=== PATIENT | male | born 1935 | race Caucasian/White ===

== ENCOUNTER 2021-03-03 16:39 | Inpatient (IN) | payer MEDICARE, SELFPAY ==
[2021-03-03] VITALS (7 sets, daily range): BP systolic 138–165; BP diastolic 71–90; PULSE 54–74; RESP 17–18; TEMP 35.9–36.7; O2SAT 92–100; BMI 25.8
--- NOTE | 2021-03-03 17:07 | PC.NURSE ---
Attempted to contact radha bautista. Spoke to Kelly BABB. when seeking clarification regarding labs. Pt was sent from facility with hand written note of critical Low platelets of 1999. Per SKINNY Mendoza, you're missing paperwork he's a direct admit, i can't do anything. Attempted to clarify that the issue with paperwork is a continuity of care issue. Per kelly babb she can not fax results for critical labs, she can not tell this ad writer who the sending physician is or if the paperwork infront of this ad writer is accurate. I don't care. 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 Don't bother me .
[2021-03-03 17:36] LABS: Hemoglobin 10.4 g/dl (14.0-18.0); MANUAL DIFF FLAG SCAN; Neutrophils Absolute Auto 8.1 X10*3/uL (2.0-8.3); SCAN SMEAR FLAG 1
[2021-03-03 17:38] LABS: Hematocrit 32.6 % (42-52); Imm Gran Abs Auto 0.06 X10*3/uL (0.00-0.03); Imm Gran Pct Auto 0.6 % (0.0-0.4); Lymphocytes Absolute Auto 1.8 X10*3/uL (1.2-4.9); Lymphocytes Percent Auto 17.2 % (20-40); Mean Corpuscular HGB Conc 31.9 g/dl (31.0-36.0); Mean Corpuscular Hemoglobin 29.6 pg (27.0-33.0); Mean Corpuscular Volume 92.9 fL (80-98); Monocytes Absolute Auto 0.4 X10*3/uL (0.1-1.2); Monocytes Percent Auto 3.8 % (2-11); Neutrophils Percent Auto 78.4 % (45-73); Red Blood Count 3.51 X10*6/uL (4.60-5.80); Red Cell Distribution Width 15.3 % (11.0-16.0); White Blood Count 10.4 X10*3/uL (4.8-10.8)
--- NOTE | 2021-03-03 17:42 | ED_ITS ---
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 Currently patient has no source of bleeding. Patient recently mild stroke left him with a mild right hemiparesis. Related Data Home Medications Medication Instructions Recorded Confirmed acetaminophen 650 mg PO Q6-8H PRN 03/03/21 03/03/21 alum-mag hydroxide-simeth 10 ml PO Q6H PRN 03/03/21 03/03/21 [Felicia-Lanta] aspirin 81 mg PO DAILY 03/03/21 03/03/21 bisacodyl 10 mg OR DAILY PRN 03/03/21 03/03/21 calcium carbonate [Tums] 400 mg PO DAILY PRN 03/03/21 03/03/21 calcium carbonate-vitamin D3 1 cap PO DAILY 03/03/21 03/03/21 [Calcium 600 + D(3)] ezetimibe 10 mg PO DAILY 03/03/21 03/03/21 metoprolol tartrate 25 mg PO DAILY 03/03/21 03/03/21 multivit [id number] acid 1 cap PO DAILY 03/03/21 03/03/21 nitroglycerin 0.4 mg SUBLINGUAL Q5M PRN 03/03/21 03/03/21 prednisone 30 mg PO DAILY 03/03/21 03/03/21 sennosides [senna] 8.6 mg PO BEDTIME 03/03/21 03/03/21 tamsulosin 0.4 mg PO DAILY 03/03/21 03/03/21 Allergies Allergy/AdvReac Type Severity Reaction Status Date / Time bupropion [From WELLBUTRIN] Allergy Unknown UNKNOWN Unverified 08/13/20 15:19 any statin Allergy Unknown Uncoded 03/19/20 00:00 BuPROPion HCl Allergy Unknown Uncoded 03/19/20 00:00 Wellbutrin Allergy Unknown Uncoded 03/12/20 00:00 Review of Systems Review of Systems: All other systems are reviewed and are negative Constitutional: Reports as per HPI and Reports no additional constitutional complaints Eyes: Reports as per HPI and Reports no additional eye complaints Reports system reviewed and no additional complaints, except as documented Cardiovascular: Reports as per HPI and Reports no additional cardiovascular complaints Respiratory: Reports as per HPI and Reports no additional respiratory complaints Gastrointestinal: Reports as per HPI and Reports no additional gastrointestinal complaints Genitourinary: Reports no additional female genitourinary complaints Musculoskeletal: Reports no additional musculoskeletal complaints Skin/Breast: Reports system reviewed and no additional complaints, except as docu Psychiatric: Reports no additional psychiatric complaints Endocrine: Reports no additional endocrine complaints Hematologic/Lymphatic: Reports no additional hematologic/lymphatic complaints Allergic/Immunologic: Reports no additional allergic/immunologic complaints Reports system reviewed and no additional complaints, except as documented and Reports Abnormal speech present COUNTS INCLUDE 234 BEDS AT THE [facility] Past Medical History Medical History Anemia with low platelet count Renal cancer Stroke Social History Social History Advance Directives: No Advance Directives Information Provided: No Physical Exam Vital Signs: Vital Signs: Last Vital Signs Temp 97.7 F 03/03/21 18:13 Pulse 60 03/03/21 18:13 Resp 18 03/03/21 18:13 BP 150/71 H 03/03/21 18:13 Pulse Ox 97 03/03/21 18:13 Body Mass Index 25.8 Vital signs have been reviewed as appeared to be correct. Blood pressure normal. Heart rate normal. Respiration rate normal. Temperature normal. Oxygen saturation normal. Appearance: Alert. Oriented X3. No acute distress. Head: Normal external exam. Normocephalic. Atraumatic. No Gonsales signs noted. No raccoon eyes noted Eyes: PERRLA. EOMI. Conjunctiva and sclera normal. Eyelids normal. ENT: TM's Normal. Pharynx normal. Uvula midline. Moist mucous membranes. No trismus noted. No drooling noted. No muffled voice noted. Neck: Normal inspection. Neck supple. FROM. No adenopathy. Thyroid Normal. No meningeal signs. No neck mass noted. CVS: Normal heart rate and rhythm. Heart sound normal. No murmurs noted. Pulses normal throughout. Respiratory: No respiratory distress. Painless inspiration. Breath sounds normal. No wheezes/rales/rhonchi noted. Chest nontender. No accessory muscle usage noted or decreased air movement noted. Abdomen: Soft and nontender. Bowel sounds normal in all 4 quadrants. No distention noted. No organomegaly noted. No visible injury noted. Rectal: No active bleeding. Back: No CVA tenderness. Full range of motion noted. Skin: Skin warm and dry. Normal skin color. Normal skin turgor. No rashes/lesions/lacerations noted. Extremities: No lower extremity edema. Extremities exhibit normal range of motion. Extremities nontender. Neuro: Oriented X 3. No motor deficit. No sensory deficit. Reflexes normal. Course Course Course Narrative: Assessment and plan. 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 The case is discussed with Dr. James to start the patient on IVIG/given 1 dose of prednisolone 30 mg p.o./2 units of platelets. And admit the patient for further evaluation. Medical Decision Making Lab Data Lab results reviewed: Yes I reviewed the patient's lab results. Result diagrams: 03/03/21 17:20 03/03/21 17:20 Labs: Lab Results 03/03/21 03/03/21 03/03/21 Range/Units 17:20 17:20 17:20 WBC 10.4 (4.8-10.8) X10*3/uL RBC 3.51 L (4.60-5.80) X10*6/uL Hgb 10.4 L (14.0-18.0) g/dl Hct 32.6 L (42-52) % MCV 92.9 (80-98) fL MCH 29.6 (27.0-33.0) pg MCHC 31.9 (31.0-36.0) g/dl RDW 15.3 (11.0-16.0) % Plt Count 1 L* (160-400) X10*3/uL MPV Not Reportable Immature Gran % (Auto) 0.6 H (0.0-0.4) % Neut % (Auto) 78.4 H (45-73) % Lymph % (Auto) 17.2 L (20-40) % Corson % (Auto) 3.8 (2-11) % Eos % (Auto) 0.0 (0-4) % Baso % (Auto) 0.0 (0-2) % Lymph # (Auto) 1.8 (1.2-4.9) X10*3/uL Corson # (Auto) 0.4 (0.1-1.2) X10*3/uL Eos # (Auto) 0.0 (0.0-0.4) X10*3/uL Baso # (Auto) 0.0 (0.0-0.2) X10*3/uL Abs Immat Gran (auto) 0.06 H (0.00-0.03) X10*3/uL Absolute Neuts (auto) 8.1 (2.0-8.3) X10*3/uL Absolute Nucleated RBC 0.000 (0.0-0.012) X10*3/uL Nucleated RBC % (auto) 0.0 (0.0-0.2) /100WBC Smear Tech's Comments VERIFIED Hold Blue Top SEE NOTE Sodium 132 L (135-145) mmol/L Potassium 4.9 (3.3-5.1) mmol/L Chloride 99 (96-108) mmol/L Carbon Dioxide 28 (22-29) mmol/L Anion Gap 10 L (12-20) BUN 43 H (9-16) mg/dL Creatinine 1.22 (0.5-1.4) mg/dL Estim Creat Clear Calc 39.9 Estimated GFR 56 Random Glucose 167 H (60-115) mg/dL Calcium 8.2 L (8.4-10.2) mg/dL Total Bilirubin 0.2 (0.0-1.0) mg/dL AST 33 (5-37) U/L ALT 21 (0-40) U/L Alkaline Phosphatase 76 (39-117) U/L Total Protein 6.2 L (6.5-8.0) g/dL Albumin 3.1 L (3.5-5.0) g/dL Discharge Plan Discharge Clinical Impression: Acute idiopathic thrombocytopenic purpura Patient Disposition: Admitted As Inpatient Prescriptions: No Action sennosides [senna] 8.6 mg Tablet 8.6 mg PO BEDTIME RF: 0 prednisone 10 mg Tablet 30 mg PO DAILY RF: 0 acetaminophen 650 mg Tablet 650 mg PO Q6-8H PRN (Reason: Pain) RF: 0 tamsulosin 0.4 mg Capsule 0.4 mg PO DAILY RF: 0 bisacodyl 10 mg Suppository 10 mg OR DAILY PRN (Reason: Constipation) RF: 0 calcium carbonate [Tums] 200 mg calcium (500 mg) Tablet,Chewable 400 mg PO DAILY PRN (Reason: Acid Reflux) RF: 0 nitroglycerin 0.4 mg Tablet, Sublingual 0.4 mg SUBLINGUAL Q5M PRN (Reason: Chest Pain) RF: 0 aspirin 81 mg Tablet 81 mg PO DAILY RF: 0 alum-mag hydroxide-simeth [Felicia-Lanta] 200-200-20 mg/5 mL Suspension 10 ml PO Q6H PRN (Reason: Pain) RF: 0 ezetimibe 10 mg Tablet 10 mg PO DAILY RF: 0 metoprolol tartrate 25 mg Tablet 25 mg PO DAILY RF: 0 Calcium 600 + D(3) 600 mg calcium- 200 unit Capsule 1 cap PO DAILY RF: 0 multivit no.[id number] acid 106.5-1 mg Capsule 1 cap PO DAILY RF: 0
--- NOTE | 2021-03-03 17:49 | PC.NURSE ---
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
[2021-03-03 17:51] LABS: PLT ABN DIST 1; Platelet Count 1 X10*3/uL (160-400)
[2021-03-03 17:58] LABS: Alanine Aminotransferase 21 U/L (0-40); Albumin Level 3.1 g/dL (3.5-5.0); Alkaline Phosphatase 76 U/L (39-117); Anion Gap 10 (12-20); Aspartate Amino Transferase 33 U/L (5-37); Bilirubin Total 0.2 mg/dL (0.0-1.0); Blood Urea Nitrogen 43 mg/dL (9-16); Calcium 8.2 mg/dL (8.4-10.2); Carbon Dioxide 28 mmol/L (22-29); Chloride 99 mmol/L (96-108); Creatinine Clr Calc Pharmacy 39.9; Estimated Glomerular Filt Rate 56; Glucose Random 167 mg/dL (60-115); Potassium 4.9 mmol/L (3.3-5.1); Sodium 132 mmol/L (135-145); Total Protein 6.2 g/dL (6.5-8.0)
[2021-03-03 18:07] LABS: SLIDE REVIEW VERIFIED
[2021-03-03] MEDS: predniSONE 10 MG TABLET 30 MG PO (18:30)
[2021-03-03] MEDS: diphenhydrAMINE HCL 50 MG/ML VIAL 12.5 MG IVPUSH (19:05)
[2021-03-03] MEDS: Acetaminophen 325 MG TABLET 650 MG PO (19:06)
[2021-03-03 20:12] LABS: COVID-19 Test Negative (Negative)
--- NOTE | 2021-03-03 20:53 | PM.IMHP ---
History of Present Illness Date of Service: 03/03/21 Chief Complaint: ITP Old male with past medical history of ITP in the past,, CVA, who presents to the hospital with complaints of low platelet count. Patient reports that he was away in March, returned on Monday, has been in rehab since Monday, noticed some rectal bleeding today after wiping his bottom, as well as right nostril bleed that was small in size but this is how he know he may have ITP. He asked the resident nurse to get his labs, labs were done and patient was found to have platelets of 1000 therefore referred to the hospital. He currently denies any chest pain, shortness of breath, abdominal pain nausea or vomiting, reports constipation, no diarrhea, no lower extremity edema no urinary symptoms. No active bleed. Vitals on arrival significant for temp of 96.6? that normalized, heart rate of 74, respiratory rate of 18, blood pressure 138/78, satting 100% on room air. Labs are significant for WBC count of 10.4,, hemoglobin of 10.4, hematocrit 32.6, platelets of 1000, sodium of 132, potassium 4.9, BUN of 43, creatinine of 1.22 with a baseline around 0.98 to 1.19, albumin of 3.1, COVID negative, Dr. James news department intern/oncologist was consulted and recommended patient received prednisone, IVIG, and 2 units of platelets Past medical history as below confirmed patient Review of Systems Review of Systems: Yes all other systems are reviewed and are negative [facility] Medical History Anemia with low platelet count Renal cancer Stroke Social History Household Members: None Housing: Long Term Do you presently have visiting nurse or other home services: No Smoking Status: Former smoker Use of substances other than those prescribed or required for medical reasons: No Currently Displaying Signs/Symptoms of Drug Intoxication Withdrawal: No Have you been hit, kicked, punched, or otherwise hurt by someone within the past year? If so, by whom?: No Do you feel safe in your current relationship?: No Current Relationship Is there a partner from a previous relationship who is making you feel unsafe now?: No Are you made to feel afraid or neglected: No Advance Directives: No Advance Directives Information Provided: No Do you have thoughts of harming others: None Do you have a plan to hurt others: No Plan Recently lost weight without trying: Unsure Meds Allergies Allergy/AdvReac Type Severity Reaction Status Date / Time bupropion [From WELLBUTRIN] Allergy Unknown Unknown Verified 03/03/21 22:53 any statin Allergy Unknown Unknown Uncoded 03/03/21 22:53 BuPROPion HCl Allergy Unknown Unknown Uncoded 03/03/21 22:53 Wellbutrin Allergy Unknown Unknown Uncoded 03/03/21 22:53 Active Medications: Current Medications Generic Name Dose Route Start Last Admin Trade Name Freq PRN Reason Stop Dose Admin Immune Globulin 10 gm in 100 mls @ 43 mls/hr 03/03/21 19:00 03/03/21 19:07 Flebogamma 10% IV 03/03/21 21:19 43 mls/hr ONCE ONE Administration As Directed Immune Globulin 20 gm in 200 mls @ 43 mls/hr 03/03/21 21:20 Flebogamma 10% IV 03/04/21 01:59 ONCE ONE As Directed Immune Globulin 20 gm in 200 mls @ 43 mls/hr 03/04/21 02:00 Flebogamma 10% IV 03/04/21 06:39 ONCE ONE As Directed Immune Globulin 20 gm in 200 mls @ 43 mls/hr 03/04/21 06:40 Flebogamma 10% IV 03/04/21 11:19 ONCE ONE As Directed Immune Globulin 10 gm in 100 mls @ 43 mls/hr 03/04/21 19:00 Flebogamma 10% IV 03/04/21 21:19 ONCE ONE As Directed Immune Globulin 20 gm in 200 mls @ 43 mls/hr 03/04/21 21:20 Flebogamma 10% IV 03/05/21 01:59 ONCE ONE As Directed Immune Globulin 20 gm in 200 mls @ 43 mls/hr 03/05/21 02:00 Flebogamma 10% IV 03/05/21 06:39 ONCE ONE As Directed Immune Globulin 20 gm in 200 mls @ 43 mls/hr 03/05/21 06:40 Flebogamma 10% IV 03/05/21 11:19 ONCE ONE As Directed Home Medications Medication Instructions Recorded Confirmed Last Taken Type acetaminophen 650 mg PO Q6-8H PRN 03/03/21 03/03/21 1 Day Ago History ~03/02/21 alum-mag hydroxide-simeth 10 ml PO Q6H PRN 03/03/21 03/03/21 1 Day Ago History [Felicia-Lanta] ~03/02/21 aspirin 81 mg PO DAILY 03/03/21 03/03/21 1 Day Ago History ~03/02/21 bisacodyl 10 mg MI DAILY PRN 03/03/21 03/03/21 1 Day Ago History ~03/02/21 calcium carbonate [Tums] 400 mg PO DAILY PRN 03/03/21 03/03/21 1 Day Ago History ~03/02/21 calcium carbonate-vitamin D3 1 cap PO DAILY 03/03/21 03/03/21 1 Day Ago History [Calcium 600 + D(3)] ~03/02/21 ezetimibe 10 mg PO DAILY 03/03/21 03/03/21 1 Day Ago History ~03/02/21 metoprolol tartrate 25 mg PO DAILY 03/03/21 03/03/21 1 Day Ago History ~03/02/21 multivit no.[id number] acid 1 cap PO DAILY 03/03/21 03/03/21 1 Day Ago History ~03/02/21 nitroglycerin 0.4 mg SUBLINGUAL Q5M PRN 03/03/21 03/03/21 1 Day Ago History ~03/02/21 prednisone 30 mg PO DAILY 03/03/21 03/03/21 1 Day Ago History ~03/02/21 sennosides [senna] 8.6 mg PO BEDTIME 03/03/21 03/03/21 1 Day Ago History ~03/02/21 tamsulosin 0.4 mg PO DAILY 03/03/21 03/03/21 1 Day Ago History ~03/02/21 Physical Exam Vital Signs and Narrative: Vital Signs: Last Vital Signs Temp 97.7 F 03/03/21 18:13 Pulse 59 03/03/21 20:00 Resp 18 03/03/21 20:00 BP 150/90 H 03/03/21 20:00 Pulse Ox 95 03/03/21 20:00 Body Mass Index 25.8 Const: General: cooperative and no acute distress Orientation/consciousness: patient oriented x3 Eyes: General: appearance normal, both eyes and all related structures Resp: Effort & Inspection: normal respiratory effort and able to speak in complete sentences Cardio: Rate: regular rate Rhythm: regular rhythm GI: Palpation (GI): Soft to palpation Auscultation: normal bowel sounds Skin: General skin exam: no rashes or lesions noted Neuro: General: patient oriented x3 Cognition (Neuro): normal cognition Extrem: General: Yes normal to inspection and Yes no pedal edema Results Labs CBC and Chem 7: 03/04/21 04:29 03/04/21 04:29 Labs: Laboratory Results - last 24 hr 03/03/21 03/03/21 03/03/21 17:20 17:20 17:20 MCV 92.9 MCH 29.6 MCHC 31.9 RDW 15.3 Plt Count 1 L* MPV Not Reportable Immature Gran % (Auto) 0.6 H Neut % (Auto) 78.4 H Lymph % (Auto) 17.2 L Esmeralda % (Auto) 3.8 Eos % (Auto) 0.0 Baso % (Auto) 0.0 Lymph # (Auto) 1.8 Esmeralda # (Auto) 0.4 Eos # (Auto) 0.0 Baso # (Auto) 0.0 Abs Immat Gran (auto) 0.06 H Absolute Neuts (auto) 8.1 Absolute Nucleated RBC 0.000 Nucleated RBC % (auto) 0.0 Smear Tech's Comments VERIFIED Hold Blue Top SEE NOTE Anion Gap 10 L Estim Creat Clear Calc 39.9 Estimated GFR 56 Random Glucose 167 H Calcium 8.2 L Total Bilirubin 0.2 AST 33 ALT 21 Alkaline Phosphatase 76 Total Protein 6.2 L Albumin 3.1 L COVID-19 (ANNETTE) COVID-19 Clin Com Blood Type Antibody Screen 03/03/21 03/03/21 18:22 19:19 MCV MCH MCHC RDW Plt Count MPV Immature Gran % (Auto) Neut % (Auto) Lymph % (Auto) Esmeralda % (Auto) Eos % (Auto) Baso % (Auto) Lymph # (Auto) Esmeralda # (Auto) Eos # (Auto) Baso # (Auto) Abs Immat Gran (auto) Absolute Neuts (auto) Absolute Nucleated RBC Nucleated RBC % (auto) Smear Tech's Comments Hold Blue Top Anion Gap Estim Creat Clear Calc Estimated GFR Random Glucose Calcium Total Bilirubin AST ALT Alkaline Phosphatase Total Protein Albumin COVID-19 (ANNETTE) Negative COVID-19 Clin Com See Note Blood Type B Negative Antibody Screen NEGATIVE Assessment and Plan (1) Acute idiopathic thrombocytopenic purpura: Status: Acute This is a 89-year-old male with past medical history of CVA, renal cancer, ITP who presents to the hospital with acute ITP # acute ITP - unclear precipitating event - reports that he travel from [place] 400 mile by CAR on monday - no overt bleeding at this time - platelet count of 1000 - receiving 2 units of platelet as well as IVIG, and received 30 mg of prednisone in the ED Plan: - will start him on pulsed dexamethasone which has been shown to decrease steroid dependence as well as faster recovery - will follow CBC and platelet count - hematology consulted # CVA - hold aspirin given low platelet - continue ezetimibe DVT prophylaxis: SCDs
[2021-03-03] MEDS: 0.9 % Sodium Chloride 1,000 ML 100 ML IVCONT (22:06)
--- NOTE | 2021-03-03 22:06 | PC.NURSE ---
awaiting IGG from [facility] at this time.
[2021-03-03 23:13] LABS: Basophils Percent Auto 0.1 % (0-2); Hematocrit 31.9 % (42-52); Imm Gran Abs Auto 0.06 X10*3/uL (0.00-0.03); Imm Gran Pct Auto 0.5 % (0.0-0.4); Lymphocytes Absolute Auto 1.8 X10*3/uL (1.2-4.9); Lymphocytes Percent Auto 16.2 % (20-40); MANUAL DIFF FLAG SCAN; Mean Corpuscular HGB Conc 31.3 g/dl (31.0-36.0); Mean Corpuscular Hemoglobin 29.4 pg (27.0-33.0); Mean Corpuscular Volume 93.8 fL (80-98); Monocytes Absolute Auto 0.6 X10*3/uL (0.1-1.2); Monocytes Percent Auto 5.3 % (2-11); NRBC Pct Auto 0.2 /100WBC (0.0-0.2); Neutrophils Absolute Auto 8.6 X10*3/uL (2.0-8.3); Neutrophils Percent Auto 77.9 % (45-73); Red Cell Distribution Width 15.2 % (11.0-16.0); SCAN SMEAR FLAG 1
[2021-03-03 23:14] LABS: PLT ABN DIST 1
[2021-03-03 23:15] LABS: Platelet Count 3 X10*3/uL (160-400)
[2021-03-04] VITALS (14 sets, daily range): BP systolic 138–166; BP diastolic 67–85; PULSE 58–84; RESP 12–20; TEMP 36.1–36.8; O2SAT 95–99
[2021-03-04 04:57] LABS: Hemoglobin 9.9 g/dl (14.0-18.0); MANUAL DIFF FLAG SCAN; Mean Corpuscular Volume 92.2 fL (80-98); SCAN SMEAR FLAG 1
[2021-03-04 04:58] LABS: Hematocrit 30.7 % (42-52); Imm Gran Abs Auto 0.05 X10*3/uL (0.00-0.03); Imm Gran Pct Auto 0.4 % (0.0-0.4); Lymphocytes Absolute Auto 1.3 X10*3/uL (1.2-4.9); Lymphocytes Percent Auto 11.2 % (20-40); Mean Corpuscular HGB Conc 32.2 g/dl (31.0-36.0); Mean Corpuscular Hemoglobin 29.7 pg (27.0-33.0); Monocytes Absolute Auto 0.3 X10*3/uL (0.1-1.2); Monocytes Percent Auto 2.5 % (2-11); Neutrophils Absolute Auto 10.3 X10*3/uL (2.0-8.3); Neutrophils Percent Auto 85.9 % (45-73); Red Blood Count 3.33 X10*6/uL (4.60-5.80); Red Cell Distribution Width 15.2 % (11.0-16.0)
[2021-03-04 05:03] LABS: PLT ABN DIST 1
[2021-03-04 05:05] LABS: Platelet Count 13 X10*3/uL (160-400)
[2021-03-04 05:07] LABS: SLIDE REVIEW VERIFIED
[2021-03-04 05:20] LABS: Anion Gap 11 (12-20); Blood Urea Nitrogen 40 mg/dL (9-16); Carbon Dioxide 25 mmol/L (22-29); Chloride 102 mmol/L (96-108); Estimated Glomerular Filt Rate 60; Glucose Random 161 mg/dL (60-115); Potassium 4.6 mmol/L (3.3-5.1); Sodium 133 mmol/L (135-145)
[2021-03-04] MEDS: Ezetimibe 10 MG TABLET PO (09:12)
[2021-03-04] MEDS: dexAMETHasone 4 MG TABLET 40 MG PO (09:12)
[2021-03-04] MEDS: Metoprolol Tartrate 25 MG TABLET PO (09:13)
--- NOTE | 2021-03-04 12:58 | PM.HEMONCCN ---
Subjective - Subjective Chief complaint: Consult for: Thrombocytopenia. Patient: new to practice Consult date: 03/04/21 Requesting Physician: Dr. Burks. Primary Care Provider: Unknown Physician Medical Summary: DIAGNOSIS: Consult for thrombocytopenia. HPI - Consult Narrative Reason for consult: Consult for: Thrombocytopenia. Narrative: Jean Del Angel is a pleasant 85 year old gentleman, with past medical history of ITP , and CVA. He presented to the hospital with complaints of low platelet count. Patient mentions that he was away in [place]. There he was admitted to the hospital for a stroke. He came back on Monday. He has been in rehab since then. Two days ago, he noticed some rectal bleeding, upon wiping, as well as some bleeding from his right nostril, small in amount. That made him suspect that he has relapsed. He asked the resident nurse to get his labs. He was thus found to have platelets of 1000. He currently denies any chest pain, shortness of breath, abdominal pain nausea or vomiting, no diarrhea. He does report constipation. No lower extremity edema no urinary symptoms. No other active bleeding. Vitals: temp of 96.6? that normalized, heart rate of 74, respiratory rate of 18, blood pressure 138/78, satting 100% on room air. Labs significant for: WBC count of 10.4,, hemoglobin of 10.4, hematocrit 32.6, platelets of 1000. Sodium of 132, potassium 4.9, BUN of 43, creatinine of 1.22 with a baseline around 0.98 to 1.19, albumin of 3.1. COVID; negative. Patient has received Prednisone, IVIG, and 2 units of platelets. Previous history: 1.Autoimmune thrombocytopenia status post splenectomy in 2018. Evaluation in [place] showed positive XIMENA titer of 1:320. Bone marrow aspiration/biopsy performed December 2018 showed mildly hypercellular bone marrow with trilineage hematopoiesis. Small abnormal B lymphocyte population identified by flow cytometry, 1%. Received rituximab from 01/29/2019 to 02/20/19. Nplate from 02/01/2019 to 02/27/2019. Splenectomy on 03/20/2019 with vaccination protocol. 2. Renal cell carcinoma of left kidney, status post nephrectomy on 03/20/2019. Stage pT3 pN0. 3. CT chest showed lung nodules initially concerning for metastatic disease, repeat in December showed improvement. Not consistent with metastatic disease. Review of Systems - Constitutional Reports system reviewed and no additional complaints, except as documented, Reports lack of energy - Eyes Reports system reviewed and no additional complaints, except as documented, Denies blurry vision - ENT Reports system reviewed and no additional complaints, except as documented - Cardiovascular Reports system reviewed and no additional complaints, except as documented, Denies chest pain at rest - Respiratory Reports no additional respiratory complaints, Denies change in phlegm color - Gastrointestinal Reports system reviewed and no additional complaints, except as documented, Reports constipation, Denies abdominal pain, Denies change in bowel habits - Genitourinary Genitourinary: Reports no additional male genitourinary complaints, Denies blood in urine - Musculoskeletal Reports system reviewed and no additional complaints, except as documented, Denies back pain - Integumentary/Breasts Skin/Breast: Reports no additional skin complaints, Reports bleeding lesions - Neurologic Reports system reviewed and no additional complaints, except as documented - Psychiatric Reports system reviewed and no additional complaints, except as documented, Denies anxiety - Endocrine Reports no additional endocrine complaints, Denies excessive sweating - Hematologic/Lymphatic Reports system reviewed and no additional complaints, except as documented, Reports easy bleeding, Reports easy bruising - Allergic/Immunologic Reports system reviewed and no additional complaints, except as documented, Denies GI upset with certain foods PMFSH Medical History: Medical History (Last Reviewed 03/04/21 @ 06:18 by Sebas Langley MD) Anemia with low platelet count Renal cancer Stroke Functional capacity: independent ambulation Patient : No Social History: Social History (Last Reviewed 03/03/21 @ 17:45 by Alan Diaz MD) Living Situation History: Household Members: None Housing: Skilled Nursing Alcohol History Details: Alcohol intake frequency: 0-2 drinks per day Occupation Assessmet: Current occupational status: retired Smoking status: Former smoker Home Medications and Allergies Current Medications: Current Medications Generic Name Dose Route Start Last Admin Trade Name Freq PRN Reason Stop Dose Admin Acetaminophen 650 mg 03/03/21 21:00 Acetaminophen 325 Mg Tablet PO Q6H PRN Pain, Mild (Pain Scale 1-3) Bisacodyl 10 mg 03/03/21 21:00 Bisacodyl 10 Mg Supp.Rect VT DAILY PRN Constipation Calcium Carbonate 750 mg 03/03/21 21:10 Calcium Carbonate 750 Mg Tab.Chew PO DAILY PRN Acid Reflux Dexamethasone 40 mg 03/04/21 09:00 03/04/21 09:12 Dexamethasone 4 Mg Tablet PO 40 mg DAILY [facility] Administration Ezetimibe 10 mg 03/04/21 09:00 03/04/21 09:12 Ezetimibe 10 Mg Tablet PO 10 mg DAILY [facility] Administration Immune Globulin 20 gm in 200 mls @ 43 mls/hr 03/05/21 06:40 Flebogamma 10% IV 03/05/21 11:19 ONCE ONE As Directed Immune Globulin 10 gm in 100 mls @ 43 mls/hr 03/04/21 19:00 Flebogamma 10% IV 03/04/21 21:19 ONCE ONE As Directed Immune Globulin 20 gm in 200 mls @ 43 mls/hr 03/04/21 21:20 Flebogamma 10% IV 03/05/21 01:59 ONCE ONE As Directed Immune Globulin 20 gm in 200 mls @ 43 mls/hr 03/05/21 02:00 Flebogamma 10% IV 03/05/21 06:39 ONCE ONE As Directed Metoprolol Tartrate 25 mg 03/04/21 09:00 03/04/21 09:13 Metoprolol Tartrate 25 Mg Tablet PO 25 mg DAILY [facility] Administration Protocol Nitroglycerin 0.4 mg 03/03/21 21:00 Nitroglycerin 0.4 Mg Tab.Subl SUBLINGUAL Q5M PRN Chest Pain Ondansetron HCl 4 mg 03/03/21 21:00 Ondansetron Hcl 4 Mg/2 Ml Vial IVPUSH Q8H PRN Nausea and Vomiting Senna 8.6 mg 03/03/21 21:00 03/03/21 22:00 Sennosides 8.6 Mg Tablet PO Not Given BEDTIME [facility] Sodium Chloride 3 ml 03/04/21 00:00 03/04/21 09:13 0.9 % Sodium Chloride Flush 3 Ml Syringe IVFLUSH Not Given QSHIFT [facility] Tamsulosin HCl 0.4 mg 03/04/21 21:00 Tamsulosin Hcl 0.4 Mg Capsule PO BEDTIME [facility] Home Medications Medication Instructions Recorded Confirmed Type Calcium 600 + D(3) 1 cap PO DAILY 03/03/21 03/03/21 History acetaminophen 650 mg PO Q6-8H PRN 03/03/21 03/03/21 History alum-mag hydroxide-simeth 10 ml PO Q6H PRN 03/03/21 03/03/21 History [Felicia-Lanta] aspirin 81 mg PO DAILY 03/03/21 03/03/21 History bisacodyl 10 mg VT DAILY PRN 03/03/21 03/03/21 History calcium carbonate [Tums] 400 mg PO DAILY PRN 03/03/21 03/03/21 History ezetimibe 10 mg PO DAILY 03/03/21 03/03/21 History metoprolol tartrate 25 mg PO DAILY 03/03/21 03/03/21 History multivit no.89-qfjy-munom acid 1 cap PO DAILY 03/03/21 03/03/21 History nitroglycerin 0.4 mg SUBLINGUAL Q5M PRN 03/03/21 03/03/21 History prednisone 30 mg PO DAILY 03/03/21 03/03/21 History sennosides [senna] 8.6 mg PO BEDTIME 03/03/21 03/03/21 History tamsulosin 0.4 mg PO DAILY 03/03/21 03/03/21 History Allergies Allergy/AdvReac Type Severity Reaction Status Date / Time bupropion [From WELLBUTRIN] Allergy Unknown Unknown Verified 03/03/21 22:53 any statin Allergy Unknown Unknown Uncoded 03/03/21 22:53 BuPROPion HCl Allergy Unknown Unknown Uncoded 03/03/21 22:53 Wellbutrin Allergy Unknown Unknown Uncoded 03/03/21 22:53 Physical Exam Vital signs: Vital Signs Temp 97.7 F 03/04/21 12:39 Pulse 63 03/04/21 12:39 Resp 18 03/04/21 12:39 BP 150/81 H 03/04/21 12:39 Pulse Ox 95 03/04/21 07:31 Intake & Output 03/03/21 03/04/21 03/04/21 18:59 06:59 18:59 Intake Total 777.333 / 777.333 935 / 935 Output Total 1550 / 1550 Balance -772.667 / -772.667 935 / 935 Urine Output (Average ml/kg/hr) 1.78 1.78 Intake: Intake (Blood Product) Amount 349 / 349 0 / 0 Apheresis Platelets Irr(E3056) 0 / 0 Unit [id number] Plt Aph Pas Pathreduced(E8341) 349 / 349 Unit [id number] Intake, IV Amount 428.333 / 428.333 935 / 935 Imm Glob G (IgG)/Sorb/IGA 0-50 100 / 100 10 gm In 100 ml @ As Directed 43 mls/hr IV ONCE ONE Rx#: [id number] Imm Glob G (IgG)/Sorb/IGA 0-50 200 / 200 400 / 400 20 gm In 200 ml @ As Directed 43 mls/hr IV ONCE ONE Rx#: [id number] 0.9 % Sodium Chloride 1,000 ml 128.333 / 128.333 535 / 535 @ 100 mls/hr IVCONT .Q10H [facility] Rx#:[id number] Output: Output, Urine Amount 1550 / 1550 Other: Breakfast % Eaten 100% Lunch % Eaten 100% Dinner % Eaten 100% Urine Urinal Urine Color Yellow Weight 72.575 kg Weight 72.575 kg - Constitutional Present: mild distress - Routine HEENT Exam Head: Present: normal inspection ENT: Present: mucous membranes moist - Routine Neck Exam Present: supple - Routine Respiratory Exam Present: CTAB - Routine Cardiovascular Exam Cardiovascular: Present: RRR, S1, S2 - Routine Abdominal Exam Present: soft, nontender - Routine Rectal Exam Patient deferred: digital exam - Routine Exam Perineum Description: Normal - Routine Extremities Exam Present: nontender Hem/Onc Consult Result - Labs CBC & Chem 7: 03/05/21 05:42 03/05/21 05:42 Labs: Short CBC 03/03/21 03/03/21 03/04/21 Range/Units 17:20 23:06 04:29 WBC 10.4 11.0 H 12.0 H (4.8-10.8) X10*3/uL Hgb 10.4 L 10.0 L 9.9 L (14.0-18.0) g/dl Hct 32.6 L 31.9 L 30.7 L (42-52) % Plt Count 1 L* 3 L* D 13 L* D (160-400) X10*3/uL BMP 03/03/21 03/04/21 17:20 04:29 Sodium 132 L 133 L Potassium 4.9 4.6 Chloride 99 102 Carbon Dioxide 28 25 BUN 43 H 40 H Creatinine 1.22 1.16 Calcium 8.2 L 8.0 L Liver Function 03/03/21 Range/Units 17:20 Total Bilirubin 0.2 (0.0-1.0) mg/dL AST 33 (5-37) U/L ALT 21 (0-40) U/L Alkaline Phosphatase 76 (39-117) U/L Albumin 3.1 L (3.5-5.0) g/dL Assessment and Plan (1) Acute idiopathic thrombocytopenic purpura Status: Acute This is a pleasant 85-year-old gentleman with a previous history of stroke, a couple of weeks ago and prior history of ITP. 1. Autoimmune thrombocytopenia status post splenectomy in 2019. Evaluation in [place] showed positive XIMENA titer of 1:320. Bone marrow aspiration/biopsy performed December 2018 showed mildly hypercellular bone marrow with trilineage hematopoiesis. Small abnormal B lymphocyte population identified by flow cytometry, 1%. Received rituximab from 01/29/2019 to 02/20/19. Nplate from 02/01/2019 to 02/27/2019. Splenectomy on 03/20/2019 with vaccination protocol. He recently noted some nosebleeds and rectal bleeding. He suspected that he has a relapse. That was the case. It count on presentation was a 1000. PLAN: He has received 2 units of pheresed platelets, IVIG and prednisone. Currently on a pulse Decadron regimen. Will continue to monitor platelets carefully. Usually with ITP the platelets are young and hyper functional and so bleeding is less of an issue. Thank you, CC:
--- NOTE | 2021-03-04 13:28 | MHC.CM.PN ---
PT REPORTS HE HAS BEEN AT [facility] FOR STR WITH A PLAN TO TRANSITION TO [facility]. PT REPORTS BEING ANXIOUS TO LEAVE THE HOSPITAL STATING HE HAS BEEN IN SEVERAL AND FEELS IT IS DETRIMENTAL TO BOTH HIS PHYSICAL AND MENTAL HEALTH. PT HAS A MOLST ON FILE HE WILL HAVE A NEW PCP ONCE AT [facility] IMM VERBALLY DELIVERED AND PT CONFIRMS UNDERSTANDING. CURRENT DC PLAN IS RETURN TO [facility] WHERE PT HAS A BED HOLD, TO COMPLETE STR. PT WILL NEED BLS VS CHAIR VAN TRANSPORT DEPENDING ON HIS CONDITION AT DC,
[2021-03-04] MEDS: 0.9 % Sodium Chloride Flush 3 ML SYRINGE IVFLUSH ×2 (15:26→20:52)
--- NOTE | 2021-03-04 15:36 | HO.PM.IMPN ---
Subjective Subjective Date of Service: 03/04/21 Interval History: The patient was seen and evaluated this morning Sitting in his chair, feels comfortable, wants to keep moving and not set Still Platelets 61420 this morning No bleeding reported Denies any fever, chills or shortness of breath No reported other overnight events. Systemic review: No fever, chills or weakness No chest pain, palpitation No shortness of breath or coughing No abdominal pain, nausea or vomiting No urinary symptoms No any rash or wounds Physical Exam Vital Signs: Vital Signs: Last Vital Signs Temp 97.6 F 03/04/21 15:20 Pulse 77 03/04/21 15:20 Resp 18 03/04/21 15:20 BP 156/75 H 03/04/21 15:20 Pulse Ox 99 03/04/21 15:04 Body Mass Index 25.8 Const: Other: Constitutional : Alert, oriented, not in distress Neck : Normal inspection, Supple Cardiovascular : RRR, S1 S2, no lower extremity edema Respiratory : Good bilateral air entry, no crackles, wheezes or rhonchi Gastrointestinal: soft, lax, Normal bowel sounds, Non tender Skin : Warm/Dry, No rash Neurological : Alert & oriented x3, No focal deficit Objective Data Current Medications Generic Name Dose Route Start Last Admin Trade Name Freq PRN Reason Stop Dose Admin Acetaminophen 650 mg 03/03/21 21:00 Acetaminophen 325 Mg Tablet PO Q6H PRN Pain, Mild (Pain Scale 1-3) Bisacodyl 10 mg 03/03/21 21:00 Bisacodyl 10 Mg Supp.Rect CO DAILY PRN Constipation Calcium Carbonate 750 mg 03/03/21 21:10 Calcium Carbonate 750 Mg Tab.Chew PO DAILY PRN Acid Reflux Dexamethasone 40 mg 03/04/21 09:00 03/04/21 09:12 Dexamethasone 4 Mg Tablet PO 40 mg DAILY [facility] Administration Ezetimibe 10 mg 03/04/21 09:00 03/04/21 09:12 Ezetimibe 10 Mg Tablet PO 10 mg DAILY [facility] Administration Immune Globulin 20 gm in 200 mls @ 43 mls/hr 03/05/21 06:40 Flebogamma 10% IV 03/05/21 11:19 ONCE ONE As Directed Immune Globulin 10 gm in 100 mls @ 43 mls/hr 03/04/21 19:00 Flebogamma 10% IV 03/04/21 21:19 ONCE ONE As Directed Immune Globulin 20 gm in 200 mls @ 43 mls/hr 03/04/21 21:20 Flebogamma 10% IV 03/05/21 01:59 ONCE ONE As Directed Immune Globulin 20 gm in 200 mls @ 43 mls/hr 03/05/21 02:00 Flebogamma 10% IV 03/05/21 06:39 ONCE ONE As Directed Metoprolol Tartrate 25 mg 03/04/21 09:00 03/04/21 09:13 Metoprolol Tartrate 25 Mg Tablet PO 25 mg DAILY [facility] Administration Protocol Nitroglycerin 0.4 mg 03/03/21 21:00 Nitroglycerin 0.4 Mg Tab.Subl SUBLINGUAL Q5M PRN Chest Pain Ondansetron HCl 4 mg 03/03/21 21:00 Ondansetron Hcl 4 Mg/2 Ml Vial IVPUSH Q8H PRN Nausea and Vomiting Senna 8.6 mg 03/03/21 21:00 03/03/21 22:00 Sennosides 8.6 Mg Tablet PO Not Given BEDTIME [facility] Sodium Chloride 3 ml 03/04/21 00:00 03/04/21 15:26 0.9 % Sodium Chloride Flush 3 Ml Syringe IVFLUSH 3 ml QSHIFT [facility] Administration Tamsulosin HCl 0.4 mg 03/04/21 21:00 Tamsulosin Hcl 0.4 Mg Capsule PO BEDTIME [facility] Labs CBC & Chem 7: 03/04/21 04:29 03/04/21 04:29 Assessment and Plan (1) Acute idiopathic thrombocytopenic purpura: Status: Acute Assessment and Plan: This is a 89-year-old male with past medical history of CVA, renal cancer, ITP who presents to the hospital with acute ITP Acute ITP unclear precipitating event no overt bleeding at this time platelet count improved to 13,000 thousand this morning Received 2 units of platelets, to give 2 more units today Continue IVIG D2 Continue pulsed dexamethasone D2 follow CBC and platelet count hematology consulted Hyponatremia Na of 133 stable, likely 2/2 decrease PO intake Follow BMP CVA hold aspirin given low platelet continue ezetimibe DVT prophylaxis SCDs
[2021-03-04] MEDS: Tamsulosin HCL 0.4 MG CAPSULE PO (20:54)
[2021-03-05 03:46] VITALS: BP 141/69; PULSE 50; RESP 15; TEMP 36.7; O2SAT 98
--- NOTE | 2021-03-05 03:49 | PC.NURSE ---
Addendum entered by Adri Munoz RN 03/05/21 06:38: [employer]ist Dian was able to place a 20g IV in his left forearm. Restarted the IgG, running at 43ml/hr. Will continue to monitor site. Original Note: Both IVs noted to be infiltrated. Elevated and warm compress on both sites (right and left lower arm). 2.5 bottles of IgG left. Hospitalist notified, no new orders at this time.
[2021-03-05 06:38] LABS: NRBC Pct Auto 0.2 /100WBC (0.0-0.2); Red Cell Distribution Width 15.3 % (11.0-16.0)
[2021-03-05 06:40] LABS: Hematocrit 27.3 % (42-52); Hemoglobin 8.5 g/dl (14.0-18.0); Mean Corpuscular HGB Conc 31.1 g/dl (31.0-36.0); Mean Corpuscular Hemoglobin 29.1 pg (27.0-33.0); Mean Corpuscular Volume 93.5 fL (80-98); Mean Platelet Volume 13.5 fL (9.4-12.4); Red Blood Count 2.92 X10*6/uL (4.60-5.80); White Blood Count 9.2 X10*3/uL (4.8-10.8)
[2021-03-05 07:03] LABS: Blood Urea Nitrogen 36 mg/dL (9-16); Calcium 7.9 mg/dL (8.4-10.2); Creatinine Clr Calc Pharmacy 48.7; Estimated Glomerular Filt Rate > 60; Glucose Random 117 mg/dL (60-115)
[2021-03-05 07:14] LABS: Anion Gap 8 (12-20); Carbon Dioxide 26 mmol/L (22-29); Chloride 103 mmol/L (96-108); Potassium 4.3 mmol/L (3.3-5.1); Sodium 133 mmol/L (135-145)
[2021-03-05 07:19] LABS: PLT ABN DIST 1; Platelet Count 60 X10*3/uL (160-400)
[2021-03-05 07:48] VITALS: BP 135/69; PULSE 57; RESP 18; TEMP 36.9; O2SAT 97
[2021-03-05 07:52] VITALS: BP 135/69; PULSE 57
[2021-03-05] MEDS: Metoprolol Tartrate 25 MG TABLET PO (07:52)
[2021-03-05] MEDS: Ezetimibe 10 MG TABLET PO (07:52)
[2021-03-05] MEDS: dexAMETHasone 4 MG TABLET 40 MG PO (07:52)
[2021-03-05 08:11] VITALS: PULSE 74
--- NOTE | 2021-03-05 10:03 | PM.HEMONCPN ---
Medical Summary - Medical Summary Date of Service: 03/05/21 Chief complaint: Low platelets Medical Summary: DIAGNOSIS: Consult for thrombocytopenia. Interval History Interval history: Patient is feeling a lot better. He has not noticed any further hematochezia or nose bleeds. He does have extensive skin bruising. He wants to go back to rehabilitation center today. Review of Systems - Neurologic Reports no additional neurologic complaints [facility] Medical History: Medical History (Last Reviewed 03/04/21 @ 06:18 by Sebas Langley MD) Anemia with low platelet count Renal cancer Stroke Functional capacity: independent ambulation Social History: Social History (Last Reviewed 03/03/21 @ 17:45 by Alan Diaz MD) Living Situation History: Household Members: None Housing: Shelter Alcohol History Details: Alcohol intake frequency: 0-2 drinks per day Occupation Assessmet: Current occupational status: retired Smoking status: Former smoker Oncology Screenings - ECOG Performance Status ECOG Performance Status: 2 Home Medications and Allergies Current Medications: Current Medications Generic Name Dose Route Start Last Admin Trade Name Freq PRN Reason Stop Dose Admin Acetaminophen 650 mg 03/03/21 21:00 Acetaminophen 325 Mg Tablet PO Q6H PRN Pain, Mild (Pain Scale 1-3) Bisacodyl 10 mg 03/03/21 21:00 Bisacodyl 10 Mg Supp.Rect KS DAILY PRN Constipation Calcium Carbonate 750 mg 03/03/21 21:10 Calcium Carbonate 750 Mg Tab.Chew PO DAILY PRN Acid Reflux Dexamethasone 40 mg 03/04/21 09:00 03/05/21 07:52 Dexamethasone 4 Mg Tablet PO 40 mg DAILY CHIN Administration Ezetimibe 10 mg 03/04/21 09:00 03/05/21 07:52 Ezetimibe 10 Mg Tablet PO 10 mg DAILY CHIN Administration Immune Globulin 20 gm in 200 mls @ 43 mls/hr 03/05/21 06:40 Flebogamma 10% IV 03/05/21 11:19 ONCE ONE As Directed Metoprolol Tartrate 25 mg 03/04/21 09:00 03/05/21 07:52 Metoprolol Tartrate 25 Mg Tablet PO 25 mg DAILY CHIN Administration Protocol Nitroglycerin 0.4 mg 03/03/21 21:00 Nitroglycerin 0.4 Mg Tab.Subl SUBLINGUAL Q5M PRN Chest Pain Ondansetron HCl 4 mg 03/03/21 21:00 Ondansetron Hcl 4 Mg/2 Ml Vial IVPUSH Q8H PRN Nausea and Vomiting Senna 8.6 mg 03/03/21 21:00 03/04/21 20:54 Sennosides 8.6 Mg Tablet PO Not Given BEDTIME ON LICENSE OF [facility] Sodium Chloride 3 ml 03/04/21 00:00 03/05/21 07:53 0.9 % Sodium Chloride Flush 3 Ml Syringe IVFLUSH Not Given QSHIFT ON LICENSE OF [facility] Tamsulosin HCl 0.4 mg 03/04/21 21:00 03/04/21 20:54 Tamsulosin Hcl 0.4 Mg Capsule PO 0.4 mg BEDTIME ON LICENSE OF [facility] Administration Home Medications Medication Instructions Recorded Confirmed Type Calcium 600 + D(3) 1 cap PO DAILY 03/03/21 03/03/21 History acetaminophen 650 mg PO Q6-8H PRN 03/03/21 03/03/21 History alum-mag hydroxide-simeth 10 ml PO Q6H PRN 03/03/21 03/03/21 History [Felicia-Lanta] aspirin 81 mg PO DAILY 03/03/21 03/03/21 History bisacodyl 10 mg KS DAILY PRN 03/03/21 03/03/21 History calcium carbonate [Tums] 400 mg PO DAILY PRN 03/03/21 03/03/21 History ezetimibe 10 mg PO DAILY 03/03/21 03/03/21 History metoprolol tartrate 25 mg PO DAILY 03/03/21 03/03/21 History multivit no.46-vdii-zwrhl acid 1 cap PO DAILY 03/03/21 03/03/21 History nitroglycerin 0.4 mg SUBLINGUAL Q5M PRN 03/03/21 03/03/21 History prednisone 30 mg PO DAILY 03/03/21 03/03/21 History sennosides [senna] 8.6 mg PO BEDTIME 03/03/21 03/03/21 History tamsulosin 0.4 mg PO DAILY 03/03/21 03/03/21 History Allergies Allergy/AdvReac Type Severity Reaction Status Date / Time bupropion [From WELLBUTRIN] Allergy Unknown Unknown Verified 03/03/21 22:53 any statin Allergy Unknown Unknown Uncoded 03/03/21 22:53 BuPROPion HCl Allergy Unknown Unknown Uncoded 03/03/21 22:53 Wellbutrin Allergy Unknown Unknown Uncoded 03/03/21 22:53 Exam Vital signs: Vital Signs Temp 98.4 F 03/05/21 07:48 Pulse 74 03/05/21 08:11 Resp 18 03/05/21 07:48 BP 135/69 03/05/21 07:52 Pulse Ox 97 03/05/21 07:48 Intake & Output 03/04/21 03/05/21 03/05/21 18:59 06:59 18:59 Intake Total 1882 / 2585 703 / 2585 480 / 480 Output Total 800 / 2290 1490 / 2290 300 / 300 Balance 1082 / 295 -787 / 295 180 / 180 Urine Output (Average ml/kg/hr) 0.92 1.71 0.34 Intake: Intake, Oral Amount 360 / 720 360 / 720 480 / 480 Intake (Blood Product) Amount 587 / 587 Apheresis Platelets Irr(E3056) 309 / 309 Unit [id number] Plt Aph Pas Pathreduced(E8343) 278 / 278 Unit [id number] Intake, IV Amount 935 / 1278 343 / 1278 Imm Glob G (IgG)/Sorb/IGA 0-50 100 / 100 10 gm In 100 ml @ As Directed 43 mls/hr IV ONCE ONE Rx#: [id number] Imm Glob G (IgG)/Sorb/IGA 0-50 400 / 643 243 / 643 20 gm In 200 ml @ As Directed 43 mls/hr IV ONCE ONE Rx#: [id number] 0.9 % Sodium Chloride 1,000 ml 535 / 535 @ 100 mls/hr IVCONT .Q10H ON LICENSE OF [facility] Rx#:[id number] Output: Output, Urine Amount 800 / 2290 1490 / 2290 300 / 300 Other: Breakfast % Eaten 75% Lunch % Eaten 100% Dinner % Eaten 75% Urine Urinal Urinal Urine Color Yellow Yellow Last Bowel Movement 03/05/21 Stool Bathroom Stool Amount Moderate Stool Color Brown Weight 72.575 kg Body Mass Index 25.8 - Constitutional Present: mild distress - Routine HEENT Exam Head: Present: normal inspection - Routine Respiratory Exam Present: CTAB - Routine Cardiovascular Exam Cardiovascular: Present: RRR, S1, S2 - Routine Abdominal Exam Present: soft, nontender - Routine Extremities Exam Present: nontender Data - Labs CBC & Chem 7: 03/05/21 05:42 03/05/21 05:42 Labs: 03/03/21 17:20 Complete Blood Count Auto Diff Stat Comprehensive Met. Panel Stat Hold Lt Blue - Possible Coag Stat SLIDE REVIEW Stat 03/03/21 18:01 predniSONE 30 mg PO ONCE ONE 03/03/21 18:22 Pheresis Platelets Stat Type and Screen Stat 03/03/21 18:50 Acetaminophen [Tylenol] 650 mg PO ONCE ONE diphenhydrAMINE HCL [Benadryl] 12.5 mg IVPUSH ONCE ONE 03/03/21 19:00 Imm Glob G (IgG)/Sorb/IGA 0-50 [Flebogamma 10%] 10 gm in 100 ml IV ONCE 03/03/21 19:19 COVID-19 ID NOW ([place]) Stat 03/03/21 20:28 Transfer Order Routine 03/03/21 21:00 0.9 % Sodium Chloride [Ns] 1,000 ml IVCONT 100 mls/hr 03/03/21 21:00 IV insert/maintain Q4HR Intake and Output Q8HR Vital Signs Q4HR 03/03/21 22:00 Imm Glob G (IgG)/Sorb/IGA 0-50 [Flebogamma 10%] 20 gm in 200 ml IV ONCE 03/03/21 22:15 Transfer Order Routine 03/03/21 23:06 Complete Blood Count Auto Diff Stat 03/04/21 02:40 Imm Glob G (IgG)/Sorb/IGA 0-50 [Flebogamma 10%] 20 gm in 200 ml IV ONCE 03/04/21 04:29 Basic Metabolic Panel Routine Complete Blood Count Auto Diff Routine SLIDE REVIEW Routine 03/04/21 07:20 Imm Glob G (IgG)/Sorb/IGA 0-50 [Flebogamma 10%] 20 gm in 200 ml IV ONCE 03/04/21 09:00 predniSONE 30 mg PO DAILY 03/04/21 19:00 Imm Glob G (IgG)/Sorb/IGA 0-50 [Flebogamma 10%] 10 gm in 100 ml IV ONCE 03/04/21 21:20 Imm Glob G (IgG)/Sorb/IGA 0-50 [Flebogamma 10%] 20 gm in 200 ml IV ONCE 03/05/21 02:00 Imm Glob G (IgG)/Sorb/IGA 0-50 [Flebogamma 10%] 20 gm in 200 ml IV ONCE 03/05/21 05:42 Basic Metabolic Panel DAILY@0600 Complete Blood Count no Diff DAILY@0600 03/05/21 06:40 Imm Glob G (IgG)/Sorb/IGA 0-50 [Flebogamma 10%] 20 gm in 200 ml IV ONCE Laboratory Last Values WBC 9.2 X10*3/uL (4.8-10.8) 03/05/21 05:42 RBC 2.92 X10*6/uL (4.60-5.80) L 03/05/21 05:42 Hgb 8.5 g/dl (14.0-18.0) L 03/05/21 05:42 Hct 27.3 % (42-52) L 03/05/21 05:42 MCV 93.5 fL (80-98) 03/05/21 05:42 MCH 29.1 pg (27.0-33.0) 03/05/21 05:42 MCHC 31.1 g/dl (31.0-36.0) 03/05/21 05:42 RDW 15.3 % (11.0-16.0) 03/05/21 05:42 Plt Count 60 X10*3/uL (160-400) L D 03/05/21 05:42 MPV 13.5 fL (9.4-12.4) H 03/05/21 05:42 Immature Gran % (Auto) 0.4 % (0.0-0.4) 03/04/21 04:29 Neut % (Auto) 85.9 % (45-73) H 03/04/21 04:29 Lymph % (Auto) 11.2 % (20-40) L 03/04/21 04:29 [place] % (Auto) 2.5 % (2-11) 03/04/21 04:29 Eos % (Auto) 0.0 % (0-4) 03/04/21 04:29 Baso % (Auto) 0.0 % (0-2) 03/04/21 04:29 Lymph # (Auto) 1.3 X10*3/uL (1.2-4.9) 03/04/21 04:29 [place] # (Auto) 0.3 X10*3/uL (0.1-1.2) 03/04/21 04:29 Eos # (Auto) 0.0 X10*3/uL (0.0-0.4) 03/04/21 04:29 Baso # (Auto) 0.0 X10*3/uL (0.0-0.2) 03/04/21 04:29 Abs Immat Gran (auto) 0.05 X10*3/uL (0.00-0.03) H 03/04/21 04:29 Absolute Neuts (auto) 10.3 X10*3/uL (2.0-8.3) H 03/04/21 04:29 Absolute Nucleated RBC 0.020 X10*3/uL (0.0-0.012) H 03/05/21 05:42 Nucleated RBC % (auto) 0.2 /100WBC (0.0-0.2) 03/05/21 05:42 Smear Tech's Comments VERIFIED 03/04/21 04:29 Hold Blue Top SEE NOTE 03/03/21 17:20 Sodium 133 mmol/L (135-145) L 03/05/21 05:42 Potassium 4.3 mmol/L (3.3-5.1) 03/05/21 05:42 Chloride 103 mmol/L (96-108) 03/05/21 05:42 Carbon Dioxide 26 mmol/L (22-29) 03/05/21 05:42 Anion Gap 8 (12-20) L 03/05/21 05:42 BUN 36 mg/dL (9-16) H 03/05/21 05:42 Creatinine 1.00 mg/dL (0.5-1.4) 03/05/21 05:42 Estim Creat Clear Calc 48.7 03/05/21 05:42 Estimated GFR > 60 03/05/21 05:42 Random Glucose 117 mg/dL (60-115) H 03/05/21 05:42 Calcium 7.9 mg/dL (8.4-10.2) L 03/05/21 05:42 Total Bilirubin 0.2 mg/dL (0.0-1.0) 03/03/21 17:20 AST 33 U/L (5-37) 03/03/21 17:20 ALT 21 U/L (0-40) 03/03/21 17:20 Alkaline Phosphatase 76 U/L (39-117) 03/03/21 17:20 Total Protein 6.2 g/dL (6.5-8.0) L 03/03/21 17:20 Albumin 3.1 g/dL (3.5-5.0) L 03/03/21 17:20 COVID-19 (ANNETTE) Negative (Negative) 03/03/21 19:19 COVID-19 Clin Com See Note 03/03/21 19:19 Blood Type B Negative 03/03/21 18:22 Antibody Screen NEGATIVE 03/03/21 18:22 Progress Note: A/P (1) Acute idiopathic thrombocytopenic purpura Status: Acute Assessment and plan: 1. This is a 85-year-old male with acute worsening of chronic ITP. He was on prednisone 30 mg when he noticed more skin bruising in hematochezia. Blood work showed platelet count of 1000. He was treated with pulse dose of Decadron 40 mg and IVIG 400 mg/kg for 3 doses. His platelet counts have increased to 60 K. He should continue with prednisone 30 mg daily. He has an appointment next week at the [facility]. Thank you. - Time Spent With Patient Total time spent is greater than 50% in coordination of care (as documented) at patient's floor/unit and/or counseling patient: 15 - 24 minutes
[2021-03-05 10:21] LABS: Iron 53 mcg/dL (45-160); Percent Iron Saturation 19 % (15-50); Total Iron Binding Capacity 281 mcg/dL (228-428); Unsaturated Iron Binding 228 ug/dL
--- NOTE | 2021-03-05 11:15 | P.DS_ITS ---
DS: Providers Provider Date of Service: 03/05/21 Date of admission: 03/03/21 20:49 Primary care physician: Unknown Physician Consults: 03/03/21 21:00 Consult to Hematology / Oncology Routine Consulting Provider: Zackary Pringle Reason for consultation: ITP Has provider been notified: No DS: Diagnosis Discharge Diagnosis (1) Acute idiopathic thrombocytopenic purpura: Status: Acute (2) Hyponatremia: Status: Acute DS: Medications Discharge Medications Home Medications: Home Medications Medication Instructions Recorded Confirmed Calcium 600 + D(3) 1 cap PO DAILY 03/03/21 03/03/21 acetaminophen 650 mg PO Q6-8H PRN 03/03/21 03/03/21 alum-mag hydroxide-simeth 10 ml PO Q6H PRN 03/03/21 03/03/21 [Felicia-Lanta] aspirin 81 mg PO DAILY 03/03/21 03/03/21 bisacodyl 10 mg MD DAILY PRN 03/03/21 03/03/21 calcium carbonate [Tums] 400 mg PO DAILY PRN 03/03/21 03/03/21 ezetimibe 10 mg PO DAILY 03/03/21 03/03/21 metoprolol tartrate 25 mg PO DAILY 03/03/21 03/03/21 multivit no.82-vspw-ymmxk acid 1 cap PO DAILY 03/03/21 03/03/21 nitroglycerin 0.4 mg SUBLINGUAL Q5M PRN 03/03/21 03/03/21 prednisone 30 mg PO DAILY 03/03/21 03/03/21 sennosides [senna] 8.6 mg PO BEDTIME 03/03/21 03/03/21 tamsulosin 0.4 mg PO DAILY 03/03/21 03/03/21 DS: Summary Hospital Course Hospital Course: Admission note HPI Old male with past medical history of ITP in the past,, CVA, who presents to the hospital with complaints of low platelet count. Patient reports that he was away in March, returned on Monday, has been in rehab since Monday, noticed some rectal bleeding today after wiping his bottom, as well as right nostril bleed that was small in size but this is how he know he may have ITP. He asked the resident nurse to get his labs, labs were done and patient was found to have platelets of 1000 therefore referred to the hospital. He currently denies any chest pain, shortness of breath, abdominal pain nausea or vomiting, reports constipation, no diarrhea, no lower extremity edema no urinary symptoms. No active bleed. Vitals on arrival significant for temp of 96.6? that normalized, heart rate of 74, respiratory rate of 18, blood pressure 138/78, satting 100% on room air. Labs are significant for WBC count of 10.4,, hemoglobin of 10.4, hematocrit 32.6, platelets of 1000, sodium of 132, potassium 4.9, BUN of 43, creatinine of 1.22 with a baseline around 0.98 to 1.19, albumin of 3.1, COVID negative, Dr. James general clerk/oncologist was consulted and recommended patient received prednisone, IVIG, and 2 units of platelets Hospital course The patient was admitted to the hospital for ITP with platelets of 4000 at time of presentation associated with nasal and rectal bleeding. Hemoglobin remained stable. The patient received total of 4 units of platelets and 3 days of IVIG and dexamethasone with good response over the hospital stay as his platelets count improved back to 60,000 at the day of discharge. He was evaluated by Dr. James from Hematology who recommended to continue the patient home dose of prednisone of 30 mg daily and to follow-up as outpatient. Will repeat CBC after 1 week of discharge. Time Spent with Patient Time attestation: Total time spent providing and/or coordinating discharge services: Discharge coordination time: Greater than 30 minutes Physical Exam Vital Signs: Vital Signs: Last Vital Signs Temp 98.4 F 03/05/21 07:48 Pulse 74 03/05/21 08:11 Resp 18 03/05/21 07:48 BP 135/69 03/05/21 07:52 Pulse Ox 97 03/05/21 07:48 Body Mass Index 25.8 Const: Other: Constitutional : Alert, oriented, not in distress Neck : Normal inspection, Supple Cardiovascular : RRR, S1 S2, no lower extremity edema Respiratory : Good bilateral air entry, no crackles, wheezes or rhonchi Gastrointestinal: soft, lax, Normal bowel sounds, Non tender Skin : Warm/Dry, No rash Neurological : Alert & oriented x3, No focal deficit DS: Data Data Completed and Pending Labs on day of discharge: Laboratory Results - last 24 hr 03/03/21 03/05/21 03/05/21 18:22 05:42 05:42 WBC 9.2 RBC 2.92 L Hgb 8.5 L Hct 27.3 L MCV 93.5 MCH 29.1 MCHC 31.1 RDW 15.3 Plt Count 60 L D MPV 13.5 H Absolute Nucleated RBC 0.020 H Nucleated RBC % (auto) 0.2 Sodium 133 L Potassium 4.3 Chloride 103 Carbon Dioxide 26 Anion Gap 8 L BUN 36 H Creatinine 1.00 Estim Creat Clear Calc 48.7 Estimated GFR > 60 Random Glucose 117 H Calcium 7.9 L Iron 53 TIBC 281 % Saturation 19 Unsat Iron Binding 228 Blood Type B Negative Antibody Screen NEGATIVE Discharge Plan Discharge Patient Disposition: [facility] Referrals: Omar Mcdermott [Outside] Physician,Unknown [Primary Care Provider] - Discharge Medications: Continued sennosides [senna] 8.6 mg Tablet 8.6 mg PO BEDTIME RF: 0 prednisone 10 mg Tablet 30 mg PO DAILY RF: 0 acetaminophen 650 mg Tablet 650 mg PO Q6-8H PRN (Reason: Pain) RF: 0 tamsulosin 0.4 mg Capsule 0.4 mg PO DAILY RF: 0 bisacodyl 10 mg Suppository 10 mg MD DAILY PRN (Reason: Constipation) RF: 0 calcium carbonate [Tums] 200 mg calcium (500 mg) Tablet,Chewable 400 mg PO DAILY PRN (Reason: Acid Reflux) RF: 0 nitroglycerin 0.4 mg Tablet, Sublingual 0.4 mg SUBLINGUAL Q5M PRN (Reason: Chest Pain) RF: 0 aspirin 81 mg Tablet 81 mg PO DAILY RF: 0 alum-mag hydroxide-simeth [Felicia-Lanta] 200-200-20 mg/5 mL Suspension 10 ml PO Q6H PRN (Reason: Pain) RF: 0 ezetimibe 10 mg Tablet 10 mg PO DAILY RF: 0 metoprolol tartrate 25 mg Tablet 25 mg PO DAILY RF: 0 Calcium 600 + D(3) 600 mg calcium- 200 unit Capsule 1 cap PO DAILY RF: 0 multivit no.27-uzzf-esoht acid 106.5-1 mg Capsule 1 cap PO DAILY RF: 0 Discharge Orders: Discharge Order (Routine); Ordered 03/05/21 Ordered By: Bev Burks Diet: advance to usual diet Activity on Discharge: As tolerated Stand Alone Forms: Patient Portal Discharge page Other Ambulatory Orders: Complete Blood Count no Diff (Routine) Timeframe: 1 Week Facility: [facility] - Location: [address]-Lab Ordered By: Bev Burks Care Plan Goals: Read below Health Concerns: Read below Plan of Treatment: Read below Assessment: You were admitted to the hospital for evaluation of nasal and rectal bleeding. your blood work was consistent with ITP attack with platelets count of 1000. You were treated with platelet transfusion of total of 4 units, IVIG and steroids with good response over the course of hospital stay as your platelets [id number] at the day of discharge. You were evaluated by general clerk Dr. James who recommended to continue your home dose prednisone and to follow-up as outpatient. To repeat CBC study in 1 week.
--- NOTE | 2021-03-05 11:30 | MHC.CM.PN ---
Patient has been medically cleared for dc today, to return to [facility] today at 4PM, via [facility]. Last IMM addressed on 03/04/21; Patient is aware of and in agreement with the dc plan.[facility] has been notified of the dc plan/time.
[2021-03-05 11:43] VITALS: BP 136/61; PULSE 61; TEMP 36.8; O2SAT 96
--- NOTE | 2021-03-05 15:19 | MHC.INPTTRAN ---
Pt known to facility. Admitted with plt count of 1, now 60. Pt alert and oriented, ambulates 1 assist with cane. No new meds. Pt to have follow-up blood work 03/12, follow up with [facility]ology- Dr. James.
== END 2021-03-05 19:10 | disposition skilled nursing facility (03) | DRG 813 ==
LOC: HO.ED 18:26 → HO.IMC 22:25
PROVIDERS: Internal Medicine; Admitting Provider Internal Medicine; Emergency Provider Emergency Medicine; PCP Internal Medicine; Visit Provider Student in an Organized Health Care Education/Training Program
DX: D69.3 Immune thrombocytopenic purpura (principal); E87.1 Hypo-osmolality and hyponatremia; Z20.822 Contact with and (suspected) exposure to COVID-19; Z86.73 Personal history of transient ischemic attack (TIA), and cerebral infarction without residual deficits; Z85.528 Personal history of other malignant neoplasm of kidney; Z90.5 Acquired absence of kidney; Z79.52 Long term (current) use of systemic steroids; Z79.82 Long term (current) use of aspirin; Z79.899 Other long term (current) drug therapy
CPT/HCPCS: 36415; 80048; 80053; 83540; 85025; 85027; 86850; 86900; 87635; 96365; 96366; 96375; 99285; J1200; J1572; J8540; P9035; P9037

== ENCOUNTER 2021-03-10 13:14 | Outpatient (REF) | payer OTHER, MEDICARE, SELFPAY | END 2021-03-10 13:15 | disposition home or self-care (01) | LOC: HO.MDS 13:14 | PROVIDERS: Visit Provider Internal Medicine | DX: D69.3 Immune thrombocytopenic purpura (principal) | CPT/HCPCS: 96365; 96366; J1572 ==

== ENCOUNTER 2021-03-11 11:58 | Outpatient (REF) | payer MEDICARE, SELFPAY | END 2021-03-11 11:59 | disposition home or self-care (01) | LOC: HO.MDS 11:58 | PROVIDERS: Visit Provider Internal Medicine | DX: D69.3 Immune thrombocytopenic purpura (principal) | CPT/HCPCS: 96365; 96366; J1572 ==

== ENCOUNTER 2021-03-16 16:47 | Inpatient (IN) | payer OTHER, SELFPAY ==
--- NOTE | 2021-03-16 18:42 | ECG_ITS ---
Test Reason : ABNORMAL LABS Blood Pressure : / mmHG Vent. Rate : 045 BPM Atrial Rate : 045 BPM P-R Int : 176 ms QRS Dur : 150 ms QT Int : 492 ms P-R-T Axes : 064 -68 123 degrees QTc Int : 425 ms Sinus bradycardia Left axis deviation Right bundle branch block T wave abnormality, consider lateral ischemia Abnormal ECG When compared with ECG of 16-MAR-2021 22:23, No significant change was found Referred By: Tiara Wheatley Electronically Signed By:
[2021-03-16 20:24] VITALS: BP 164/83; PULSE 67; RESP 16; TEMP 36.6; O2SAT 99; BMI 22.2
--- NOTE | 2021-03-16 20:53 | ED.RECABL ---
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 just seen here and admitted 03/03 to 03/05 for plts 4,000 given 4 units of plts, IVIG and dexamethasone was DC on 30mg prednisone daily and to follow up with 1 week CBC on 03/10 plts 7,000 notes he was on tavalisse for 3 to 4 days it had adverse effects cut down to 20mg prednisone but then today on plt check told they were only 7,000 no headaches, no falls, no areas of bleeding MD complaint: abnormal lab Initial visit (ago): hour(s) Initial visit for: other Returns today for: called because of abnormal lab/test Symptoms since prior visit: no new symptoms Context: planned re-check and called for abnormal lab result Associated symptoms: none Treatments prior to arrival: other medications Related Data Home Medications Medication Instructions Recorded Confirmed Calcium 600 + D(3) 1 cap PO DAILY 03/03/21 03/16/21 acetaminophen 650 mg PO Q6-8H PRN 03/03/21 03/16/21 alum-mag hydroxide-simeth 10 ml PO Q6H PRN 03/03/21 03/16/21 [Felicia-Lanta] aspirin 81 mg PO DAILY 03/03/21 03/16/21 bisacodyl 10 mg DE DAILY PRN 03/03/21 03/16/21 calcium carbonate [Tums] 400 mg PO DAILY PRN 03/03/21 03/16/21 ezetimibe 10 mg PO DAILY 03/03/21 03/16/21 metoprolol tartrate 25 mg PO DAILY 03/03/21 03/16/21 multivit no.74-vybk-jyygl acid 1 cap PO DAILY 03/03/21 03/16/21 nitroglycerin 0.4 mg SUBLINGUAL Q5M PRN 03/03/21 03/16/21 prednisone 30 mg PO DAILY 03/03/21 03/16/21 sennosides [senna] 8.6 mg PO BEDTIME 03/03/21 03/16/21 tamsulosin 0.4 mg PO DAILY 03/03/21 03/16/21 Allergies Allergy/AdvReac Type Severity Reaction Status Date / Time bupropion [From WELLBUTRIN] Allergy Unknown Unknown Verified 03/03/21 22:53 any statin Allergy Unknown Unknown Uncoded 03/03/21 22:53 BuPROPion HCl Allergy Unknown Unknown Uncoded 03/03/21 22:53 Wellbutrin Allergy Unknown Unknown Uncoded 03/03/21 22:53 Review of Systems Review of Systems: Constitutional : No Weight loss, No Fever, No Chills, No Fatigue, No Malaise ENT/Mouth : No sore throat, No Rhinorrhea Eyes: No Eye Pain, No Swelling, No Redness Cardiovascular : No Chest Pain, No SOB, No Dyspnea on Exertion, No Orthopnea, No Edema, No Palpitations Respiratory : No Cough, No Sputum, No Wheezing Gastrointestinal : No Nausea, No Vomiting, No Diarrhea, No Constipation, No abdominal Pain, No Hematochezia, No Melena Genitourinary : No Dysuria, No Urinary Frequency, No Hematuria, Musculoskeletal : No joint pain, No Myalgias, No Joint Swelling Skin : No Skin Lesions, No rash Neuro : No Weakness, No Numbness, No Dizziness, No Headache Psych : No Anxiety/Panic, No Depression Heme/Lymph: pos easy Bruising, No Bleeding,No Lymphadenopathy Endocrine : No Polyuria, No Polydipsia All other systems reviewed and are negative [facility] Past Medical History Attestation statement: The following information was validated with the patient. Medical History (Updated 03/16/21 @ 22:35 by Tiara Wheatley DO) Acute ITP Anemia with low platelet count Renal cancer Stroke Social History Social History Household Members: None Housing: Long-Term Smoking Status: Former smoker Advance Directives: No Advance Directives Information Provided: Yes Current occupational status: retired Physical Exam Vital Signs: Vital Signs: Last Vital Signs Temp 97.8 F 03/16/21 21:42 Pulse 67 03/16/21 21:42 Resp 16 03/16/21 21:42 BP 156/71 H 03/16/21 21:42 Pulse Ox 99 03/16/21 21:42 Body Mass Index 22.2 Appearance: Alert. Oriented X3. No acute distress. Eyes: Pupils equal, round and reactive to light. ENT: Pharynx normal. Neck: Normal inspection. Neck supple. CVS: Normal heart rate and rhythm. Pulses normal. Respiratory: No respiratory distress. Breath sounds normal. Abdomen: Soft and non-tender. Skin: Skin warm and dry. Normal skin color. Normal skin turgor. Extremities: No lower extremity edema. No calf ttp diffuse areas of bruising old and new on ext noted Neuro: Oriented X 3. No motor deficit. No sensory deficit. Course Course Course Narrative: plts 4 ordered plts dexamethasone 40mg ordered admit to hospitalist no CP/SOB prior troponins elevated in past - has new EKG changes but no symptoms and last EKG over 1 year ago but clinically no ischemic signs MDM - Recheck/Abnormal Lab/Rx MDM Narrative Medical decision making narrative: 85 yo male with hx of CVA, ITP on 20mg prednisone daily here with low plts on recheck today 7,000 denies trauma, headache, sites of bleeding did well with transfusions and dexa/IVIG last night, anticipate admission once platelets started in the ED Lab Data Result diagrams: 03/16/21 20:53 03/16/21 20:53 Labs: Lab Results 03/16/21 03/16/21 03/16/21 Range/Units 20:52 20:52 20:53 WBC 6.2 (4.8-10.8) X10*3/uL RBC 3.61 L (4.60-5.80) X10*6/uL Hgb 10.5 L (14.0-18.0) g/dl Hct 33.7 L (42-52) % MCV 93.4 (80-98) fL MCH 29.1 (27.0-33.0) pg MCHC 31.2 (31.0-36.0) g/dl RDW 16.5 H (11.0-16.0) % Plt Count 4 L* (160-400) X10*3/uL MPV Not Reportable Immature Gran % (Auto) 0.2 (0.0-0.4) % Neut % (Auto) 81.1 H (45-73) % Lymph % (Auto) 16.5 L (20-40) % [place] % (Auto) 2.2 (2-11) % Eos % (Auto) 0.0 (0-4) % Baso % (Auto) 0.0 (0-2) % Lymph # (Auto) 1.0 L (1.2-4.9) X10*3/uL [place] # (Auto) 0.1 (0.1-1.2) X10*3/uL Eos # (Auto) 0.0 (0.0-0.4) X10*3/uL Baso # (Auto) 0.0 (0.0-0.2) X10*3/uL Abs Immat Gran (auto) 0.01 (0.00-0.03) X10*3/uL Absolute Neuts (auto) 5.1 (2.0-8.3) X10*3/uL Absolute Nucleated RBC 0.000 (0.0-0.012) X10*3/uL Nucleated RBC % (auto) 0.0 (0.0-0.2) /100WBC Smear Tech's Comments VERIFIED PT 10.2 L (10.8-13.0) SEC INR 0.9 (0.9-1.1) APTT 25.5 (24.1-38.0) SEC Sodium (135-145) mmol/L Potassium (3.3-5.1) mmol/L Chloride (96-108) mmol/L Carbon Dioxide (22-29) mmol/L Anion Gap (12-20) BUN (9-16) mg/dL Creatinine (0.5-1.4) mg/dL Estim Creat Clear Calc Estimated GFR Random Glucose (60-115) mg/dL Calcium (8.4-10.2) mg/dL Magnesium (1.6-2.6) mg/dL Troponin I High Sens (<3.5-35.0) ng/L Blood Type B Negative Antibody Screen NEGATIVE 03/16/21 03/16/21 03/16/21 Range/Units 20:53 20:53 20:53 WBC (4.8-10.8) X10*3/uL RBC (4.60-5.80) X10*6/uL Hgb (14.0-18.0) g/dl Hct (42-52) % MCV (80-98) fL MCH (27.0-33.0) pg MCHC (31.0-36.0) g/dl RDW (11.0-16.0) % Plt Count (160-400) X10*3/uL MPV Immature Gran % (Auto) (0.0-0.4) % Neut % (Auto) (45-73) % Lymph % (Auto) (20-40) % [place] % (Auto) (2-11) % Eos % (Auto) (0-4) % Baso % (Auto) (0-2) % Lymph # (Auto) (1.2-4.9) X10*3/uL [place] # (Auto) (0.1-1.2) X10*3/uL Eos # (Auto) (0.0-0.4) X10*3/uL Baso # (Auto) (0.0-0.2) X10*3/uL Abs Immat Gran (auto) (0.00-0.03) X10*3/uL Absolute Neuts (auto) (2.0-8.3) X10*3/uL Absolute Nucleated RBC (0.0-0.012) X10*3/uL Nucleated RBC % (auto) (0.0-0.2) /100WBC Smear Tech's Comments PT (10.8-13.0) SEC INR (0.9-1.1) APTT (24.1-38.0) SEC Sodium 134 L (135-145) mmol/L Potassium 4.6 (3.3-5.1) mmol/L Chloride 102 (96-108) mmol/L Carbon Dioxide 27 (22-29) mmol/L Anion Gap 10 L (12-20) BUN 32 H (9-16) mg/dL Creatinine 1.20 (0.5-1.4) mg/dL Estim Creat Clear Calc 39.8 Estimated GFR 58 Random Glucose 176 H D (60-115) mg/dL Calcium 7.9 L (8.4-10.2) mg/dL Magnesium 2.2 (1.6-2.6) mg/dL Troponin I High Sens 104.3 H (<3.5-35.0) ng/L Blood Type Antibody Screen ECG Data Attestation: I personally reviewed and interpreted this ECG as follows: ECG interpretation date: 03/16/21 ECG interpretation time: 22:13 Interpretation: Rate: 45 Rhythm: sinus bradycardia [place]: left Normal P waves. Normal LYDIA. RBBB ST T wave : inverted I and aVL, V4-V6 qTC: normal prior studies: changed from prior Jan 2020 The study has been interpreted contemporaneously by me. . Critical Care Time Critical Care Time Critical Care Time: Yes Total Critical Care Time: 30 Attestation: medical records reviewed, transfusion of 2 pack platelets I attest to this time spent taking care of the patient Discharge Plan Discharge Clinical Impression: Thrombocytopenia, Inverted T wave Patient Disposition: Admitted As Inpatient
[2021-03-16 21:06] LABS: MANUAL DIFF FLAG SCAN; SCAN SMEAR FLAG 1
[2021-03-16 21:08] LABS: Hematocrit 33.7 % (42-52); Hemoglobin 10.5 g/dl (14.0-18.0); Imm Gran Abs Auto 0.01 X10*3/uL (0.00-0.03); Imm Gran Pct Auto 0.2 % (0.0-0.4); Lymphocytes Percent Auto 16.5 % (20-40); Mean Corpuscular HGB Conc 31.2 g/dl (31.0-36.0); Mean Corpuscular Hemoglobin 29.1 pg (27.0-33.0); Mean Corpuscular Volume 93.4 fL (80-98); Monocytes Absolute Auto 0.1 X10*3/uL (0.1-1.2); Monocytes Percent Auto 2.2 % (2-11); Neutrophils Absolute Auto 5.1 X10*3/uL (2.0-8.3); Neutrophils Percent Auto 81.1 % (45-73); Red Blood Count 3.61 X10*6/uL (4.60-5.80); Red Cell Distribution Width 16.5 % (11.0-16.0); White Blood Count 6.2 X10*3/uL (4.8-10.8)
[2021-03-16 21:17] LABS: PLT ABN DIST 1
[2021-03-16 21:19] LABS: Platelet Count 4 X10*3/uL (160-400)
[2021-03-16 21:23] LABS: INTERNATIONAL NORM RATIO 0.9 (0.9-1.1); Prothrombin Time 10.2 SEC (10.8-13.0)
[2021-03-16 21:26] LABS: Partial Thromboplastin Time 25.5 SEC (24.1-38.0)
[2021-03-16 21:34] LABS: Anion Gap 10 (12-20); Blood Urea Nitrogen 32 mg/dL (9-16); Calcium 7.9 mg/dL (8.4-10.2); Carbon Dioxide 27 mmol/L (22-29); Chloride 102 mmol/L (96-108); Creatinine Clr Calc Pharmacy 39.8; Estimated Glomerular Filt Rate 58; Glucose Random 176 mg/dL (60-115); Magnesium 2.2 mg/dL (1.6-2.6); Potassium 4.6 mmol/L (3.3-5.1); Sodium 134 mmol/L (135-145)
[2021-03-16 21:42] VITALS: BP 156/71; PULSE 67; RESP 16; TEMP 36.6; O2SAT 99
[2021-03-16 22:08] LABS: SLIDE REVIEW VERIFIED
--- NOTE | 2021-03-16 22:10 | ECG_ITS ---
Test Reason : ABNORMAL LABS Blood Pressure : / mmHG Vent. Rate : 045 BPM Atrial Rate : 045 BPM P-R Int : 178 ms QRS Dur : 146 ms QT Int : 488 ms P-R-T Axes : 062 -72 121 degrees QTc Int : 422 ms Sinus bradycardia Right bundle branch block Left anterior fascicular block Bifascicular block T wave abnormality, consider lateral ischemia Abnormal ECG When compared with ECG of 21-FEB-2020 12:53, Vent. rate has decreased BY 30 BPM T wave inversion now evident in Anterolateral leads QT has shortened Referred By: Tiara Wheatley Electronically Signed By:Martin Gutierrez
[2021-03-16 22:11] LABS: Troponin-I High Sensitivity 104.3 ng/L (<3.5-35.0)
[2021-03-16] MEDS: dexAMETHasone 4 MG TABLET 40 MG PO (22:31)
[2021-03-16 22:51] VITALS: BP 147/76; PULSE 40; RESP 12; TEMP 36.4
--- NOTE | 2021-03-16 23:03 | P.HPHOSP_ITS ---
History of Present Illness Date of Service: 03/16/21 Chief Complaint: Low Plt 85-year-old male with past medical history of ITP, CVA, who presents to the hospital with complaints of low platelet counts. Of note patient was discharged from the hospital on March 05 after being managed for ITP. He returns today [facility] that he had lab work done which showed low platelet counts. Patient reports that he was recently started on a medication called Fostamitinib by his hematology oncologist, but cause some side effects including loss of bowel control and he decided to stop taking the medication. His prednisone was also reduced by his hematology oncologist to 20 mg. Patient had lab work done and called his hematology oncologist and was told to come to the hospital. He currently denies any headache, change in vision, no abdominal pain, no bleeding episodes, no hemoptysis, hematochezia, no chest pain, shortness of breath, no nausea vomiting, no diarrhea constipation, no urinary symptoms and no lower extremity edema. On arrival to the ED hemodynamically stable with no significant abnormal vitals Labs are significant for WBC count of 6.2, hemoglobin of 10.5, platelets of 4, sodium of 134, troponin of 104.3, that trended down to 83. UA negative. COVID- 19 negative. EKG shows sinus bradycardia with right bundle branch block and T-wave inversion in lateral leads with T-wave inversions new from recent EKG Review of Systems Review of Systems: Yes all other systems are reviewed and are negative [facility] Medical History Acute ITP Anemia with low platelet count Renal cancer Stroke Social History Household Members: None Housing: [place] Alcohol intake: former Smoking Status: Former smoker Smoked in Last 30 Days: No Use of substances other than those prescribed or required for medical reasons: No Advance Directives: No Advance Directives Information Provided: Yes Current occupational status: retired Meds Allergies Allergy/AdvReac Type Severity Reaction Status Date / Time bupropion [From WELLBUTRIN] Allergy Unknown Unknown Verified 03/03/21 22:53 any statin Allergy Unknown Unknown Uncoded 03/03/21 22:53 BuPROPion HCl Allergy Unknown Unknown Uncoded 03/03/21 22:53 Wellbutrin Allergy Unknown Unknown Uncoded 03/03/21 22:53 Home Medications Medication Instructions Recorded Confirmed Last Taken Type Calcium 600 + D(3) 1 cap PO DAILY 03/03/21 03/16/21 1 Day Ago History ~03/15/21 acetaminophen 650 mg PO Q6-8H PRN 03/03/21 03/16/21 1 Day Ago History ~03/15/21 alum-mag hydroxide-simeth 10 ml PO Q6H PRN 03/03/21 03/16/21 1 Day Ago History [Felicia-Lanta] ~03/15/21 aspirin 81 mg PO DAILY 03/03/21 03/16/21 1 Day Ago History ~03/15/21 bisacodyl 10 mg GA DAILY PRN 03/03/21 03/16/21 1 Day Ago History ~03/15/21 calcium carbonate [Tums] 400 mg PO DAILY PRN 03/03/21 03/16/21 1 Day Ago History ~03/15/21 ezetimibe 10 mg PO DAILY 03/03/21 03/16/21 1 Day Ago History ~03/15/21 metoprolol tartrate 25 mg PO DAILY 03/03/21 03/16/21 1 Day Ago History ~03/15/21 multivit no.38-whbq-kpyct acid 1 cap PO DAILY 03/03/21 03/16/21 1 Day Ago History ~03/15/21 nitroglycerin 0.4 mg SUBLINGUAL Q5M PRN 03/03/21 03/16/21 1 Day Ago History ~03/15/21 prednisone 30 mg PO DAILY 03/03/21 03/16/21 1 Day Ago History ~03/15/21 sennosides [senna] 8.6 mg PO BEDTIME 03/03/21 03/16/21 1 Day Ago History ~03/15/21 tamsulosin 0.4 mg PO DAILY 03/03/21 03/16/21 1 Day Ago History ~03/15/21 Physical Exam Vital Signs and Narrative: Vital Signs: Last Vital Signs Temp 97.6 F 03/16/21 22:51 Pulse 40 L 03/16/21 22:51 Resp 12 03/16/21 22:51 BP 147/76 H 03/16/21 22:51 Pulse Ox 99 03/16/21 21:42 Body Mass Index 22.2 Const: General: cooperative and no acute distress Orienta tion/consciousness: patient oriented x3 Eyes: General: appearance normal, both eyes and all related structures Resp: Effort & Inspection: normal respiratory effort and able to speak in complete sentences Cardio: Rate: regular rate Rhythm: regular rhythm GI: Palpation (GI): Soft to palpation Auscultation: normal bowel sounds Skin: General skin exam: no rashes or lesions noted Neuro: General: patient oriented x3 Cognition (Neuro): normal cognition Extrem: General: Yes normal to inspection and Yes no pedal edema Results Labs CBC and Chem 7: 03/17/21 04:31 03/17/21 04:31 Labs: Laboratory Results - last 24 hr 03/16/21 03/16/21 03/16/21 20:52 20:52 20:53 MCV 93.4 MCH 29.1 MCHC 31.2 RDW 16.5 H Plt Count 4 L* MPV Not Reportable Immature Gran % (Auto) 0.2 Neut % (Auto) 81.1 H Lymph % (Auto) 16.5 L [place] % (Auto) 2.2 Eos % (Auto) 0.0 Baso % (Auto) 0.0 Lymph # (Auto) 1.0 L [place] # (Auto) 0.1 Eos # (Auto) 0.0 Baso # (Auto) 0.0 Abs Immat Gran (auto) 0.01 Absolute Neuts (auto) 5.1 Absolute Nucleated RBC 0.000 Nucleated RBC % (auto) 0.0 Smear Tech's Comments VERIFIED PT 10.2 L INR 0.9 APTT 25.5 Anion Gap Estim Creat Clear Calc Estimated GFR Random Glucose Calcium Magnesium Troponin I High Sens Blood Type B Negative Antibody Screen NEGATIVE 03/16/21 03/16/21 03/16/21 20:53 20:53 20:53 MCV MCH MCHC RDW Plt Count MPV Immature Gran % (Auto) Neut % (Auto) Lymph % (Auto) [place] % (Auto) Eos % (Auto) Baso % (Auto) Lymph # (Auto) [place] # (Auto) Eos # (Auto) Baso # (Auto) Abs Immat Gran (auto) Absolute Neuts (auto) Absolute Nucleated RBC Nucleated RBC % (auto) Smear Tech's Comments PT INR APTT Anion Gap 10 L Estim Creat Clear Calc 39.8 Estimated GFR 58 Random Glucose 176 H D Calcium 7.9 L Magnesium 2.2 Troponin I High Sens 104.3 H Blood Type Antibody Screen Assessment and Plan (1) Thrombocytopenia: Status: Acute (2) Inverted T wave: Status: Acute (3) Elevated troponin: Status: Acute (4) Acute ITP: Status: Inactive This is an 85-year-old male with past medical history of ITP who presents to the hospital with low platelet count # acute ITP - possibly secondary to stopping his medications - no overt bleeding at this time - platelet count of 4000 - receiving 2 units of platelets, Decadron Plan: - will start him on pulsed dexamethasone which has been shown to decrease steroid dependence as well as faster recovery - will follow CBC and platelet count - hematology consulted # Elevated trop - no chest pain, no EKG changes - will trend troponin # has new T-wave inversions - will consult Cardiology for possible outpatient workup - at this time will hold off on starting any anticoagulation given his low platelets # CVA - hold aspirin given low platelet - continue ezetimibe DVT prophylaxis: SCDs
[2021-03-16 23:07] VITALS: BP 152/73; PULSE 46; RESP 15; TEMP 36.4
[2021-03-16 23:25] LABS: Glucose Urine UA NEG (NEG); Leukocyte Esterase Urine NEG (NEG); Nitrite Urine NEG (NEG); Urine Blood TRACE (NEG); Urine Ketones NEG (NEG); Urine Protein NEG (NEG-TRACE)
[2021-03-16 23:32] LABS: Appearance Urine CLEAR; Color Urine YELLOW
[2021-03-16 23:33] LABS: Bacteria Urine TRACE /LPF; RBC Urine 0-2 /HPF (0); Renal Epithelial Cells Urine TRACE /LPF; Squamous Epithelial Cell Urine TRACE /LPF; WBC Urine 0-2 /HPF (0-4)
[2021-03-17] VITALS (9 sets, daily range): BP systolic 132–162; BP diastolic 62–90; PULSE 54–97; RESP 13–20; TEMP 36.4–36.6; O2SAT 98–100
[2021-03-17] MEDS: 0.9 % Sodium Chloride 1,000 ML 80 ML IVCONT (00:37)
--- NOTE | 2021-03-17 01:46 | PC.NURSE ---
pt presents to ED from [facility]F with low platelet count. pt is alert and oriented x3. eye contact and verbal response appropriate for setting. pt is calm and cooperative and able to make needs known. lung sounds clear bilaterally, respirations even and unlabored. pt denies feeling SOB at this time. pt denies any pain at this time. pt has purple bruising on both arms and both legs. no edema noted on body. pt aware of plan of care for admission. no questions or concerns at this time. call modi in reach.
[2021-03-17 02:27] LABS: COVID-19 Test Negative (Negative); IDNOW Serial# 9DD0AD1C
[2021-03-17 03:11] LABS: Troponin-I High Sensitivity 83.7 ng/L (<3.5-35.0)
--- NOTE | 2021-03-17 03:14 | PC.NURSE ---
RN AWARE OF CRITICAL TROP 83.7
--- NOTE | 2021-03-17 03:20 | PC.NURSE ---
Troponin 83.7 hospitalist (Shivam) aware, no new orders at this time
--- NOTE | 2021-03-17 04:05 | PC.NURSE ---
pt awake and requested a cup of tea and to use the urinal. 400cc voided into urinal. pt denies any pain and has no questions or concerns at this time. pt aware of plan of care for admission. call modi in reach.
--- NOTE | 2021-03-17 04:40 | PC.NURSE ---
IV that was in the right ac noted to be leaking blood, when attempting to flush IV blood and fluid leaked into tegaderm so IV was discontinued. New 20g IV placed in right forearm, no leakage noted and new IV is patent and able to flush without issue.
[2021-03-17 05:22] LABS: Basophils Percent Auto 0.1 % (0-2); Hematocrit 30.1 % (42-52); Hemoglobin 9.7 g/dl (14.0-18.0); Imm Gran Abs Auto 0.03 X10*3/uL (0.00-0.03); Imm Gran Pct Auto 0.3 % (0.0-0.4); Lymphocytes Absolute Auto 0.6 X10*3/uL (1.2-4.9); Lymphocytes Percent Auto 6.6 % (20-40); MANUAL DIFF FLAG SCAN; Mean Corpuscular HGB Conc 32.2 g/dl (31.0-36.0); Mean Corpuscular Hemoglobin 29.9 pg (27.0-33.0); Mean Corpuscular Volume 92.9 fL (80-98); Mean Platelet Volume 11.4 fL (9.4-12.4); Monocytes Percent Auto 0.2 % (2-11); NRBC Pct Auto 0.3 /100WBC (0.0-0.2); Neutrophils Absolute Auto 8.6 X10*3/uL (2.0-8.3); Neutrophils Percent Auto 92.8 % (45-73); Red Blood Count 3.24 X10*6/uL (4.60-5.80); Red Cell Distribution Width 16.4 % (11.0-16.0); SCAN SMEAR FLAG 1; White Blood Count 9.3 X10*3/uL (4.8-10.8)
[2021-03-17 05:26] LABS: Platelet Count 82 X10*3/uL (160-400)
[2021-03-17 05:50] LABS: Anion Gap 12 (12-20); Blood Urea Nitrogen 28 mg/dL (9-16); Calcium 7.7 mg/dL (8.4-10.2); Carbon Dioxide 24 mmol/L (22-29); Chloride 102 mmol/L (96-108); Creatinine Clr Calc Pharmacy 45.9; Estimated Glomerular Filt Rate > 60; Glucose Random 184 mg/dL (60-115); Potassium 3.9 mmol/L (3.3-5.1); Sodium 134 mmol/L (135-145)
--- NOTE | 2021-03-17 10:10 | P.CNHO_ITS ---
Subjective - Subjective Chief complaint: Diarrhea Patient: known to practice within the last 3 years Consult date: 03/17/21 Requesting Physician: Dr. 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 He was admitted recently to the hospital when his platelet count was 1 K, he was treated with Decadron and IVIG, he had a good platelet response. However it was very brief, his platelet counts again went below 10 K. He was started on Fostamitinib last week. However after 4 days he developed severe diarrhea/incontinence of stool that left him very weak and dehydrated. He was referred to the emergency room and he was found to have platelet count of 4 K. He was admitted for further management. He denies any chest pain, shortness of breath, dizziness or diaphoresis. His appetite has been somewhat poor but he is eating okay. He denies hematuria or hematochezia. He has extensive skin bruising. He does not have epistaxis this time. [facility] Medical History: Medical History (Last Reviewed 03/17/21 @ 06:39 by Sebas Langley MD) Acute ITP Anemia with low platelet count Renal cancer Stroke Social History: Social History (Last Reviewed 03/17/21 @ 06:40 by Sebas Langley MD) Living Situation History: Household Members: None Housing: Longterm Alcohol History: Alcohol intake: former Alcohol History Details: Alcohol intake frequency: holiday/special occasion Tobacco History: Smoking Status: Former smoker Smoked in Last 30 Days: No Substance Use History: Use of substances other than those prescribed or required for medical reasons : No Substance Use Frequency Other:: CBD Advance Directives: Advance Directives: No Advance Directives Information Provided: Yes Occupation Assessmet: Current occupational status: retired Smoking status: Former smoker Home Medications and Allergies Current Medications: Current Medications Generic Name Dose Route Start Last Admin Trade Name Freq PRN Reason Stop Dose Admin Acetaminophen 650 mg 03/17/21 02:07 Acetaminophen 325 Mg Tablet PO Q6H PRN Pain, Mild (Pain Scale 1-3) Bisacodyl 10 mg 03/17/21 02:07 Bisacodyl 10 Mg Supp.Rect IN DAILY PRN Constipation Dexamethasone Sodium Phosphate 40 mg 03/17/21 09:00 Dexamethasone Sod Phosphate 4 Mg/Ml Vial IVPUSH DAILY [facility] Docusate Sodium 100 mg 03/17/21 02:07 Docusate Sodium 100 Mg Capsule PO DAILY PRN Constipation Ezetimibe 10 mg 03/17/21 09:00 Ezetimibe 10 Mg Tablet PO DAILY [facility] Sodium Chloride 1,000 mls @ 80 mls/hr 03/16/21 23:15 03/17/21 00:37 Ns IVCONT 80 mls/hr .[id number] [facility] Administration Metoprolol Tartrate 25 mg 03/17/21 09:00 Metoprolol Tartrate 25 Mg Tablet PO DAILY [facility] Protocol Nitroglycerin 0.4 mg 03/17/21 02:07 Nitroglycerin 0.4 Mg Tab.Subl SUBLINGUAL Q5M PRN Chest Pain Ondansetron HCl 4 mg 03/17/21 02:07 Ondansetron Hcl 4 Mg/2 Ml Vial IVPUSH Q8H PRN Nausea and Vomiting Senna 8.6 mg 03/17/21 21:00 Sennosides 8.6 Mg Tablet PO BEDTIME [facility] Sodium Chloride 3 ml 03/17/21 02:07 03/17/21 02:17 0.9 % Sodium Chloride Flush 3 Ml Syringe IVFLUSH Not Given QSHIFT [facility] Tamsulosin HCl 0.4 mg 03/17/21 09:00 Tamsulosin Hcl 0.4 Mg Capsule PO DAILY [facility] Home Medications Medication Instructions Recorded Confirmed Type Calcium 600 + D(3) 1 cap PO DAILY 03/03/21 03/16/21 History acetaminophen 650 mg PO Q6-8H PRN 03/03/21 03/16/21 History alum-mag hydroxide-simeth 10 ml PO Q6H PRN 03/03/21 03/16/21 History [Felicia-Lanta] aspirin 81 mg PO DAILY 03/03/21 03/16/21 History bisacodyl 10 mg IN DAILY PRN 03/03/21 03/16/21 History calcium carbonate [Tums] 400 mg PO DAILY PRN 03/03/21 03/16/21 History ezetimibe 10 mg PO DAILY 03/03/21 03/16/21 History metoprolol tartrate 25 mg PO DAILY 03/03/21 03/16/21 History multivit no.24-hitn-ldfsz acid 1 cap PO DAILY 03/03/21 03/16/21 History nitroglycerin 0.4 mg SUBLINGUAL Q5M PRN 03/03/21 03/16/21 History prednisone 30 mg PO DAILY 03/03/21 03/16/21 History sennosides [senna] 8.6 mg PO BEDTIME 03/03/21 03/16/21 History tamsulosin 0.4 mg PO DAILY 03/03/21 03/16/21 History Allergies Allergy/AdvReac Type Severity Reaction Status Date / Time bupropion [From WELLBUTRIN] Allergy Unknown Unknown Verified 03/03/21 22:53 any statin Allergy Unknown Unknown Uncoded 03/03/21 22:53 BuPROPion HCl Allergy Unknown Unknown Uncoded 03/03/21 22:53 Wellbutrin Allergy Unknown Unknown Uncoded 03/03/21 22:53 Physical Exam Vital signs: Vital Signs Temp 97.5 F 03/17/21 01:15 Pulse 84 03/17/21 07:00 Resp 20 03/17/21 07:00 BP 142/88 H 03/17/21 07:00 Pulse Ox 98 03/17/21 07:00 Intake & Output 03/16/21 03/17/21 03/17/21 18:59 06:59 18:59 Intake Total 287 / 287 Balance 287 / 287 Intake: Intake (Blood Product) Amount 287 / 287 Apheresis Platelets Pas(E7002) 0 / 0 Unit [id number] Apheresis Platelets Pas(E7002) 287 / 287 Unit [id number] Other: Weight 62.596 kg Weight 62.596 kg - Constitutional Present: no acute distress - Routine HEENT Exam Head: Present: normal inspection Eye: Present: EOMI, PERRL - Routine Neck Exam Present: supple. Absent: lymphadenopathy - Routine Respiratory Exam Present: CTAB. Absent: accessory muscle use, respiratory distress - Routine Cardiovascular Exam Cardiovascular: Present: S1, S2 - Routine Abdominal Exam Present: soft - Routine Extremities Exam Absent: pedal edema - Routine Skin Exam Present: intact, ecchymosis - Routine Neurological Exam Present: alert, oriented X3 Hem/Onc Consult Result - Labs CBC & Chem 7: 03/17/21 04:31 03/17/21 04:31 Labs: Short CBC 03/16/21 03/17/21 Range/Units 20:53 04:31 WBC 6.2 9.3 (4.8-10.8) X10*3/uL Hgb 10.5 L 9.7 L (14.0-18.0) g/dl Hct 33.7 L 30.1 L (42-52) % Plt Count 4 L* 82 L D (160-400) X10*3/uL BMP 03/16/21 03/17/21 20:53 04:31 Sodium 134 L 134 L Potassium 4.6 3.9 Chloride 102 102 Carbon Dioxide 27 24 BUN 32 H 28 H Creatinine 1.20 1.04 Calcium 7.9 L 7.7 L Urine 03/16/21 Range/Units 23:14 Urine Color YELLOW Urine Appearance CLEAR Urine pH 6.0 (5.0-8.0) Ur Specific [place] 1.020 (1.005-1.025) Urine Protein NEG (NEG-TRACE) MG/DL Urine Glucose (UA) NEG (NEG) MG/DL Assessment and Plan (1) Thrombocytopenia Status: Chronic 1. 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 He was diagnosed and treated initially in [place], received steroids, IVIG, rituximab, Nplate and finally splenectomy. He was started on Fostamitinib 100 mg bid from last week, but did not tolerated because of diarrhea, stool incontinence. He did not give it enough time to see if it was effective or not. He does not want to be on this medication anymore. In the past he tolerated romiplostim quite well and he would like to try it again although he had become resistant to it after about 8- 9 months. Continue with Decadron 40 mg p.o./IV for a total of 4 days. I will set him up to receive romiplostim in the oncology clinic as soon as possible. I thank you for this consultation.
[2021-03-17] MEDS: dexAMETHasone sod phosphate 4 MG/ML VIAL 40 MG IVPUSH (10:35)
[2021-03-17] MEDS: Ezetimibe 10 MG TABLET PO (10:36)
[2021-03-17] MEDS: Tamsulosin HCL 0.4 MG CAPSULE PO (10:36)
[2021-03-17] MEDS: Metoprolol Tartrate 25 MG TABLET PO (10:36)
--- NOTE | 2021-03-17 10:38 | PM.CNCAR ---
History of Present Illness History of Present Illness Date of Service: 03/17/21 Requesting physician: Bib Avery Chief complaint: THROMBOCYTOPENIA, T wave changes on ECG Narrative: 85-year-old gentleman with background of immune thrombocytopenic purpura. He has been seeing Dr. James. He had labs done which showed significantly low platelet counts and he was advised to come to the emergency department. He has been given dexamethasone his platelet counts have improved. He has bruising over his arms but no blood in his stool or urine. Last year he presented with GI bleed at that time he had NSTEMI with bilateral shoulder discomfort. He was treated with conservative approach because of his immune thrombocytopenic purpura. He is presenting now and has no symptoms but he has lateral T-wave inversions which are new compared to before. He is not very active but is denying any symptoms right now. His platelets counts are improving. He was previously taking baby aspirin. Based on office visits previously he was on amlodipine 5 mg, metoprolol 25 mg twice a day and isosorbide mononitrate extended release 60 mg daily. Review of Systems Review of Systems: Bruising Yes all other systems are reviewed and are negative [facility] Past Medical History Medical History Acute ITP Anemia with low platelet count Renal cancer Stroke Social History Social History Household Members: None Housing: Detention Alcohol intake: former Smoking Status: Former smoker Smoked in Last 30 Days: No Use of substances other than those prescribed or required for medical reasons: No Advance Directives: No Advance Directives Information Provided: Yes Current occupational status: retired Meds Allergies Allergy/AdvReac Type Severity Reaction Status Date / Time bupropion [From WELLBUTRIN] Allergy Unknown Unknown Verified 03/03/21 22:53 any statin Allergy Unknown Unknown Uncoded 03/03/21 22:53 BuPROPion HCl Allergy Unknown Unknown Uncoded 03/03/21 22:53 Wellbutrin Allergy Unknown Unknown Uncoded 03/03/21 22:53 Active Medications: Current Medications Generic Name Dose Route Start Last Admin Trade Name Freq PRN Reason Stop Dose Admin Acetaminophen 650 mg 03/17/21 02:07 Acetaminophen 325 Mg Tablet PO Q6H PRN Pain, Mild (Pain Scale 1-3) Bisacodyl 10 mg 03/17/21 02:07 Bisacodyl 10 Mg Supp.Rect MD DAILY PRN Constipation Dexamethasone Sodium Phosphate 40 mg 03/17/21 09:00 03/17/21 10:35 Dexamethasone Sod Phosphate 4 Mg/Ml Vial IVPUSH 40 mg DAILY CHIN Administration Docusate Sodium 100 mg 03/17/21 02:07 Docusate Sodium 100 Mg Capsule PO DAILY PRN Constipation Ezetimibe 10 mg 03/17/21 09:00 03/17/21 10:36 Ezetimibe 10 Mg Tablet PO 10 mg DAILY CHIN Administration Sodium Chloride 1,000 mls @ 80 mls/hr 03/16/21 23:15 03/17/21 00:37 Ns IVCONT 80 mls/hr .[id number] CHIN Administration Metoprolol Tartrate 25 mg 03/17/21 09:00 03/17/21 10:36 Metoprolol Tartrate 25 Mg Tablet PO 25 mg DAILY [facility] Administration Protocol Nitroglycerin 0.4 mg 03/17/21 02:07 Nitroglycerin 0.4 Mg Tab.Subl SUBLINGUAL Q5M PRN Chest Pain Ondansetron HCl 4 mg 03/17/21 02:07 Ondansetron Hcl 4 Mg/2 Ml Vial IVPUSH Q8H PRN Nausea and Vomiting Senna 8.6 mg 03/17/21 21:00 Sennosides 8.6 Mg Tablet PO BEDTIME [facility] Sodium Chloride 3 ml 03/17/21 02:07 03/17/21 02:17 0.9 % Sodium Chloride Flush 3 Ml Syringe IVFLUSH Not Given QSHIFT [facility] Tamsulosin HCl 0.4 mg 03/17/21 09:00 03/17/21 10:36 Tamsulosin Hcl 0.4 Mg Capsule PO 0.4 mg DAILY CHIN Administration Home Medications Medication Instructions Recorded Confirmed Last Taken Type Calcium 600 + D(3) 1 cap PO DAILY 03/03/21 03/16/21 1 Day Ago History ~03/15/21 acetaminophen 650 mg PO Q6-8H PRN 03/03/21 03/16/21 1 Day Ago History ~03/15/21 alum-mag hydroxide-simeth 10 ml PO Q6H PRN 03/03/21 03/16/21 1 Day Ago History [Felicia-Lanta] ~03/15/21 aspirin 81 mg PO DAILY 03/03/21 03/16/21 1 Day Ago History ~03/15/21 bisacodyl 10 mg MD DAILY PRN 03/03/21 03/16/21 1 Day Ago History ~03/15/21 calcium carbonate [Tums] 400 mg PO DAILY PRN 03/03/21 03/16/21 1 Day Ago History ~03/15/21 ezetimibe 10 mg PO DAILY 03/03/21 03/16/21 1 Day Ago History ~03/15/21 metoprolol tartrate 25 mg PO DAILY 03/03/21 03/16/21 1 Day Ago History ~03/15/21 multivit no.86-bufs-zxvpb acid 1 cap PO DAILY 03/03/21 03/16/21 1 Day Ago History ~03/15/21 nitroglycerin 0.4 mg SUBLINGUAL Q5M PRN 03/03/21 03/16/21 1 Day Ago History ~03/15/21 prednisone 30 mg PO DAILY 03/03/21 03/16/21 1 Day Ago History ~03/15/21 sennosides [senna] 8.6 mg PO BEDTIME 03/03/21 03/16/21 1 Day Ago History ~03/15/21 tamsulosin 0.4 mg PO DAILY 03/03/21 03/16/21 1 Day Ago History ~03/15/21 Physical Exam Vital Signs: Vital Signs: Last Vital Signs Temp 97.5 F 03/17/21 01:15 Pulse 97 03/17/21 10:36 Resp 20 03/17/21 07:00 BP 162/90 H 03/17/21 10:36 Pulse Ox 98 03/17/21 07:00 Body Mass Index 22.2 GENERAL APPEARANCE: in no acute distress. HEENT: unremarkable. HEAD: normocephalic, atraumatic. NECK/THYROID: no carotid bruit, no jugular venous distention. SKIN: Bruising or arms. HEART: no murmurs, regular rate and rhythm, S1, S2 normal. LUNGS: clear to auscultation bilaterally. ABDOMEN: normal, bowel sounds present, soft, nontender, nondistended. EXTREMITIES: no clubbing, cyanosis, or edema. PERIPHERAL PULSES: equal. NEUROLOGIC: nonfocal, alert and oriented. PSYCH: mood/affect full range. Results Labs and Meds Result diagrams: 03/17/21 04:31 03/17/21 04:31 Lab results: Laboratory Results - last 24 hr 03/16/21 03/16/21 03/16/21 20:52 20:52 20:53 WBC 6.2 RBC 3.61 L Hgb 10.5 L Hct 33.7 L MCV 93.4 MCH 29.1 MCHC 31.2 RDW 16.5 H Plt Count 4 L* MPV Not Reportable Immature Gran % (Auto) 0.2 Neut % (Auto) 81.1 H Lymph % (Auto) 16.5 L [place] % (Auto) 2.2 Eos % (Auto) 0.0 Baso % (Auto) 0.0 Lymph # (Auto) 1.0 L [place] # (Auto) 0.1 Eos # (Auto) 0.0 Baso # (Auto) 0.0 Abs Immat Gran (auto) 0.01 Absolute Neuts (auto) 5.1 Absolute Nucleated RBC 0.000 Nucleated RBC % (auto) 0.0 Smear Tech's Comments VERIFIED PT 10.2 L INR 0.9 APTT 25.5 Sodium Potassium Chloride Carbon Dioxide Anion Gap BUN Creatinine Estim Creat Clear Calc Estimated GFR Random Glucose Calcium Magnesium Troponin I High Sens Urine Color Urine Appearance Urine pH Ur Specific [place] Urine Protein Urine Glucose (UA) Urine Ketones Urine Blood Urine Nitrite Ur Leukocyte Esterase Urine RBC Urine WBC Ur Squamous Epith Cells Ur Renal Epithelial Cell Urine Bacteria COVID-19 (ANNETTE) COVID-19 Clin Com Blood Type B Negative Antibody Screen NEGATIVE 03/16/21 03/16/21 03/16/21 20:53 20:53 20:53 WBC RBC Hgb Hct MCV MCH MCHC RDW Plt Count MPV Immature Gran % (Auto) Neut % (Auto) Lymph % (Auto) [place] % (Auto) Eos % (Auto) Baso % (Auto) Lymph # (Auto) [place] # (Auto) Eos # (Auto) Baso # (Auto) Abs Immat Gran (auto) Absolute Neuts (auto) Absolute Nucleated RBC Nucleated RBC % (auto) Smear Tech's Comments PT INR APTT Sodium 134 L Potassium 4.6 Chloride 102 Carbon Dioxide 27 Anion Gap 10 L BUN 32 H Creatinine 1.20 Estim Creat Clear Calc 39.8 Estimated GFR 58 Random Glucose 176 H D Calcium 7.9 L Magnesium 2.2 Troponin I High Sens 104.3 H Urine Color Urine Appearance Urine pH Ur Specific [place] Urine Protein Urine Glucose (UA) Urine Ketones Urine Blood Urine Nitrite Ur Leukocyte Esterase Urine RBC Urine WBC Ur Squamous Epith Cells Ur Renal Epithelial Cell Urine Bacteria COVID-19 (ANNETTE) COVID-19 Clin Com Blood Type Antibody Screen 03/16/21 03/17/21 03/17/21 23:14 02:05 02:22 WBC RBC Hgb Hct MCV MCH MCHC RDW Plt Count MPV Immature Gran % (Auto) Neut % (Auto) Lymph % (Auto) [place] % (Auto) Eos % (Auto) Baso % (Auto) Lymph # (Auto) [place] # (Auto) Eos # (Auto) Baso # (Auto) Abs Immat Gran (auto) Absolute Neuts (auto) Absolute Nucleated RBC Nucleated RBC % (auto) Smear Tech's Comments PT INR APTT Sodium Potassium Chloride Carbon Dioxide Anion Gap BUN Creatinine Estim Creat Clear Calc Estimated GFR Random Glucose Calcium Magnesium Troponin I High Sens 83.7 H Urine Color YELLOW Urine Appearance CLEAR Urine pH 6.0 Ur Specific [place] 1.020 Urine Protein NEG Urine Glucose (UA) NEG Urine Ketones NEG Urine Blood TRACE Urine Nitrite NEG Ur Leukocyte Esterase NEG Urine RBC 0-2 Urine WBC 0-2 Ur Squamous Epith Cells TRACE Ur Renal Epithelial Cell TRACE Urine Bacteria TRACE COVID-19 (ANNETTE) Negative COVID-19 Clin Com See Note Blood Type Antibody Screen 03/17/21 03/17/21 04:31 04:31 WBC 9.3 RBC 3.24 L Hgb 9.7 L Hct 30.1 L MCV 92.9 MCH 29.9 MCHC 32.2 RDW 16.4 H Plt Count 82 L D MPV 11.4 Immature Gran % (Auto) 0.3 Neut % (Auto) 92.8 H Lymph % (Auto) 6.6 L [place] % (Auto) 0.2 L Eos % (Auto) 0.0 Baso % (Auto) 0.1 Lymph # (Auto) 0.6 L [place] # (Auto) 0.0 L Eos # (Auto) 0.0 Baso # (Auto) 0.0 Abs Immat Gran (auto) 0.03 Absolute Neuts (auto) 8.6 H Absolute Nucleated RBC 0.030 H Nucleated RBC % (auto) 0.3 H Smear Tech's Comments PT INR APTT Sodium 134 L Potassium 3.9 Chloride 102 Carbon Dioxide 24 Anion Gap 12 BUN 28 H Creatinine 1.04 Estim Creat Clear Calc 45.9 Estimated GFR > 60 Random Glucose 184 H Calcium 7.7 L Magnesium Troponin I High Sens Urine Color Urine Appearance Urine pH Ur Specific [place] Urine Protein Urine Glucose (UA) Urine Ketones Urine Blood Urine Nitrite Ur Leukocyte Esterase Urine RBC Urine WBC Ur Squamous Epith Cells Ur Renal Epithelial Cell Urine Bacteria COVID-19 (ANNETTE) COVID-19 Clin Com Blood Type Antibody Screen Assessment and Plan (1) Elevated troponin: Status: Acute (2) Thrombocytopenia: Status: Chronic (3) Inverted T wave: Status: Acute Pleasant 85 gentleman with ITP who is presenting for low platelet counts. He was noticed to have lateral T-wave inversions which are new compared to old EKGs. He has no symptoms. He previously had GI bleed and had type 2 CO at that time and had bilateral shoulder discomfort that time. He has not had any similar symptoms recently. His platelet counts are improving. If hematology is okay with resuming baby aspirin then it should be resumed. I think currently does not need any further testing. Please increase his metoprolol to 25 mg twice a day and add back his amlodipine depending on his blood pressure. Thank you for allowing me to participate in the care of your patient. Please feel free to contact me if you have any questions.
--- NOTE | 2021-03-17 11:59 | PC.NURSE ---
PT AOX4 AMB WITH CANE IN SEVERAL TIME TO BR, HAS BEEN TALKING ON THE PHONE TO FRIENDS,TOLERATING PO. NEEDS BEING MET
--- NOTE | 2021-03-17 13:02 | MHC.CM.PN ---
Attempted to meet with patient in regards to discharge planning. Nursing care currently being provided. Will attempt to meet again. Per Dr Avery, patient will possibly discharge today. Patient is from [facility]. Referral made via allscripts. Continue to monitor for d/c needs.
--- NOTE | 2021-03-17 15:42 | MHC.CM.PN ---
Received telephone call from Tanja liaison for [email or web address]. Patient was at their facility after being transferred from a short term rehab in [place]. Patient was supposed to move into his independent apartment today. However, because patient has not been formally discharged from their facility, he will have to return to [facility]. This was explained to patient. Jean became upset that he wasn't being discharged to his independent living apartment today. T/W spoke with Caregiver, Nadege via telephone at [phone]. She will be at the ER at 6pm to transport patient to [email or web address]. She is requesting written prescription for Decadon. Dr Avery aware and has printed prescription. Patient and Mena MITCHELL aware. Continue to monitor for d/c needs.
--- NOTE | 2021-03-17 15:48 | PC.NURSE ---
pt going back to facility, health care specialist will be picking him up around 6pm
--- NOTE | 2021-03-17 15:53 | P.DS_ITS ---
DS: Providers Provider Date of Service: 03/30/21 Date of admission: 03/16/21 22:58 Primary care physician: Unknown Physician Consults: 03/17/21 02:07 Consult to Hematology / Oncology Routine Consulting Provider: Zackary Pringle Reason for consultation: ITP Has provider been notified: No 03/17/21 06:41 Consult to Cardiology Routine Consulting Provider: Martin Gutierrez Reason for consultation: new T-wave inversion Has provider been notified: No DS: Diagnosis Discharge Diagnosis (1) Elevated troponin: Status: Acute (2) Thrombocytopenia: Status: Chronic (3) Inverted T wave: Status: Resolved DS: Medications Discharge Medications Home Medications: Home Medications Medication Instructions Recorded Confirmed Calcium 600 + D(3) 1 cap PO DAILY 03/03/21 03/16/21 acetaminophen 650 mg PO Q6-8H PRN 03/03/21 03/16/21 alum-mag hydroxide-simeth 10 ml PO Q6H PRN 03/03/21 03/16/21 [Felicia-Lanta] bisacodyl 10 mg [place] DAILY PRN 03/03/21 03/16/21 calcium carbonate [Tums] 400 mg PO DAILY PRN 03/03/21 03/16/21 ezetimibe 10 mg PO DAILY 03/03/21 03/16/21 metoprolol tartrate 25 mg PO DAILY 03/03/21 03/16/21 multivit no.17-ozgn-[id number] acid 1 cap PO DAILY 03/03/21 03/16/21 nitroglycerin 0.4 mg SUBLINGUAL Q5M PRN 03/03/21 03/16/21 prednisone 30 mg PO DAILY 03/03/21 03/16/21 sennosides [senna] 8.6 mg PO BEDTIME 03/03/21 03/16/21 tamsulosin 0.4 mg PO DAILY 03/03/21 03/16/21 Previous Rx's Medication Instructions Recorded dexamethasone [Decadron] 40 mg PO DAILY #30 tab 03/17/21 DS: Summary Hospital Course Hospital Course: Date of Admission: 03/16/21 Chief Complaint: Low Plt 85-year-old male with past medical history of ITP, CVA, who presents to the hospital with complaints of low platelet counts. Of note patient was discharged from the hospital on March 05 after being managed for ITP. He returns today stating that he had lab work done which showed low platelet counts. Patient reports that he was recently started on a medication called Fostamitinib by his hematology oncologist, but cause some side effects including loss of bowel control and he decided to stop taking the medication. His prednisone was also reduced by his hematology oncologist to 20 mg. Patient had lab work done and called his hematology oncologist and was told to come to the hospital. He currently denies any headache, change in vision, no abdominal pain, no bleeding episodes, no hemoptysis, hematochezia, no chest pain, shortness of breath, no nausea vomiting, no diarrhea constipation, no urinary symptoms and no lower extremity edema. On arrival to the ED hemodynamically stable with no significant abnormal vitals Labs are significant for WBC count of 6.2, hemoglobin of 10.5, platelets of 4, sodium of 134, troponin of 104.3, that trended down to 83. UA negative. COVID- 19 negative. EKG shows sinus bradycardia with right bundle branch block and T-wave inversion in lateral leads with T-wave inversions new from recent EKG Hospital course: Patient was admitted and treated with 2 units platlets and 40 mg of IV decadron and the following day, platlets has improved to 82K up from 4K. Dr. James (his hematoligist) advises additional 40 mg of decadron daily for 3 more days and will reassess in office for other treatment. Aspirin is being discontinued. Of note he had ECG changes with no symptoms and was seen by Dr. Gutierrez with the following assesment: He was noticed to have lateral T-wave inversions which are new compared to old EKGs. He has no symptoms. He previously had GI bleed and had type 2 LA at that time and had bilateral shoulder discomfort that time. He has not had any similar symptoms recently. His platelet counts are improving. If hematology is okay with resuming baby aspirin then it should be resumed. I think currently does not need any further testing. Please increase his metoprolol to 25 mg twice a day and add back his amlodipine depending on his blood pressure. For now BP seem Ok with present regimen especially increase in Metoprolol Time Spent with Patient Time attestation: Total time spent providing and/or coordinating discharge services: Discharge coordination time: Greater than 30 minutes Physical Exam Vital Signs: Vital Signs: Last Vital Signs Temp 97.5 F 03/17/21 01:15 Pulse 80 03/17/21 14:17 Resp 16 03/17/21 14:17 BP 133/79 03/17/21 14:17 Pulse Ox 99 03/17/21 14:17 Body Mass Index 22.2 General: AO X 3, no acute distress Resp: CTA bilateral CVS: S1,S2,RRR GI: +BS, NT, no distention Skin: bruses on arms from low platlets Neuro: motor grossly intact Psych: appropriate affect DS: Data Data Completed and Pending Completed studies during hospitalization [Text1]: Procedures Transfusion of Nonautologous Platelets into Peripheral Vein, Percutaneous Approach (03/03/21) Labs on day of discharge: Laboratory Results - last 24 hr 03/16/21 03/16/21 03/16/21 20:52 20:52 20:53 WBC 6.2 RBC 3.61 L Hgb 10.5 L Hct 33.7 L MCV 93.4 MCH 29.1 MCHC 31.2 RDW 16.5 H Plt Count 4 L* MPV Not Reportable Immature Gran % (Auto) 0.2 Neut % (Auto) 81.1 H Lymph % (Auto) 16.[address] [place] % (Auto) 2.2 Eos % (Auto) 0.0 Baso % (Auto) 0.0 Lymph # (Auto) 1.[address] [place] # (Auto) 0.1 Eos # (Auto) 0.0 Baso # (Auto) 0.0 Abs Immat Gran (auto) 0.01 Absolute Neuts (auto) 5.1 Absolute Nucleated RBC 0.000 Nucleated RBC % (auto) 0.0 Smear Tech's Comments VERIFIED PT 10.2 L INR 0.9 APTT 25.5 Sodium Potassium Chloride Carbon Dioxide Anion Gap BUN Creatinine Estim Creat Clear Calc Estimated GFR Random Glucose Calcium Magnesium Troponin I High Sens Urine Color Urine Appearance Urine pH Ur Specific [place] Urine Protein Urine Glucose (UA) Urine Ketones Urine Blood Urine Nitrite Ur Leukocyte Esterase Urine RBC Urine WBC Ur Squamous Epith Cells Ur Renal Epithelial Cell Urine Bacteria COVID-19 (ANNETTE) COVID-19 Clin Com Blood Type B Negative Antibody Screen NEGATIVE 03/16/21 03/16/21 03/16/21 20:53 20:53 20:53 WBC RBC Hgb Hct MCV MCH MCHC RDW Plt Count MPV Immature Gran % (Auto) Neut % (Auto) Lymph % (Auto) [place] % (Auto) Eos % (Auto) Baso % (Auto) Lymph # (Auto) [place] # (Auto) Eos # (Auto) Baso # (Auto) Abs Immat Gran (auto) Absolute Neuts (auto) Absolute Nucleated RBC Nucleated RBC % (auto) Smear Tech's Comments PT INR APTT Sodium 134 L Potassium 4.6 Chloride 102 Carbon Dioxide 27 Anion Gap 10 L BUN 32 H Creatinine 1.20 Estim Creat Clear Calc 39.8 Estimated GFR 58 Random Glucose 176 H D Calcium 7.9 L Magnesium 2.2 Troponin I High Sens 104.3 H Urine Color Urine Appearance Urine pH Ur Specific [place] Urine Protein Urine Glucose (UA) Urine Ketones Urine Blood Urine Nitrite Ur Leukocyte Esterase Urine RBC Urine WBC Ur Squamous Epith Cells Ur Renal Epithelial Cell Urine Bacteria COVID-19 (ANNETTE) COVID-WEALTH at work Com Blood Type Antibody Screen 03/16/21 03/17/21 03/17/21 23:14 02:05 02:22 WBC RBC Hgb Hct MCV MCH MCHC RDW Plt Count MPV Immature Gran % (Auto) Neut % (Auto) Lymph % (Auto) [place] % (Auto) Eos % (Auto) Baso % (Auto) Lymph # (Auto) [place] # (Auto) Eos # (Auto) Baso # (Auto) Abs Immat Gran (auto) Absolute Neuts (auto) Absolute Nucleated RBC Nucleated RBC % (auto) Smear Tech's Comments PT INR APTT Sodium Potassium Chloride Carbon Dioxide Anion Gap BUN Creatinine Estim Creat Clear Calc Estimated GFR Random Glucose Calcium Magnesium Troponin I High Sens 83.7 H Urine Color YELLOW Urine Appearance CLEAR Urine pH 6.0 Ur Specific [place] 1.020 Urine Protein NEG Urine Glucose (UA) NEG Urine Ketones NEG Urine Blood TRACE Urine Nitrite NEG Ur Leukocyte Esterase NEG Urine RBC 0-2 Urine WBC 0-2 Ur Squamous Epith Cells TRACE Ur Renal Epithelial Cell TRACE Urine Bacteria TRACE COVID-19 (ANNETTE) Negative COVID-19 [employer] Com See Note Blood Type Antibody Screen 03/17/21 03/17/21 04:31 04:31 WBC 9.3 RBC 3.24 L Hgb 9.7 L Hct 30.1 L MCV 92.9 MCH 29.9 MCHC 32.2 RDW 16.4 H Plt Count 82 L D MPV 11.4 Immature Gran % (Auto) 0.3 Neut % (Auto) 92.8 H Lymph % (Auto) 6.[address] [place] % (Auto) 0.2 L Eos % (Auto) 0.0 Baso % (Auto) 0.1 Lymph # (Auto) 0.[address] [place] # (Auto) 0.0 L Eos # (Auto) 0.0 Baso # (Auto) 0.0 Abs Immat Gran (auto) 0.03 Absolute Neuts (auto) 8.6 H Absolute Nucleated RBC 0.030 H Nucleated RBC % (auto) 0.3 H Smear Tech's Comments PT INR APTT Sodium 134 L Potassium 3.9 Chloride 102 Carbon Dioxide 24 Anion Gap 12 BUN 28 H Creatinine 1.04 Estim Creat Clear Calc 45.9 Estimated GFR > 60 Random Glucose 184 H Calcium 7.7 L Magnesium Troponin I High Sens Urine Color Urine Appearance Urine pH Ur Specific [place] Urine Protein Urine Glucose (UA) Urine Ketones Urine Blood Urine Nitrite Ur Leukocyte Esterase Urine RBC Urine WBC Ur Squamous Epith Cells Ur Renal Epithelial Cell Urine Bacteria COVID-19 (ANNETTE) COVID-19 Clin Com Blood Type Antibody Screen Discharge Plan Discharge Anticipated Discharge Date/Time: 03/17/21 14:59 Patient Disposition: Xfer [facility] Discharge Diagnosis: Thrombocytopenia, abnormal ECG Referrals: Omar Mcdermott [Outside] - 1 Week Armando Estrada MD [Physician] - 1 Week Discharge Medications: Continued sennosides [senna] 8.6 mg Tablet 8.6 mg PO BEDTIME PRN (Reason: Constipation) RF: 0 acetaminophen 650 mg Tablet 650 mg PO Q6-8H PRN (Reason: Pain) RF: 0 bisacodyl 10 mg Suppository 10 mg [place] DAILY PRN (Reason: Constipation) RF: 0 calcium carbonate [Tums] 200 mg calcium (500 mg) Tablet,Chewable 400 mg PO DAILY PRN (Reason: Acid Reflux) RF: 0 nitroglycerin 0.4 mg Tablet, Sublingual 0.4 mg SUBLINGUAL Q5M PRN (Reason: Chest Pain) RF: 0 alum-mag hydroxide-simeth [Felicia-Lanta] 200-200-20 mg/5 mL Suspension 10 ml PO Q6H PRN (Reason: Pain) RF: 0 Calcium 600 + D(3) 600 mg calcium- 200 unit Capsule 1 cap PO DAILY RF: 0 multivit no.68-haix-sgutt acid 106.5-1 mg Capsule 1 cap PO DAILY RF: 0 Discontinued aspirin 81 mg Tablet 81 mg PO DAILY RF: 0 metoprolol tartrate 25 mg Tablet 25 mg PO DAILY RF: 0 No Action prednisone 10 mg tablet 20 mg PO DAILY RF: 0 ezetimibe 10 mg tablet 10 mg PO DAILY Qty: 90 RF: 8 metoprolol tartrate 25 mg tablet 25 mg PO BID Qty: 180 RF: 8 tamsulosin 0.4 mg capsule 0.4 mg PO DAILY Qty: 90 RF: 8 aspirin [Aspir-81] 81 mg Tablet,Delayed Release (Dr/Ec) 81 mg PO DAILY RF: 0 Discharge Orders: Discharge Order (Routine); Ordered 03/17/21 Ordered By: Bib Avery Diet: advance to usual diet Activity on Discharge: As tolerated Stand Alone Forms: Patient Portal Discharge page Care Plan Goals: To keep platlets count up Health Concerns: chronic low platlets and abnormal ECG Plan of Treatment: Take Decadron 40 mg daily for 3 days and follow up with Dr. James for further treatment options Assessment: Chrolically low platlets due to ITP and abnormal ECG without symptoms Discharge Date/Time: 03/17/21 18:24
--- NOTE | 2021-03-17 17:36 | PC.NURSE ---
pt dc at 1358 moved to 13H to wait for ride
== END 2021-03-17 18:24 | disposition skilled nursing facility (03) | DRG 813 ==
LOC: HO.ED 21:24 → HO.EDOVER 23:56 → HO.IMC 03-17 14:36 → HO.EDOVER 03-17 15:08
PROVIDERS: Emergency Medicine Emergency Medical Services; Nurse Practitioner Family; Admitting Provider Internal Medicine; Emergency Provider Emergency Medicine; Visit Provider Internal Medicine
DX: D69.3 Immune thrombocytopenic purpura (principal); R94.31 Abnormal electrocardiogram [ECG] [EKG]; R79.89 Other specified abnormal findings of blood chemistry; Z20.822 Contact with and (suspected) exposure to COVID-19; I25.2 Old myocardial infarction; Z86.73 Personal history of transient ischemic attack (TIA), and cerebral infarction without residual deficits; Z87.891 Personal history of nicotine dependence; Z79.899 Other long term (current) drug therapy
CPT/HCPCS: 36415; 80048; 81001; 83735; 84484; 85025; 85610; 85730; 86850; 86900; 86901; 87635; 93005; 99285; 99291; J1100; J8540; P9035

== ENCOUNTER 2021-04-16 13:51 | Outpatient (REF) | payer MEDICARE, SELFPAY ==
--- NOTE | ~2021-04-16 | XR_ITS ---
EXAMINATION: XR CHEST CLINICAL INFORMATION: Surveillance. History of renal cell cancer. COMPARISON: Previous chest x-ray 02/20/2020 TECHNIQUE: Frontal view of the chest was obtained. FINDINGS: The cardiac and mediastinal contours are stable. The lungs are clear. There is no pleural effusion or pneumothorax. Bony structures are unremarkable. XR/XR chest 1V IMPRESSION: No evidence for acute disease in the chest.
== END 2021-04-16 13:52 | disposition home or self-care (01) ==
LOC: HO.XRAY 13:51
PROVIDERS: PCP Internal Medicine; Visit Provider Internal Medicine
DX: C64.9 Malignant neoplasm of unspecified kidney, except renal pelvis (principal)
CPT/HCPCS: 71045

== ENCOUNTER 2021-04-27 10:34 | Outpatient (REF) | payer MEDICARE, SELFPAY ==
[2021-04-27 11:04] LABS: MANUAL DIFF FLAG NO
[2021-04-27 11:33] LABS: Anion Gap 12 (12-20); Blood Urea Nitrogen 30 mg/dL (9-16); Calcium 8.8 mg/dL (8.4-10.2); Carbon Dioxide 25 mmol/L (22-29); Chloride 105 mmol/L (96-108); Estimated Glomerular Filt Rate 51; Glucose Random 98 mg/dL (60-115); Potassium 4.2 mmol/L (3.3-5.1); Sodium 138 mmol/L (135-145)
[2021-04-27 11:48] LABS: Thyroid Stimulating Hormone 1.36 uIU/mL (0.32-4.0)
[2021-04-27 11:51] LABS: Basophils Absolute Auto 0.1 X10*3/uL (0.0-0.2); Basophils Percent Auto 0.5 % (0-2); Eosinophils Absolute Auto 0.1 X10*3/uL (0.0-0.4); Eosinophils Percent Auto 0.5 % (0-4); Hematocrit 30.3 % (42-52); Hemoglobin 9.4 g/dl (14.0-18.0); Imm Gran Abs Auto 0.06 X10*3/uL (0.00-0.03); Imm Gran Pct Auto 0.5 % (0.0-0.4); Lymphocytes Absolute Auto 2.8 X10*3/uL (1.2-4.9); Mean Corpuscular Hemoglobin 27.9 pg (27.0-33.0); Mean Corpuscular Volume 89.9 fL (80-98); Monocytes Absolute Auto 1.3 X10*3/uL (0.1-1.2); Monocytes Percent Auto 11.7 % (2-11); Neutrophils Absolute Auto 6.9 X10*3/uL (2.0-8.3); Neutrophils Percent Auto 61.8 % (45-73); Red Blood Count 3.37 X10*6/uL (4.60-5.80); White Blood Count 11.1 X10*3/uL (4.8-10.8)
[2021-04-27 12:18] LABS: Platelet Count 15 X10*3/uL (160-400)
== END 2021-04-27 10:35 | disposition home or self-care (01) ==
LOC: HO.LAB 10:34
PROVIDERS: PCP Internal Medicine; Visit Provider Internal Medicine
DX: Z00.00 Encounter for general adult medical examination without abnormal findings (principal); R51.9 Headache, unspecified; E03.9 Hypothyroidism, unspecified
CPT/HCPCS: 36415; 80048; 84443; 85025

== ENCOUNTER 2021-04-28 15:49 | Inpatient (IN) | payer MEDICARE, SELFPAY ==
--- NOTE | ~2021-04-28 | CT_ITS ---
EXAMINATION: CT ABDOMEN AND PELVIS WITHOUT CONTRAST CLINICAL INFORMATION: ITP with drop in hemoglobin. COMPARISON: None TECHNIQUE: Multidetector volumetric imaging was performed from the superior aspect of the liver through the pubic symphysis. Sagittal and coronal reformatted images were obtained on the technologist's workstation. This CT examination was performed using dose optimization techniques as appropriate, variously including the following: *Automated exposure control *Adjustment of mA and/or kV according to patient size (this includes techniques or standardized protocols for targeted exams where dose is matched to indication/reason for exam; i.e. extremities or head) *Use of iterative reconstruction technique DLP: 323 mGy-cm FINDINGS: LUNG BASES: The visualized lung bases are unremarkable. LIVER, GALLBLADDER, AND BILIARY TREE: The liver is normal in size, shape, and attenuation. No focal hepatic lesion or biliary ductal dilatation is present. The gallbladder is contracted and appears unremarkable. PANCREAS: The pancreas is atrophied with scattered calcifications. SPLEEN: Unremarkable. ADRENAL GLANDS: The right adrenal gland appears unremarkable. The left adrenal gland is not visualized. KIDNEYS AND URETERS: The left kidney is absent. There is a moderate sized cyst right kidney measuring 7.3 x 6.1 cm. No radiopaque right renal calculi or hydronephrosis seen. BLADDER: Unremarkable. GASTROINTESTINAL TRACT: There is scattered stool, diverticula and gas seen throughout the colon without distention. The small bowel loops are normal caliber. The appendix is not visualized. ABDOMINAL WALL: There is a right lower abdominal wall mesh in place from previous hernia repair. LYMPH NODES: No abnormal retroperitoneal or mesenteric lymph nodes visualized. VASCULAR: The abdominal aorta is normal caliber with mild atherosclerotic changes. No aneurysmal dilatation seen. PELVIC VISCERA: The prostate gland is mildly enlarged with extension into the base of bladder. OSSEOUS STRUCTURES: There are degenerative disc changes with vacuum disc phenomena at all lumbar disc levels. There are moderate ventral bridging osteophytes lower dorsal and upper lumbar spine. No lytic or sclerotic process seen. CT/CT abdomen pelvis wo con IMPRESSION: No acute intra-abdominal bleed or mass or abnormal lymphadenopathy. 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 [id number] right renal cyst. Atrophic pancreas. Diffuse sigmoid diverticulosis without diverticulitis. Moderate constipation.
--- NOTE | 2021-04-28 17:22 | P.HPHOSP_ITS ---
History of Present Illness Date of Service: 04/28/21 Chief Complaint: Dizziness, hypertension An 85 years old male patient with PMH of ITP, renal cancer, AFib among others who presented to the hospital for outpatient oncology clinic for romiplostim . Found to increased weakness, complain of dizziness and found to be hypotensive. Admitted directly from oncology clinic for further evaluation and treatment. The patient reported that over the last few days he noticed more intermittent diarrhea not associated with abdominal pain, fever or chills associated with decreased appetite and inadequate oral intake. He reports feeling weaker and unable to ambulate much. He lives alone with concern of falling. Admitted for further evaluation treatment. Review of Systems Review of Systems: No fever, chills but reports generalized weakness No chest pain, palpitation No shortness of breath or coughing No abdominal pain, nausea or vomiting but had diarrhea No urinary symptoms No any rash or wounds PMFSH Medical History Acute ITP Anemia with low platelet count Chronic ITP (idiopathic thrombocytopenia) Renal cancer Stroke Family History Mother No problems noted. Father No problems noted. Surgical History History of kidney removal History of total splenectomy Social History Household Members: None Housing: Residential Do you presently have visiting nurse or other home services: No Alcohol intake: former Patient Tobacco Use Status: Former Tobacco user Tobacco use type: Cigarette Second Hand Smoke Exposure: No Advance Directives: No Advance Directives Information Provided: No service: Yes Current occupational status: retired Meds Allergies Allergy/AdvReac Type Severity Reaction Status Date / Time bupropion [From WELLBUTRIN] Allergy Unknown Unknown Verified 04/27/21 09:42 fostamatinib [From Tavalisse] AdvReac Severe Diarrhea Verified 04/27/21 09:42 any statin Allergy Unknown Unknown Uncoded 03/03/21 22:53 BuPROPion HCl Allergy Unknown Unknown Uncoded 03/03/21 22:53 Wellbutrin Allergy Unknown Unknown Uncoded 03/03/21 22:53 Home Medications Medication Instructions Recorded Confirmed Last Taken Type Calcium 600 + D(3) 1 cap PO DAILY 03/03/21 03/19/21 1 Day Ago History ~03/15/21 acetaminophen 650 mg PO Q6-8H PRN 03/03/21 03/19/21 1 Day Ago History ~03/15/21 multivit no.56-kilr-tnyqf acid 1 cap PO DAILY 03/03/21 03/19/21 1 Day Ago History ~03/15/21 aspirin [Aspir-81] 81 mg PO DAILY 03/19/21 03/19/21 Unknown History coenzyme Q10 100 mg capsule 100 mg PO DAILY 04/27/21 Unknown History metoprolol tartrate 25 mg tablet 25 mg PO DAILY tab 04/27/21 Unknown History omega-3 fatty acids 1,000 mg 1,000 mg PO DAILY 04/27/21 Unknown History capsule Physical Exam Vital Signs and Narrative: Constitutional : Alert, oriented to self and place, not in distress Neck : Normal inspection, Supple Cardiovascular : RRR, S1 S2, no lower extremity edema Respiratory : Fair bilateral air entry, no crackles, wheezes or rhonchi Gastrointestinal: soft, lax, Normal bowel sounds, Non tender Skin : Warm/Dry, No rash Neurological : Alert & oriented x3, No focal deficit Assessment and Plan (1) Hypotension: Status: Acute (2) Dizziness: Status: Acute (3) Chronic ITP (idiopathic thrombocytopenia): Status: Acute An 85 years old male patient with PMH of ITP, renal cancer, AFib among others who presented to the hospital for outpatient oncology clinic for romiplostim . Found to increased weakness, complain of dizziness and found to be hypotensive. Dizziness Likely secondary to hypotension, orthostatic changes Possibly secondary to steroid deficiency Check orthostatic vitals Start IV fluid Possible steroid deficiency Had been on prolonged course of steroid recently Received dose of IV steroid in Oncology Clinic, to continue with p.o. with long tapering To get Oncology opinion History CAD Hold metoprolol Continue aspirin BPH Continue tamsulosin DVT PPX SCDs
[2021-04-28 18:00] VITALS: BMI 23.4
[2021-04-28] MEDS: 0.9 % Sodium Chloride Flush 3 ML SYRINGE IVFLUSH (18:59)
[2021-04-28] MEDS: Dextrose 5 % and 0.9 % NaCl 1,000 ML 80 ML IVCONT (18:59)
[2021-04-28 19:28] VITALS: BP 153/72; PULSE 72; RESP 18; TEMP 36.3; O2SAT 98
[2021-04-28 23:22] VITALS: BP 148/71; PULSE 75
[2021-04-28 23:23] VITALS: BP 122/82; PULSE 89; O2SAT 99
[2021-04-28 23:26] VITALS: BP 119/75; PULSE 94; O2SAT 97
[2021-04-29] VITALS (20 sets, daily range): BP systolic 108–163; BP diastolic 47–78; PULSE 53–87; RESP 18–20; TEMP 36.2–37.1; O2SAT 96–100
[2021-04-29] MEDS: Dextrose 5 % and 0.9 % NaCl 1,000 ML 80 ML IVCONT (05:02)
[2021-04-29 06:45] LABS: Basophils Percent Auto 0.2 % (0-2); Eosinophils Percent Auto 0.1 % (0-4); Imm Gran Abs Auto 0.05 X10*3/uL (0.00-0.03); Imm Gran Pct Auto 0.5 % (0.0-0.4); MANUAL DIFF FLAG SCAN; SCAN SMEAR FLAG 1
[2021-04-29 06:47] LABS: Lymphocytes Absolute Auto 2.8 X10*3/uL (1.2-4.9); Lymphocytes Percent Auto 27.5 % (20-40); Mean Corpuscular HGB Conc 31.8 g/dl (31.0-36.0); Mean Corpuscular Hemoglobin 28.4 pg (27.0-33.0); Mean Corpuscular Volume 89.3 fL (80-98); Monocytes Percent Auto 10.1 % (2-11); Neutrophils Absolute Auto 6.4 X10*3/uL (2.0-8.3); Neutrophils Percent Auto 61.6 % (45-73); Red Blood Count 2.15 X10*6/uL (4.60-5.80); Red Cell Distribution Width 16.1 % (11.0-16.0); White Blood Count 10.3 X10*3/uL (4.8-10.8)
[2021-04-29 07:07] LABS: Anion Gap 9 (12-20); Blood Urea Nitrogen 48 mg/dL (9-16); Carbon Dioxide 23 mmol/L (22-29); Chloride 111 mmol/L (96-108); Estimated Glomerular Filt Rate > 60; Glucose Random 125 mg/dL (60-115); Sodium 139 mmol/L (135-145)
[2021-04-29 07:46] LABS: PLT ABN DIST 1; Platelet Count 3 X10*3/uL (160-400)
[2021-04-29 07:47] LABS: Hematocrit 19.2 % (42-52); Hemoglobin 6.1 g/dl (14.0-18.0)
[2021-04-29 07:59] LABS: SLIDE REVIEW VERIFIED
--- NOTE | 2021-04-29 08:35 | MHC.CM.PN ---
CM met with Patient at bedside and addressed NEVAREZ, providing him with the original and placing a copy on the chart. Patient lives alone in an apartment at [facility] and he has a Plastic Cnc Machine Operator/Nadege @ [phone], who he wishes to assist with dc planning. CM has initiated and will follow for dc planning. Patient uses a walker and his PCP is Dr. Mauro Smith.
[2021-04-29] MEDS: 0.9 % Sodium Chloride Flush 3 ML SYRINGE IVFLUSH ×2 (08:54→23:51)
[2021-04-29] MEDS: predniSONE 20 MG TABLET 40 MG PO (08:54)
[2021-04-29] MEDS: Metoprolol Tartrate 25 MG TABLET PO (08:54)
[2021-04-29] MEDS: Tamsulosin HCL 0.4 MG CAPSULE PO (08:54)
--- NOTE | 2021-04-29 11:05 | PC.NURSE ---
When fixing LUE IV setup/dressing on pt for plt transfusion, tape on skin removed. When removed, skin tear noticed on L outer forearm. Foam applied.
--- NOTE | 2021-04-29 15:12 | P.PNIM_ITS ---
Subjective Subjective Date of Service: 04/29/21 Interval History: the patient was seen and evaluated this morning Laying in bed, feels comfortable Hemoglobin dropped to 6.5 with drop of platelets to 3 No reported bleeding, chest pain or tachycardia Denies any fever, chills or shortness of breath No reported other overnight events. Review of Systems No fever, chills but reports generalized weakness No chest pain, palpitation No shortness of breath or coughing No abdominal pain, nausea or vomiting but had diarrhea No urinary symptoms No any rash or wounds Physical Exam Vital Signs: Vital Signs: Last Vital Signs Temp 97.5 F 04/29/21 15:05 Pulse 74 04/29/21 15:05 Resp 20 04/29/21 15:05 BP 127/68 04/29/21 15:05 Pulse Ox 98 04/29/21 15:05 Body Mass Index 23.4 Const: Other: Constitutional : Alert, oriented to self and place, not in distress Neck : Normal inspection, Supple Cardiovascular : RRR, S1 S2, no lower extremity edema Respiratory : Fair bilateral air entry, no crackles, wheezes or rhonchi Gastrointestinal: soft, lax, Normal bowel sounds, Non tender Skin : Warm/Dry, No rash Neurological : Alert & oriented x3, No focal deficit Objective Data Current Medications Generic Name Dose Route Start Last Admin Trade Name Freq PRN Reason Stop Dose Admin Acetaminophen 650 mg 04/28/21 17:52 Acetaminophen 325 Mg Tablet PO Q6H PRN Pain, Mild (Pain Scale 1-3) Aspirin 81 mg 04/29/21 09:00 04/29/21 08:57 Aspirin Enteric Coated 81 Mg Tablet. PO Not Given DAILY [facility] Metoprolol Tartrate 25 mg 04/29/21 09:00 04/29/21 08:54 Metoprolol Tartrate 25 Mg Tablet PO 25 mg DAILY CHIN Administration Protocol Ondansetron HCl 4 mg 04/28/21 17:52 Ondansetron Hcl 4 Mg/2 Ml Vial IVPUSH Q8H PRN Nausea and Vomiting Prednisone 40 mg 04/29/21 09:00 04/29/21 08:54 Prednisone 20 Mg Tablet PO 40 mg DAILY CHIN Administration Sodium Chloride 3 ml 04/28/21 17:52 04/29/21 08:54 0.9 % Sodium Chloride Flush 3 Ml Syringe IVFLUSH 3 ml QSHIFT CHIN Administration Tamsulosin HCl 0.4 mg 04/29/21 09:00 04/29/21 08:54 Tamsulosin Hcl 0.4 Mg Capsule PO 0.4 mg DAILY CHIN Administration Labs CBC & Chem 7: 04/29/21 05:45 04/29/21 05:45 Assessment and Plan (1) Hypotension: Status: Acute (2) Dizziness: Status: Acute (3) Chronic ITP (idiopathic thrombocytopenia): Status: Acute Assessment and Plan: An 85 years old male patient with PMH of ITP, renal cancer, AFib among others who presented to the hospital for outpatient oncology clinic for romiplostim . Found to increased weakness, complain of dizziness and found to be hypotensive. Acute on chronic anemia Likely delutional with no active bleeding noted To give a unit of blood Monitor H and H overnight ITP, acute on chronic Platelets of 3 He received outpatient romiplostim yesterday To transfuse 2 units of platelets today Monitor for bleeding Hematology evaluation Dizziness Likely secondary to hypotension, orthostatic changes Possibly secondary to steroid deficiency Check orthostatic vitals Continue prednisone Discontinue IV fluid Possible steroid deficiency Had been on prolonged course of steroid recently Received dose of IV steroid in Oncology Clinic, to continue with p.o. with long tapering To get Oncology opinion History CAD Hold metoprolol Continue aspirin BPH Continue tamsulosin DVT PPX SCDs
[2021-04-29] MEDS: Acetaminophen 325 MG TABLET 650 MG PO (21:13)
[2021-04-30] VITALS (24 sets, daily range): BP systolic 119–162; BP diastolic 59–80; PULSE 50–88; RESP 15–20; TEMP 36.4–37.1; O2SAT 94–99
[2021-04-30 06:39] LABS: MANUAL DIFF FLAG NO
[2021-04-30 07:12] LABS: Anion Gap 13 (12-20); Blood Urea Nitrogen 56 mg/dL (9-16); Calcium 8.2 mg/dL (8.4-10.2); Carbon Dioxide 22 mmol/L (22-29); Chloride 111 mmol/L (96-108); Creatinine Clr Calc Pharmacy 45.6; Estimated Glomerular Filt Rate > 60; Glucose Random 154 mg/dL (60-115); Potassium 4.2 mmol/L (3.3-5.1); Sodium 142 mmol/L (135-145)
[2021-04-30 07:15] LABS: Basophils Percent Auto 0.2 % (0-2); Imm Gran Abs Auto 0.09 X10*3/uL (0.00-0.03); Imm Gran Pct Auto 0.7 % (0.0-0.4); Lymphocytes Absolute Auto 2.4 X10*3/uL (1.2-4.9); Lymphocytes Percent Auto 18.9 % (20-40); Mean Corpuscular HGB Conc 32.3 g/dl (31.0-36.0); Mean Corpuscular Hemoglobin 28.8 pg (27.0-33.0); Mean Corpuscular Volume 89.4 fL (80-98); Monocytes Absolute Auto 0.9 X10*3/uL (0.1-1.2); Monocytes Percent Auto 7.2 % (2-11); NRBC Pct Auto 0.3 /100WBC (0.0-0.2); Neutrophils Absolute Auto 9.4 X10*3/uL (2.0-8.3); Red Blood Count 2.08 X10*6/uL (4.60-5.80); White Blood Count 12.8 X10*3/uL (4.8-10.8)
[2021-04-30 07:35] LABS: Hematocrit 18.6 % (42-52)
[2021-04-30 07:36] LABS: Platelet Count 8 X10*3/uL (160-400)
[2021-04-30 08:24] LABS: Immature Retic Fraction 41.4 % (2.3-13.4); Retic HGB Equivalent 29.7 pg (30.0-35.0); Reticulocyte Percent 2.5 % (0.5-1.8); Reticulocytes Absolute 0.053 X10*6/uL (0.026-0.095); SCAN SMEAR FLAG 1
[2021-04-30 08:28] LABS: PLT ABN DIST 1
[2021-04-30 08:35] LABS: Alanine Aminotransferase < 6 U/L (0-40); Albumin Level 2.6 g/dL (3.5-5.0); Alkaline Phosphatase 64 U/L (39-117); Aspartate Amino Transferase 16 U/L (5-37); Bilirubin Direct < 0.2 mg/dL (0.0-0.5); Bilirubin Total 0.3 mg/dL (0.0-1.0); Lactate Dehydrogenase 157 U/L (118-273); Total Protein 5.1 g/dL (6.5-8.0)
[2021-04-30 09:02] LABS: Iron 35 mcg/dL (45-160); Percent Iron Saturation 13 % (15-50); Total Iron Binding Capacity 268 mcg/dL (228-428); Unsaturated Iron Binding 233 ug/dL
[2021-04-30] MEDS: 0.9 % Sodium Chloride Flush 3 ML SYRINGE IVFLUSH ×3 (09:13→23:34)
[2021-04-30] MEDS: Tamsulosin HCL 0.4 MG CAPSULE PO (09:14)
[2021-04-30] MEDS: Metoprolol Tartrate 25 MG TABLET PO (09:14)
--- NOTE | 2021-04-30 09:29 | P.CNHO_ITS ---
Subjective - Subjective Chief complaint: Weakness Patient: known to practice within the last 3 years Consult date: 04/30/21 Requesting Physician: Dr. Burks Primary Care Provider: Mauro Smith MD HPI - Consult Narrative Reason for consult: thrombocytopenia and anemia Narrative: Jean Del Angel is a 85 year old male well known to me with a history of chronic ITP, he is currently admitted for severe anemia and thrombocytopenia. He presented to Hematology office 2 days ago with complaints of weakness. He wa s hypotensive and had a brief syncopal episode because of which he was referred for admission to the hospital. Blood work showed his platelet counts to be below 10 and hemoglobin of around 6 gram/dL. He has received blood and platelet transfusion. He has been started on steroids. He had received a romiplostim which he has been on for the last 2 months in the hematology clinic on Monday. He has had no fever, chills, chest pain or shortness of breath. He has had intermittent episodes of diarrhea. He denies abdominal or flank pain. No hematuria, hematochezia or melena. He reports poor appetite and weight loss. No headache or dizziness. No nose bleeds or increase in skin bruising, most of his skin bruising is chronic. Review of Systems - Constitutional Reports as per HPI, Reports no additional constitutional complaints - Cardiovascular Reports no additional cardiovascular complaints - Respiratory Reports no additional respiratory complaints - Gastrointestinal Reports no additional gastrointestinal complaints Oncology Screenings - ECOG Performance Status ECOG Performance Status: 4 [facility] Medical History: Medical History (Last Reviewed 04/28/21 @ 17:26 by Bev Burks MD) Acute ITP Anemia with low platelet count Chronic ITP (idiopathic thrombocytopenia) Renal cancer Stroke Family History: Family History (Last Reviewed 04/28/21 @ 17:26 by Bev Burks MD) Mother No problems noted. Father No problems noted. 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 Current occupational status: retired Home Medications and Allergies Current Medications: Current Medications Generic Name Dose Route Start Last Admin Trade Name Freq PRN Reason Stop Dose Admin Acetaminophen 650 mg 04/28/21 17:52 04/29/21 21:13 Acetaminophen 325 Mg Tablet PO 650 mg Q6H PRN Administration Pain, Mild (Pain Scale 1-3) Dexamethasone Sodium Phosphate 54 mls @ 208 mls/hr 04/30/21 09:00 04/30/21 09:13 40 mg/ Sodium Chloride IV 05/03/21 10:00 208 mls/hr DAILY CHIN Administration Metoprolol Tartrate 25 mg 04/29/21 09:00 04/30/21 09:14 Metoprolol Tartrate 25 Mg Tablet PO 25 mg DAILY CHIN Administration Protocol Ondansetron HCl 4 mg 04/28/21 17:52 Ondansetron Hcl 4 Mg/2 Ml Vial IVPUSH Q8H PRN Nausea and Vomiting Sodium Chloride 3 ml 04/28/21 17:52 04/30/21 09:13 0.9 % Sodium Chloride Flush 3 Ml Syringe IVFLUSH 3 ml QSHIFT CHIN Administration Tamsulosin HCl 0.4 mg 04/29/21 09:00 04/30/21 09:14 Tamsulosin Hcl 0.4 Mg Capsule PO 0.4 mg DAILY HCIN Administration Home Medications Medication Instructions Recorded Confirmed Type Calcium 600 + D(3) 1 cap PO DAILY 03/03/21 04/28/21 History acetaminophen 650 mg PO Q6-8H PRN 03/03/21 04/28/21 History multivit no.54-amlh-lygdi acid 1 cap PO DAILY 03/03/21 04/28/21 History aspirin [Aspir-81] 81 mg PO DAILY 03/19/21 04/28/21 History coenzyme Q10 100 mg capsule 100 mg PO DAILY 04/27/21 04/28/21 History metoprolol tartrate 25 mg tablet 25 mg PO DAILY tab 04/27/21 04/28/21 History omega-3 fatty acids 1,000 mg 1,000 mg PO DAILY 04/27/21 04/28/21 History capsule Allergies Allergy/AdvReac Type Severity Reaction Status Date / Time bupropion [From WELLBUTRIN] Allergy Unknown Unknown Verified 04/27/21 09:42 fostamatinib [From Tavalisse] AdvReac Severe Diarrhea Verified 04/27/21 09:42 any statin Allergy Unknown Unknown Uncoded 03/03/21 22:53 BuPROPion HCl Allergy Unknown Unknown Uncoded 03/03/21 22:53 Wellbutrin Allergy Unknown Unknown Uncoded 03/03/21 22:53 Physical Exam Vital signs: Vital Signs Temp 98.7 F 04/30/21 07:39 Pulse 80 04/30/21 09:14 Resp 20 04/30/21 07:39 BP 146/70 H 04/30/21 09:14 Pulse Ox 98 04/30/21 07:39 Intake & Output 04/29/21 04/30/21 04/30/21 18:59 06:59 18:59 Intake Total 1102.333 / 1782.333 680 / 1782.333 Output Total 1275 / 1275 Balance 1102.333 / 507.333 -595 / 507.333 Urine Output (Average ml/kg/hr) 1.66 Intake: Intake, Oral Amount 480 / 1160 680 / 1160 Intake (Blood Product) Amount 317 / 317 Plt Aph Pas Pathreduced(E8341) 317 / 317 Unit [id number] Plt Aph Pas Pathreduced(E8342) 0 / 0 Unit [id number] Red Blood Cells (E0382) Unit 0 / 0 [id number] Intake, IV Amount 305.333 / 305.333 Dextrose 5 % and 0.9 % NaCl 1, 305.333 / 305.333 000 ml @ 80 mls/hr IVCONT . [id number] [facility] Rx#:[id number] Output: Output, Urine Amount 1275 / 1275 Other: Breakfast % Eaten 100% Lunch % Eaten 100% Number of Unmeasured Voids 2 Number of Bowel Movements 1 Urine Bathroom Urine Color Yellow Last Bowel Movement 04/30/21 Stool Bathroom Incontinent Stool Amount Large Small Stool Color Brown Brown Stool Consistency Soft Weight 63.9 kg - Constitutional Present: no acute distress, average body habitus, cooperative - Routine HEENT Exam Head: Present: normal inspection Eye: Present: EOMI, PERRL - Routine Neck Exam Absent: lymphadenopathy - Routine Respiratory Exam Present: CTAB. Absent: respiratory distress - Routine Cardiovascular Exam Cardiovascular: Present: S1, S2 - Routine Abdominal Exam Present: soft. Absent: mass Hem/Onc Consult Result - Labs CBC & Chem 7: 04/30/21 05:41 04/30/21 05:41 Labs: Short CBC 04/30/21 Range/Units 05:41 WBC 12.8 H (4.8-10.8) X10*3/uL Hgb 6.0 L* (14.0-18.0) g/dl Hct 18.6 L* (42-52) % Plt Count 8 L* D (160-400) X10*3/uL BMP 04/30/21 05:41 Sodium 142 Potassium 4.2 Chloride 111 H Carbon Dioxide 22 BUN 56 H Creatinine 1.03 Calcium 8.2 L Liver Function 04/30/21 Range/Units 05:41 Total Bilirubin 0.3 (0.0-1.0) mg/dL Direct Bilirubin < 0.2 (0.0-0.5) mg/dL AST 16 D (5-37) U/L ALT < 6 (0-40) U/L Alkaline Phosphatase 64 D (39-117) U/L Albumin 2.6 L (3.5-5.0) g/dL Assessment and Plan (1) Chronic ITP (idiopathic thrombocytopenia) Problem details: 20 min reviewing chart, evaluating patient and documenting Status: Acute 1. 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 He was diagnosed and treated initially in [place], received rituximab, Nplate and finally splenectomy. Patient has been on romiplostim. A couple of doses were withheld when platelet counts went above 600 K. unfortunately blood counts plummeted again with severe thrombocytopenia as well as anemia. There is no evidence of blood loss or hemolysis. His kidney functions are stable therefore less likely for this to be TTP or DIC. No evidence of infection or sepsis. CT abdomen/pelvis was ordered today. He is on transfusion support, agree with blood and platelet transfusion. DC prednisone and start patient on Decadron 40 mg IV x4 days. If he does not respond to above measures, I discussed re-evaluating bone marrow to see if he has developed other acute processes such as acute leukemia or aplastic anemia. I thank you for this referral, will follow with you.
[2021-04-30 09:40] LABS: Folate 11.5 ng/mL (> or = 4.0); Vitamin B12 419 pg/mL (200-900)
--- NOTE | 2021-04-30 12:35 | MHC.CM.PN ---
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 SHE REPORTS SHE IS CONCERNED THE PT IS NOT BEING REALISTIC WHEN DISCUSSING HIS LEVEL OF FUNCTIONING/ABILITY UPON DC. SHE REPORTS THE PT BELIEVES HE IS GOING TO BE ABLE TO WALK OUT OF HERE AND GO BACK TO THE WAY HE WAS LIVING GROUND SUPPORT EQUIPMENT MECHANIC. CM EXPLAINED PHYSICAL THERAPY HAD RECOMMENDED HOME PT HOWEVER SHE STATES SHE DOES NOT FEEL THIS WAS VERY BENEFICIAL TO THE PT SHE ALSO STATES HER GOAL IS TO KEEP THE PT OUT OF A INTERMEDIATE. SHE REPORTS THE PTS INFORMATION DIRECTOR RECOMMENDED PALLIATIVE CARE DURING THEIR LAST APPOINTMENT AND THE PT WAS AGREEABLE BUT SHE IS UNSURE IF A REFERRAL WAS EVER MADE. CM WILL MAKE A REFERRAL TO [facility]. SHE ALSO REQUESTS CM SPEAK TO PT AND ENCOURAGE HIM TO ALLOW THE [employer]ODUCT [employer]GER [employer] AT [place] TO ASSIST HIM. SHE REPORTS THE [facility] DOES HAVE AIDES AVAILABLE UPON REQUEST BUT THE PT ALWAYS REFUSES. CM WILL DISCUSS THIS FURTHER WITH PT. CURRENT DC PLAN IS TO RETURN TO [facility]. POSSIBLY WITH [facility] PALLIATIVE CARE SERVICES
--- NOTE | 2021-04-30 15:41 | HO.PM.IMPN ---
Subjective Subjective Date of Service: 04/30/21 Interval History: the patient was seen and evaluated this morning Laying in bed, feels comfortable Hemoglobin dropped to 6 with drop of platelets to 8 No reported bleeding, chest pain or tachycardia Denies any fever, chills or shortness of breath No reported other overnight events. Review of Systems No fever, chills but reports generalized weakness No chest pain, palpitation No shortness of breath or coughing No abdominal pain, nausea or vomiting but had diarrhea No urinary symptoms No any rash or wounds Physical Exam Vital Signs: Vital Signs: Last Vital Signs Temp 98 F 04/30/21 15:33 Pulse 68 04/30/21 15:33 Resp 19 04/30/21 15:33 BP 148/71 H 04/30/21 15:33 Pulse Ox 94 04/30/21 11:08 Body Mass Index 23.4 Const: Other: Constitutional : Alert, oriented to self and place, not in distress Neck : Normal inspection, Supple Cardiovascular : RRR, S1 S2, no lower extremity edema Respiratory : Fair bilateral air entry, no crackles, wheezes or rhonchi Gastrointestinal: soft, lax, Normal bowel sounds, Non tender Skin : Warm/Dry, No rash Neurological : Alert & oriented x3, No focal deficit Objective Data Current Medications Generic Name Dose Route Start Last Admin Trade Name Freq PRN Reason Stop Dose Admin Acetaminophen 650 mg 04/28/21 17:52 04/29/21 21:13 Acetaminophen 325 Mg Tablet PO 650 mg Q6H PRN Administration Pain, Mild (Pain Scale 1-3) Dexamethasone Sodium Phosphate 54 mls @ 208 mls/hr 04/30/21 09:00 04/30/21 09:29 40 mg/ Sodium Chloride IV 05/03/21 10:00 Infused DAILY CHIN Infusion Metoprolol Tartrate 25 mg 04/29/21 09:00 04/30/21 09:14 Metoprolol Tartrate 25 Mg Tablet PO 25 mg DAILY CHIN Administration Protocol Ondansetron HCl 4 mg 04/28/21 17:52 Ondansetron Hcl 4 Mg/2 Ml Vial IVPUSH Q8H PRN Nausea and Vomiting Sodium Chloride 3 ml 04/28/21 17:52 04/30/21 15:16 0.9 % Sodium Chloride Flush 3 Ml Syringe IVFLUSH 3 ml QSHIFT CHIN Administration Tamsulosin HCl 0.4 mg 04/29/21 09:00 06/04/21 09:14 Tamsulosin Hcl 0.4 Mg Capsule PO 0.4 mg DAILY CHIN Administration Labs CBC & Chem 7: 04/30/21 05:41 04/30/21 05:41 Assessment and Plan (1) Hypotension: Status: Acute (2) Dizziness: Status: Acute (3) Chronic ITP (idiopathic thrombocytopenia): Status: Acute Assessment and Plan: An 85 years old male patient with PMH of ITP, renal cancer, AFib among others who presented to the hospital for outpatient oncology clinic for romiplostim . Found to increased weakness, complain of dizziness and found to be hypotensive. Acute on chronic anemia Likely delutional no active bleeding noted, consider hemolysis or blood loss CT abdomen and pelvis Hemolysis workup negative To give 2 units of blood Monitor H and H overnight To get Hematology evaluation ITP, acute on chronic Platelets of 8 He received outpatient romiplostim yesterday To transfuse 2 units of platelets today Start bowels dexamethasone therapy of 40 mg daily for 3 days Monitor for bleeding Dizziness Improving Likely secondary to hypotension, orthostatic changes Possibly secondary to steroid deficiency Check orthostatic vitals Discontinue prednisone Discontinue IV fluid Possible steroid deficiency Had been on prolonged course of steroid recently Received dose of IV steroid in Oncology Clinic, to continue with p.o. with long tapering History CAD Hold metoprolol Continue aspirin BPH Continue tamsulosin DVT PPX SCDs
[2021-04-30 19:11] LABS: Hematocrit 24.5 % (42-52); Hemoglobin 8.2 g/dl (14.0-18.0); Mean Corpuscular HGB Conc 33.5 g/dl (31.0-36.0); Mean Corpuscular Hemoglobin 29.6 pg (27.0-33.0); Mean Corpuscular Volume 88.4 fL (80-98); Mean Platelet Volume 12.1 fL (9.4-12.4); NRBC Pct Auto 0.7 /100WBC (0.0-0.2); Red Blood Count 2.77 X10*6/uL (4.60-5.80); White Blood Count 17.9 X10*3/uL (4.8-10.8)
[2021-04-30 19:12] LABS: Platelet Count 57 X10*3/uL (160-400)
[2021-05-01] VITALS (15 sets, daily range): BP systolic 124–154; BP diastolic 60–79; PULSE 51–77; RESP 18–19; TEMP 36–37.1; O2SAT 96–97; BMI 22.9; BMI 26.0
[2021-05-01 07:23] LABS: Basophils Percent Auto 0.1 % (0-2); MANUAL DIFF FLAG SCAN; SCAN SMEAR FLAG 1
[2021-05-01 07:26] LABS: Hematocrit 24.6 % (42-52); Imm Gran Abs Auto 0.07 X10*3/uL (0.00-0.03); Imm Gran Pct Auto 0.7 % (0.0-0.4); Lymphocytes Absolute Auto 2.5 X10*3/uL (1.2-4.9); Lymphocytes Percent Auto 23.3 % (20-40); Mean Corpuscular HGB Conc 32.5 g/dl (31.0-36.0); Mean Corpuscular Hemoglobin 28.7 pg (27.0-33.0); Mean Corpuscular Volume 88.2 fL (80-98); Monocytes Absolute Auto 0.4 X10*3/uL (0.1-1.2); Monocytes Percent Auto 3.4 % (2-11); Neutrophils Absolute Auto 7.8 X10*3/uL (2.0-8.3); Neutrophils Percent Auto 72.5 % (45-73); Red Blood Count 2.79 X10*6/uL (4.60-5.80); White Blood Count 10.7 X10*3/uL (4.8-10.8)
[2021-05-01 07:34] LABS: Platelet Count 29 X10*3/uL (160-400)
[2021-05-01 07:35] LABS: NRBC Pct Auto 2.3 /100WBC (0.0-0.2); PLT ABN DIST 1
[2021-05-01 07:36] LABS: SLIDE REVIEW VERIFIED
[2021-05-01 08:07] LABS: Blood Urea Nitrogen 40 mg/dL (9-16); Calcium 8.4 mg/dL (8.4-10.2); Creatinine Clr Calc Pharmacy 52.1; Estimated Glomerular Filt Rate > 60; Glucose Random 148 mg/dL (60-115)
[2021-05-01 08:27] LABS: Anion Gap 14 (12-20); Carbon Dioxide 23 mmol/L (22-29); Chloride 110 mmol/L (96-108); Potassium 3.8 mmol/L (3.3-5.1); Sodium 143 mmol/L (135-145)
[2021-05-01] MEDS: Metoprolol Tartrate 25 MG TABLET PO (09:43)
[2021-05-01] MEDS: Tamsulosin HCL 0.4 MG CAPSULE PO (09:43)
[2021-05-01] MEDS: 0.9 % Sodium Chloride Flush 3 ML SYRINGE IVFLUSH ×3 (09:43→20:47)
--- NOTE | 2021-05-01 15:29 | HO.PM.IMPN ---
Subjective Subjective Date of Service: 05/01/21 Interval History: the patient was seen and evaluated this morning Laying in bed, feels comfortable and more energized Hemoglobin improved to 8 and platelets to 27 No reported bleeding, chest pain or tachycardia Denies any fever, chills or shortness of breath No reported other overnight events. Review of Systems No fever, chills but reports generalized weakness No chest pain, palpitation No shortness of breath or coughing No abdominal pain, nausea or vomiting but had diarrhea No urinary symptoms No any rash or wounds Physical Exam Vital Signs: Vital Signs: Last Vital Signs Temp 98.7 F 05/01/21 15:08 Pulse 77 05/01/21 15:12 Resp 19 05/01/21 15:08 BP 132/66 05/01/21 15:12 Pulse Ox 96 05/01/21 15:08 Body Mass Index 23.4 Const: Other: Constitutional : Alert, oriented to self and place, not in distress Neck : Normal inspection, Supple Cardiovascular : RRR, S1 S2, no lower extremity edema Respiratory : Fair bilateral air entry, no crackles, wheezes or rhonchi Gastrointestinal: soft, lax, Normal bowel sounds, Non tender Skin : Warm/Dry, No rash Neurological : Alert & oriented x3, No focal deficit Objective Data Current Medications Generic Name Dose Route Start Last Admin Trade Name Freq PRN Reason Stop Dose Admin Acetaminophen 650 mg 04/28/21 17:52 04/29/21 21:13 Acetaminophen 325 Mg Tablet PO 650 mg Q6H PRN Administration Pain, Mild (Pain Scale 1-3) Dexamethasone Sodium Phosphate 54 mls @ 208 mls/hr 04/30/21 09:00 05/01/21 10:02 40 mg/ Sodium Chloride IV 05/03/21 10:00 Infused DAILY CHIN Infusion Metoprolol Tartrate 25 mg 04/29/21 09:00 05/01/21 09:43 Metoprolol Tartrate 25 Mg Tablet PO 25 mg DAILY CHIN Administration Protocol Ondansetron HCl 4 mg 04/28/21 17:52 Ondansetron Hcl 4 Mg/2 Ml Vial IVPUSH Q8H PRN Nausea and Vomiting Sodium Chloride 3 ml 04/28/21 17:52 05/01/21 09:43 0.9 % Sodium Chloride Flush 3 Ml Syringe IVFLUSH 3 ml QSHIFT CHIN Administration Tamsulosin HCl 0.4 mg 04/29/21 09:00 05/01/21 09:43 Tamsulosin Hcl 0.4 Mg Capsule PO 0.4 mg DAILY CHIN Administration Labs CBC & Chem 7: 05/01/21 05:58 05/01/21 05:58 Assessment and Plan (1) Hypotension: Status: Acute (2) Dizziness: Status: Acute (3) Chronic ITP (idiopathic thrombocytopenia): Status: Acute Assessment and Plan: An 85 years old male patient with PMH of ITP, renal cancer, AFib among others who presented to the hospital for outpatient oncology clinic for romiplostim . Found to increased weakness, complain of dizziness and found to be hypotensive. Acute on chronic anemia Likely delutional no active bleeding noted, no OBS hemolysis or blood loss CT abdomen and pelvis negative for any bleeding Hemolysis workup negative Received total of 3 units of blood Monitor H and H overnight Hematology evaluation appreciated ITP, acute on chronic Platelets of 8 He received outpatient romiplostim on April 29 Total of 4 units of platelets Continue dexamethasone therapy of 40 mg day 2 of 4 Monitor for bleeding Dizziness Improving Likely secondary to hypotension, orthostatic changes Possibly secondary to steroid deficiency Check orthostatic vitals Pending cortisol level Possible steroid deficiency Had been on prolonged course of steroid recently Received dose of IV steroid in Oncology Clinic, to continue with p.o. with long tapering History CAD Hold metoprolol Continue aspirin BPH Continue tamsulosin DVT PPX SCDs
[2021-05-01] MEDS: Acetaminophen 325 MG TABLET 650 MG PO (20:46)
[2021-05-02] VITALS (11 sets, daily range): BP systolic 125–180; BP diastolic 67–94; PULSE 18–80; RESP 18–20; TEMP 36–37.1; O2SAT 96–98
--- NOTE | 2021-05-02 02:24 | PC.NURSE ---
Cortisol swab was attempted around 12am with pt it patient refused. He stated the doctor never told me about this so i refuse to do this. He also demanded that the doctor come to him in the morning and explain what the test is about along with a print out of what the test is for. He also refused to have his bed alarm on because was tired of it going off.
[2021-05-02] MEDS: Tamsulosin HCL 0.4 MG CAPSULE PO (08:00)
[2021-05-02] MEDS: 0.9 % Sodium Chloride Flush 3 ML SYRINGE IVFLUSH ×2 (08:19→16:08)
--- NOTE | 2021-05-02 08:22 | PC.NURSE ---
pt refuses bed alarm, attempted to educate, still refuses.
[2021-05-02 08:35] LABS: Hematocrit 27.2 % (42-52); Hemoglobin 8.7 g/dl (14.0-18.0); Imm Gran Abs Auto 0.09 X10*3/uL (0.00-0.03); Imm Gran Pct Auto 0.7 % (0.0-0.4); Lymphocytes Absolute Auto 2.6 X10*3/uL (1.2-4.9); Lymphocytes Percent Auto 20.3 % (20-40); Mean Corpuscular Hemoglobin 28.6 pg (27.0-33.0); Mean Corpuscular Volume 89.5 fL (80-98); Monocytes Absolute Auto 0.9 X10*3/uL (0.1-1.2); Monocytes Percent Auto 6.7 % (2-11); Neutrophils Absolute Auto 9.3 X10*3/uL (2.0-8.3); Neutrophils Percent Auto 72.3 % (45-73); Red Blood Count 3.04 X10*6/uL (4.60-5.80); Red Cell Distribution Width 16.9 % (11.0-16.0); White Blood Count 12.9 X10*3/uL (4.8-10.8)
[2021-05-02 08:36] LABS: NRBC Pct Auto 2.9 /100WBC (0.0-0.2); Platelet Count 32 X10*3/uL (160-400)
[2021-05-02 08:54] LABS: Anion Gap 12 (12-20); Blood Urea Nitrogen 34 mg/dL (9-16); Calcium 8.8 mg/dL (8.4-10.2); Carbon Dioxide 25 mmol/L (22-29); Chloride 107 mmol/L (96-108); Creatinine Clr Calc Pharmacy 49.4; Estimated Glomerular Filt Rate > 60; Glucose Random 110 mg/dL (60-115); Potassium 3.8 mmol/L (3.3-5.1); Sodium 140 mmol/L (135-145)
--- NOTE | 2021-05-02 12:49 | HO.PM.IMPN ---
Subjective Subjective Date of Service: 05/02/21 Interval History: the patient was seen and evaluated this morning Laying in bed, feels comfortable Hemoglobin improved to 8.7 and platelets to 31 Was upset about midnight test for salivary cortisol that he did not accept to do, I explained to him the need for it No reported bleeding, chest pain or tachycardia Denies any fever, chills or shortness of breath No reported other overnight events. Review of Systems No fever, chills but reports generalized weakness No chest pain, palpitation No shortness of breath or coughing No abdominal pain, nausea or vomiting but had diarrhea No urinary symptoms No any rash or wounds Physical Exam Vital Signs: Vital Signs: Last Vital Signs Temp 97.7 F 05/02/21 11:32 Pulse 64 05/02/21 11:32 Resp 18 05/02/21 11:32 BP 162/77 H 05/02/21 11:32 Pulse Ox 97 05/02/21 11:32 Body Mass Index 26.0 Const: Other: Constitutional : Alert, oriented to self and place, not in distress Neck : Normal inspection, Supple Cardiovascular : RRR, S1 S2, no lower extremity edema Respiratory : Fair bilateral air entry, no crackles, wheezes or rhonchi Gastrointestinal: soft, lax, Normal bowel sounds, Non tender Skin : Warm/Dry, No rash Neurological : Alert & oriented x3, No focal deficit Objective Data Current Medications Generic Name Dose Route Start Last Admin Trade Name Freq PRN Reason Stop Dose Admin Acetaminophen 650 mg 04/28/21 17:52 05/01/21 20:46 Acetaminophen 325 Mg Tablet PO 650 mg Q6H PRN Administration Pain, Mild (Pain Scale 1-3) Dexamethasone Sodium Phosphate 54 mls @ 208 mls/hr 04/30/21 09:00 05/02/21 09:22 40 mg/ Sodium Chloride IV 05/03/21 10:00 Infused DAILY CHIN Infusion Ondansetron HCl 4 mg 04/28/21 17:52 Ondansetron Hcl 4 Mg/2 Ml Vial IVPUSH Q8H PRN Nausea and Vomiting Sodium Chloride 3 ml 04/28/21 17:52 05/02/21 08:19 0.9 % Sodium Chloride Flush 3 Ml Syringe IVFLUSH 3 ml QSHIFT CHIN Administration Tamsulosin HCl 0.4 mg 04/29/21 09:00 05/02/21 08:00 Tamsulosin Hcl 0.4 Mg Capsule PO 0.4 mg DAILY CHIN Administration Labs CBC & Chem 7: 05/02/21 07:45 05/02/21 07:45 Assessment and Plan (1) Hypotension: Status: Acute (2) Dizziness: Status: Acute (3) Chronic ITP (idiopathic thrombocytopenia): Status: Acute Assessment and Plan: An 85 years old male patient with PMH of ITP, renal cancer, AFib among others who presented to the hospital for outpatient oncology clinic for romiplostim . Found to increased weakness, complain of dizziness and found to be hypotensive. Acute on chronic anemia No bleeding or hemolysis identified Could be Autoimmune related to ITP CT abdomen and pelvis negative for any bleeding Hemolysis workup negative Received total of 3 units of blood or with hemoglobin of 8.7 today Monitor H and H overnight Hematology evaluation appreciated, if no improvement with consider bone Dick biopsy next week ITP, acute on chronic Platelets of improved 31 this morning He received outpatient romiplostim on April 29 Total of 4 units of platelets Continue dexamethasone therapy of 40 mg day 3 of 4 Monitor for bleeding Dizziness Improving Likely secondary to hypotension, orthostatic changes Possibly secondary to steroid deficiency Check orthostatic vitals Pending cortisol level Possible steroid deficiency Had been on prolonged course of steroid recently Received dose of IV steroid in Oncology Clinic, to continue with p.o. with long tapering History CAD Hold metoprolol Continue aspirin BPH Continue tamsulosin DVT PPX SCDs
[2021-05-03] VITALS (8 sets, daily range): BP systolic 139–162; BP diastolic 68–99; PULSE 52–76; RESP 16–18; TEMP 36.3–36.7; O2SAT 95–97
[2021-05-03] MEDS: 0.9 % Sodium Chloride Flush 3 ML SYRINGE IVFLUSH ×2 (00:50→08:34)
--- NOTE | 2021-05-03 02:58 | PC.NURSE ---
Patient had a 5 beat of Vtach at 2345. Patient sleeping, asymptomatic. Dr. Langley notified. Will continue to monitor.
[2021-05-03 07:16] LABS: MANUAL DIFF FLAG NO
[2021-05-03 07:37] LABS: Hematocrit 25.5 % (42-52); Hemoglobin 8.2 g/dl (14.0-18.0); Imm Gran Pct Auto 0.9 % (0.0-0.4); Lymphocytes Absolute Auto 2.3 X10*3/uL (1.2-4.9); Lymphocytes Percent Auto 19.8 % (20-40); Mean Corpuscular HGB Conc 32.2 g/dl (31.0-36.0); Mean Corpuscular Hemoglobin 28.6 pg (27.0-33.0); Mean Corpuscular Volume 88.9 fL (80-98); Monocytes Percent Auto 8.5 % (2-11); Neutrophils Absolute Auto 8.2 X10*3/uL (2.0-8.3); Neutrophils Percent Auto 70.8 % (45-73); Red Blood Count 2.87 X10*6/uL (4.60-5.80); Red Cell Distribution Width 16.9 % (11.0-16.0); White Blood Count 11.6 X10*3/uL (4.8-10.8)
[2021-05-03 08:24] LABS: Anion Gap 11 (12-20); Blood Urea Nitrogen 32 mg/dL (9-16); Calcium 8.2 mg/dL (8.4-10.2); Carbon Dioxide 24 mmol/L (22-29); Chloride 107 mmol/L (96-108); Creatinine Clr Calc Pharmacy 53.3; Estimated Glomerular Filt Rate > 60; Glucose Random 101 mg/dL (60-115); Potassium 4.3 mmol/L (3.3-5.1); Sodium 138 mmol/L (135-145)
[2021-05-03 08:34] LABS: NRBC Pct Auto 3.9 /100WBC (0.0-0.2); Platelet Count 14 X10*3/uL (160-400)
[2021-05-03] MEDS: Tamsulosin HCL 0.4 MG CAPSULE PO (08:34)
--- NOTE | 2021-05-03 09:40 | MHC.CM.PN ---
Addendum entered by Elke Keller 05/03/21 15:59: CM MET WITH PT WHO REPORTS HE SPOKE TO HIS DIGITAL ACCOUNT MANAGER, NAVID AND SHE WILL BE PICKING HIM UP AT 1715 HOURS. Addendum entered by Elke Keller 05/03/21 14:45: PT CLEARED FOR DC TODAY. LEW CONTACTED RIVAS FROM [facility] TO INFORM HER OF PENDING DC. SHE WILL INFORM THE FACILITY. CM LEFT A VM FOR PTS TREATMENT COORDINATOR, NAVID, INFORMING HER OF PTS DC AND NEED FOR TRANSPORTATION BACK TO [facility]. PT WILL DC BACK TO [facility] TODAY WITH NEW REFERRAL TO [facility]. TRANSPORT VIA TREATMENT COORDINATOR Addendum entered by Elke Keller 05/03/21 12:00: CM RECEIVED A CALL FROM RIVAS ([phone]) FROM [facility]. CM INFORMED HER THE PT WOULD LIKELY DC TOMORROW WITH [facility]. RIVAS REPORTS SHE WILL UPDATE THE PTS PADMA. Original Note: LEW WAS INFORMED BY PTS LUSTER APPLICATOR THAT PALLIATIVE AND HOME CARE WERE AGAIN DISCUSSED WITH PT AND HE WAS AGREEABLE. PALLIATIVE REFERRAL MADE PRIOR AT THE REQUEST OF PTS TREATMENT COORDINATOR, NAVID. NAVID ALSO REPORTED THE PT HAS LEADLIGHTER'S AVAILABLE THROUGH THE [facility] IF HE REQUESTS THEM. CM SPOKE TO PTS TREATMENT COORDINATOR, NAVID ([phone]) AND CONFIRMED THE PALLIATIVE REFERRAL WAS MADE AND THAT THE PT IS CURRENTLY AGREEABLE TO ALLOWING A LEADLIGHTER TO ASSIST HIM ONCE HE RETURNS HOME. NAVID IS AWARE PT MAY DC SOON. LEW WILL UPDATE NAVID REGARDING EXPECTED DC DATE AFTER MULTIDISCIPLINARY ROUNDS. NAVID ALSO ASKED T/W TO OBTAIN THE FOLLOWING INFORMATION DURING ROUNDS: THE RESULTS OF PTS STOOL SAMPLE, WHAT THEY WERE TESTING FOR WHEN THE NURSE SWABBED PTS NOSE AND IF THERE NEEDS TO BE FOLLOW UP AFTER DC, AND THE RESULTS OF THE CT SCAN AND WHAT FOLLOW UP WILL BE REQUIRED. CM WILL PASS THESE QUESTIONS ALONG TO HOSPITALIST AND NOTIFY NAVID WITH EXPECTED DC DATE. PT WILL DC BACK TO [facility] WITH NEW REFERRAL TO [facility]. PT WILL ALSO REQUEST LEADLIGHTER SERVICES VIA [facility]. PTS TREATMENT COORDINATOR WILL TRANSPORT HIM AT NE.
--- NOTE | 2021-05-03 14:36 | PM.DS ---
DS: Providers Provider Date of Service: 05/03/21 Date of admission: 04/28/21 15:49 Primary care physician: Mauro Smith MD Consults: 04/29/21 10:24 Consult to Hematology / Oncology Routine Consulting Provider: Chhaya James Reason for consultation: Acute on chronic anemia, ITP DS: Diagnosis Discharge Diagnosis (1) Hypotension: Status: Acute (2) Dizziness: Status: Acute (3) Symptomatic anemia: Status: Acute (4) Acute idiopathic thrombocytopenic purpura: Status: Chronic DS: Medications Discharge Medications Home Medications: Home Medications Medication Instructions Recorded Confirmed Calcium 600 + D(3) 1 cap PO DAILY 03/03/21 04/28/21 acetaminophen 650 mg PO Q6-8H PRN 03/03/21 04/28/21 multivit no.[id number] acid 1 cap PO DAILY 03/03/21 04/28/21 aspirin 81 mg PO DAILY 03/19/21 04/28/21 coenzyme Q10 100 mg capsule 100 mg PO DAILY 04/27/21 04/28/21 metoprolol tartrate 25 mg tablet 25 mg PO DAILY tab 04/27/21 04/28/21 omega-3 fatty acids 1,000 mg 1,000 mg PO DAILY 04/27/21 04/28/21 capsule Previous Rx's Medication Instructions Recorded ezetimibe 10 mg tablet 10 mg PO DAILY #90 tab 04/02/21 nitroglycerin 0.4 mg sublingual 0.4 mg SUBLINGUAL Q5M PRN #90 tab 04/02/21 tablet tamsulosin 0.4 mg capsule 0.4 mg PO DAILY #90 cap 04/02/21 prednisone 20 mg PO DAILY #60 tab 04/28/21 ferrous sulfate [Iron (ferrous 325 mg PO BID #60 tab 05/03/21 sulfate)] DS: Summary Hospital Course Hospital Course: Admission note HPI An 85 years old male patient with PMH of ITP, renal cancer, AFib among others who presented to the hospital for outpatient oncology clinic for romiplostim . Found to increased weakness, complain of dizziness and found to be hypotensive. Admitted directly from oncology clinic for further evaluation and treatment. The patient reported that over the last few days he noticed more intermittent diarrhea not associated with abdominal pain, fever or chills associated with decreased appetite and inadequate oral intake. He reports feeling weaker and unable to ambulate much. He lives alone with concern of falling. Admitted for further evaluation treatment. Hospital course The patient was admitted to the hospital for symptomatic anemia and episode of lightheadedness and dizziness while in the Oncology Clinic. Found to have low blood pressure readings with a drop in his hemoglobin from baseline of 9 to almost 6 within 3 days without any reported bleeding but the patient reported multiple episodes of diarrhea. Platelet was found to be 3 at that point in the patient was on aspirin which made it possible that he lost blood through the GI tract. A CT scan of the abdomen and pelvis was negative for any intra-abdominal hematoma. The patient started on transfusion of blood and platelets with total of 4 units of blood and 5 units of platelets transfused. Evaluated by ham smoker Dr. James who recommended starting pulse does of dexamethasone 40 mg daily for total of 4 days. Hemoglobin improved and remained stable around 8 with platelets fluctuated but overall improved to 14, received another unit of platelets before discharge with a plan to repeat CBC as outpatient and to follow-up with on outpatient hematology clinic for bone Dick biopsy next week. Concerns about possible underlying steroid deficiency. A midnight saliva cortisol was done and the test still pending. To be followed by PCP and Hematology. Discussed about palliative care and to be discharged home with [facility] to discuss goals of care. Time Spent with Patient Time attestation: Total time spent providing and/or coordinating discharge services: Discharge coordination time: Greater than 30 minutes Quality: Stroke Does the patient have a stroke diagnosis?: No Physical Exam Vital Signs: Vital Signs: Last Vital Signs Temp 98.0 F 05/03/21 13:45 Pulse 72 05/03/21 13:45 Resp 18 05/03/21 13:45 BP 158/84 H 05/03/21 13:45 Pulse Ox 95 05/03/21 11:50 Body Mass Index 26.0 Const: Other: Constitutional : Alert, oriented to self and place, not in distress Neck : Normal inspection, Supple Cardiovascular : RRR, S1 S2, no lower extremity edema Respiratory : Fair bilateral air entry, no crackles, wheezes or rhonchi Gastrointestinal: soft, lax, Normal bowel sounds, Non tender Skin : Warm/Dry, No rash Neurological : Alert & oriented x3, No focal deficit DS: Data Data Completed and Pending Completed studies during hospitalization [Text1]: Procedures Transfusion of Nonautologous Platelets into Peripheral Vein, Percutaneous Approach (03/16/21) Labs on day of discharge: Laboratory Results - last 24 hr 04/29/21 05/03/21 05/03/21 08:11 06:29 06:29 WBC 11.6 H RBC 2.87 L Hgb 8.2 L Hct 25.5 L MCV 88.9 MCH 28.6 MCHC 32.2 RDW 16.9 H Plt Count 14 L* D MPV Not Reportable Immature Gran % (Auto) 0.9 H Neut % (Auto) 70.8 Lymph % (Auto) 19.8 L [place] % (Auto) 8.5 Eos % (Auto) 0.0 Baso % (Auto) 0.0 Lymph # (Auto) 2.3 [place] # (Auto) 1.0 Eos # (Auto) 0.0 Baso # (Auto) 0.0 Abs Immat Gran (auto) 0.10 H Absolute Neuts (auto) 8.2 Absolute Nucleated RBC 0.450 H Nucleated RBC % (auto) 3.9 H Sodium 138 Potassium 4.3 Chloride 107 Carbon Dioxide 24 Anion Gap 11 L BUN 32 H Creatinine 0.88 Estim Creat Clear Calc 53.3 Estimated GFR > 60 Random Glucose 101 Calcium 8.2 L D Magnesium Blood Type Antibody Screen Crossmatch See Detail 05/03/21 05/03/21 06:29 10:07 WBC RBC Hgb Hct MCV MCH MCHC RDW Plt Count MPV Immature Gran % (Auto) Neut % (Auto) Lymph % (Auto) [place] % (Auto) Eos % (Auto) Baso % (Auto) Lymph # (Auto) [place] # (Auto) Eos # (Auto) Baso # (Auto) Abs Immat Gran (auto) Absolute Neuts (auto) Absolute Nucleated RBC Nucleated RBC % (auto) Sodium Potassium Chloride Carbon Dioxide Anion Gap BUN Creatinine Estim Creat Clear Calc Estimated GFR Random Glucose Calcium Magnesium 2.0 Blood Type B Negative Antibody Screen NEGATIVE Crossmatch Discharge Plan Discharge Patient Disposition: Home Health Service Discharge Diagnosis: Symptomatic anemia Low Platelets count Referrals: Aly SMITH [Outside] - 1 Week Mauro Smith MD [Primary Care Provider] - 1 Week Discharge Medications: New ferrous sulfate [Iron (ferrous sulfate)] 325 mg (65 mg iron) Tablet 325 mg PO BID Qty: 60 RF: 2 Continued ezetimibe 10 mg tablet 10 mg PO DAILY Qty: 90 RF: 8 tamsulosin 0.4 mg capsule 0.4 mg PO DAILY Qty: 90 RF: 8 nitroglycerin 0.4 mg tablet, sublingual 0.4 mg SUBLINGUAL Q5M PRN (Reason: Chest Pain) Qty: 90 RF: 8 acetaminophen 650 mg Tablet 650 mg PO Q6-8H PRN (Reason: Pain) RF: 0 Calcium 600 + D(3) 600 mg calcium- 200 unit Capsule 1 cap PO DAILY RF: 0 multivit no.[id number]-[id number]-ldatf acid 106.5-1 mg Capsule 1 cap PO DAILY RF: 0 prednisone 10 mg Tablet 20 mg PO DAILY Qty: 60 RF: 3 metoprolol tartrate 25 mg tablet 25 mg PO DAILY RF: 0 omega-3 fatty acids [Fish Oil Concentrate] 1,000 mg capsule 1,000 mg PO DAILY RF: 0 coenzyme Q10 [Co Q-10] 100 mg capsule 100 mg PO DAILY RF: 0 Held aspirin 81 mg Tablet,Delayed Release (Dr/Ec) 81 mg PO DAILY RF: 0 Hold Instructions: Resume on 05/10/21. Follow with Dr James Discharge Orders: Discharge Order (Routine); Ordered 05/03/21 Ordered By: Bev Burks Diet: advance to usual diet Activity on Discharge: As tolerated Stand Alone Forms: Patient Portal Discharge page Other Ambulatory Orders: Complete Blood Count no Diff (Routine) Timeframe: 2 Days Facility: [facility] - Location: [address] [place] [address] Drive-Lab Ordered By: Bev Burks Care Plan Goals: Read below Health Concerns: Read below Plan of Treatment: You were admitted to the hospital for evaluation of low blood pressure and episode dizziness. Found to low hemoglobin and low platelets count. Evaluated by Dr. James from Oncology and treated with blood and platelets transfusion with IV dexamethasone. Assessment: Start iron pills To repeat CBC in 2 days To follow up with Dr James office in 1 week for possible bone marrow biopsy
[2021-05-03 16:35] LABS: OBS Int Ctl Valid YES; OBS1 POSITIVE (NEGATIVE)
[2021-05-10 15:52] LABS: Saliva Cortisol <0.03 mcg/dL
== END 2021-05-03 16:30 | disposition home health service (06) | DRG 813 ==
PROVIDERS: Internal Medicine; Admitting Provider Student in an Organized Health Care Education/Training Program; PCP Internal Medicine; Visit Provider Student in an Organized Health Care Education/Training Program
DX: D69.3 Immune thrombocytopenic purpura (principal); E27.40 Unspecified adrenocortical insufficiency; D64.9 Anemia, unspecified; I95.9 Hypotension, unspecified; I25.10 Atherosclerotic heart disease of native coronary artery without angina pectoris; N40.0 Benign prostatic hyperplasia without lower urinary tract symptoms; Z79.52 Long term (current) use of systemic steroids; Z79.82 Long term (current) use of aspirin; Z79.899 Other long term (current) drug therapy
CPT/HCPCS: 36415; 74176; 80048; 80076; 82272; 82530; 82607; 82746; 83540; 83615; 83735; 84443; 85025; 85027; 85045; 86850; 86900; 86901; 86923; 97162; 99219; J1100; P9016; P9035

== ENCOUNTER → 2021-06-08 10:18 | Outpatient (BNVA) | payer MEDICARE, SELFPAY | PROVIDERS: PCP Internal Medicine; Visit Provider Orthopaedic Surgery | DX: M17.0 Bilateral primary osteoarthritis of knee (principal) | CPT/HCPCS: 99212 ==

== ENCOUNTER 2021-06-11 13:41 | Inpatient (IN) | payer MEDICARE, SELFPAY ==
[2021-06-11 13:45] VITALS: BP 132/56; PULSE 58; RESP 18; TEMP 36.7; O2SAT 98; BMI 23.6
--- NOTE | 2021-06-11 13:47 | ED_ITS ---
HPI - Recheck/Abnormal Lab/Rx General Chief Complaint: General Medical Stated Complaint: abnormal labs Time Seen by Provider: 06/11/21 13:42 Source: patient Mode of arrival: ambulatory (from hematology office) Limitations: no limitations History of Present Illness MD complaint: abnormal lab Initial visit (ago): hour(s) Initial visit for: other (reassess for ITP) Returns today for: called because of abnormal lab/test Description of abnormal result: sent by model photographers' for low plts - hx of same in past, already on steroids, will need plt transfusions and IVIG Symptoms since prior visit: no new symptoms Context: called for abnormal lab result Associated symptoms: none Treatments prior to arrival: other (steroids) Related Data Home Medications Medication Instructions Recorded Confirmed multivit no.30-ojzu-jvlnb acid 1 cap PO DAILY 03/03/21 06/11/21 metoprolol tartrate 25 mg tablet 25 mg PO BID tab 04/27/21 06/11/21 Previous Rx's Medication Instructions Recorded ezetimibe 10 mg tablet 10 mg PO DAILY #90 tab 04/02/21 tamsulosin 0.4 mg capsule 0.4 mg PO DAILY #90 cap 04/02/21 prednisone 20 mg PO DAILY #60 tab 04/28/21 ferrous sulfate [Iron (ferrous 325 mg PO BID #60 tab 05/03/21 sulfate)] Allergies Allergy/AdvReac Type Severity Reaction Status Date / Time bupropion [From WELLBUTRIN] Allergy Unknown Unknown Verified 04/27/21 09:42 fostamatinib [From Tavalisse] AdvReac Severe Diarrhea Verified 04/27/21 09:42 any statin Allergy Unknown Unknown Uncoded 03/03/21 22:53 BuPROPion HCl Allergy Unknown Unknown Uncoded 03/03/21 22:53 Wellbutrin Allergy Unknown Unknown Uncoded 03/03/21 22:53 Review of Systems Review of Systems: Constitutional : No Weight loss, No Fever, No Chills, No Fatigue, No Malaise ENT/Mouth : No sore throat, No Rhinorrhea Eyes: No Eye Pain, No Swelling, No Redness Cardiovascular : No Chest Pain, No SOB, No Dyspnea on Exertion, No Orthopnea, No Edema, No Palpitations Respiratory : No Cough, No Sputum, No Wheezing Gastrointestinal : No Nausea, No Vomiting, No Diarrhea, No Constipation, No abdominal Pain, No Hematochezia, No Melena Genitourinary : No Dysuria, No Urinary Frequency, No Hematuria, Musculoskeletal : No joint pain, No Myalgias, No Joint Swelling Skin : No Skin Lesions, No rash Neuro : No Weakness, No Numbness, No Dizziness, No Headache Psych : No Anxiety/Panic, No Depression Heme/Lymph: pos easy Bruising, No Bleeding,No Lymphadenopathy Endocrine : No Polyuria, No Polydipsia All other systems reviewed and are negative [facility] Past Medical History Attestation statement: The following information was validated with the patient. Medical History Acute ITP Anemia with low platelet count Chronic ITP (idiopathic thrombocytopenia) Renal cancer Stroke Surgical History History of kidney removal History of total splenectomy Family History Family History Mother No problems noted. Father No problems noted. Social History Social History Household Members: None Housing: House Do you presently have visiting nurse or other home services: No Alcohol intake: former Patient Tobacco Use Status: Former Tobacco user Tobacco use type: Cigarette Second Hand Smoke Exposure: No Use of substances other than those prescribed or required for medical reasons: No Advance Directives: No Advance Directives Information Provided: Yes service: Yes Current occupational status: retired Physical Exam Vital Signs: Vital Signs: Last Vital Signs Temp 98.0 F 06/11/21 13:45 Pulse 58 06/11/21 13:45 Resp 18 06/11/21 13:45 BP 132/56 L 06/11/21 13:45 Pulse Ox 98 06/11/21 13:45 Body Mass Index 23.6 Appearance: Alert. Oriented X3. No acute distress. Eyes: Pupils equal, round and reactive to light. ENT: Pharynx normal. Neck: Normal inspection. Neck supple. CVS: Normal heart rate and rhythm. Pulses normal. Respiratory: No respiratory distress. Breath sounds normal. Abdomen: Soft and non-tender. Skin: Skin warm and dry. Normal skin color. Normal skin turgor. diffuse areas of old and new ecchymosis on extremities Extremities: No lower extremity edema. No calf ttp Neuro: Oriented X 3. No motor deficit. No sensory deficit. Course Course Course Narrative: pharmacy attempting to figure out his IVIG dose based off last visit in Februarypm Dr. James recommends 30 gm dosing of IVIG MDM - Recheck/Abnormal Lab/Rx MDM Narrative Medical decision making narrative: 86 yo male with hx of ITP sent in by Dr. James for transfusions and IVIG - will call pharmacy in regards to IVIG, platelets ordered, he denies trauma or GIB - planned admit Lab Data Result diagrams: 06/11/21 14:22 Labs: Lab Results 06/11/21 06/11/21 Range/Units 12:35 14:06 COVID-19 (ANNETTE) Negative (Negative) COVID-19 Clin Com See Note Blood Type B Negative Antibody Screen NEGATIVE Critical Care Time Critical Care Time Critical Care Time: Yes Total Critical Care Time: 35 Attestation: review of medical records, medical consult, transfusion of platelets I attest to this time spent taking care of the patient Discharge Plan Discharge Clinical Impression: Acute idiopathic thrombocytopenic purpura, Thrombocytopenia Patient Disposition: Admitted As Inpatient
--- NOTE | 2021-06-11 14:26 | PHA.MEDREC ---
Pharmacy Consult ? Medication Reconciliation Pharmacy has completed the medication reconciliation.
[2021-06-11 14:29] LABS: COVID-19 Test Negative (Negative); IDNOW Serial# 9DD0AD1C
[2021-06-11 15:04] LABS: Anion Gap 14 (12-20); Blood Urea Nitrogen 37 mg/dL (9-16); Calcium 8.5 mg/dL (8.4-10.2); Carbon Dioxide 22 mmol/L (22-29); Chloride 104 mmol/L (96-108); Creatinine Clr Calc Pharmacy 41.6; Estimated Glomerular Filt Rate 58; Glucose Random 133 mg/dL (60-115); Sodium 135 mmol/L (135-145)
[2021-06-11 16:02] VITALS: BP 134/71; PULSE 63; RESP 16; TEMP 37.1; O2SAT 98
[2021-06-11 17:16] VITALS: BP 125/81; PULSE 67; RESP 12; TEMP 36.6
--- NOTE | 2021-06-11 17:18 | P.HPHOSP_ITS ---
History of Present Illness Date of Service: 06/11/21 Chief Complaint: thrombocytopenia Mr Del Angel is an 86 year-old man with ITP diagnosed in 2019 who has been treated with rituximab, romiplostim, and splenectomy. He is currently on prednisone 20 mg/d and his last romiplostim dose was [facility], where he is followed by Dr James, on 06/09/21. At that point his platelet count was 2K, but had been 331K only 7 days prior. Inpatient admission had been recommended, but he declined. However, today, his platelets were still only 2K, and he agreed to come in for inpatient care. Historically, he has not responded to eltrombopag and was intolerant of fostamitinib. He was last admitted here in April 2021 for thrombocytopenia requiring both blood and platelet transfusion and was treated then with dexamethasone. His medical history is also significant for left kidney cancer for which he underwent curative nephrectomy in 2019. He had a minor stroke involving his R hand earlier this year. He does note gum bleeding when brushing his teeth. He denies hematuria or hematochezia. No fever, chills, dyspnea, cough, chest pain, nausea, vomiting, or abdominal pain. No headache. Review of Systems Review of Systems: Yes all other systems are reviewed and are negative [facility] Medical History (Updated 06/11/21 @ 17:50 by Claire Christiansen MD) Acute ITP Anemia with low platelet count CAD (coronary artery disease) Chronic ITP (idiopathic thrombocytopenia) Renal cancer Stroke Family History Mother No problems noted. Father No problems noted. Surgical History History of kidney removal History of total splenectomy Social History Household Members: None Housing: House Do you presently have visiting nurse or other home services: No Alcohol intake: former Patient Tobacco Use Status: Former Tobacco user Tobacco use type: Cigarette Second Hand Smoke Exposure: No Use of substances other than those prescribed or required for medical reasons: No Advance Directives: No Advance Directives Information Provided: Yes service: Yes Current occupational status: retired Meds Allergies Allergy/AdvReac Type Severity Reaction Status Date / Time bupropion [From WELLBUTRIN] Allergy Unknown Unknown Verified 04/27/21 09:42 fostamatinib [From Tavalisse] AdvReac Severe Diarrhea Verified 04/27/21 09:42 any statin Allergy Unknown Unknown Uncoded 03/03/21 22:53 BuPROPion HCl Allergy Unknown Unknown Uncoded 03/03/21 22:53 Wellbutrin Allergy Unknown Unknown Uncoded 03/03/21 22:53 Active Medications: Current Medications Generic Name Dose Route Start Last Admin Trade Name Freq PRN Reason Stop Dose Admin Acetaminophen 650 mg 06/11/21 17:04 Acetaminophen 325 Mg Tablet PO Q6H PRN Pain, Mild (Pain Scale 1-3) Ondansetron HCl 4 mg 06/11/21 17:04 Ondansetron Hcl 4 Mg/2 Ml Vial IVPUSH Q8H PRN Nausea and Vomiting Pharmacy Consult 1 each 06/11/21 13:44 Consult Rx Perform Med Rec MISCELLANE ONCE PRN Consult order Sodium Chloride 3 ml 06/12/21 00:00 0.9 % Sodium [facility]lor[facility] Medication Instructions Recorded Confirmed Last Taken Type multivit no.85-jwgg-[id number] acid 1 cap PO DAILY 03/03/21 06/11/21 04/27/21 History metoprolol tartrate 25 mg tablet 25 mg PO BID tab 04/27/21 06/11/21 04/28/21 History Physical Exam Vital Signs and Narrative: Vital Signs: Last Vital Signs Temp 97.9 F 06/11/21 17:16 Pulse 67 06/11/21 17:16 Resp 12 06/11/21 17:16 BP 125/81 06/11/21 17:16 Pulse Ox 98 06/11/21 16:02 Body Mass Index 23.6 Gen: in no acute distress HEENT: chronic R ptosis, sclera anicteric, moist mucus membranes with purpura and petechiae Neck: supple Lungs: clear to auscultation bilaterally Heart: regular rate and rhythm, no murmurs Abd: soft, non-tender, non-distended Ext: no edema Skin: warm/well-perfused, extensive purpura and petechiae Neuro: alert and oriented x3, no focal findings Psych: appropriate affect Results Labs CBC and Chem 7: 06/11/21 14:22 Labs: Laboratory Results - last 72 hr 06/11/21 06/11/21 06/11/21 12:35 14:06 14:22 Sodium 135 Potassium 5.0 Chloride 104 Carbon Dioxide 22 Anion Gap 14 BUN 37 H Creatinine 1.19 Estim Creat Clear Calc 41.6 Estimated GFR 58 Random Glucose 133 H Calcium 8.5 COVID-19 (ANNETTE) Negative COVID-19 Clin Com See Note Blood Type B Negative Antibody Screen NEGATIVE Assessment and Plan (1) Acute idiopathic thrombocytopenic purpura: Status: Chronic 86 year-old man with ITP diagnosed in 2019 who has been treated with rituximab, romiplostim, and splenectomy; most recently admitted in April and treated with dexamethasone; sent in due to severe thrombocytopenia with platelets of 2K # ITP - discussed with Dr James ([facility]). admit to [facility], transfuse 1 unit of platelets, give IVIg 30 g/d x3d, continue prednisone, and monitor CBC daily. pt last received romiplostim 06/09/21. fall precautions # VTE ppx - SCDs; no heparin given low plts # CAD - continue metoprolol, ezetimibe (intolerant of statin) # code - DNR/DNI as per discussion with pt Quality Stroke Does the patient have a stroke diagnosis?: No VTE Prior VTE?: No VTE Risk Level:: Medical - moderate - high VTE Device Contraindication: N/A - Device Ordered VTE Drug Contraindication: Treatment Not Tolerated
[2021-06-11 17:33] VITALS: BP 150/69; PULSE 60; RESP 14; TEMP 36.9
[2021-06-11 18:37] VITALS: BP 134/68; PULSE 52; PULSE 59; RESP 14; TEMP 36.6; O2SAT 99
[2021-06-11] MEDS: diphenhydrAMINE HCL 50 MG/ML VIAL 12.5 MG IVPUSH (18:42)
[2021-06-11] MEDS: Acetaminophen 325 MG TABLET 650 MG PO (18:42)
[2021-06-11 20:53] VITALS: BP 142/80; PULSE 82; RESP 21; TEMP 36.6; O2SAT 96
[2021-06-11] MEDS: Ferrous Sulfate 324 MG TABLET.DR PO (21:51)
[2021-06-12] VITALS (10 sets, daily range): BP systolic 131–162; BP diastolic 70–95; PULSE 52–97; RESP 17–18; TEMP 36.3–36.8; O2SAT 97–99; BMI 23.4
--- NOTE | 2021-06-12 | ECG_ITS ---
Test Reason : pvs Blood Pressure : / mmHG Vent. Rate : 059 BPM Atrial Rate : 059 BPM P-R Int : 178 ms QRS Dur : 150 ms QT Int : 442 ms P-R-T Axes : 049 -71 077 degrees QTc Int : 437 ms Sinus bradycardia with occasional Premature ventricular complexes and Premature atrial complexes Left axis deviation Right bundle branch block Abnormal ECG When compared to the previous EKG of No significant changes seen Referred By: Sebas Langley Electronically Signed By:Martin Gutierrez
[2021-06-12] MEDS: 0.9 % Sodium Chloride Flush 3 ML SYRINGE IVFLUSH ×4 (03:10→22:26)
[2021-06-12 05:08] LABS: Hemoglobin 10.3 g/dl (14.0-18.0); MANUAL DIFF FLAG SCAN; SCAN SMEAR FLAG 1
[2021-06-12 05:10] LABS: Basophils Percent Auto 0.5 % (0-2); Eosinophils Absolute Auto 0.1 X10*3/uL (0.0-0.4); Eosinophils Percent Auto 1.5 % (0-4); Hematocrit 32.3 % (42-52); Imm Gran Abs Auto 0.04 X10*3/uL (0.00-0.03); Imm Gran Pct Auto 0.5 % (0.0-0.4); Lymphocytes Absolute Auto 1.5 X10*3/uL (1.2-4.9); Lymphocytes Percent Auto 18.5 % (20-40); Mean Corpuscular HGB Conc 31.9 g/dl (31.0-36.0); Mean Corpuscular Hemoglobin 29.9 pg (27.0-33.0); Mean Corpuscular Volume 93.6 fL (80-98); Monocytes Absolute Auto 0.6 X10*3/uL (0.1-1.2); Monocytes Percent Auto 7.5 % (2-11); NRBC Pct Auto 0.2 /100WBC (0.0-0.2); Neutrophils Absolute Auto 5.9 X10*3/uL (2.0-8.3); Neutrophils Percent Auto 71.5 % (45-73); Red Blood Count 3.45 X10*6/uL (4.60-5.80); Red Cell Distribution Width 17.5 % (11.0-16.0); White Blood Count 8.2 X10*3/uL (4.8-10.8)
[2021-06-12 05:24] LABS: PLT ABN DIST 1
[2021-06-12 05:34] LABS: SLIDE REVIEW VERIFIED
[2021-06-12 05:36] LABS: Anion Gap 10 (12-20); Blood Urea Nitrogen 40 mg/dL (9-16); Calcium 8.9 mg/dL (8.4-10.2); Carbon Dioxide 27 mmol/L (22-29); Chloride 105 mmol/L (96-108); Creatinine Clr Calc Pharmacy 38.1; Estimated Glomerular Filt Rate 52; Glucose Random 88 mg/dL (60-115); Platelet Count 9 X10*3/uL (160-400); Sodium 138 mmol/L (135-145)
[2021-06-12] MEDS: Multivitamin TABLET 1 TAB PO (08:12)
[2021-06-12] MEDS: Ezetimibe 10 MG TABLET PO (08:12)
[2021-06-12] MEDS: Ferrous Sulfate 324 MG TABLET.DR PO ×2 (08:12→19:45)
[2021-06-12] MEDS: Metoprolol Tartrate 25 MG TABLET PO (08:12)
[2021-06-12] MEDS: predniSONE 10 MG TABLET PO (08:56)
--- NOTE | 2021-06-12 12:35 | HO.PM.IMPN ---
Subjective Subjective Date of Service: 06/12/21 Interval History: Feels well Platelets up to 9, from 2 Tolerating IVIg No complaints Physical Exam Vital Signs: Vital Signs: Last Vital Signs Temp 98 F 06/12/21 10:47 Pulse 61 06/12/21 10:47 Resp 18 06/12/21 10:47 BP 131/77 06/12/21 10:47 Pulse Ox 97 06/12/21 10:47 Body Mass Index 23.4 Gen: in no acute distress HEENT: chronic R ptosis, sclera anicteric, moist mucus membranes with purpura and petechiae Neck: supple Lungs: clear to auscultation bilaterally Heart: regular rate and rhythm, no murmurs Abd: soft, non-tender, non-distended Ext: no edema Skin: warm/well-perfused, extensive purpura and petechiae Neuro: alert and oriented x3, no focal findings Psych: appropriate affect Objective Data Current Medications Generic Name Dose Route Start Last Admin Trade Name Freq PRN Reason Stop Dose Admin Acetaminophen 650 mg 06/11/21 17:04 06/11/21 18:42 Acetaminophen 325 Mg Tablet PO 650 mg Q6H PRN Administration Pain, Mild (Pain Scale 1-3) Diphenhydramine HCl 12.5 mg 06/11/21 18:30 06/11/21 18:42 Diphenhydramine Hcl 50 Mg/Ml Vial IVPUSH 06/13/21 18:31 12.5 mg DAILY@1830 CHIN Administration Ezetimibe 10 mg 06/12/21 09:00 06/12/21 08:12 Ezetimibe 10 Mg Tablet PO 10 mg DAILY CHIN Administration Ferrous Sulfate 324 mg 06/11/21 21:00 06/12/21 08:12 Ferrous Sulfate 324 Mg Tablet. PO 324 mg BID CHIN Administration Immune Globulin 10 gm in 100 mls @ 41 mls/hr 06/12/21 19:00 Flebogamma 10% IV 06/12/21 21:26 ONCE ONE Immune Globulin 20 gm in 200 mls @ 41 mls/hr 06/12/21 21:27 Flebogamma 10% IV 06/13/21 02:19 ONCE ONE Immune Globulin 10 gm in 100 mls @ 41 mls/hr 06/13/21 19:00 Flebogamma 10% IV 07/18/21 21:26 ONCE ONE Immune Globulin 20 gm in 200 mls @ 41 mls/hr 06/13/21 21:26 Flebogamma 10% IV 06/14/21 02:18 ONCE ONE Metoprolol Tartrate 25 mg 06/11/21 21:00 06/12/21 08:12 Metoprolol Tartrate 25 Mg Tablet PO 25 mg BID CHIN Administration Protocol Multivitamins/Vitamin C 1 tab 06/12/21 09:00 06/12/21 08:12 Multivitamin Tablet PO 1 tab DAILY CHIN Administration Ondansetron HCl 4 mg 06/11/21 17:04 Ondansetron Hcl 4 Mg/2 Ml Vial IVPUSH Q8H PRN Nausea and Vomiting Pharmacy Consult 1 each 06/11/21 13:44 Consult Rx Perform Med Rec MISCELLANE ONCE PRN Consult order Prednisone 10 mg 06/12/21 09:00 06/12/21 08:56 Prednisone 10 Mg Tablet PO 10 mg DAILY CHIN Administration Sodium Chloride 3 ml 06/12/21 00:00 06/12/21 08:12 0.9 % Sodium Chloride Flush 3 Ml Syringe IVFLUSH 3 ml QSHIFT CHIN Administration Tamsulosin HCl 0.4 mg 06/12/21 21:00 Tamsulosin Hcl 0.4 Mg Capsule PO BEDTIME [facility] Labs CBC & Chem 7: 06/12/21 04:20 06/12/21 04:20 Labs: Laboratory Results - last 24 hr 06/11/21 06/11/21 06/11/21 12:35 14:06 14:22 WBC RBC Hgb Hct MCV MCH MCHC RDW Plt Count MPV Immature Gran % (Auto) Neut % (Auto) Lymph % (Auto) [place] % (Auto) Eos % (Auto) Baso % (Auto) Lymph # (Auto) [place] # (Auto) Eos # (Auto) Baso # (Auto) Abs Immat Gran (auto) Absolute Neuts (auto) Absolute Nucleated RBC Nucleated RBC % (auto) Smear Tech's Comments Sodium 135 Potassium 5.0 Chloride 104 Carbon Dioxide 22 Anion Gap 14 BUN 37 H Creatinine 1.19 Estim Creat Clear Calc 41.6 Estimated GFR 58 Random Glucose 133 H Calcium 8.5 COVID-19 (ANNETTE) Negative COVID-19 Clin Com See Note Blood Type B Negative Antibody Screen NEGATIVE 06/12/21 06/12/21 04:20 04:20 WBC 8.2 RBC 3.45 L Hgb 10.3 L Hct 32.3 L MCV 93.6 MCH 29.9 MCHC 31.9 RDW 17.5 H Plt Count 9 L* D MPV Not Reportable Immature Gran % (Auto) 0.5 H Neut % (Auto) 71.5 Lymph % (Auto) 18.5 L [place] % (Auto) 7.5 Eos % (Auto) 1.5 Baso % (Auto) 0.5 Lymph # (Auto) 1.5 [place] # (Auto) 0.6 Eos # (Auto) 0.1 Baso # (Auto) 0.0 Abs Immat Gran (auto) 0.04 H Absolute Neuts (auto) 5.9 Absolute Nucleated RBC 0.020 H Nucleated RBC % (auto) 0.2 Smear Tech's Comments VERIFIED Sodium 138 Potassium 4.0 Chloride 105 Carbon Dioxide 27 Anion Gap 10 L BUN 40 H Creatinine 1.30 Estim Creat Clear Calc 38.1 Estimated GFR 52 Random Glucose 88 Calcium 8.9 COVID-19 (ANNETTE) COVID-19 Clin Com Blood Type Antibody Screen Quality Stroke Does the patient have a stroke diagnosis?: No VTE Prior VTE?: No VTE Risk Level:: Medical - moderate - high VTE Device Contraindication: N/A - Device Ordered VTE Drug Contraindication: Treatment Not Tolerated Assessment and Plan (1) Acute idiopathic thrombocytopenic purpura: Status: Chronic Assessment and Plan: hospital d#2 86 year-old man with chronic ITP diagnosed in 2019 who has been treated with rituximab, romiplostim, and splenectomy; most recently admitted in April 2019 and treated with dexamethasone; sent in due to severe thrombocytopenia with platelets of 2K # ITP - on d#2/3 of IVIg 30 g/d and got 1u of platelets tranfused yesterday. got romiplostim in clinic 06/09/21. continue prednisone 10 mg/d. monitor CBC daily. fall/bleeding precautions # CAD - continue metoprolol, ezetimibe (intolerant of statin) # VTE ppx - SCDs; no heparin given low plts
--- NOTE | 2021-06-12 12:49 | PM.HEMONCCN ---
Subjective - Subjective Chief complaint: Low platelets Patient: known to practice within the last 3 years Consult date: 06/11/21 Primary Care Provider: Unknown Physician Medical Summary: Diagnosis: Chronic refractory ITP, status post splenectomy in 2018 Evaluation in [place] showed positive XIMENA titer of 1:320. Bone marrow aspiration/biopsy performed December 2018 showed mildly hypercellular bone marrow with trilineage hematopoiesis. Small abnormal B lymphocyte population identified by flow cytometry, 1%. Received rituximab from 01/29/2019 to 02/20/19. 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 Stage pT3 pN0. CT chest showed lung nodules initially concerning for metastatic disease, repeat in December showed improvement. Not consistent with metastatic disease. He received romiplostim from February 2020 to end 2019. He was in [place] when he became refractory to romiplostim. He was tried on eltrombopag but he did not respond to this. He was admitted in February 2021 to [facility] [place] with platelet counts of 1000. He received pulse dose Decadron and IVIG. He was tried on Fostamitinib 100 mg b.i.d., but developed severe diarrhea and therefore was discontinued. Patient admitted to [facility] in April 2021 when platelets again dropped below 10 K associated with bleeding. He required both blood and platelet transfusion. He was again treated with Decadron 40 mg IV x4. He started iron supplements. HPI - Consult Narrative Reason for consult: Worsening thrombocytopenia/ITP Narrative: Jean Del Angel is a 86 year old male who was well known to me, with history of severe ITP. Patient has been receiving romiplostim as outpatient. He was seen in the clinic on the day of admission I noted to be severely thrombocytopenic with platelet counts below 5 K. He also complained of some epistaxis and his hemoglobin dropped He was therefore directed to the ED. He has been on prednisone 10 mg daily. He was started on IVIG. Review of Systems - Constitutional Denies anorexia, Denies chills, Denies headache(s), Reports malaise, Denies poor appetite - ENT Reports epistaxis - Cardiovascular Denies chest pain at rest, Denies generalized swelling, Denies irregular heart rhythm - Respiratory Denies cough, Denies hemoptysis - Gastrointestinal Denies black, tarry stools, Denies bright, red blood in stools, Denies coffee ground vomit - Genitourinary Genitourinary: Denies blood in urine - Integumentary/Breasts Skin/Breast: Denies unusual bruising Oncology Screenings - ECOG Performance Status ECOG Performance Status: 2 [facility] Medical History: Medical History (Last Reviewed 06/12/21 @ 03:25 by Lina Soares RN) Acute ITP Anemia with low platelet count CAD (coronary artery disease) Chronic ITP (idiopathic thrombocytopenia) Renal cancer Stroke Family History: Family History (Last Reviewed 06/11/21 @ 17:45 by Claire Christiansen MD) Mother No problems noted. Father No problems noted. Surgical History: Surgical History (Last Reviewed 06/12/21 @ 03:25 by Lina Soares RN) History of kidney removal History of total splenectomy Social History: Social History (Last Reviewed 06/12/21 @ 03:25 by Lina Soares RN) Living Situation History: Household Members: None Housing: Other Do you presently have visiting nurse or other home services: Do you presently have visiting nurse or other home services comment: lives independent living. [facility] Alcohol History: Alcohol intake: former Alcohol History Details: Alcohol intake frequency: does not drink Tobacco History: Patient Tobacco Use Status: Former Tobacco user Tobacco use type: Pipe Smoked in Last 30 Days: No Second Hand Smoke Exposure: No Substance Use History: Use of substances other than those prescribed or required for medical reasons: No Substance Use Type: Other Substance Use Type Other:: cbd oil for sleep Currently Displaying Signs/Symptoms of Drug Intoxication Withdrawal: No Domestic Abuse History: Have you been hit, kicked, punched, or otherwise hurt by someone within the past year? If so, by whom?: No Do you feel safe in your current relationship?: No Is there a partner from a previous relationship who is making you feel unsafe now?: No Are you made to feel afraid or neglected: No Healthcare Practices: Spiritual Healthcare Practices: no Cultural Healthcare Practices: meditation Advance Directives: Advance Directives: No Advance Directives Information Provided: Yes Homicidal Assessment: Do you have thoughts of harming others: None Do you have a plan to hurt others: No Plan Nutrition Assessment: Recently lost weight without trying: Yes How much weight loss: Unsure Eating poorly because of decreased appetite: No Nutrition screen score: 4 Poor oral hygiene: No Occupation Assessmet: service: Yes Current occupational status: retired Home Medications and Allergies Current Medications: Current Medications Generic Name Dose Route Start Last Admin Trade Name Freq PRN Reason Stop Dose Admin Acetaminophen 650 mg 06/11/21 17:04 06/11/21 18:42 Acetaminophen 325 Mg Tablet PO 650 mg Q6H PRN Administration Pain, Mild (Pain Scale 1-3) Diphenhydramine HCl 12.5 mg 06/11/21 18:30 06/11/21 18:42 Diphenhydramine Hcl 50 Mg/Ml Vial IVPUSH 06/13/21 18:31 12.5 mg DAILY@1830 CHIN Administration Ezetimibe 10 mg 06/12/21 09:00 06/12/21 08:12 Ezetimibe 10 Mg Tablet PO 10 mg DAILY CHIN Administration Ferrous Sulfate 324 mg 06/11/21 21:00 06/12/21 08:12 Ferrous Sulfate 324 Mg Tablet. PO 324 mg BID CHIN Administration Immune Globulin 10 gm in 100 mls @ 41 mls/hr 06/12/21 19:00 Flebogamma 10% IV 06/12/21 21:26 ONCE ONE Immune Globulin 20 gm in 200 mls @ 41 mls/hr 06/12/21 21:27 Flebogamma 10% IV 06/13/21 02:19 ONCE ONE Immune Globulin 10 gm in 100 mls @ 41 mls/hr 06/13/21 19:00 Flebogamma 10% IV 06/13/21 21:26 ONCE ONE Immune Globulin 20 gm in 200 mls @ 41 mls/hr 06/13/21 21:26 Flebogamma 10% IV 06/14/21 02:18 ONCE ONE Metoprolol Tartrate 25 mg 06/11/21 21:00 06/12/21 08:12 Metoprolol Tartrate 25 Mg Tablet PO 25 mg BID CHIN Administration Protocol Multivitamins/Vitamin C 1 tab 06/12/21 09:00 06/12/21 08:12 Multivitamin Tablet PO 1 tab DAILY CHIN Administration Ondansetron HCl 4 mg 06/11/21 17:04 Ondansetron Hcl 4 Mg/2 Ml Vial IVPUSH Q8H PRN Nausea and Vomiting Pharmacy Consult 1 each 06/11/21 13:44 Consult Rx Perform Med Rec MISCELLANE ONCE PRN Consult order Prednisone 10 mg 06/12/21 09:00 06/12/21 08:56 Prednisone 10 Mg Tablet PO 10 mg DAILY CHIN Administration Sodium Chloride 3 ml 06/12/21 00:00 06/12/21 08:12 0.9 % Sodium Chloride Flush 3 Ml Syringe IVFLUSH 3 ml QSHIFT CHIN Administration Tamsulosin HCl 0.4 mg 06/12/21 21:00 Tamsulosin Hcl 0.4 Mg Capsule PO BEDTIME [facility] Home Medications Medication Instructions Recorded Confirmed Type multivit no.89-qhuo-gusfr acid 1 cap PO DAILY 03/03/21 06/11/21 History metoprolol tartrate 25 mg tablet 25 mg PO BID tab 04/27/21 06/11/21 History Allergies Allergy/AdvReac Type Severity Reaction Status Date / Time bupropion [From WELLBUTRIN] Allergy Unknown Unknown Verified 04/27/21 09:42 fostamatinib [From Tavalisse] AdvReac Severe Diarrhea Verified 04/27/21 09:42 any statin Allergy Unknown Unknown Uncoded 03/03/21 22:53 BuPROPion HCl Allergy Unknown Unknown Uncoded 03/03/21 22:53 Wellbutrin Allergy Unknown Unknown Uncoded 03/03/21 22:53 Physical Exam Vital signs: Vital Signs Temp 98 F 06/12/21 10:47 Pulse 61 06/12/21 10:47 Resp 18 06/12/21 10:47 BP 131/77 06/12/21 10:47 Pulse Ox 97 06/12/21 10:47 Intake & Output 06/11/21 06/12/21 06/12/21 18:59 06:59 18:59 Intake Total 266 / 566 300 / 566 480 / 480 Output Total 600 / 600 450 / 450 Balance 266 / -34 -300 / -34 30 / 30 Urine Output (Average ml/kg/hr) 0.74 0.55 Intake: Intake, Oral Amount 480 / 480 Intake (Blood Product) Amount 266 / 266 Plt Aph Pas Pathreduced(E8341) 266 / 266 Unit [id number] Intake, IV Amount 300 / 300 Imm Glob G (IgG)/Sorb/IGA 0-50 100 / 100 10 gm In 100 ml @ 41 mls/hr IV ONCE ONE Rx#:[id number] Imm Glob G (IgG)/Sorb/IGA 0-50 200 / 200 20 gm In 200 ml @ 41 mls/hr IV ONCE ONE Rx#:[id number] Output: Output, Urine Amount 600 / 600 450 / 450 Other: Breakfast % Eaten 75% Urine Urinal Urine Color [place] Weight 68.5 kg 68 kg Weight in Grams [id number] Weight 68 kg Vital Signs Temp Pulse Resp BP Pulse Ox 06/12/21 10:47 98 F 61 18 131/77 97 06/12/21 08:12 97 147/95 H 06/12/21 07:25 97.7 F 97 18 147/95 H 98 06/12/21 04:36 98.0 F 80 18 152/70 H 97 06/12/21 04:00 97.3 F 56 18 97 06/12/21 01:07 98.3 F 54 18 162/82 H 98 06/12/21 00:30 61 17 159/70 H 97 06/11/21 20:53 98 F 82 21 H 142/80 H 96 06/11/21 18:37 97.8 F 52 14 134/68 99 06/11/21 17:33 98.4 F 60 14 150/69 H 06/11/21 17:16 97.9 F 67 12 125/81 06/11/21 16:02 98.7 F 63 16 134/71 98 06/11/21 13:45 98.0 F 58 18 132/56 L 98 Intake and Output 06/11/21 06/12/21 06/12/21 22:59 06:59 14:59 Intake Total 366 / 566 200 / 566 480 / 480 Output Total 600 / 600 450 / 450 Balance 366 / -34 -400 / -34 Intake: Intake, Oral Amount 480 / 480 Intake (Blood Product) Amount 266 / 266 Plt Aph Pas Pathreduced(E8341) 266 / 266 Unit [id number] Intake, IV Amount 100 / 300 200 / 300 Imm Glob G (IgG)/Sorb/IGA 0-50 100 / 100 10 gm In 100 ml @ 41 mls/hr IV ONCE ONE Rx#:[id number] Imm Glob G (IgG)/Sorb/IGA 0-50 200 / 200 20 gm In 200 ml @ 41 mls/hr IV ONCE ONE Rx#:[id number] Output: Output, Urine Amount 600 / 600 450 / 450 Other: Breakfast % Eaten 75% Urine Urinal Urine Color [place] Weight 68 kg [place] Weight in Grams 48841 - Constitutional Present: no acute distress - Routine HEENT Exam Head: Present: normal inspection Eye: Present: normal appearance - Routine Neck Exam Absent: lymphadenopathy - Routine Respiratory Exam Present: CTAB - Routine Cardiovascular Exam Cardiovascular: Present: RRR, S1, S2 - Routine Abdominal Exam Present: soft Hem/Onc Consult Result - Labs CBC & Chem 7: 06/14/21 05:24 06/13/21 04:27 Labs: Short CBC 06/12/21 Range/Units 04:20 WBC 8.2 (4.8-10.8) X10*3/uL Hgb 10.3 L (14.0-18.0) g/dl Hct 32.3 L (42-52) % Plt Count 9 L* D (160-400) X10*3/uL BMP 06/11/21 06/12/21 14:22 04:20 Sodium 135 138 Potassium 5.0 4.0 Chloride 104 105 Carbon Dioxide 22 27 BUN 37 H 40 H Creatinine 1.19 1.30 Calcium 8.5 8.9 Assessment and Plan (1) Thrombocytopenia Status: Chronic 1. This is a pleasant 85-year-old male with multiple medical born blooms as detailed above admitted for worsening thrombocytopenia secondary to ITP. Initially diagnosed and treated in [place] in 2019, received rituximab, Nplate and finally splenectomy. He is on endplate but has wide fluctuations in platelet counts. His last dose of Nplate was on 06/09/2021. He has received platelet transfusion and is receiving IVIG. I suggest increasing steroids, dexamethasone 40 mg IV daily. Romiplostim on 06/17/2021. Transfuse platelets to keep above 5 K. Continue to monitor H&H which is slowly dropping from occult bleeding. I thank you for this consultation, will follow with you.
--- NOTE | 2021-06-12 15:59 | MHC.CM.PN ---
CM MET WITH PT WHO REPORTS HE RESIDES AT [facility] IN [place] AND HAS A [facility] THAT COMES IN 3 TIMES PER WEEK. HE REPORTS HE IS STILL ACTIVE WITH [facility] WHICH WAS ARRANGED DURING HIS PREVIOUS ADMISSION, HOWEVER HE REPORTS HE DOES NOT FIND IT HELPFUL. HE STATES THEY ONLY COME IN ONE TO TWO TIMES PER WEEK AND TAKE HIS VS. PT IS ALSO STILL ACTIVE WITH HIS [facility] RN, [facility], HOWEVER STATES HE HAS BEEN PULLING BACK BECAUSE IT HAS BECOME VERY EXPENSIVE AND HE FEELS HE IS ABLE TO NAVIGATE THE SYSTEM WITHOUT HER. IMM DELIVERED DC PLAN IS BACK TO [place] WITH RESUMPTION OF [facility] AND POSSIBLY [facility] PT MAY NEED TRANSPORTATION AT DC
[2021-06-12] MEDS: diphenhydrAMINE HCL 50 MG/ML VIAL 12.5 MG IVPUSH (19:45)
[2021-06-12] MEDS: Tamsulosin HCL 0.4 MG CAPSULE PO (19:47)
[2021-06-13] VITALS (7 sets, daily range): BP systolic 105–158; BP diastolic 54–96; PULSE 62–76; RESP 15–20; TEMP 36–36.9; O2SAT 94–98
[2021-06-13 05:19] LABS: Hematocrit 32.6 % (42-52); Mean Corpuscular Volume 92.4 fL (80-98); Red Blood Count 3.53 X10*6/uL (4.60-5.80)
[2021-06-13 05:21] LABS: Hemoglobin 10.5 g/dl (14.0-18.0); Mean Corpuscular HGB Conc 32.2 g/dl (31.0-36.0); Mean Corpuscular Hemoglobin 29.7 pg (27.0-33.0); NRBC Pct Auto 0.3 /100WBC (0.0-0.2); Red Cell Distribution Width 17.6 % (11.0-16.0); White Blood Count 7.1 X10*3/uL (4.8-10.8)
[2021-06-13 05:37] LABS: PLT ABN DIST 1
[2021-06-13 05:40] LABS: Platelet Count 6 X10*3/uL (160-400)
[2021-06-13 05:49] LABS: Anion Gap 11 (12-20); Blood Urea Nitrogen 32 mg/dL (9-16); Calcium 8.6 mg/dL (8.4-10.2); Carbon Dioxide 23 mmol/L (22-29); Chloride 107 mmol/L (96-108); Creatinine Clr Calc Pharmacy 48.1; Estimated Glomerular Filt Rate > 60; Glucose Random 86 mg/dL (60-115); Potassium 3.9 mmol/L (3.3-5.1); Sodium 137 mmol/L (135-145)
--- NOTE | 2021-06-13 07:27 | PC.NURSE ---
06/12/21 7p-7a pt had IVIG transfusion (premedicated with Benadryl 12.5mg iv) x2 this shift - tolerated well. Pt has chronic ITP
[2021-06-13] MEDS: Ferrous Sulfate 324 MG TABLET.DR PO ×2 (08:13→20:24)
[2021-06-13] MEDS: Ezetimibe 10 MG TABLET PO (08:13)
[2021-06-13] MEDS: Metoprolol Tartrate 25 MG TABLET PO ×2 (08:13→20:23)
[2021-06-13] MEDS: predniSONE 10 MG TABLET PO (08:13)
[2021-06-13] MEDS: Multivitamin TABLET 1 TAB PO (08:13)
[2021-06-13] MEDS: 0.9 % Sodium Chloride Flush 3 ML SYRINGE IVFLUSH ×3 (08:14→20:05)
--- NOTE | 2021-06-13 11:23 | HO.PM.IMPN ---
Subjective Subjective Date of Service: 06/13/21 Interval History: No complaints other than boredom. Platelets 9->6 Physical Exam Vital Signs: Vital Signs: Last Vital Signs Temp 98.4 F 06/13/21 11:14 Pulse 64 06/13/21 11:14 Resp 20 06/13/21 11:14 BP 105/54 L 06/13/21 11:14 Pulse Ox 96 06/13/21 11:14 Body Mass Index 23.4 Gen: in no acute distress HEENT: chronic R ptosis, sclera anicteric, moist mucus membranes with purpura and petechiae Neck: supple Lungs: clear to auscultation bilaterally Heart: regular rate and rhythm, no murmurs Abd: soft, non-tender, non-distended Ext: no edema Skin: warm/well-perfused, extensive purpura and petechiae Neuro: alert and oriented x3, no focal findings Psych: appropriate affect Objective Data Current Medications Generic Name Dose Route Start Last Admin Trade Name Freq PRN Reason Stop Dose Admin Acetaminophen 650 mg 06/11/21 17:04 06/11/21 18:42 Acetaminophen 325 Mg Tablet PO 650 mg Q6H PRN Administration Pain, Mild (Pain Scale 1-3) Diphenhydramine HCl 12.5 mg 06/11/21 18:30 06/12/21 19:45 Diphenhydramine Hcl 50 Mg/Ml Vial IVPUSH 06/13/21 18:31 12.5 mg DAILY@1830 CHIN Administration Ezetimibe 10 mg 06/12/21 09:00 06/13/21 08:13 Ezetimibe 10 Mg Tablet PO 10 mg DAILY CHIN Administration Ferrous Sulfate 324 mg 06/11/21 21:00 06/13/21 08:13 Ferrous Sulfate 324 Mg Tablet. PO 324 mg BID CHIN Administration Immune Globulin 10 gm in 100 mls @ 41 mls/hr 06/13/21 19:00 Flebogamma 10% IV 06/13/21 21:26 ONCE ONE Immune Globulin 20 gm in 200 mls @ 41 mls/hr 06/13/21 21:26 Flebogamma 10% IV 06/14/21 02:18 ONCE ONE Metoprolol Tartrate 25 mg 06/11/21 21:00 06/13/21 08:13 Metoprolol Tartrate 25 Mg Tablet PO 25 mg BID CHIN Administration Protocol Multivitamins/Vitamin C 1 tab 06/12/21 09:00 06/13/21 08:13 Multivitamin Tablet PO 1 tab DAILY CHIN Administration Ondansetron HCl 4 mg 06/11/21 17:04 Ondansetron Hcl 4 Mg/2 Ml Vial IVPUSH Q8H PRN Nausea and Vomiting Pharmacy Consult 1 each 06/11/21 13:44 Consult Rx Perform Med Rec MISCELLANE ONCE PRN Consult order Prednisone 10 mg 06/12/21 09:00 06/13/21 08:13 Prednisone 10 Mg Tablet PO 10 mg DAILY CHIN Administration Sodium Chloride 3 ml 06/12/21 00:00 06/13/21 08:14 0.9 % Sodium Chloride Flush 3 Ml Syringe IVFLUSH 3 ml QSHIFT CHIN Administration Tamsulosin HCl 0.4 mg 06/12/21 21:00 06/12/21 19:47 Tamsulosin Hcl 0.4 Mg Capsule PO 0.4 mg BEDTIME CHIN Administration Tetrahydrozoline HCl 2 drop 06/13/21 08:17 Tetrahydrozoline Hcl 0.05% Oph 15 Ml Drpbtl EYE-BOTH QID PRN Dry Eyes Labs CBC & Chem 7: 06/13/21 04:27 06/13/21 04:27 Labs: Laboratory Results - last 24 hr 06/13/21 06/13/21 04:27 04:27 WBC 7.1 RBC 3.53 L Hgb 10.5 L Hct 32.6 L MCV 92.4 MCH 29.7 MCHC 32.2 RDW 17.6 H Plt Count 6 L* MPV Not Reportable Absolute Nucleated RBC 0.020 H Nucleated RBC % (auto) 0.3 H Sodium 137 Potassium 3.9 Chloride 107 Carbon Dioxide 23 Anion Gap 11 L BUN 32 H Creatinine 1.03 Estim Creat Clear Calc 48.1 Estimated GFR > 60 Random Glucose 86 Calcium 8.6 Quality Stroke Does the patient have a stroke diagnosis?: No VTE Prior VTE?: No VTE Risk Level:: Medical - moderate - high VTE Device Contraindication: N/A - Device Ordered VTE Drug Contraindication: Treatment Not Tolerated Assessment and Plan (1) Acute idiopathic thrombocytopenic purpura: Status: Chronic Assessment and Plan: hospital d#3 86 year-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 got romiplostim in clinic 06/09/21. continue prednisone 10 mg/d. monitor CBC daily. fall/bleeding precautions. hematology following- updated # CAD - continue metoprolol, ezetimibe (intolerant of statin) # VTE ppx - SCDs; no heparin given low plts
[2021-06-13] MEDS: Tetrahydrozoline HCl 0.05% Oph 15 ML DRPBTL 2 DROP EYE-BOTH (16:26)
[2021-06-13] MEDS: diphenhydrAMINE HCL 50 MG/ML VIAL 12.5 MG IVPUSH (20:03)
[2021-06-13] MEDS: Tamsulosin HCL 0.4 MG CAPSULE PO (20:23)
[2021-06-14] VITALS (11 sets, daily range): BP systolic 137–157; BP diastolic 62–78; PULSE 45–71; RESP 16–18; TEMP 36.2–36.8; O2SAT 95–98
[2021-06-14 06:53] LABS: Hemoglobin 9.9 g/dl (14.0-18.0)
[2021-06-14 06:55] LABS: Hematocrit 31.3 % (42-52); Mean Corpuscular HGB Conc 31.6 g/dl (31.0-36.0); Mean Corpuscular Volume 94.8 fL (80-98); NRBC Pct Auto 0.6 /100WBC (0.0-0.2); Red Cell Distribution Width 18.1 % (11.0-16.0); White Blood Count 5.3 X10*3/uL (4.8-10.8)
[2021-06-14 07:32] LABS: Platelet Count 3 X10*3/uL (160-400)
[2021-06-14] MEDS: Ezetimibe 10 MG TABLET PO (08:38)
[2021-06-14] MEDS: predniSONE 10 MG TABLET PO (08:38)
[2021-06-14] MEDS: Metoprolol Tartrate 25 MG TABLET PO ×2 (08:38→21:18)
[2021-06-14] MEDS: Multivitamin TABLET 1 TAB PO (08:38)
[2021-06-14] MEDS: Ferrous Sulfate 324 MG TABLET.DR PO ×2 (08:38→21:18)
[2021-06-14] MEDS: 0.9 % Sodium Chloride Flush 3 ML SYRINGE IVFLUSH (08:39)
--- NOTE | 2021-06-14 12:43 | PM.IMPN ---
Subjective Subjective Date of Service: 06/14/21 <Karmen Sharma NP - Last Filed: 06/14/21 12:47> 06/15/21 <Marlo Salgado MD - Last Filed: 06/15/21 16:10> Interval History: Follow up ITP No bleeding good appetite following plts <Karmen Sharma NP - Last Filed: 06/14/21 12:47> Physical Exam Vital Signs: Vital Signs: Last Vital Signs Temp 97.5 F 06/14/21 12:18 Pulse 66 06/14/21 12:18 Resp 18 06/14/21 12:18 BP 153/75 H 06/14/21 12:18 Pulse Ox 97 06/14/21 11:32 Body Mass Index 23.4 <Karmen Sharma NP - Last Filed: 06/14/21 12:47> Appearing in no acute distress lung sounds are clear to auscultation heart regular rate rhythm, clear S1, S2 positive bowel sounds, abdomen is soft, nontender neuro patient is alert x3, no focal deficits Bruising to arms <Karmen Sharma NP - Last Filed: 06/14/21 12:47> Objective Data Current Medications Generic Name Dose Route Start Last Admin Trade Name Freq PRN Reason Stop Dose Admin Acetaminophen 650 mg 06/11/21 17:04 06/11/21 18:42 Acetaminophen 325 Mg Tablet PO 650 mg Q6H PRN Administration Pain, Mild (Pain Scale 1-3) Ezetimibe 10 mg 06/12/21 09:00 06/14/21 08:38 Ezetimibe 10 Mg Tablet PO 10 mg DAILY CHIN Administration Ferrous Sulfate 324 mg 06/11/21 21:00 06/14/21 08:38 Ferrous Sulfate 324 Mg Tablet.Dr PO 324 mg BID CHIN Administration Metoprolol Tartrate 25 mg 06/11/21 21:00 06/14/21 08:38 Metoprolol Tartrate 25 Mg Tablet PO 25 mg BID CHIN Administration Protocol Multivitamins/Vitamin C 1 tab 06/12/21 09:00 06/14/21 08:38 Multivitamin Tablet PO 1 tab DAILY CHIN Administration Ondansetron HCl 4 mg 06/11/21 17:04 Ondansetron Hcl 4 Mg/2 Ml Vial IVPUSH Q8H PRN Nausea and Vomiting Pharmacy Consult 1 each 06/11/21 13:44 Consult Rx Perform Med Rec MISCELLANE ONCE PRN Consult order Prednisone 10 mg 06/12/21 09:00 06/14/21 08:38 Prednisone 10 Mg Tablet PO 10 mg DAILY CHIN Administration Sodium Chloride 3 ml 06/12/21 00:00 06/14/21 08:39 0.9 % Sodium Chloride Flush 3 Ml Syringe IVFLUSH 3 ml QSHIFT CHIN Administration Tamsulosin HCl 0.4 mg 06/12/21 21:00 06/13/21 20:23 Tamsulosin Hcl 0.4 Mg Capsule PO 0.4 mg BEDTIME CHIN Administration Tetrahydrozoline HCl 2 drop 06/13/21 08:17 06/13/21 16:26 Tetrahydrozoline Hcl 0.05% Oph 15 Ml Drpbtl EYE-BOTH 2 drop QID PRN Administration Dry Eyes <Karmen Sharma NP - Last Filed: 06/14/21 12:47> Labs CBC & Chem 7: : 06/15/21 05:30 06/15/21 05:30 <Karmen Sharma NP - Last Filed: 06/14/21 12:47> Labs: Laboratory Results - last 24 hr 06/11/21 06/14/21 12:35 05:24 MCV 94.8 MCH 30.0 MCHC 31.6 RDW 18.1 H Plt Count 3 L* MPV Not Reportable Absolute Nucleated RBC 0.030 H Nucleated RBC % (auto) 0.6 H Blood Type B Negative Antibody Screen NEGATIVE <Karmen Sharma NP - Last Filed: 06/14/21 12:47> Progress Note: A&P (1) Symptomatic anemia: Status: Acute <Karmen Sharma NP - Last Filed: 06/14/21 12:47> (2) Acute idiopathic thrombocytopenic purpura: Status: Chronic <Karmen Sharma NP - Last Filed: 06/14/21 12:47> Assessment and Plan: 86 year-old 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 Romiplostim in clinic 06/09/21. Add decadron, continue prednisone 10 mg/d. monitor CBC daily. fall/bleeding precautions. hematology following- updated # CAD - continue metoprolol - ezetimibe (intolerant of statin) # VTE ppx - SCDs; no heparin given low plts Attending Dr. Salgado <Karmen Sharma NP - Last Filed: 06/14/21 12:47> Quality Stroke Does the patient have a stroke diagnosis?: No <Karmen Sharma NP - Last Filed: 06/14/21 12:47> VTE Prior VTE?: No <Karmen Sharma NP - Last Filed: 06/14/21 12:47> VTE Risk Level:: Medical - moderate - high <Karmen Sharma NP - Last Filed: 06/14/21 12:47> VTE Device Contraindication: N/A - Device Ordered <aKrmen Sharma NP - Last Filed: 06/14/21 12:47> VTE Drug Contraindication: Treatment Not Tolerated <Karmen Sharma NP - Last Filed: 06/14/21 12:47>
--- NOTE | 2021-06-14 15:23 | MHC.CM.PN ---
per multi dis rounds dc plan remains return to [facility] with resumption of hvns
[2021-06-14] MEDS: Tamsulosin HCL 0.4 MG CAPSULE PO (21:18)
[2021-06-15] VITALS (11 sets, daily range): BP systolic 143–180; BP diastolic 64–88; PULSE 47–76; RESP 14–20; TEMP 36.3–37; O2SAT 97–99
[2021-06-15 06:08] LABS: Hematocrit 31.9 % (42-52); Mean Corpuscular Volume 94.4 fL (80-98); PLT ABN DIST 1; Red Blood Count 3.38 X10*6/uL (4.60-5.80)
[2021-06-15 06:10] LABS: Mean Corpuscular HGB Conc 31.3 g/dl (31.0-36.0); Mean Corpuscular Hemoglobin 29.6 pg (27.0-33.0); NRBC Pct Auto 0.5 /100WBC (0.0-0.2); White Blood Count 6.2 X10*3/uL (4.8-10.8)
[2021-06-15 06:23] LABS: Platelet Count 3 X10*3/uL (160-400)
[2021-06-15 06:34] LABS: Anion Gap 9 (12-20); Blood Urea Nitrogen 32 mg/dL (9-16); Calcium 8.4 mg/dL (8.4-10.2); Carbon Dioxide 24 mmol/L (22-29); Chloride 108 mmol/L (96-108); Creatinine Clr Calc Pharmacy 41.6; Estimated Glomerular Filt Rate 58; Glucose Random 86 mg/dL (60-115); Potassium 4.1 mmol/L (3.3-5.1); Sodium 137 mmol/L (135-145)
[2021-06-15] MEDS: Ferrous Sulfate 324 MG TABLET.DR PO ×2 (08:39→21:06)
[2021-06-15] MEDS: Ezetimibe 10 MG TABLET PO (08:39)
[2021-06-15] MEDS: predniSONE 10 MG TABLET PO (08:39)
[2021-06-15] MEDS: Multivitamin TABLET 1 TAB PO (08:39)
[2021-06-15] MEDS: Metoprolol Tartrate 25 MG TABLET PO (08:39)
[2021-06-15] MEDS: 0.9 % Sodium Chloride Flush 3 ML SYRINGE IVFLUSH (08:39)
--- NOTE | 2021-06-15 14:56 | PC.NURSE ---
skin/wound assessment completed today. Patient has blanchable redness to buttocks. Bruising to arms. present on admission.
--- NOTE | 2021-06-15 15:23 | P.PNIM_ITS ---
Subjective Subjective Date of Service: 06/15/21 <Karmen Sharma NP - Last Filed: 06/15/21 15:30> 06/15/21 <Bib Avery MD - Last Filed: 06/15/21 16:12> Interval History: Follow up ITP PLT count still low minimal arm bruising no bleeding <Karmen Sharma NP - Last Filed: 06/15/21 15:30> Physical Exam Vital Signs: Vital Signs: Last Vital Signs Temp 97.7 F 06/15/21 12:26 Pulse 50 06/15/21 12:26 Resp 17 06/15/21 12:26 BP 145/69 H 06/15/21 12:26 Pulse Ox 97 06/15/21 12:00 Body Mass Index 23.4 <Karmen Sharma NP - Last Filed: 06/15/21 15:30> Appearing in no acute distress lung sounds are clear to auscultation heart regular rate rhythm, clear S1, S2 positive bowel sounds, abdomen is soft, nontender neuro patient is alert x3, no focal deficits <Karmen Sharma NP - Last Filed: 06/15/21 15:30> Objective Data Current Medications Generic Name Dose Route Start Last Admin Trade Name Freq PRN Reason Stop Dose Admin Acetaminophen 650 mg 06/11/21 17:04 06/11/21 18:42 Acetaminophen 325 Mg Tablet PO 650 mg Q6H PRN Administration Pain, Mild (Pain Scale 1-3) Ezetimibe 10 mg 06/12/21 09:00 06/15/21 08:39 Ezetimibe 10 Mg Tablet PO 10 mg DAILY CHIN Administration Ferrous Sulfate 324 mg 06/11/21 21:00 06/15/21 08:39 Ferrous Sulfate 324 Mg Tablet. PO 324 mg BID CHIN Administration Immune Globulin 20 gm in 200 mls @ 41 mls/hr 06/15/21 11:30 Flebogamma 10% IV 06/15/21 16:22 ONCE ONE Metoprolol Tartrate 25 mg 06/11/21 21:00 06/15/21 08:39 Metoprolol Tartrate 25 Mg Tablet PO 25 mg BID CHIN Administration Protocol Multivitamins/Vitamin C 1 tab 06/12/21 09:00 06/15/21 08:39 Multivitamin Tablet PO 1 tab DAILY CHIN Administration Ondansetron HCl 4 mg 06/11/21 17:04 Ondansetron Hcl 4 Mg/2 Ml Vial IVPUSH Q8H PRN Nausea and Vomiting Pharmacy Consult 1 each 06/11/21 13:44 Consult Rx Perform Med Rec MISCELLANE ONCE PRN Consult order Prednisone 10 mg 06/12/21 09:00 06/15/21 08:39 Prednisone 10 Mg Tablet PO 10 mg DAILY CHIN Administration Sodium Chloride 3 ml 06/12/21 00:00 06/15/21 08:39 0.9 % Sodium Chloride Flush 3 Ml Syringe IVFLUSH 3 ml QSHIFT CHIN Administration Tamsulosin HCl 0.4 mg 06/12/21 21:00 06/14/21 21:18 Tamsulosin Hcl 0.4 Mg Capsule PO 0.4 mg BEDTIME CHIN Administration Tetrahydrozoline HCl 2 drop 06/13/21 08:17 06/13/21 16:26 Tetrahydrozoline Hcl 0.05% Oph 15 Ml Drpbtl EYE-BOTH 2 drop QID PRN Administration Dry Eyes <Karmen Sharma NP - Last Filed: 06/15/21 15:30> Labs CBC & Chem 7: : 06/15/21 05:30 06/15/21 05:30 <Karmen Sharma NP - Last Filed: 06/15/21 15:30> Labs: Laboratory Results - last 24 hr 06/15/21 06/15/21 06/15/21 05:30 05:30 10:50 MCV 94.4 MCH 29.6 MCHC 31.3 RDW 18.0 H Plt Count 3 L* MPV Not Reportable Absolute Nucleated RBC 0.030 H Nucleated RBC % (auto) 0.5 H Anion Gap 9 L Estim Creat Clear Calc 41.6 Estimated GFR 58 Random Glucose 86 Calcium 8.4 Blood Type B Negative Antibody Screen NEGATIVE <Karmen Sharma NP - Last Filed: 06/15/21 15:30> Progress Note: A&P (1) Acute idiopathic thrombocytopenic purpura: Status: Chronic <Karmen Sharma NP - Last Filed: 06/15/21 15:30> Assessment and Plan: 86 year-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 PLT still low range 2-9 tx with IVIg, platelets as needed per hem/onc Romiplostim in clinic 06/09/21. Add decadron monitor CBC daily. fall/bleeding precautions. hematology following Nplate tomorrow # CAD - continue metoprolol - ezetimibe (intolerant of statin) # VTE ppx - SCDs; no heparin given low plts Attending Dr. Green <Karmen Sharma NP - Last Filed: 06/15/21 15:30> (2) Thrombocytopenia: Status: Chronic <Karmen Sharma NP - Last Filed: 06/15/21 15:30> Assessment and Plan: I saw and examined patient and discussed finding, assessment, plan and disposition with midlvel and a I agree with the above, except if otherwise stated <Bib Avery MD - Last Filed: 06/15/21 16:12> Quality Stroke Does the patient have a stroke diagnosis?: No <Karmen Sharma NP - Last Filed: 06/15/21 15:30> VTE Prior VTE?: No <Karmen Sharma NP - Last Filed: 06/15/21 15:30> VTE Risk Level:: Medical - moderate - high <Karmen Sharma NP - Last Filed: 06/15/21 15:30> VTE Device Contraindication: N/A - Device Ordered <Karmen Sharma NP - Last Filed: 06/15/21 15:30> VTE Drug Contraindication: Treatment Not Tolerated <Karmen Sharma NP - Last Filed: 06/15/21 15:3 0>
[2021-06-15] MEDS: DEXAMETHASONE SOD PHOSPHATE IV (16:14)
[2021-06-15] MEDS: SODIUM CHLORIDE 0.9% IV (16:14)
[2021-06-15] MEDS: Tamsulosin HCL 0.4 MG CAPSULE PO (21:06)
[2021-06-16] MEDS: 0.9 % Sodium Chloride Flush 3 ML SYRINGE IVFLUSH ×2 (00:10→09:17)
[2021-06-16 03:30] VITALS: BP 171/86; PULSE 80; RESP 18; TEMP 36.4; O2SAT 97
[2021-06-16 07:01] VITALS: BP 120/60; PULSE 74; RESP 18; TEMP 36.6; O2SAT 98
[2021-06-16 08:47] LABS: MANUAL DIFF FLAG SCAN; NRBC Pct Auto 0.3 /100WBC (0.0-0.2); SCAN SMEAR FLAG 1
[2021-06-16 08:49] LABS: Basophils Percent Auto 0.2 % (0-2); Hematocrit 34.6 % (42-52); Imm Gran Abs Auto 0.03 X10*3/uL (0.00-0.03); Imm Gran Pct Auto 0.5 % (0.0-0.4); Lymphocytes Absolute Auto 1.4 X10*3/uL (1.2-4.9); Mean Corpuscular HGB Conc 31.8 g/dl (31.0-36.0); Mean Corpuscular Hemoglobin 29.5 pg (27.0-33.0); Mean Corpuscular Volume 92.8 fL (80-98); Monocytes Absolute Auto 0.1 X10*3/uL (0.1-1.2); Neutrophils Absolute Auto 4.9 X10*3/uL (2.0-8.3); Neutrophils Percent Auto 76.3 % (45-73); Red Blood Count 3.73 X10*6/uL (4.60-5.80); Red Cell Distribution Width 17.9 % (11.0-16.0); White Blood Count 6.4 X10*3/uL (4.8-10.8)
[2021-06-16 08:51] LABS: Platelet Count 31 X10*3/uL (160-400)
[2021-06-16 08:52] LABS: PLT ABN DIST 1
--- NOTE | 2021-06-16 09:08 | PM.HEMONCPN ---
Medical Summary - Medical Summary Date of Service: 06/16/21 Chief complaint: Low platelets Medical Summary: Diagnosis: Chronic refractory ITP, status post splenectomy in 2018 Evaluation in [place] showed positive XIMENA titer of 1:320. Bone marrow aspiration/biopsy performed December 2018 showed mildly hypercellular bone marrow with trilineage hematopoiesis. Small abnormal B lymphocyte population identified by flow cytometry, 1%. Received rituximab from 01/29/2019 to 02/20/19. 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 Stage pT3 pN0. CT chest showed lung nodules initially concerning for metastatic disease, repeat in December showed improvement. Not consistent with metastatic disease. He received romiplostim from February 2020 to end 2019. He was in [place] when he became refractory to romiplostim. He was tried on eltrombopag but he did not respond to this. He was admitted in February 2021 to [facility] with platelet counts of 1000. He received pulse dose Decadron and IVIG. He was tried on Fostamitinib 100 mg b.i.d., but developed severe diarrhea and therefore was discontinued. Patient admitted to [facility] in April 2021 when platelets again dropped below 10 K associated with bleeding. He required both blood and platelet transfusion. He was again treated with Decadron 40 mg IV x4. He started iron supplements. Interval History Interval history: Patient is feeling better today. He wants to go home today. He no longer has epistaxis. No other complaints today. Review of Systems - Constitutional Reports as per HPI, Reports no additional constitutional complaints - Neurologic Denies headache(s) [facility] Medical History: Medical History (Last Reviewed 06/12/21 @ 03:25 by Lina Soares RN) Acute ITP Anemia with low platelet count CAD (coronary artery disease) Chronic ITP (idiopathic thrombocytopenia) Renal cancer Stroke Family History: Family History (Last Reviewed 06/11/21 @ 17:45 by Claire Christiansen MD) Mother No problems noted. Father No problems noted. Surgical History: Surgical History (Last Reviewed 06/12/21 @ 03:25 by Lina Soares RN) History of kidney removal History of total splenectomy Social History: Social History (Last Reviewed 06/12/21 @ 03:25 by Lina Soares RN) Living Situation History: Household Members: None Housing: Other Do you presently have visiting nurse or other home services: Do you presently have visiting nurse or other home services comment: lives independent living. justin Alcohol History: Alcohol intake: former Alcohol History Details: Alcohol intake frequency: does not drink Tobacco History: Patient Tobacco Use Status: Former Tobacco user Tobacco use type: Pipe Smoked in Last 30 Days: No Second Hand Smoke Exposure: No Substance Use History: Use of substances other than those prescribed or required for medical reasons: No Substance Use Type: Other Substance Use Type Other:: cbd oil for sleep Currently Displaying Signs/Symptoms of Drug Intoxication Withdrawal: No Domestic Abuse History: Have you been hit, kicked, punched, or otherwise hurt by someone within the past year? If so, by whom?: No Do you feel safe in your current relationship?: No Is there a partner from a previous relationship who is making you feel unsafe now?: No Are you made to feel afraid or neglected: No Healthcare Practices: Spiritual Healthcare Practices: no Cultural Healthcare Practices: meditation Advance Directives: Advance Directives: No Advance Directives Information Provided: Yes Homicidal Assessment: Do you have thoughts of harming others: None Do you have a plan to hurt others: No Plan Nutrition Assessment: Recently lost weight without trying: Yes How much weight loss: Unsure Eating poorly because of decreased appetite: No Nutrition screen score: 4 Poor oral hygiene: No Occupation Assessmet: service: Yes Current occupational status: retired Home Medications and Allergies Current Medications: Current Medications Generic Name Dose Route Start Last Admin Trade Name Joellen PRN Reason Stop Dose Admin Acetaminophen 650 mg 06/11/21 17:04 06/11/21 18:42 Acetaminophen 325 Mg Tablet PO 650 mg Q6H PRN Administration Pain, Mild (Pain Scale 1-3) Ezetimibe 10 mg 06/12/21 09:00 06/15/21 08:39 Ezetimibe 10 Mg Tablet PO 10 mg DAILY CHIN Administration Ferrous Sulfate 324 mg 06/11/21 21:00 06/15/21 21:06 Ferrous Sulfate 324 Mg Tablet. PO 324 mg BID CHIN Administration Dexamethasone Sodium Phosphate 54 mls @ 216 mls/hr 06/15/21 16:00 06/15/21 16:30 40 mg/ Sodium Chloride IV Infused DAILY CHIN Infusion Metoprolol Tartrate 25 mg 06/11/21 21:00 06/15/21 21:09 Metoprolol Tartrate 25 Mg Tablet PO Not Given BID [facility] Protocol Multivitamins/Vitamin C 1 tab 06/12/21 09:00 06/15/21 08:39 Multivitamin Tablet PO 1 tab DAILY CHIN Administration Ondansetron HCl 4 mg 06/11/21 17:04 Ondansetron Hcl 4 Mg/2 Ml Vial IVPUSH Q8H PRN Nausea and Vomiting Pharmacy Consult 1 each 06/11/21 13:44 Consult Rx Perform Med Rec MISCELLANE ONCE PRN Consult order Romiplostim 205 mcg 06/16/21 11:00 Romiplostim 250 Mcg/0.5 Ml Vial SUBCUT 06/16/21 11:01 ONCE ONE Sodium Chloride 3 ml 06/12/21 00:00 06/16/21 00:10 0.9 % Sodium Chloride Flush 3 Ml Syringe IVFLUSH 3 ml QSHIFT CHIN Administration Tamsulosin HCl 0.4 mg 06/12/21 21:00 06/15/21 21:06 Tamsulosin Hcl 0.4 Mg Capsule PO 0.4 mg BEDTIME CHIN Administration Tetrahydrozoline HCl 2 drop 06/13/21 08:17 06/13/21 16:26 Tetrahydrozoline Hcl 0.05% Oph 15 Ml Drpbtl EYE-BOTH 2 drop QID PRN Administration Dry Eyes Home Medications Medication Instructions Recorded Confirmed Type multivit no.[id number] acid 1 cap PO DAILY 03/03/21 06/11/21 History metoprolol tartrate 25 mg tablet 25 mg PO BID tab 04/27/21 06/11/21 History Allergies Allergy/AdvReac Type Severity Reaction Status Date / Time bupropion [From WELLBUTRIN] Allergy Unknown Unknown Verified 04/27/21 09:42 fostamatinib [From Tavalisse] AdvReac Severe Diarrhea Verified 04/27/21 09:42 any statin Allergy Unknown Unknown Uncoded 03/03/21 22:53 BuPROPion HCl Allergy Unknown Unknown Uncoded 03/03/21 22:53 Wellbutrin Allergy Unknown Unknown Uncoded 03/03/21 22:53 Exam Vital signs: Vital Signs Temp 97.8 F 06/16/21 07:01 Pulse 74 06/16/21 07:01 Resp 18 06/16/21 07:01 BP 120/60 06/16/21 07:01 Pulse Ox 98 06/16/21 07:01 Intake & Output 06/15/21 06/16/21 06/16/21 18:59 06:59 18:59 Intake Total 920 / 1420 500 / 1420 Output Total 825 / 1425 600 / 1425 Balance 95 / -5 -100 / -5 Urine Output (Average ml/kg/hr) 1.01 0.74 Intake: Intake, Oral Amount 480 / 780 300 / 780 Intake (Blood Product) Amount 286 / 286 Plt Aph Pas Pathreduced(E8342) 286 / 286 Unit [id number] Intake, IV Amount 154 / 354 200 / 354 Imm Glob G (IgG)/Sorb/IGA 0-50 100 / 100 10 gm In 100 ml @ 41 mls/hr IV ONCE ONE Rx#:[id number] Imm Glob G (IgG)/Sorb/IGA 0-50 200 / 200 20 gm In 200 ml @ 41 mls/hr IV ONCE ONE Rx#:[id number] dexAMETHasone sod phosphate 40 54 / 54 mg In 0.9 % Sodium Chloride 50 ml @ 216 mls/hr IV DAILY CHIN Rx #:[id number] Output: Output, Urine Amount 825 / 1425 600 / 1425 Other: Breakfast % Eaten 100% Lunch % Eaten 100% Dinner % Eaten 100% Number of Unmeasured Voids 2 Number of Bowel Movements 0 Urine Bathroom Bathroom Urine Color Yellow Yellow Weight 68 kg Body Mass Index 23.4 - Constitutional Present: no acute distress - Routine HEENT Exam Head: Present: normal inspection - Routine Respiratory Exam Present: CTAB - Routine Cardiovascular Exam Cardiovascular: Present: RRR, S1, S2 - Routine Abdominal Exam Present: soft Data - Labs CBC & Chem 7: 06/16/21 08:10 06/15/21 05:30 Labs: 06/11/21 12:35 Pheresis Platelets Routine Type and Screen Routine 06/11/21 14:06 COVID-19 ID NOW ([place]) Stat 06/11/21 14:22 Basic Metabolic Panel Stat 06/11/21 14:29 IV insert/maintain DAILY@1000,2200 06/11/21 18:30 diphenhydrAMINE HCL [Benadryl] 12.5 mg IVPUSH DAILY@1830 06/11/21 19:00 Imm Glob G (IgG)/Sorb/IGA 0-50 [Flebogamma 10%] 10 gm in 100 ml IV ONCE 06/11/21 21:26 Imm Glob G (IgG)/Sorb/IGA 0-50 [Flebogamma 10%] 20 gm in 200 ml IV ONCE 06/12/21 ECG 12 lead EKG Stat 06/12/21 03:36 EKG Documentation DIRECTED 06/12/21 04:20 Basic Metabolic Panel Routine Complete Blood Count Auto Diff Routine SLIDE REVIEW Routine 06/12/21 09:00 predniSONE 10 mg PO DAILY predniSONE 20 mg PO DAILY 06/12/21 19:00 Imm Glob G (IgG)/Sorb/IGA 0-50 [Flebogamma 10%] 10 gm in 100 ml IV ONCE 06/12/21 21:27 Imm Glob G (IgG)/Sorb/IGA 0-50 [Flebogamma 10%] 20 gm in 200 ml IV ONCE 06/13/21 04:27 Basic Metabolic Panel Routine Complete Blood Count no Diff Routine 06/13/21 19:00 Imm Glob G (IgG)/Sorb/IGA 0-50 [Flebogamma 10%] 10 gm in 100 ml IV ONCE 06/13/21 21:26 Imm Glob G (IgG)/Sorb/IGA 0-50 [Flebogamma 10%] 20 gm in 200 ml IV ONCE 06/14/21 05:24 Complete Blood Count no Diff Routine 06/15/21 05:30 Basic Metabolic Panel AM Complete Blood Count no Diff AM 06/15/21 09:00 Imm Glob G (IgG)/Sorb/IGA 0-50 [Flebogamma 10%] 10 gm in 100 ml IV ONCE 06/15/21 10:50 Pheresis Platelets Stat Type and Screen Stat 06/15/21 11:30 Imm Glob G (IgG)/Sorb/IGA 0-50 [Flebogamma 10%] 20 gm in 200 ml IV ONCE 06/15/21 15:50 dexAMETHasone sod phosphate [Decadron] 10 mg .ROUTE .STK-MED ONE 06/16/21 08:10 Complete Blood Count Auto Diff Stat SLIDE REVIEW Stat Laboratory Last Values WBC 6.4 X10*3/uL (4.8-10.8) 06/16/21 08:10 RBC 3.73 X10*6/uL (4.60-5.80) L 06/16/21 08:10 Hgb 11.0 g/dl (14.0-18.0) L 06/16/21 08:10 Hct 34.6 % (42-52) L 06/16/21 08:10 MCV 92.8 fL (80-98) 06/16/21 08:10 MCH 29.5 pg (27.0-33.0) 06/16/21 08:10 MCHC 31.8 g/dl (31.0-36.0) 06/16/21 08:10 RDW 17.9 % (11.0-16.0) H 06/16/21 08:10 Plt Count 31 X10*3/uL (160-400) L D 06/16/21 08:10 MPV Not Reportable 06/16/21 08:10 Immature Gran % (Auto) 0.5 % (0.0-0.4) H 06/16/21 08:10 Neut % (Auto) 76.3 % (45-73) H 06/16/21 08:10 Lymph % (Auto) 21.0 % (20-40) 06/16/21 08:10 [place] % (Auto) 2.0 % (2-11) 06/16/21 08:10 Eos % (Auto) 0.0 % (0-4) 06/16/21 08:10 Baso % (Auto) 0.2 % (0-2) 06/16/21 08:10 Lymph # (Auto) 1.4 X10*3/uL (1.2-4.9) 06/16/21 08:10 [place] # (Auto) 0.1 X10*3/uL (0.1-1.2) 06/16/21 08:10 Eos # (Auto) 0.0 X10*3/uL (0.0-0.4) 06/16/21 08:10 Baso # (Auto) 0.0 X10*3/uL (0.0-0.2) 06/16/21 08:10 Abs Immat Gran (auto) 0.03 X10*3/uL (0.00-0.03) 06/16/21 08:10 Absolute Neuts (auto) 4.9 X10*3/uL (2.0-8.3) 06/16/21 08:10 Absolute Nucleated RBC 0.020 X10*3/uL (0.0-0.012) H 06/16/21 08:10 Nucleated RBC % (auto) 0.3 /100WBC (0.0-0.2) H 06/16/21 08:10 Smear Tech's Comments Not Reportable 06/16/21 08:10 Sodium 137 mmol/L (135-145) 06/15/21 05:30 Potassium 4.1 mmol/L (3.3-5.1) 06/15/21 05:30 Chloride 108 mmol/L (96-108) 06/15/21 05:30 Carbon Dioxide 24 mmol/L (22-29) 06/15/21 05:30 Anion Gap 9 (12-20) L 06/15/21 05:30 BUN 32 mg/dL (9-16) H 06/15/21 05:30 Creatinine 1.19 mg/dL (0.5-1.4) 06/15/21 05:30 Estim Creat Clear Calc 41.6 06/15/21 05:30 Estimated GFR 58 06/15/21 05:30 Random Glucose 86 mg/dL (60-115) 06/15/21 05:30 Calcium 8.4 mg/dL (8.4-10.2) 06/15/21 05:30 COVID-19 (ANNETTE) Negative (Negative) 06/11/21 14:06 COVID-19 Clin Com See Note 06/11/21 14:06 Blood Type B Negative 06/15/21 10:50 Antibody Screen NEGATIVE 06/15/21 10:50 Progress Note: A/P (1) Thrombocytopenia Status: Chronic Assessment and plan: 1. This is a pleasant 85-year-old male admitted for worsening thrombocytopenia secondary to ITP. Initially diagnosed and treated in [place] in 2019, received rituximab, Nplate and finally splenectomy. He is on Nplate but has wide fluctuations in platelet counts. His last dose of Nplate was on 06/09/2021. He has received platelet transfusion and is receiving IVIG. I suggest increasing steroids, dexamethasone 40 mg IV daily. Romiplostim on 06/17/2021. Transfuse platelets to keep above 5 K. Administer scheduled Nplate today. Patient can be discharged home today. Follow-up in the clinic on Monday. - Time Spent With Patient Time Spent with Patient (in minutes): 15
[2021-06-16] MEDS: Ferrous Sulfate 324 MG TABLET.DR PO (09:17)
[2021-06-16] MEDS: Ezetimibe 10 MG TABLET PO (09:17)
[2021-06-16] MEDS: Multivitamin TABLET 1 TAB PO (09:17)
[2021-06-16] MEDS: Metoprolol Tartrate 25 MG TABLET PO (09:17)
[2021-06-16] MEDS: DEXAMETHASONE SOD PHOSPHATE IV (09:18)
[2021-06-16] MEDS: SODIUM CHLORIDE 0.9% IV (09:18)
--- NOTE | 2021-06-16 11:01 | PM.DS ---
DS: Providers Provider Date of Service: 06/16/21 Date of admission: 06/11/21 17:06 Date of discharge: 06/16/21 Primary care physician: Mauro Smith MD Admitting clinician: Claire Christiansen Attending physician on admission: Claire Christiansen Consults: 06/11/21 17:13 Consult to Hematology / Oncology Routine Consulting Provider: Chhaya James Reason for consultation: ITP Has provider been notified: Yes Attending physician on discharge: mikaela Discharging clinician: Karmen Sharma DS: Diagnosis Discharge Diagnosis (1) Thrombocytopenia: Status: Chronic DS: Medications Discharge Medications Home Medications: Home Medications Medication Instructions Recorded Confirmed multivit no.43-[id number]-gowfh acid 1 cap PO DAILY 03/03/21 06/11/21 metoprolol tartrate 25 mg tablet 25 mg PO BID tab 04/27/21 06/11/21 Previous Rx's Medication Instructions Recorded ezetimibe 10 mg tablet 10 mg PO DAILY #90 tab 04/02/21 tamsulosin 0.4 mg capsule 0.4 mg PO DAILY #90 cap 04/02/21 prednisone 20 mg PO DAILY #60 tab 04/28/21 ferrous sulfate [Iron (ferrous 325 mg PO BID #60 tab 05/03/21 sulfate)] DS: Summary Hospital Course Hospital Course: HP as per admitting provider Mr Del Angel is an 86 year-old man with ITP diagnosed in 2018 who has been treated with rituximab, romiplostim, and splenectomy. He is currently on prednisone 20 mg/d and his last romiplostim dose was in [facility]ology [facility], where he is followed by Dr James, on 06/09/21. At that point his platelet count was 2K, but had been 331K only 7 days prior. Inpatient admission had been recommended, but he declined. However, today, his platelets were still only 2K, and he agreed to come in for inpatient care. Historically, he has not responded to eltrombopag and was intolerant of fostamitinib. He was last admitted here in April 2021 for thrombocytopenia requiring both blood and platelet transfusion and was treated then with dexamethasone. His medical history is also significant for left kidney cancer for which he underwent curative nephrectomy in 2019. He had a minor stroke involving his R hand earlier this year. He does note gum bleeding when brushing his teeth. He denies hematuria or hematochezia. No fever, chills, dyspnea, cough, chest pain, nausea, vomiting, or abdominal pain. No headache . ITP. Chronic. He was on prednisone 20mg and had received romiplostim on 06/09. His platelets were found to be 2k had been 331k 7 days prior. He reported some bleeding in his gums no further bleeding while inpatient. His platelet count ranged 2-9 and now today after decadron 31. His HH also remained stable at 11.0/34.6. He also received IVIG, platelets and Nplate. He will continue his home dose of prednisone 10mg and he should follow up with Dr. James as outpatient. Time Spent with Patient Time attestation: Total time spent providing and/or coordinating discharge services: Discharge coordination time: Greater than 30 minutes Quality: Stroke Does the patient have a stroke diagnosis?: No Physical Exam Vital Signs: Vital Signs: Last Vital Signs Temp 97.8 F 06/16/21 07:01 Pulse 74 06/16/21 07:01 Resp 18 06/16/21 07:01 BP 120/60 06/16/21 07:01 Pulse Ox 98 06/16/21 07:01 Body Mass Index 23.4 Appearing in no acute distress head is normocephalic atraumatic eyes pupils are PERRLA sclera is anicteric mouth throat mucous membranes are intact and moist neck is supple no lymphadenopathy, no JVD noted lung sounds are clear to auscultation heart regular rate rhythm, clear S1, S2 positive bowel sounds, abdomen is soft, nontender neuro patient is alert x3, no focal deficits Some bruising to arms and legs DS: Data Data Completed and Pending Completed studies during hospitalization [Text1]: Procedures Transfusion of Nonautologous Platelets into Peripheral Vein, Percutaneous Approach (04/28/21) Transfusion of Nonautologous Red Blood Cells into Peripheral Vein, Percutaneous Approach (04/28/21) Labs on day of discharge: Laboratory Results - last 24 hr 06/15/21 06/16/21 10:50 08:10 WBC 6.4 RBC 3.73 L Hgb 11.0 L Hct 34.6 L MCV 92.8 MCH 29.5 MCHC 31.8 RDW 17.9 H Plt Count 31 L D MPV Not Reportable Immature Gran % (Auto) 0.5 H Neut % (Auto) 76.3 H Lymph % (Auto) 21.0 [place] % (Auto) 2.0 Eos % (Auto) 0.0 Baso % (Auto) 0.2 Lymph # (Auto) 1.4 [place] # (Auto) 0.1 Eos # (Auto) 0.0 Baso # (Auto) 0.0 Abs Immat Gran (auto) 0.03 Absolute Neuts (auto) 4.9 Absolute Nucleated RBC 0.020 H Nucleated RBC % (auto) 0.3 H Smear Tech's Comments Not Reportable Blood Type B Negative Antibody Screen NEGATIVE Discharge Plan Discharge Anticipated Discharge Date/Time: 06/16/21 10:58 Patient Disposition: Home Health Service Discharge Diagnosis: Idiopathic thrombocytopenic purpura Anemia Referrals: Chhaya James MD [Physician] - 1 Week Mauro Smith MD [Primary Care Provider] - 1 Week Discharge Medications: Continued ezetimibe 10 mg tablet 10 mg PO DAILY Qty: 90 RF: 8 tamsulosin 0.4 mg capsule 0.4 mg PO DAILY Qty: 90 RF: 8 multivit no.43-qnhz-xtloc acid 106.5-1 mg Capsule 1 cap PO DAILY RF: 0 prednisone 10 mg Tablet 20 mg PO DAILY Qty: 60 RF: 3 ferrous sulfate [Iron (ferrous sulfate)] 325 mg (65 mg iron) Tablet 325 mg PO BID Qty: 60 RF: 2 metoprolol tartrate 25 mg tablet 25 mg PO BID RF: 0 Discharge Orders: Discharge Order (Routine); Ordered 06/16/21 Ordered By: Karmen Sharma Diet: advance to usual diet Activity on Discharge: As tolerated Stand Alone Forms: Patient Portal Discharge page Care Plan Goals: Continued increase in platelet count Health Concerns: Idiopathic thrombocytopenic purpura Anemia (ITP) Plan of Treatment: Take all medications as prescribed Follow-up with your field service engineer for further direction regarding your ITP Assessment: see discharge summary
--- NOTE | 2021-06-16 11:12 | MHC.CM.PN ---
Patient has been medically cleared for dc to home today, with [facility]. Patient was active with [facility], who has been notified of today's dc. Second IMM addressed with Patient and original given to him and a copy has been placed on the chart. Patient STATES THAT HE HAS HIS OWN RIDE HOME.
[2021-06-16 11:39] VITALS: BP 100/60; PULSE 76; RESP 19; TEMP 36.3; O2SAT 98
[2021-06-16] MEDS: romiPLOStim 250 MCG/0.5 ML VIAL 205 MCG SUBCUT (11:50)
== END 2021-06-16 14:04 | disposition home health service (06) | DRG 813 ==
LOC: HO.ED 14:43 → HO.EDOVER 17:30 → HO.IMC 23:34
PROVIDERS: Nurse Practitioner Acute Care; Admitting Provider Family Medicine; Emergency Provider Emergency Medicine; PCP Internal Medicine; Visit Provider Family Medicine
DX: D69.3 Immune thrombocytopenic purpura (principal); I25.10 Atherosclerotic heart disease of native coronary artery without angina pectoris; Z20.822 Contact with and (suspected) exposure to COVID-19; Z90.5 Acquired absence of kidney; Z85.528 Personal history of other malignant neoplasm of kidney; Z86.73 Personal history of transient ischemic attack (TIA), and cerebral infarction without residual deficits; Z87.891 Personal history of nicotine dependence; Z79.52 Long term (current) use of systemic steroids; Z79.899 Other long term (current) drug therapy; Z66 Do not resuscitate
CPT/HCPCS: 36415; 80048; 85025; 85027; 86850; 86900; 86901; 87635; 93005; 99285; J1100; J1200; J1572; J2796; P9073

== ENCOUNTER 2021-12-27 14:05 | Outpatient (REF) | payer MEDICARE, SELFPAY ==
--- NOTE | ~2021-12-27 | US_ITS ---
EXAMINATION: US RETROPERITONEAL LIMITED (RENAL ONLY) CLINICAL INFORMATION: Renal insufficiency. COMPARISON: CT abdomen and pelvis 04/30/2021 TECHNIQUE: Real-time imaging of the right kidney. FINDINGS: RIGHT KIDNEY: 14.6 x 7.7 x 7.2 cm (SAG x AP x TRV). The kidney is normal in size, contour, and echogenicity. Renal cortical thickness is normal. There is a an 8.6 x 7.1 x 8.5 cm cyst exophytic to the midpole and 3.3 x 1.8 x 2.6 cm cyst exophytic to the lower pole. No renal calculi or hydronephrosis. LEFT KIDNEY: Removed. US/US renal RT IMPRESSION: Right renal cysts similar to April 2021 CT scan..
== END 2021-12-27 14:06 | disposition home or self-care (01) ==
LOC: HO.US 14:05
PROVIDERS: Visit Provider Internal Medicine
DX: N28.9 Disorder of kidney and ureter, unspecified (principal)
CPT/HCPCS: 76775

== ENCOUNTER 2022-01-02 22:22 | Inpatient (IN) | payer MEDICARE, SELFPAY ==
--- NOTE | ~2022-01-02 | CT_ITS ---
EXAMINATION: CT HEAD WITHOUT CONTRAST (STROKE PROTOCOL) CLINICAL INFORMATION: Stroke protocol. COMPARISON: None TECHNIQUE: Contiguous axial imaging was performed from the skull base to vertex without intravenous administration of contrast. This CT examination was performed using dose optimization techniques as appropriate, variously including the following: *Automated exposure control *Adjustment of mA and/or kV according to patient size (this includes techniques or standardized protocols for targeted exams where dose is matched to indication/reason for exam; i.e. extremities or head) *Use of iterative reconstruction technique DLP: 807 mGy-cm FINDINGS: There is no intracranial hemorrhage, hematoma, or extra-axial fluid collection. Mild enlargement of the ventricles, sulci, and extra-axial CSF spaces is indicative of parenchymal volume loss. There is no hydrocephalus, edema, or mass effect. The luong-white matter differentiation appears symmetric. There is no acute infarct or mass lesion. A few foci of hypoattenuation in the subcortical and periventricular white matter are most consistent with chronic microangiopathic changes. Chronic left cerebellar lacunar infarct. Calcific atherosclerosis is present within the cavernous segments of the internal carotid arteries. The calvarium appears intact. There is no pneumocephalus or orbital emphysema. The visualized sinuses and middle ears and mastoid air cells show no significant mucosal thickening. There are no air-fluid levels. Rightward deviation of the nasal septum. CT/CT head for stroke IMPRESSION: No acute intracranial pathology. Moderate chronic white matter microangiopathy. Old left cerebellar lacunar infarct. This critical result was discussed with Dr. Mccloud at 11:12 PM 01/02/2022. It was ascertained that the content and urgency of the report was understood at the time of direct communication.
--- NOTE | ~2022-01-02 | MR_ITS ---
EXAMINATION: MR BRAIN WITHOUT CONTRAST CLINICAL INFORMATION: Double vision. Rule out stroke. COMPARISON: Head CT from 01/02/2022. TECHNIQUE: Multiplanar, multisequence imaging of the brain was performed without contrast. FINDINGS: No diffusion abnormalities are identified to suggest an acute infarct. No hydrocephalus evident. No mass effect or midline shift is seen. Moderate chronic white matter microangiopathic changes noted with moderate generalized parenchymal volume loss and ex vacuo dilatation of the ventricles. No extra-axial fluid collections are seen. There are mild small vessel ischemic changes in the kaya and a small chronic infarct visible in the left cerebellar hemisphere. The gradient refocused acquisition demonstrates no pathologic magnetic susceptibility artifact to indicate underlying acute or chronic blood products. Chronic lacunar infarct in the left thalamus. The craniovertebral junction, marrow signal, and midline structures are normal. The major intracranial flow voids at the level of the [place] are preserved. The dural venous sinus flow voids are maintained. The paranasal sinuses are well aerated. There is fluid in the dependent left mastoid air cells. MR/MR head/brain wo con IMPRESSION: Moderate chronic white matter microangiopathy and diffuse parenchymal volume loss. Small chronic infarcts in the left thalamus and left cerebellar hemisphere. No acute intracranial process.
--- NOTE | ~2022-01-02 | XR_ITS ---
EXAMINATION: XR CHEST CLINICAL INFORMATION: Shortness of breath COMPARISON: 04/16/2021 TECHNIQUE: Frontal view of the chest was obtained. FINDINGS: Lung volumes are symmetric. No focal consolidation is seen. Mildly coarsened appearance of the interstitium is noted. No evidence of pneumothorax or significant pleural effusion. Cardiac size is within normal limits. Calcification is present at the aortic arch. No acute osseous findings are seen. XR/XR chest 1V IMPRESSION: No focal consolidation. Mildly coarsened appearance of the interstitium may reflect acute or chronic airways disease.
--- NOTE | 2022-01-02 22:26 | ECG_ITS ---
Test Reason : NAUSEA/VISUAL CHANGE Blood Pressure : / mmHG Vent. Rate : 055 BPM Atrial Rate : 055 BPM P-R Int : 176 ms QRS Dur : 162 ms QT Int : 480 ms P-R-T Axes : 047 -74 045 degrees QTc Int : 459 ms Sinus bradycardia with Premature atrial complexes Right bundle branch block Left anterior fascicular block Bifascicular block Abnormal ECG When compared with ECG of 12-JUN-2021 04:06, Premature ventricular complexes are no longer Present Nonspecific T wave abnormality now evident in Inferior leads Referred By: Generic ED Physician Electronically Signed By:Martin Gutierrez
[2022-01-02 22:29] VITALS: BMI 23.0
[2022-01-02 22:42] LABS: Glucose, Whole Blood 71 mg/dL (60-115)
[2022-01-02 22:45] LABS: Prothrombin Time Whole Bld POC 12.5 sec (11.1-13.5)
[2022-01-02 22:46] LABS: MANUAL DIFF FLAG NO
[2022-01-02 22:48] LABS: Basophils Absolute Auto 0.1 X10*3/uL (0.0-0.2); Basophils Percent Auto 0.5 % (0-2); Eosinophils Absolute Auto 0.3 X10*3/uL (0.0-0.4); Eosinophils Percent Auto 3.4 % (0-4); Hematocrit 35.8 % (42.0-52.0); Hemoglobin 11.6 g/dl (14.0-18.0); Imm Gran Abs Auto 0.03 X10*3/uL (0.00-0.03); Imm Gran Pct Auto 0.3 % (0.0-0.4); Lymphocytes Absolute Auto 3.8 X10*3/uL (1.2-4.9); Mean Corpuscular HGB Conc 32.4 g/dl (31.0-36.0); Mean Corpuscular Hemoglobin 28.9 pg (27.0-33.0); Mean Corpuscular Volume 89.3 fL (80.0-98.0); Mean Platelet Volume 11.2 fL (9.4-12.4); Monocytes Percent Auto 10.3 % (2-11); Neutrophils Absolute Auto 4.5 x10*3/uL (2.0-8.3); Neutrophils Percent Auto 46.5 % (45-73); Platelet Count 279 X10*3/uL (160-400); Red Blood Count 4.01 X10*6/uL (4.60-5.80); Red Cell Distribution Width 15.2 % (11.0-16.0); White Blood Count 9.8 X10*3/uL (4.8-10.8)
[2022-01-02 22:52] VITALS: BP 184/88; PULSE 62
[2022-01-02 22:53] LABS: Prothrombin Time 11.6 SEC (9.9-13.0)
--- NOTE | 2022-01-02 22:53 | PC.NURSE ---
Pt ALESSIAN approx 2029. Evaluated by MD Mccloud on arrival. In CT scanner at this time
[2022-01-02 23:02] LABS: Stroke Lab Use COMPLETE
[2022-01-02 23:02] LABS: COVID-19 Test Negative (Negative)
[2022-01-02 23:03] LABS: Alanine Aminotransferase 7 U/L (0-40); Albumin Level 3.4 g/dL (3.5-5.0); Alkaline Phosphatase 104 U/L (39-117); Anion Gap 14 (12-20); Aspartate Amino Transferase 29 U/L (5-37); Bilirubin Direct < 0.2 mg/dL (0.0-0.5); Bilirubin Total 0.4 mg/dL (0.0-1.0); Blood Urea Nitrogen 50 mg/dL (9-16); Calcium 9.6 mg/dL (8.4-10.2); Carbon Dioxide 22 mmol/L (22-29); Chloride 107 mmol/L (96-108); Creatinine Clr Calc Pharmacy 21.8; Estimated Glomerular Filt Rate 25; Glucose Random 89 mg/dL (60-115); Phosphorus 4.4 mg/dL (2.7-4.5); Potassium 4.9 mmol/L (3.3-5.1); Sodium 138 mmol/L (135-145); Total Protein 7.2 g/dL (6.5-8.0)
[2022-01-02 23:10] LABS: Partial Thromboplastin Time 36.6 SEC (24.1-38.0)
[2022-01-02 23:12] VITALS: BP 158/74; PULSE 46; RESP 12; TEMP 36.4; O2SAT 97
--- NOTE | 2022-01-02 23:14 | ED_ITS ---
HPI - Neuro Symptoms/Deficit General Chief Complaint: Weakness Stated Complaint: RIGHT VISUAL DIST,WEAK Time Seen by Provider: 01/02/22 22:25 History of Present Illness HPI Narrative: Patient is a 86-year-old male with history of hypertension. History CVA history of CA in the past. History ITP. Presents today with having nausea vomiting sudden change in vision. He sees is at double vision. When he closed 1 eye or the other his vision is normal. He denies any fever chills. No focal weakness in the arms or legs. No difficulty with coordination. Patient from home. No cough no congestion or upper respiratory symptoms. Immunized for COVID. Not on blood thinners. Patient had a specific time of onset approximately 21:00. Related Data Home Medications Medication Instructions Recorded Confirmed multivitamin no.51-ferrous 1 cap PO DAILY 03/03/21 01/03/22 fumarate 106.5 mg-folic acid 1 mg capsule lutein 20 mg tablet 20 mg PO DAILY 07/05/21 01/02/22 coenzyme Q10 100 mg capsule 400 mg PO DAILY 07/12/21 01/02/22 (CoQ-10) [id number] C-Mn 500 1 cap PO TID 07/12/21 01/02/22 mg-400 mg capsule (Glucosamine Chondroitin Maximum Strength) hawthorn 500 mg capsule 510 mg PO DAILY 07/12/21 01/02/22 garlic 600 mg PO DAILY 12/01/21 01/02/22 omega-3 fatty acids 1,600 mg PO DAILY 12/01/21 01/03/22 Previous Rx's Medication Instructions Recorded tamsulosin 0.4 mg capsule 0.4 mg PO DAILY #90 cap 04/02/21 Allergies Allergy/AdvReac Type Severity Reaction Status Date / Time bupropion [From Allergy Unknown Unknown Verified 12/01/21 13:13 WELLBUTRIN] fostamatinib [From AdvReac Severe Diarrhea Verified 12/01/21 13:13 Tavalisse] any statin Allergy Unknown Unknown Uncoded 12/01/21 13:13 Review of Systems Verdana 4l Review of Systems: Verdana 4d Verdana 4d Positive change in vision No fever no chills no cough no congestion No chest pain or shortness of breath no diaphoresis Positive minimal headache that had ongoing for few weeks. Verdana 4d Yes all other systems are reviewed and are negativenegative PMFSH Past Medical History Attestation statement: The following information was validated with the patient. Medical History Acute ITP Anemia with low platelet count CAD (coronary artery disease) Chronic ITP (idiopathic thrombocytopenia) Renal cancer Stroke Surgical History History of kidney removal History of total splenectomy Family History Family History Mother No problems noted. Father No problems noted. Social History Social History Household Members: None Housing: Other Alcohol intake: former Patient Tobacco Use Status: Former Tobacco user Tobacco use type: Pipe e-Cigarette/Vaping Use: Never Used Second Hand Smoke Exposure: No Substance Use Type: Other Advance Directives: No Advance Directives Information Provided: No service: Yes Current occupational status: retired Physical Exam Verdana 4l Vital Signs: Verdana 4d Verdana 4d Vital Signs: Verdana 4d Verdana 4Bd Last Vital Signs Verdana 4d Stacker Tender New 4d Stacker Tender New 4d Temp 97.6 F 01/02/22 23:45 Stacker Tender New 4d Pulse 59 01/02/22 23:45 Stacker Tender New 4d Resp 18 01/02/22 23:45 BP 153/69 H 01/02/22 23:45 Pulse Ox 96 01/02/22 23:45 BMI result Body Mass Index 23.0 Appearance: Alert. Oriented X3. No acute distress. Eyes: Pupils equal, round and reactive to light. There is a 3rd nerve deficit. Patient cannot look toward the medial aspect on the right eye. Cannot look toward the medial aspect on the left eye. When closing 1 eye or the other patient has normal vision. Patient sees double when he uses both eyes. Pupils are equal and reactive to light. The eyelids appears normal. Patient can open his eyes normally. Can close his eyes normally. ENT: Pharynx normal. Neck: Normal inspection. Neck supple. No lymph nodes noted. No crepitus CVS: Normal heart rate and rhythm. Pulses normal. Normal S1 and S2 Respiratory: No respiratory distress. Breath sounds normal. No Wheezing. No rales Abdomen: Soft and nontender. No rigidity. No distention. good BS x4 Skin: Skin warm and dry. Normal skin color. Normal skin turgor. Extremities: No lower extremity edema. Neurovascular intact to all extremities. No Lacerations. No Rash Neuro: Oriented X 3. No motor deficit. No sensory deficit. Moving all extermities. No slurred speech. MDM - Neuro Symptoms/Deficit MDM Narrative Medical decision making narrative: Positive double vision positive 3rd nerve deficit. Time of onset approximately 21:00. The deficit was felt to be small. Unable to obtain CTA as patient's creatinine was 2.5 and he only has 1 kidney. Case was discussed with Neurology. Given patient has a mild headache. Third nerve deficit only. Refrain from giving tPA for now. Patient's NIH stroke scales also 0. Rectal cancer case discussed with hospitalist service. Will admit for further evaluation Medical Records Attestation: I reviewed the patient's medical records. Lab Data Attestation: I reviewed the patient's lab results. Result diagrams: 01/02/22 22:39 01/02/22 22:37 Labs: Lab Results 01/02/22 01/02/22 01/02/22 Range/Units 22:37 22:38 22:38 WBC (4.8-10.8) X10*3/uL RBC (4.60-5.80) X10*6/uL Hgb (14.0-18.0) g/dl Hct (42.0-52.0) % MCV (80.0-98.0) fL MCH (27.0-33.0) pg MCHC (31.0-36.0) g/dl RDW (11.0-16.0) % Plt Count (160-400) X10*3/uL MPV (9.4-12.4) fL Immature Gran % (Auto) (0.0-0.4) % Neut % (Auto) (45-73) % Lymph % (Auto) (20-40) % Craven % (Auto) (2-11) % Eos % (Auto) (0-4) % Baso % (Auto) (0-2) % Lymph # (Auto) (1.2-4.9) X10*3/uL Craven # (Auto) (0.1-1.2) X10*3/uL Eos # (Auto) (0.0-0.4) X10*3/uL Baso # (Auto) (0.0-0.2) X10*3/uL Abs Immat Gran (auto) (0.00-0.03) X10*3/uL Absolute Neuts (auto) (2.0-8.3) x10*3/uL Absolute Nucleated RBC (0.0-0.012) X10*3/uL Nucleated RBC % (auto) (0.0-0.2) /100WBC PT (9.9-13.0) SEC Whole Blood PT (11.1-13.5) sec INR (0.9-1.1) Whole Blood INR (0.9-1.1) APTT TNP Sodium 138 (135-145) mmol/L Potassium 4.9 (3.3-5.1) mmol/L Chloride 107 (96-108) mmol/L Carbon Dioxide 22 (22-29) mmol/L Anion Gap 14 (12-20) BUN 50 H (9-16) mg/dL Creatinine 2.50 H (0.5-1.4) mg/dL Estim Creat Clear Calc 21.8 Estimated GFR 25 POC Glucose 71 (60-115) mg/dL Random Glucose 89 (60-115) mg/dL Calcium 9.6 (8.4-10.2) mg/dL Phosphorus 4.4 (2.7-4.5) mg/dL Magnesium 2.0 (1.6-2.6) mg/dL Total Bilirubin 0.4 (0.0-1.0) mg/dL Direct Bilirubin < 0.2 (0.0-0.5) mg/dL AST 29 (5-37) U/L ALT 7 (0-40) U/L Alkaline Phosphatase 104 (39-117) U/L Total Creatine Kinase 286 H (38-174) U/L Troponin I High Sens (<3.5-35.0) ng/L Total Protein 7.2 (6.5-8.0) g/dL Albumin 3.4 L (3.5-5.0) g/dL COVID-19 (ANNETTE) (Negative) COVID-19 Clin Com 01/02/22 01/02/22 01/02/22 Range/Units 22:39 22:39 22:39 WBC 9.8 (4.8-10.8) X10*3/uL RBC 4.01 L (4.60-5.80) X10*6/uL Hgb 11.6 L (14.0-18.0) g/dl Hct 35.8 L (42.0-52.0) % MCV 89.3 (80.0-98.0) fL MCH 28.9 (27.0-33.0) pg MCHC 32.4 (31.0-36.0) g/dl RDW 15.2 (11.0-16.0) % Plt Count 279 (160-400) X10*3/uL MPV 11.2 (9.4-12.4) fL Immature Gran % (Auto) 0.3 (0.0-0.4) % Neut % (Auto) 46.5 (45-73) % Lymph % (Auto) 39.0 (20-40) % Craven % (Auto) 10.3 (2-11) % Eos % (Auto) 3.4 (0-4) % Baso % (Auto) 0.5 (0-2) % Lymph # (Auto) 3.8 (1.2-4.9) X10*3/uL Craven # (Auto) 1.0 (0.1-1.2) X10*3/uL Eos # (Auto) 0.3 (0.0-0.4) X10*3/uL Baso # (Auto) 0.1 (0.0-0.2) X10*3/uL Abs Immat Gran (auto) 0.03 (0.00-0.03) X10*3/uL Absolute Neuts (auto) 4.5 (2.0-8.3) x10*3/uL Absolute Nucleated RBC 0.000 (0.0-0.012) X10*3/uL Nucleated RBC % (auto) 0.0 (0.0-0.2) /100WBC PT 11.6 (9.9-13.0) SEC Whole Blood PT (11.1-13.5) sec INR 1.0 (0.9-1.1) Whole Blood INR (0.9-1.1) APTT 36.6 Sodium (135-145) mmol/L Potassium (3.3-5.1) mmol/L Chloride (96-108) mmol/L Carbon Dioxide (22-29) mmol/L Anion Gap (12-20) BUN (9-16) mg/dL Creatinine (0.5-1.4) mg/dL Estim Creat Clear Calc Estimated GFR POC Glucose (60-115) mg/dL Random Glucose (60-115) mg/dL Calcium (8.4-10.2) mg/dL Phosphorus (2.7-4.5) mg/dL Magnesium (1.6-2.6) mg/dL Total Bilirubin (0.0-1.0) mg/dL Direct Bilirubin (0.0-0.5) mg/dL AST (5-37) U/L ALT (0-40) U/L Alkaline Phosphatase (39-117) U/L Total Creatine Kinase (38-174) U/L Troponin I High Sens (<3.5-35.0) ng/L Total Protein (6.5-8.0) g/dL Albumin (3.5-5.0) g/dL COVID-19 (ANNETTE) Negative (Negative) COVID-19 Clin Com See Note 01/02/22 01/02/22 Range/Units 22:39 22:42 WBC (4.8-10.8) X10*3/uL RBC (4.60-5.80) X10*6/uL Hgb (14.0-18.0) g/dl Hct (42.0-52.0) % MCV (80.0-98.0) fL MCH (27.0-33.0) pg MCHC (31.0-36.0) g/dl RDW (11.0-16.0) % Plt Count (160-400) X10*3/uL MPV (9.4-12.4) fL Immature Gran % (Auto) (0.0-0.4) % Neut % (Auto) (45-73) % Lymph % (Auto) (20-40) % Craven % (Auto) (2-11) % Eos % (Auto) (0-4) % Baso % (Auto) (0-2) % Lymph # (Auto) (1.2-4.9) X10*3/uL Craven # (Auto) (0.1-1.2) X10*3/uL Eos # (Auto) (0.0-0.4) X10*3/uL Baso # (Auto) (0.0-0.2) X10*3/uL Abs Immat Gran (auto) (0.00-0.03) X10*3/uL Absolute Neuts (auto) (2.0-8.3) x10*3/uL Absolute Nucleated RBC (0.0-0.012) X10*3/uL Nucleated RBC % (auto) (0.0-0.2) /100WBC PT (9.9-13.0) SEC Whole Blood PT 12.5 (11.1-13.5) sec INR (0.9-1.1) Whole Blood INR 1.0 (0.9-1.1) APTT Sodium (135-145) mmol/L Potassium (3.3-5.1) mmol/L Chloride (96-108) mmol/L Carbon Dioxide (22-29) mmol/L Anion Gap (12-20) BUN (9-16) mg/dL Creatinine (0.5-1.4) mg/dL Estim Creat Clear Calc Estimated GFR POC Glucose (60-115) mg/dL Random Glucose (60-115) mg/dL Calcium (8.4-10.2) mg/dL Phosphorus (2.7-4.5) mg/dL Magnesium (1.6-2.6) mg/dL Total Bilirubin (0.0-1.0) mg/dL Direct Bilirubin (0.0-0.5) mg/dL AST (5-37) U/L ALT (0-40) U/L Alkaline Phosphatase (39-117) U/L Total Creatine Kinase (38-174) U/L Troponin I High Sens 20.7 (<3.5-35.0) ng/L Total Protein (6.5-8.0) g/dL Albumin (3.5-5.0) g/dL COVID-19 (ANNETTE) (Negative) COVID-19 Clin Com NIH Stroke Scale Internal: Initial- Upon Arrival Level of Consciousness: Alert Level of Consciousness Questions: Answers both questions correctly Level of Consciousness Commands: Performs both tasks correctly Best Gaze: Normal Visual: No visual loss Facial Palsy: Normal Motor Arm (Right): No drift Motor Arm (Left): No drift Motor Leg (Right): No drift Motor Leg (Left): No drift Limb Ataxia: Absent Sensory: Normal Best Language: No aphasia Dysarthia: Normal Extinction and Inattention: No abnormality Score: 0 Discharge Plan Discharge Clinical Impression: Acute CVA (cerebrovascular accident) Patient Disposition: Admitted As Inpatient
--- NOTE | 2022-01-02 23:17 | PC.NURSE ---
TPA not given per Mccloud
[2022-01-02] MEDS: 0.9 % Sodium Chloride 500 ML 999 ML IV (23:18)
--- NOTE | 2022-01-02 23:40 | P.HPHOSP_ITS ---
History of Present Illness Date of Service: 01/02/22 Chief Complaint: vision changes 86-year-old male with a past medical history of hypertension hyperlipidemia CAD history of CVA, 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; history of renal cell carcinoma status post nephrectomy CKD, anemia presented the hospital today with a chief complaint of double vision. Patient reported that he has been having headaches intermittently over the past 2 weeks. And today he had double vision this evening and also felt nauseous, not well, imbalance. Denies any falls or trauma. Denies any numbness tingling or focal weakness. Denies any chest pain or palpitations. Denies any history of recent viral infection. Denies any GI symptoms. Review of all other systems is negative except mentioned above ER course: Per ER team patient on M presentation exam is benign neurologically except for patient unable to adduct both right and left eyes. CT head was done which showed no acute findings. On labs noted to have mild Julio on CKD otherwise labs essentially benign. CT angio of the head and neck was not done secondary to renal insufficiency. Mentioned that case was discussed with Dr. Haque from Neurology who recommended no tPA and can be admitted to the [facility]. Followed by few minutes later patient left I was able to adduct and abduct. But right eye still has persistent adduction palsy. Patient has good pupillary reflexes bilaterally with direct light. [facility] Medical History Acute idiopathic thrombocytopenic purpura Acute ITP Anemia with low platelet count CAD (coronary artery disease) Chronic ITP (idiopathic thrombocytopenia) Chronic renal insufficiency Renal cancer Stroke Family History Mother No problems noted. Father No problems noted. Pertinent family history: As above Surgical History History of kidney removal History of total splenectomy Social History Household Members: None Housing: Assisted Living Facility Are you a primary career placement services counselor to a significant other at home: No Do you presently have visiting nurse or other home services: Yes ([employer] 1x/wk) Alcohol intake: former Patient Tobacco Use Status: Former Tobacco user Tobacco use type: Pipe Years Smoked: 60 e-Cigarette/Vaping Use: Never Used Second Hand Smoke Exposure: No Substance Use Type: Other Advance Directives Date on File: 01/04/22 service: Yes Current occupational status: retired Cognitive needs: No Hearing needs: No Vision needs: No Meds Allergies Allergy/AdvReac Type Severity Reaction Status Date / Time bupropion [From WELLBUTRIN] Allergy Unknown Unknown Verified 01/26/22 13:35 fostamatinib [From Tavalisse] AdvReac Severe Diarrhea Verified 01/26/22 13:35 any statin Allergy Unknown Unknown Uncoded 01/26/22 13:35 Active Medications: Current Medications Acetaminophen (Acetaminophen 325 Mg Tablet) 650 mg PO Q6H PRN PRN Reason: Pain, Mild (Pain Scale 1-3) Atorvastatin Calcium (Atorvastatin Calcium 80 Mg Tablet) 80 mg PO DAILY [facility] Sodium Chloride (Ns) 500 mls @ 999 mls/hr IV .Q31M [facility] Stop: 01/02/22 23:45 Last Admin: 01/02/22 23:18 Dose: 999 mls/hr Documented by: Melatonin (Melatonin 3 Mg Tablet) 6 mg PO BEDTIME PRN PRN Reason: Insomnia Senna (Sennosides 8.6 Mg Tablet) 17.2 mg PO BEDTIME PRN PRN Reason: Constipation Sodium Chloride (0.9 % Sodium Chloride Flush 3 Ml Syringe) 3 ml IVFLUSH QSHIFT [facility] Home Medications Medication Instructions Recorded Confirmed Last Taken Type multivitamin no.51-ferrous 1 cap PO DAILY 03/03/21 01/27/22 04/27/21 History fumarate 106.5 mg-folic acid 1 mg capsule lutein 20 mg tablet 20 mg PO DAILY 07/05/21 01/27/22 Unknown History coenzyme Q10 100 mg capsule 400 mg PO DAILY 07/12/21 01/27/22 Unknown History (CoQ-10) [id number]-cderxyghv-lfs C-Mn 500 1 cap PO TID 07/12/21 01/27/22 Unknown History mg-400 mg capsule (Glucosamine Chondroitin Maximum Strength) hawthorn 500 mg capsule 510 mg PO DAILY 07/12/21 01/27/22 Unknown History garlic 600 mg PO DAILY 12/01/21 01/27/22 Unknown History omega-3 fatty acids 1,600 mg PO DAILY 12/01/21 01/27/22 Unknown History tamsulosin 0.4 mg capsule (Flomax) 0.4 mg PO DAILY 01/19/22 01/27/22 Unknown History Physical Exam Vital Signs and Narrative: Vital Signs: Last Vital Signs Temp 97.5 F 01/02/22 23:12 Pulse 46 L 01/02/22 23:12 Resp 12 01/02/22 23:12 BP 158/74 H 01/02/22 23:12 Pulse Ox 97 01/02/22 23:12 BMI result Body Mass Index 23.0 Gen: Appears be in no acute distress HEENT: NCAT, Moist mucosa. Pulmonary: Vesicular breath sounds, fair air entry CVS: Normal S1-S2 Abdomen: BS+, Soft, Nontender Extremities: Warm well perfused Neuro: Alert and awake. Strength is 5/5 throughout. Sensations intact bilaterally. Face is symmetric. Tongue is midline. No sensory deficit on the face. On eye exam patient unable to adduct right eye. Patient able to adduct and abduct left eye. Patient able to count the fingers normally. And has single vision with 1 eye closed bilaterally. But with both eyes open patient had double vision. Results Labs CBC and Chem 7: 01/03/22 06:40 01/04/22 10:49 Labs: Laboratory Results - last 24 hr 01/02/22 01/02/22 01/02/22 22:37 22:38 22:38 MCV MCH MCHC RDW Plt Count MPV Immature Gran % (Auto) Neut % (Auto) Lymph % (Auto) Henderson % (Auto) Eos % (Auto) Baso % (Auto) Lymph # (Auto) [place] # (Auto) Eos # (Auto) Baso # (Auto) Abs Immat Gran (auto) Absolute Neuts (auto) Absolute Nucleated RBC Nucleated RBC % (auto) PT Whole Blood PT INR Whole Blood INR APTT TNP Anion Gap 14 Estim Creat Clear Calc 21.8 Estimated GFR 25 POC Glucose 71 Random Glucose 89 Calcium 9.6 Phosphorus 4.4 Magnesium 2.0 Total Bilirubin 0.4 Direct Bilirubin < 0.2 AST 29 ALT 7 Alkaline Phosphatase 104 Total Creatine Kinase 286 H Total Protein 7.2 Albumin 3.4 L COVID-19 (ANNETTE) COVID-19 Clin Com 01/02/22 01/02/22 01/02/22 22:39 22:39 22:39 MCV 89.3 MCH 28.9 MCHC 32.4 RDW 15.2 Plt Count 279 MPV 11.2 Immature Gran % (Auto) 0.3 Neut % (Auto) 46.5 Lymph % (Auto) 39.0 Henderson % (Auto) 10.3 Eos % (Auto) 3.4 Baso % (Auto) 0.5 Lymph # (Auto) 3.8 Henderson # (Auto) 1.0 Eos # (Auto) 0.3 Baso # (Auto) 0.1 Abs Immat Gran (auto) 0.03 Absolute Neuts (auto) 4.5 Absolute Nucleated RBC 0.000 Nucleated RBC % (auto) 0.0 PT 11.6 Whole Blood PT INR 1.0 Whole Blood INR APTT 36.6 Anion Gap Estim Creat Clear Calc Estimated GFR POC Glucose Random Glucose Calcium Phosphorus Magnesium Total Bilirubin Direct Bilirubin AST ALT Alkaline Phosphatase Total Creatine Kinase Total Protein Albumin COVID-19 (ANNETTE) Negative COVID-19 Clin Com See Note 01/02/22 22:42 MCV MCH MCHC RDW Plt Count MPV Immature Gran % (Auto) Neut % (Auto) Lymph % (Auto) Henderson % (Auto) Eos % (Auto) Baso % (Auto) Lymph # (Auto) Henderson # (Auto) Eos # (Auto) Baso # (Auto) Abs Immat Gran (auto) Absolute Neuts (auto) Absolute Nucleated RBC Nucleated RBC % (auto) PT Whole Blood PT 12.5 INR Whole Blood INR 1.0 APTT Anion Gap Estim Creat Clear Calc Estimated GFR POC Glucose Random Glucose Calcium Phosphorus Magnesium Total Bilirubin Direct Bilirubin AST ALT Alkaline Phosphatase Total Creatine Kinase Total Protein Albumin COVID-19 (ANNETTE) COVID-19 Clin Com Imaging Radiologist's Impressions: Impressions Head CT 01/02/22 22:52 IMPRESSION: No acute intracranial pathology. Moderate chronic white matter microangiopathy. Old left cerebellar lacunar infarct. This critical result was discussed with Dr. Mccloud at 11:12 PM 01/02/2022. It was ascertained that the content and urgency of the report was understood at the time of direct communication. Assessment and Plan (1) Acute CVA (cerebrovascular accident): Status: Acute Plan 86-year-old male with a past medical history of hypertension hyperlipidemia, CAD, history of CVA, 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; history of renal cell carcinoma status post nephrectomy CKD, anemia presented the hospital today with a chief complaint of double vision. On exam patient was unable to adduct the right eye. CT head showed no acute findings. Admitted for the following. Right eye adduction palsy: double vision ?Right oculomotor palsy but no ptosis. CT head showed no acute intracranial process. Neurology was notified-recommended no tPA, can be admitted to [facility]. Unable to do CT angio head and neck secondary to renal insufficiency. Neurology consulted Headache: Patient reported frontal headaches for 2 weeks. Intermittent. No temporal tenderness on exam. ESR elevated to 62. Will give prednisone 50mgx1. Will await further recommendations from Neurology. Acute on chronic kidney injury: Patient has CKD 3 baseline creatinine around 2. On presentation today creatinine is 2.5. Avoid nephrotoxins. Nephrology follow-up. History of autoimmune thrombocytopenia: Patient on romiplostim, prednisone 5 mg every other day. But patient reports he stopped prednisone about 5 days ago, To confirm prednisone with the patient's oncologist tomorrow by the day team and to resume. History of left renal cancer status post nephrectomy in 2019: Surveillance CT scan in April 2021 showed large right renal cyst; no other abnormal findings. History of CVA: denies any residual deficits. Was not on aspirin-likely secondary to history of autoimmune thrombocytopenia. History of BPH: Continue home Flomax. DVT prophylaxis: SCD boots Code status: Full code Quality Stroke Does the patient have a stroke diagnosis?: Yes Reason for No Anti-thrombotic by Day Two: N/A - Med Ordered VTE Prior VTE?: No VTE Risk Level:: Medical - low VTE Device Contraindication: N/A - Device Ordered VTE Drug Contraindication: Treatment Not Indicated
[2022-01-02 23:42] LABS: Troponin-I High Sensitivity 20.7 ng/L (<3.5-35.0)
[2022-01-02 23:45] VITALS: BP 153/69; PULSE 59; RESP 18; TEMP 36.4; O2SAT 96
[2022-01-03] VITALS (8 sets, daily range): BP systolic 122–154; BP diastolic 57–95; PULSE 50–86; RESP 10–18; TEMP 36.6–36.8; O2SAT 96–98
[2022-01-03 01:23] LABS: Erythrocyte Sedimentation Rate 62 MM/HR (0-15)
[2022-01-03] MEDS: predniSONE 10 MG TABLET 50 MG PO (04:05)
[2022-01-03 04:16] LABS: Appearance Urine CLEAR; Color Urine YELLOW; Glucose Urine UA NEG (NEG); Leukocyte Esterase Urine NEG (NEG); Nitrite Urine NEG (NEG); PH 5.5 (5.0-8.0); UACC Culture Trigger NO; Urine Blood TRACE (NEG); Urine Ketones NEG (NEG); Urine Protein NEG (NEG-TRACE)
[2022-01-03 04:22] LABS: RBC Urine 0 /HPF (0); WBC Urine 0-2 /HPF (0-4)
[2022-01-03 06:58] LABS: MANUAL DIFF FLAG NO
[2022-01-03 07:00] LABS: Basophils Absolute Auto 0.1 X10*3/uL (0.0-0.2); Basophils Percent Auto 0.5 % (0-2); Eosinophils Absolute Auto 0.3 X10*3/uL (0.0-0.4); Eosinophils Percent Auto 2.7 % (0-4); Hematocrit 33.9 % (42.0-52.0); Imm Gran Abs Auto 0.03 X10*3/uL (0.00-0.03); Imm Gran Pct Auto 0.3 % (0.0-0.4); Lymphocytes Absolute Auto 1.6 X10*3/uL (1.2-4.9); Lymphocytes Percent Auto 17.1 % (20-40); Mean Corpuscular HGB Conc 32.4 g/dl (31.0-36.0); Mean Corpuscular Hemoglobin 28.8 pg (27.0-33.0); Mean Corpuscular Volume 88.7 fL (80.0-98.0); Mean Platelet Volume 11.7 fL (9.4-12.4); Monocytes Absolute Auto 0.5 X10*3/uL (0.1-1.2); Monocytes Percent Auto 5.3 % (2-11); Neutrophils Absolute Auto 6.9 x10*3/uL (2.0-8.3); Neutrophils Percent Auto 74.1 % (45-73); Platelet Count 245 X10*3/uL (160-400); Red Blood Count 3.82 X10*6/uL (4.60-5.80); Red Cell Distribution Width 15.3 % (11.0-16.0); White Blood Count 9.4 X10*3/uL (4.8-10.8)
[2022-01-03 07:30] LABS: Anion Gap 14 (12-20); Blood Urea Nitrogen 48 mg/dL (9-16); Calcium 9.2 mg/dL (8.4-10.2); Carbon Dioxide 19 mmol/L (22-29); Chloride 109 mmol/L (96-108); Creatinine Clr Calc Pharmacy 24.6; Estimated Glomerular Filt Rate 28; Glucose Random 105 mg/dL (60-115); Potassium 4.9 mmol/L (3.3-5.1); Sodium 137 mmol/L (135-145)
[2022-01-03 07:32] LABS: Cholesterol 170 mg/dL; HDL Cholesterol 37 mg/dL; LDL Cholesterol Calculated 120 mg/dl; Triglycerides 67 mg/dL
--- NOTE | 2022-01-03 07:46 | PHA.MEDREC ---
Pharmacy Consult ? Medication Reconciliation RN has completed the med rec, pharmacy reviewed.
--- NOTE | 2022-01-03 07:46 | PC.NURSE ---
report given to ester farmer
[2022-01-03] MEDS: 0.9 % Sodium Chloride Flush 3 ML SYRINGE IVFLUSH (08:05)
--- NOTE | 2022-01-03 08:07 | PC.NURSE ---
pt reports having really bad reactions to all statin class of medications, one gave him liver problems another was causing blindness but pt is not sure which statins caused what
--- NOTE | 2022-01-03 08:17 | PC.NURSE ---
pt sleeping but easily arousable, respirations even and unlabored, pt denies pain, ns on the monitor no visible facial droop, hand grasp strong and equal and no drift noticeable, speech clear, pt continuous on reporting blurry vision/double vision, needs to close one eye to be able to see normal again
--- NOTE | 2022-01-03 10:25 | P.CNNE_ITS ---
History of Present Illness Data of Consult Service Date: 01/03/22 Primary Care Provider: Unknown Physician HPI Reason for consult: Stroke 86-year-old male with a past medical history of hypertension hyperlipidemia CAD history of CVA, 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; history of renal cell carcinoma status post nephrectomy CKD, anemia presented the hospital today with a chief complaint of double vision. he also complained of nausea but no focal weakness. He was having mild headache for last few days but no sudden or severe headache. There was no cold or flu-like illness. Review of Systems Verdana 4l Review of Systems: Verdana 4d As reported in Verdana 4d HPI Verdana 4d PMFSH Past Medical History Medical History Acute ITP Anemia with low platelet count CAD (coronary artery disease) Chronic ITP (idiopathic thrombocytopenia) Renal cancer Stroke Family History Family History Mother No problems noted. Father No problems noted. Surgical History Surgical History History of kidney removal History of total splenectomy Social History Social History Household Members: None Housing: Other Alcohol intake: former Patient Tobacco Use Status: Former Tobacco user Tobacco use type: Pipe e-Cigarette/Vaping Use: Never Used Second Hand Smoke Exposure: No Use of substances other than those prescribed or required for medical reasons: No Substance Use Type: Other Advance Directives: No Advance Directives Information Provided: No service: Yes Current occupational status: retired Meds Allergies Allergy/AdvReac Type Severity Reaction Status Date / Time bupropion [From Allergy Unknown Unknown Verified 12/01/21 13:13 WELLBUTRIN] fostamatinib [From AdvReac Severe Diarrhea Verified 12/01/21 13:13 Tavalisse] any statin Allergy Unknown Unknown Uncoded 12/01/21 13:13 Active Medications: Current Medications Acetaminophen (Acetaminophen 325 Mg Tablet) 650 mg PO Q6H PRN PRN Reason: Pain, Mild (Pain Scale 1-3) Atorvastatin Calcium (Atorvastatin Calcium 80 Mg Tablet) 80 mg PO DAILY [facility] Last Admin: 01/03/22 08:07 Dose: Not Given Documented by: Sodium Chloride (Ns) 1,000 mls @ 100 mls/hr IVCONT .Q10H [facility] Melatonin (Melatonin 3 Mg Tablet) 6 mg PO BEDTIME PRN PRN Reason: Insomnia Senna (Sennosides 8.6 Mg Tablet) 17.2 mg PO BEDTIME PRN PRN Reason: Constipation Sodium Chloride (0.9 % Sodium Chloride Flush 3 Ml Syringe) 3 ml IVFLUSH QSHIFT [facility] Last Admin: 01/03/22 08:05 Dose: 3 ml Documented by: Tamsulosin HCl (Tamsulosin Hcl 0.4 Mg Capsule) 0.4 mg PO DAILY [facility] Home Medications Medication Instructions Recorded Confirmed Last Taken Type multivitamin 1 cap PO DAILY 03/03/21 01/03/22 04/27/21 History no.51-ferrous fumarate 106.5 mg-folic acid 1 mg capsule lutein 20 mg 20 mg PO DAILY 07/05/21 01/02/22 Unknown History tablet coenzyme Q10 100 400 mg PO DAILY 07/12/21 01/02/22 Unknown History mg capsule (CoQ-10) glucosamine-chond 1 cap PO TID 07/12/21 01/02/22 Unknown History roit-vit C-Mn 500 mg-400 mg capsule (Glucosamine Chondroitin Maximum Strength) hawthorn 500 mg 510 mg PO DAILY 07/12/21 01/02/22 Unknown History capsule garlic 600 mg PO DAILY 12/01/21 01/02/22 Unknown History omega-3 fatty 1,600 mg PO 12/01/21 01/03/22 Unknown History acids DAILY Physical Exam Verdana 4l Vital Signs: Verdana 4d Verdana 4d Vital Signs: Verdana 4d Verdana 4Bd Last Vital Signs Verdana 4d Acrobatic Dancer New 4d Acrobatic Dancer New 4d Temp 97.6 F 01/02/22 23:45 Acrobatic Dancer New 4d Pulse 76 01/03/22 08:43 Acrobatic Dancer New 4d Resp 18 01/03/22 08:04 BP 148/81 H 01/03/22 08:43 Pulse Ox 96 01/03/22 04:04 BMI result Body Mass Index 23.0 Neuro: Other: he was alert and awake with normal spontaneity of speech fluency comprehension and affect. He was not wearing his hearing aids and I had to shout to communicate with him. He was following commands. Pupils were about 3-4 mm round reactive to light. Right eye was not crossing midline when looking to the left and at that time there was horizontal nystagmus beating to the left with left eye. Face was symmetrical. There was no ptosis. There was no pronator drift. Deep tendon reflexes are absent with flexor plantars. Results Labs CBC & Chem 7: 01/03/22 06:40 01/03/22 06:40 Labs: Short CBC 01/02/22 01/03/22 Range/Units 22:39 06:40 WBC 9.8 9.4 (4.8-10.8) X10*3/uL Hgb 11.6 L 11.0 L (14.0-18.0) g/dl Hct 35.8 L 33.9 L (42.0-52.0) % Plt Count 279 245 (160-400) X10*3/uL BMP 01/02/22 01/03/22 22:37 06:40 Sodium 138 137 Potassium 4.9 4.9 Chloride 107 109 H Carbon Dioxide 22 19 L BUN 50 H 48 H Creatinine 2.50 H 2.21 H Calcium 9.6 9.2 Cardiac Enzymes 01/02/22 Range/Units 22:37 Total Creatine Kinase 286 H (38-174) U/L Liver Function 01/02/22 Range/Units 22:37 Total Bilirubin 0.4 (0.0-1.0) mg/dL Direct Bilirubin < 0.2 (0.0-0.5) mg/dL AST 29 (5-37) U/L ALT 7 (0-40) U/L Alkaline Phosphatase 104 (39-117) U/L Albumin 3.4 L (3.5-5.0) g/dL Urine 01/03/22 Range/Units 04:07 Urine Color YELLOW Urine Appearance CLEAR Urine pH 5.5 (5.0-8.0) Ur Specific [place] 1.020 (1.005-1.025) Urine Protein NEG (NEG-TRACE) MG/DL Urine Glucose (UA) NEG (NEG) MG/DL No obvious acute lesion were noted on a CT of brain. Multiple cortical embolic looking chronic ischemic infarctions were noted including 1 and left cerebellum 1 and right occipital area and another 1 in left frontoparietal area. Assessment and Plan (1) Acute CVA (cerebrovascular accident): Status: Acute 86 years old man with sudden onset of double vision nausea and blurred vision related to double vision. I had couple of discussions with emergency room physician last night. The impression was that he probably was having an ischemic infarction but because of his age and relatively minor symptoms we decided not to intervene with intravenous tPA. He had renal insufficiency and a CTA was not done. At this time he was feeling better but still had double vision. 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 I also noted multiple chronic embolic looking ischemic infarctions. If possible, my recommendation is to anticoagulated him permanently for stroke prevention. An MRI of brain without contrast can help to define his lesion further. He can use an eye patch to cover 1 eye to avoid discomfort from double vision. Usually this kind of double vision can improve in weeks to months. Procedures Date of Service Date of Service: 01/03/22
[2022-01-03] MEDS: 0.9 % Sodium Chloride 1,000 ML 100 ML IVCONT ×2 (10:38→21:41)
--- NOTE | 2022-01-03 10:39 | PC.NURSE ---
Pt received from main ER: Pt AOX4 and denies any complaints or visual disturbances. No noted neuro deficits. NSR noted and lungs diminished. Pt abd soft and non-tender.
--- NOTE | 2022-01-03 11:54 | PC.NURSE ---
Pt now noted to c/o mild blurry vision that decreases when squinting eyes. Pt B/L eyes also noted to have strabismus and nystagmus. Pt denies an dizziness or N/V. Speech evaluation at bedside and pt passed. Pt able to be placed on regular diet.
--- NOTE | 2022-01-03 13:04 | P.PNIM_ITS ---
Subjective Subjective Date of Service: 01/03/22 Interval History: being followed for double vision/ nausea/dizziness, patient feeling significantly better this morning denies nausea dizziness has resolved continue to have persistent double vision, denies any weakness numbness, no speech impairment. Review of Systems Review of Systems: Yes all other systems are reviewed and are negative Physical Exam Verdana 4l Vital Signs: Verdana 4d Verdana 4d Vital Signs: Verdana 4d Verdana 4Bd Last Vital Signs Verdana 4d Manager Print New 4d Manager Print New 4d Temp 97.6 F 01/02/22 23:45 Manager Print New 4d Pulse 76 01/03/22 08:43 Manager Print New 4d Resp 18 01/03/22 08:04 BP 148/81 H 01/03/22 08:43 Pulse Ox 96 01/03/22 04:04 BMI result Body Mass Index 23.0 Const: Other: General Awake alert, in no acute distress. Neck supple no JVD. CVS regular rate rhythm, Respiratory lungs clear to auscultation, no respiratory distress Gastrointestinal abdomen soft, nontender, bowel sounds audible Extremities no edema. Neuro moving all 4 extremity, speech clear, right eye unable to adduct, double vision with both eyes open, improved by patching eye Skin no rash psych appropriate affect Objective Data Active Medications Acetaminophen (Acetaminophen 325 Mg Tablet) 650 mg PO Q6H PRN PRN Reason: Pain, Mild (Pain Scale 1-3) Atorvastatin Calcium (Atorvastatin Calcium 80 Mg Tablet) 80 mg PO DAILY [facility] Last Admin: 01/03/22 08:07 Dose: Not Given Documented by: DREA Non-Admin Reason: Patient Refused Sodium Chloride (Ns) 1,000 mls @ 100 mls/hr IVCONT .Q10H [facility] Last Admin: 01/03/22 10:38 Dose: 100 mls/hr Documented by: BECKY Melatonin (Melatonin 3 Mg Tablet) 6 mg PO BEDTIME PRN PRN Reason: Insomnia Senna (Sennosides 8.6 Mg Tablet) 17.2 mg PO BEDTIME PRN PRN Reason: Constipation Sodium Chloride (0.9 % Sodium Chloride Flush 3 Ml Syringe) 3 ml IVFLUSH QSHIFT [facility] Last Admin: 01/03/22 08:05 Dose: 3 ml Documented by: DREA Tamsulosin HCl (Tamsulosin Hcl 0.4 Mg Capsule) 0.4 mg PO DAILY [facility] Labs CBC & Chem 7: 01/03/22 06:40 01/03/22 06:40 Labs: Laboratory Results - last 24 hr 01/02/22 01/02/22 01/02/22 22:37 22:38 22:38 MCV MCH MCHC RDW Plt Count MPV Immature Gran % (Auto) Neut % (Auto) Lymph % (Auto) [place] % (Auto) Eos % (Auto) Baso % (Auto) Lymph # (Auto) [place] # (Auto) Eos # (Auto) Baso # (Auto) Abs Immat Gran (auto) Absolute Neuts (auto) Absolute Nucleated RBC Nucleated RBC % (auto) ESR PT Whole Blood PT INR Whole Blood INR APTT TNP Anion Gap 14 Estim Creat Clear Calc 21.8 Estimated GFR 25 POC Glucose 71 Random Glucose 89 Calcium 9.6 Phosphorus 4.4 Magnesium 2.0 Total Bilirubin 0.4 Direct Bilirubin < 0.2 AST 29 ALT 7 Alkaline Phosphatase 104 Total Creatine Kinase 286 H Total Protein 7.2 Albumin 3.4 L Triglycerides Cholesterol LDL Cholesterol, Calc HDL Cholesterol Urine Color Urine Appearance Urine pH Ur Specific [place] Urine Protein Urine Glucose (UA) Urine Ketones Urine Blood Urine Nitrite Ur Leukocyte Esterase Urine RBC Urine WBC Ur Squamous Epith Cells Urine Bacteria COVID-19 (ANNETTE) COVID-19 Clin Com 01/02/22 01/02/22 01/02/22 22:39 22:39 22:39 MCV 89.3 MCH 28.9 MCHC 32.4 RDW 15.2 Plt Count 279 MPV 11.2 Immature Gran % (Auto) 0.3 Neut % (Auto) 46.5 Lymph % (Auto) 39.0 [place] % (Auto) 10.3 Eos % (Auto) 3.4 Baso % (Auto) 0.5 Lymph # (Auto) 3.8 [place] # (Auto) 1.0 Eos # (Auto) 0.3 Baso # (Auto) 0.1 Abs Immat Gran (auto) 0.03 Absolute Neuts (auto) 4.5 Absolute Nucleated RBC 0.000 Nucleated RBC % (auto) 0.0 ESR PT 11.6 Whole Blood PT INR 1.0 Whole Blood INR APTT 36.6 Anion Gap Estim Creat Clear Calc Estimated GFR POC Glucose Random Glucose Calcium Phosphorus Magnesium Total Bilirubin Direct Bilirubin AST ALT Alkaline Phosphatase Total Creatine Kinase Total Protein Albumin Triglycerides Cholesterol LDL Cholesterol, Calc HDL Cholesterol Urine Color Urine Appearance Urine pH Ur Specific [place] Urine Protein Urine Glucose (UA) Urine Ketones Urine Blood Urine Nitrite Ur Leukocyte Esterase Urine RBC Urine WBC Ur Squamous Epith Cells Urine Bacteria COVID-19 (ANNETTE) Negative COVID-19 Clin Com See Note 01/02/22 01/02/22 01/03/22 22:39 22:42 04:07 MCV MCH MCHC RDW Plt Count MPV Immature Gran % (Auto) Neut % (Auto) Lymph % (Auto) [place] % (Auto) Eos % (Auto) Baso % (Auto) Lymph # (Auto) [place] # (Auto) Eos # (Auto) Baso # (Auto) Abs Immat Gran (auto) Absolute Neuts (auto) Absolute Nucleated RBC Nucleated RBC % (auto) ESR 62 H PT Whole Blood PT 12.5 INR Whole Blood INR 1.0 APTT Anion Gap Estim Creat Clear Calc Estimated GFR POC Glucose Random Glucose Calcium Phosphorus Magnesium Total Bilirubin Direct Bilirubin AST ALT Alkaline Phosphatase Total Creatine Kinase Total Protein Albumin Triglycerides Cholesterol LDL Cholesterol, Calc HDL Cholesterol Urine Color YELLOW Urine Appearance CLEAR Urine pH 5.5 Ur Specific [place] 1.020 Urine Protein NEG Urine Glucose (UA) NEG Urine Ketones NEG Urine Blood TRACE Urine Nitrite NEG Ur Leukocyte Esterase NEG Urine RBC 0 Urine WBC 0-2 Ur Squamous Epith Cells NONE Urine Bacteria NONE COVID-19 (ANNETTE) COVID-19 Clin Com 01/03/22 01/03/22 01/03/22 06:40 06:40 06:40 MCV 88.7 MCH 28.8 MCHC 32.4 RDW 15.3 Plt Count 245 MPV 11.7 Immature Gran % (Auto) 0.3 Neut % (Auto) 74.1 H Lymph % (Auto) 17.1 L [place] % (Auto) 5.3 Eos % (Auto) 2.7 Baso % (Auto) 0.5 Lymph # (Auto) 1.6 [place] # (Auto) 0.5 Eos # (Auto) 0.3 Baso # (Auto) 0.1 Abs Immat Gran (auto) 0.03 Absolute Neuts (auto) 6.9 Absolute Nucleated RBC 0.000 Nucleated RBC % (auto) 0.0 ESR PT Whole Blood PT INR Whole Blood INR APTT Anion Gap 14 Estim Creat Clear Calc 24.6 Estimated GFR 28 POC Glucose Random Glucose 105 Calcium 9.2 Phosphorus Magnesium Total Bilirubin Direct Bilirubin AST ALT Alkaline Phosphatase Total Creatine Kinase Total Protein Albumin Triglycerides 67 Cholesterol 170 LDL Cholesterol, Calc 120 HDL Cholesterol 37 Urine Color Urine Appearance Urine pH Ur Specific [place] Urine Protein Urine Glucose (UA) Urine Ketones Urine Blood Urine Nitrite Ur Leukocyte Esterase Urine RBC Urine WBC Ur Squamous Epith Cells Urine Bacteria COVID-19 (ANNETTE) COVID-19 Clin Com Assessment and Plan (1) Acute CVA (cerebrovascular accident): Status: Acute (2) Acute idiopathic thrombocytopenic purpura: Status: Chronic Plan 86-year-old male with a past medical history of hypertension hyperlipidemia, CAD, history of CVA, 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; history of renal cell carcinoma status post nephrectomy CKD, anemia presented the hospital with a alvarado f complaint of double vision, dizziness and nausea likely related to acute CVA acute CVA admitted with symptoms of double vision/ dizziness and nausea seen by Neurology they recommend anticoagulation and further workup with MRI and echocardiogram for possible brainstem lesion Will obtain MRI brain and echocardiogram LDL 120/total cholesterol 170, continue statin Will patch eye start anticoagulation with Eliquis 2.5 mg b.i.d. seen by PT OT they recommend acute rehab Headache:? resolved likely related to stroke. Acute on chronic kidney injury stage III baseline creatinine around 2.? On presentation creatinine 2.5 trending down continue IV fluid, follow labs being evaluated by Nephrology. History of autoimmune thrombocytopenia:? spoke with Dr. James patient is not on prednisone continue outpatient romiplostim Q 2 week, Dr. James okayed use of anticoagulation History of left renal cancer status post nephrectomy in 2019:? Surveillance CT scan in April 2021 showed large right renal cyst; no other abnormal findings. History of prior cerebellar CVA: no residual neurological weakness ? History of BPH: Continue home Flomax. DVT prophylaxis: Eliquis low-dose Code status: Full code Quality Stroke Does the patient have a stroke diagnosis?: Yes Reason for No Anti-thrombotic by Day Two: N/A - Med Ordered VTE Prior VTE?: No VTE Risk Level:: Medical - low VTE Device Contraindication: N/A - Device Ordered VTE Drug Contraindication: Treatment Not Indicated
--- NOTE | 2022-01-03 13:37 | MHC.STROKE ---
Addendum entered by Pily Byrd RN 01/05/22 15:58: PATIENT INITIALLY REFUSED ANTICOAGULATION WITH ELIQUIS ON 01/03/22. EXCLUDED FROM VTE AND ANTIPLATELET THERAPY BASED ON THIS REFUSAL. HE DID TAKE THE MEDICATION ON 01/04/22. HE WAS UP WALKING WITH PT. Original Note: 01/02/22 AT 2217 F EMS PRE-NOTIFIED [facility], NO STROKE ALERT. SUDDEN ONSET OF VISUAL DEFICIT AND OVERALL WEAKNESS AT 2100, EXAMINED BY DR MONTEMAYOR, NIHSS = 0, STROKE PROTOCOL ACTIVATED, STAT CT HEAD, NO BLEED. CASE DISCUSSED WITH DR LOIVNG. TPA-ALTEPLASE WAS EXCLUDED BASED ON NIHSS = 0, ALSO PATIENT HAS ITP, CONFIRMED THAT HE PASSED THE NURSING SWALLOW SCREEN AT 0400 AND AGAIN THIS AM. 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 HE HAD HIS PRIOR STROKE WHEN HE LIVED IN [place]. THIS EVENT LAST NIGHT WAS DIFFERENT . WE DISCUSSED THE PLAN OF CARE. HIS INDIVIDUAL RISK FACTORS, I EXPLAINED THAT HE WILL NEED AN MRI AND WHY. WE REVIEWED THE STROKE EDUCATION BOOKLET AND I TOLD HE COULD CALL FOR ME IF HE HAS ANY QUESTIONS. I WILL CONTINUE TO FOLLOW.
--- NOTE | 2022-01-03 14:31 | CONS_ITS ---
DATE OF SERVICE: 01/03/2022 REASON FOR CONSULTATION: I was asked to see the patient to assist in evaluation and management of patient's acute kidney injury with his creatinine up to 2.5 on admission. HISTORY OF PRESENT ILLNESS: In summary, he is an 86-year-old gentleman known to my partner, Dr. Warner, with multiple chronic medical problems including a left nephrectomy for renal cell CA in the past and advanced chronic kidney disease with creatinine ranging 1.5 to 2.0 range typically. He also has a history of hypertension, hyperlipidemia, coronary artery disease, stroke, and there is mention made of ITP in the past for which he was treated with prednisone. He was admitted to the hospital last night complaining of double vision and headache, apparently on and off for the past 2 weeks. He denies any urinary symptoms. In particular, no blood in the urine or dysuria. He does have BPH type symptoms which are chronic issue. He was being seen as an outpatient by Dr. Warner because of a bump in creatinine that had gone up from his typical 1.5 to 1.8 up to 2.0. Presently, he is fairly comfortable. He did have a CAT scan which showed apparently no acute abnormalities. He did not have a CTA because of his increasing creatinine. He was deemed not a candidate for tPA. PAST MEDICAL HISTORY: As noted above. MEDICATIONS: His medications on admission are listed as including some vitamins and Flomax. Otherwise, no other medications. His current medications are noted in the MAR. ALLERGIES: HE HAS ALLERGIES LISTED IN THE ELECTRONIC MEDICAL RECORD. SOCIAL HISTORY: He smokes a pipe and was a former cigarette smoker. No alcohol or illicit drug use and denies taking NSAIDs. FAMILY HISTORY: No family history of kidney problems. PHYSICAL EXAMINATION: VITAL SIGNS: Blood pressure 148/80 with a heart rate in the 70s. HEENT: Head is atraumatic and normocephalic. NECK: Supple. Mucous membranes are moist. LUNGS: Breath sounds bilaterally. CARDIAC: Regular rate and rhythm without rub. ABDOMEN: Soft, nontender. No CVA tenderness. EXTREMITIES: Showed trace edema. NEUROLOGIC: He continues to have some double vision. LABORATORY DATA: Hemoglobin 11, hematocrit 33.9, white blood cell count 9.4, platelet count 245. Sodium 137, potassium 4.9, chloride 109, bicarb 19, BUN 48, creatinine 2.2. On admission, his BUN and creatinine were 50 and 2.5. As mentioned, his serum creatinine has been in the 1.5 to 2.0 range going back over the past to August 2021. He had urine studies done which was the UA which was essentially negative. There is an ultrasound of the kidneys from December 27 which showed absence of the left kidney. The right kidney was good size of 14.6 x 7 cm. There was a large exophytic cyst noted. IMPRESSION: 86-year-old patient with a solitary functioning kidney and acute kidney injury on chronic kidney disease, who presents with double vision consistent with a stroke. 1. Acute kidney injury. Etiology for his worsening renal function would include a wide differential diagnosis including simply renal hypoperfusion from dehydration. There has been no drop in blood pressure to identify an ischemic acute tubular necrosis hit. He did not get any IV contrast. He is not taking any NSAIDs. His urinalysis is fairly bland, going against again an acute renal parenchymal injury process such as an acute glomerulonephritis or acute interstitial nephritis. He had the ultrasound done just about 2 weeks ago, which showed no obstruction or evidence of hydro. 2. Stage 3 chronic kidney disease, baseline creatinine 1.5 to 2.0. This may be due to a combination of factors including aging along with a solitary functioning kidney which can cause chronic kidney disease due to hyperfiltration and a solitary functioning kidney. 3. Visual changes consistent with a stroke per Neurology. 4. History of renal cell carcinoma. SUGGESTIONS: At this time include, further urine studies including urine sodium, protein, and creatinine. Continue with IV fluids. Follow urine output and renal function. It is good to see his creatinine is already coming down and we will follow closely with the team. Certainly need to avoid any nephrotoxic agents. MD LEE Fenton/YAMILE / [phone]
--- NOTE | 2022-01-03 15:47 | PC.NURSE ---
MRI screening form completed. Pending pickup when MRI ready.
--- NOTE | 2022-01-03 16:12 | MHC.CM.PN ---
Addendum entered by Pily Ron 01/03/22 16:18: Pt will be seen by PT to assess for functional abilities: pt feels he can manage without any service needs but may benefit from VNA/PT. Pt to have an MRI - no skilled referrals made at this time Original Note: Met with pt to discuss d/c planning: pt states he resides at [facility] without additional services or care needs. He states [facility] assists with shuttle transportation. Pt is independent with ADL's but does use a cane PRN. Pt states his HCP is with his [facility] form: page one of [facility] on file: no HCP. Copy requested by Dr. Smith's office with ED fax # provided. IMM in chart Pt has received the J&J vax with Moderna booster. No additional services anticipated: pt may need the [facility] shuttle home as [facility] requires a 2 day lead time for all transportation. CM to follow.
--- NOTE | 2022-01-03 16:21 | MHC.SL.SWA ---
Speech Pathologist Impression: Within Functional Limits Risk of Aspiration Due to: Neurological Condition Dysphasia Diet Status: No Change Liquid Consistency and Strategies for Safe Swallow: Liquid Intake Recommendation: Thin Liquid Intake Strategies: Small Sips Solid Food Consistency: Dietary Recommendations: Regular Additional Modifications to Solid Foods: No overt s/s of aspiration. Recommend resume unmodified diet- REGULAR solids/ THIN liquids, pills WHOLE with LIQUID. BASIC SCIENCES PROFESSOR to f/u with cognitive/language screening. Oral Medication Intake: Whole with Liquid Compensatory Strategies and Precautions to be Taken for Safe Swallow: Sitting Upright (90 deg) Small Bites and Sips Rate of Ingestion Change Supervision While Eating and Drinking for Safe Swallow: None Needed Foods to Avoid: Swallowing Recommended Treatments: Recommendation for Speech: NA:Typical Evaluation Comment: BASIC SCIENCES PROFESSOR to f/u 1x for cognitive/language screening. Deputy Felony Clerk Clinican/Clinical Fellow: No Supervisory Statement: I have reviewed and agree with the student/clinical fellow's documentation: N/A Speech Language Pathologist: Myriam Mancilla M.A., CCC-BASIC SCIENCES PROFESSOR
--- NOTE | 2022-01-03 19:16 | PC.NURSE ---
as per hospitalist pt can go to MRI without the monitor. Pt to MRI at this time in hospital bed.
--- NOTE | 2022-01-03 22:06 | PC.NURSE ---
pt is refusing Eliquis, pt states the doctor is trying to kill me, I will not take Eliquis
[2022-01-03] MEDS: Acetaminophen 325 MG TABLET 650 MG PO (22:50)
--- NOTE | 2022-01-04 06:42 | PC.NURSE ---
This Rn took over patient's care at 2300. Patient alert and oriented x3, offers no complaints at this time, denies blurry/double vision, l/s dim, abd soft. Reports feeling tired and wants to sleep. HOB elevated, call modi within reach.
--- NOTE | 2022-01-04 07:37 | PC.NURSE ---
Pt received from shift production associate: Pt AOX4 and offers no complaints. No neuro deficets. Mild nystagmus noted to R eye- eye patch intermittently applied when not sleeping. NSR noted and lungs clear. Pt abd soft and non-tender.
[2022-01-04] MEDS: 0.9 % Sodium Chloride 1,000 ML 100 ML IVCONT (07:53)
[2022-01-04 08:00] VITALS: BP 124/68; PULSE 84; O2SAT 98
[2022-01-04 08:17] VITALS: BP 158/71; PULSE 67; RESP 16; TEMP 36.6; O2SAT 97
[2022-01-04] MEDS: Tamsulosin HCL 0.4 MG CAPSULE PO (09:24)
--- NOTE | 2022-01-04 09:27 | PC.NURSE ---
Pt refusing eliquis, stating his hemtology/oncology MD James told him he should not take any blood thinners as he has low platelet count. Pt also states his brother from a blood thinner. Pt would like discuss options with hospitalist. MD Young made aware. Eliquis held as per pt request, until hospitalist has discussion with pt. RN will continue to monitor.
--- NOTE | 2022-01-04 10:55 | PC.NURSE ---
MD Young spoke with pt regarding refusal of scheduled eliquis. Pt now agreeing to eliquis after conversation, but only s/p ordered ECHO. RN will continue to monitor.
--- NOTE | 2022-01-04 10:58 | PC.NURSE ---
Pt's caregiver Nadege ([phone]) called and stated she would like to talk with the pt. Pt made aware to call on personal device.
--- NOTE | 2022-01-04 11:26 | MHC.CM.PN ---
Addendum entered by Pily Ron 01/04/22 15:37: PT has been accepted by [facility] for a tentative start date of 01/05. Original Note: Per daily eval by PT/OT, pt has shown enough improvement in functional abilities to return to home with home services. [facility] referrals initiated - waiting for acceptance. Pt resides at [facility] and will need transportation (C shuttle vs w/c van) CM to follow
--- NOTE | 2022-01-04 11:30 | CA_ITS ---
Transthoracic Echocardiogram Patient (Last, First, Middle): Jean Del Angel J Gender: Male Date of : 1935 Age: 86 Procedure Date: 01/04/2022 Procedure Type: Transthoracic Echocardiogram [place] [facility] [place] Height: 177.8 cm Weight: 72.58 kg BSA: 1.90 m2 Heart Rate: bpm BP: 124 / 68 mmHg Armament Repairer: Referring MD: Wilber Young MD Symptoms: cva Study Quality: Fair ECG Rhythm: Sinus Conclusions: - Normal left ventricular cavity size. There is normal left ventricular wall thickness. The left ventricular systolic function is low normal. The visually estimated ejection fraction is between 50-55%. - Normal right ventricular cavity size and systolic function. - There is mild dilatation of the ascending aorta measuring 4.10 cm. Findings Left Ventricle Normal left ventricular cavity size. There is normal left ventricular wall thickness. The left ventricular systolic function is low normal. The visually estimated ejection fraction is between 50-55%. Diastolic function is normal for age. Right Ventricle Normal right ventricular cavity size and systolic function. Atria The left atrium is mildly dilated. Aortic Valve There is mild thickening of the aortic valve. There is no aortic valve stenosis. There is mild aortic valve regurgitation. Mitral Valve Normal mitral valve structure and function. There is mild mitral valve regurgitation. There is no mitral valve stenosis. Pulmonic Valve The pulmonic valve is likely normal. Tricuspid Valve Normal tricuspid valve structure and function. There is trace tricuspid valve regurgitation. Significantly elevated right atrial pressure. Mild pulmonary hypertension is present. Great Vessels There is mild dilatation of the ascending aorta measuring 4.10 cm. The visualized portions of the pulmonary artery and branches are normal. Venous The inferior vena cava is dilated and does not collapse with inspiration. Pericardium/Pleural There is no evidence of pericardial effusion. Prior Study Comparison Changes noted compared to prior study dated: 02/22/2020. Low normal LVEF. Mildly dilated aorta. Measurements 2D Linear Measurements IVSd: 1.17 0.6-0.9/0.6-1.0 cm LVIDd: 5.28 3.9-5.3/4.2-5.9 cm LVIDd Index: 2.78 2.4-3.2/2.2-3.1 cm/m2 LVIDs: 3.54 2.0-3.6 cm LVPWd: 1.05 0.7-1.1 cm Ao Root: 4.00 2.1-3.5 cm LA Diam: 4.00 2.7-3.8/3.0-4.0 cm LAIDs Index: 2.11 1.5-2.3 cm/m2 LV Mass: 285.66 67-162/88-224 g LV Mass Index: 150.35 43-95/49-115 g/m2 LVOT Diam: 2.30 3.0+(-)1.3 cm 2D Systolic Function EF 4C: 48.60 >55% EF 2C: 50.00 >55% EF BiP: 46.60 >55% Mitral Valve MV Pk E: 0.79 MV PK A: 0.99 MV Decel Time: 378.00 E/A: 0.80 E'Lateral: 10.30 E'Medial: 7.18 E/E' Med: 11.00 E/E' Lat: 7.70 PHT: 111.00 MVA PHT: 1.98 Decel Mathews: 2.10 Aortic Valve AoV Pk Morales: 1.56 AoV Mn Morales: 1.11 AoV VTI: 0.39 AoV Pk Grad: 10.00 Aov Mn Grad: 6.00 YUE Cont.VTI: 2.61 LVOT LVOT Pk Morales: 1.10 LVOT Mn Morales: 0.66 LVOT VTI: 0.24 LVOT Pk Grad: 5.00 LVOT Mn Grad: 2.00 LVOT Diam: 2.30 LVOT Area: 4.15 Diastolic Function MV Pk E: 0.79 MV Pk A: 0.99 E/A: 0.80 E'Medial: 7.18 E/E' Med: 11.00 E' Laterial: 10.30 E/E' Lat: 7.70 Right Ventricle TAPSE (mm): 27.00 Tricuspid Valve TR Pk Morales: 2.57 TR Pk Grad: 26.00 RVSP: 44.00 Great Vessels Aorta Ao Root-2D: 4.00 2.0-3.7 cm Ao Asc: 4.10 2.1-3.4 cm Pulmonary Valve PV Pk Morales: 0.80 Peak PV Grad: 3.00 Updated in Other Vendor System with Status of Final Martin Gutierrez MD electronically signed on 01/04/2022 6:17:04 PM with status of Final
[2022-01-04 13:04] LABS: Anion Gap 12 (12-20); Blood Urea Nitrogen 49 mg/dL (9-16); Carbon Dioxide 22 mmol/L (22-29); Chloride 110 mmol/L (96-108); Creatinine Clr Calc Pharmacy 23.9; Estimated Glomerular Filt Rate 27; Glucose Random 150 mg/dL (60-115); Potassium 4.9 mmol/L (3.3-5.1); Sodium 139 mmol/L (135-145)
--- NOTE | 2022-01-04 16:11 | P.PNIM_ITS ---
Subjective Subjective Date of Service: 01/04/22 Interval History: vision has improved, continue to have double vision but not as distorted as before, denies headache, dizziness no nausea no vomiting no new weakness numbness, speech remains clear tolerating diet, declined Eliquis, due to concern for thrombocytopenia. Review of Systems Review of Systems: Yes all other systems are reviewed and are negative Physical Exam Vital Signs: Vital Signs: Last Vital Signs Temp 97.8 F 01/04/22 08:17 Pulse 67 01/04/22 08:17 Resp 16 01/04/22 08:17 BP 158/71 H 01/04/22 08:17 Pulse Ox 97 01/04/22 08:17 BMI result Body Mass Index 23.0 Const: Other: General ? Awake alert,no acute distress.? Neck? supple no JVD. CVS? regular rate rhythm, Respiratory lungs clear to auscultation, no respiratory distress Gastrointestinal abdomen soft, nontender, bowel sounds audible Extremities no edema. Neuro? moving all 4 extremity, speech clear, double vision with both eyes open Skin no rash psych appropriate affect Objective Data Active Medications Acetaminophen (Acetaminophen 325 Mg Tablet) 650 mg PO Q6H PRN PRN Reason: Pain, Mild (Pain Scale 1-3) Last Admin: 01/03/22 22:50 Dose: 650 mg Documented by: JENI Apixaban (Apixaban 2.5 Mg Tablet) 2.5 mg PO BID [facility] Last Admin: 01/03/22 22:04 Dose: Not Given Documented by: JENI Non-Admin Reason: Patient Refused Atorvastatin Calcium (Atorvastatin Calcium 40 Mg Tablet) 40 mg PO BEDTIME [facility] Melatonin (Melatonin 3 Mg Tablet) 6 mg PO BEDTIME PRN PRN Reason: Insomnia Senna (Sennosides 8.6 Mg Tablet) 17.2 mg PO BEDTIME PRN PRN Reason: Constipation Sodium Chloride (0.9 % Sodium Chloride Flush 3 Ml Syringe) 3 ml IVFLUSH QSHIFT [facility] Last Admin: 01/04/22 07:23 Dose: Not Given Documented by: BECKY Non-Admin Reason: Med Not Available Tamsulosin HCl (Tamsulosin Hcl 0.4 Mg Capsule) 0.4 mg PO DAILY [facility] Last Admin: 01/04/22 09:24 Dose: 0.4 mg Documented by: HO.N-MALIR Labs CBC & Chem 7: 01/03/22 06:40 01/04/22 10:49 Labs: Laboratory Results - last 24 hr 01/04/22 10:49 Anion Gap 12 Estim Creat Clear Calc 23.9 Estimated GFR 27 Random Glucose 150 H D Calcium 9.0 Assessment and Plan (1) Acute CVA (cerebrovascular accident): Status: Acute (2) Acute idiopathic thrombocytopenic purpura: Status: Chronic Plan 86-year-old male with a past medical history of hypertension hyperlipidemia, CAD, history of CVA, 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; history of renal cell carcinoma status post nephrectomy CKD, anemia presented the hospital with a chief complaint of double vision, dizziness and nausea likely related to acute CVA acute CVA no new neurological symptoms double vision is improving admitted with symptoms of double vision/ dizziness and nausea seen by Neurology they recommend anticoagulation and MRI brain that showed moderate chronic white matter microangiopathy in diffuse parenchymal volume loss, small chronic infarction seen in the left thalamus and left cerebellar hemisphere, no acute intracranial process LDL 120/total cholesterol 170, continue statin follow echocardiogram started on Eliquis 2.5 mg b.i.d., reassured patient that discussed use of Eliquis with Dr. James, and platelets are in normal range, he agree to take Eliquis, informed side effects of Eliquis seen by PT OT they recommend home PT patient will be discharged with VNA services. Headache:? resolved likely related to stroke. Acute on chronic kidney injury stage III baseline creatinine around 2.? On presentation creatinine 2.5 down to 2.8 today s/p IV fluid, avoid nephrotoxin follow labs History of autoimmune thrombocytopenia:? not on prednisone, continue outpatient romiplostim Q 2 week, Dr. Erika barclay use of anticoagulation History of left renal cancer status post nephrectomy in 2019:? Surveillance CT scan in April 2021 showed large right renal cyst; no other abnormal findings. History of prior cerebellar CVA: no residual neurological weakness ? History of BPH: Continue home Flomax. DVT prophylaxis: Eliquis low-dose Code status: Full code Quality Stroke Does the patient have a stroke diagnosis?: Yes Reason for No Anti-thrombotic by Day Two: N/A - Med Ordered VTE Prior VTE?: No VTE Risk Level:: Medical - low VTE Device Contraindication: N/A - Device Ordered VTE Drug Contraindication: Treatment Not Indicated
[2022-01-04 16:45] VITALS: BP 160/80; PULSE 63; RESP 10; TEMP 36.6; O2SAT 98
[2022-01-04] MEDS: Apixaban 2.5 MG TABLET PO (16:50)
--- NOTE | 2022-01-04 17:07 | MHC.SP.ADU ---
Referring provider: Dr. Llanos Reason for Referral: s/p CVA, Screen Lang/Cognition. Type of Treatment: 93570 Evaluation Speech Sound Production WITH Language Date of Plan of Treatment: 01/04/22 Onset of Symptoms/Illness: 01/02/22 Date Treatment Started: 01/03/22 Medical Diagnosis: Pt admitted due to c/o double vision, ? CVA Primary Speech Language Diagnosis: I69.911 Memory deficit Secondary Speech Language Diagnosis: History Pt is 86 y.o. 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 Pt has a history of a previous stroke (2 years remote), came to ED w/ complaint of Double vision, upper extremity weakness, headache. MRI on 01/03 indicated there was no acute process, however diffuse volume loss w/ white matter angiopathy, and evidence of small chronic infarction from previous CVA in L Thalamus and L Cerebellum. Pt today said vision had improved somewhat, however was frequently closing R eye to compensate. Medical History: Other: Please see BSE for complete HX Medication List: Please see chart Recent Hospitalizations: No Respiratory Needs: Room Air Patient Orientation: Alert & Oriented x 4 Social History: Employment Status: Highest level of education obtained: Current Living Situation: Lives independently in private home Assistive Devices in use: Glasses/Contacts Hearing Aids Comment: Pt reported that he wears hearing aids, but did not have them in the hospital Past Speech Language Therapy: UNK Other Therapies Seen in Current Calendar Year: Other: UNK Reported Speech, Language, Cognition difficulties: Understanding Attention Memory Comments: Pt on evaluation demonstrated mild to moderate weakness w/ short term memory, mild issues w/ more complex comprehension tasks/executive function. Pt WNL on expressive language and visual processing/memory. Noted issues are likely at baseline v. new onset. Quality of Life: Good Patient Stated Goal of Speech-Language Therapy: Screen Language and Cognitive skills. Assessment Speech Production: Within Functional Limits Clinical Impression: Observations: Pt. is generally eloquent in his verbal expression, pointedly witty, though at times verbose and dominating the conversational interaction. Pt had some difficulty fully comprehending a paragraph length story, which may have been in part a hearing issue, and in part due to STM weakness. Tests of Cognition: CLQT Clinical Impression: Impaired Observations: On the Cognitive Linguistic Quick Test, Pt presents w/ mild to moderate difficulty w/ STM, mild difficulty w/ attention and executive function. Language and visual spatial skills are WNL, with exceptionally advanced expressive language skills. Pt reported that he is aware of his memory weakness, and has been using strategies to compensate (e.g. writing/recording necessary information, review of directions, re-auditorizing). Behaviors noted are likely baseline and not new onset. Impact on Daily Function/Activity Limitations: Daily Activities: Mild Interpersonal Interactions: Mild Education: Employment: Community: Prognosis for Improvement: Good Comment: Pt is likely at baseline for cognitive/memory needs. Pt has good insight into areas of weakness w/memory and is using compensatory strategies. Recommendation for Speech Therapy: Discharged with Instructions for Home Use Patient Education: Completed: Yes Patient/Caregiver Education: Described Results of Evaluation Patient expressed understanding of evaluation Patient agrees with goals and treatment plan Comments/Barriers to Learning: None Process Improvement Analyst Clinican/Clinical Fellow: No Supervisory Statement: N/A Speech Language Pathologist: Tanja Quarles M.A., CCC-DEPUTY BUILDING GUARD
--- NOTE | 2022-01-04 18:50 | PM.PNNEP ---
Subjective Subjective Date of Service: 01/04/22 Interval history: Seen and examined, events noted Physical Exam Vital Signs: Vital Signs: Last Vital Signs Temp 97.9 F 01/04/22 16:45 Pulse 63 01/04/22 16:45 Resp 10 L 01/04/22 16:45 BP 160/80 H 01/04/22 16:45 Pulse Ox 98 01/04/22 16:45 BMI result Body Mass Index 23.0 Const: Other: General ? Awake alert,no acute distress.? Neck? supple no JVD. CVS? regular rate rhythm, Respiratory lungs clear to auscultation, no respiratory distress Gastrointestinal abdomen soft, nontender, bowel sounds audible Extremities no edema. Neuro? moving all 4 extremity, speech clear, double vision with both eyes open Skin no rash psych appropriate affect Neuro: Other: he was alert and awake with normal spontaneity of speech fluency comprehension and affect. He was not wearing his hearing aids and I had to shout to communicate with him. He was following commands. Pupils were about 3-4 mm round reactive to light. Right eye was not crossing midline when looking to the left and at that time there was horizontal nystagmus beating to the left with left eye. Face was symmetrical. There was no ptosis. There was no pronator drift. Deep tendon reflexes are absent with flexor plantars. Objective Data Labs CBC & Chem 7: 01/03/22 06:40 01/04/22 10:49 Labs: Laboratory Results - last 24 hr 01/04/22 10:49 Sodium 139 Potassium 4.9 Chloride 110 H Carbon Dioxide 22 Anion Gap 12 BUN 49 H Creatinine 2.28 H Estim Creat Clear Calc 23.9 Estimated GFR 27 Random Glucose 150 H D Calcium 9.0 Procedures Date of Service Date of Service: 01/04/22 Assessment & Plan Assessment and plan (1) Acute CVA (cerebrovascular accident): Status: Acute (2) Acute idiopathic thrombocytopenic purpura: Status: Chronic Plan 86-year-old male with a past medical history of hypertension hyperlipidemia, CAD, history of CVA, 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 BLAS: Svcrgrad decr w IVF close toBSL 2. CKD 3/4: suspect d/t solitary kidney and hyperfiltration and age related loss of renal func REC: cont to track renal func/ UOP; avoid Ntoxins Will need f/uas outpt ( sees Dr Warner) Time Spent With Patient Time: Total time spent is greater than 50% in coordination of care (as documented) at patient's floor/unit and/or counseling patient: Progress Note: Quality Stroke Does the patient have a stroke diagnosis?: Yes Reason for No Anti-thrombotic by Day Two: N/A - Med Ordered
[2022-01-04 20:52] VITALS: BP 153/75; PULSE 81; RESP 16; TEMP 36.6; O2SAT 96
--- NOTE | 2022-01-04 21:30 | PC.NURSE ---
Assumed care of pt Pt refused atorvastatin. Pt states, he is allergic to all statins. Explained to pt what the medication is and why it's being given. Pt insists on refusing and wants to speak to MD before being given any new medication. Will make Dr. Langley aware AxO x 4, clear and complete sentences [facility] Will continue to monitor
--- NOTE | 2022-01-05 | ECG_ITS ---
Test Reason : cp Blood Pressure : / mmHG Vent. Rate : 056 BPM Atrial Rate : 056 BPM P-R Int : 208 ms QRS Dur : 142 ms QT Int : 458 ms P-R-T Axes : 116 257 188 degrees QTc Int : 441 ms Suspect limb lead reversal, interpretation assumes no reversal Sinus bradycardia with marked sinus arrhythmia Right bundle branch block Abnormal ECG When compared with ECG of 02-JAN-2022 22:27, Premature atrial complexes are no longer Present Nonspecific T wave abnormality has replaced inverted T waves in Anterior leads Nonspecific T wave abnormality, worse in Lateral leads Referred By: Sebas Langley Electronically Signed By:Martin Gutierrez
[2022-01-05] MEDS: Acetaminophen 325 MG TABLET 650 MG PO (01:56)
[2022-01-05 02:00] VITALS: BP 142/68; PULSE 58; RESP 18; O2SAT 96
[2022-01-05] MEDS: Apixaban 2.5 MG TABLET PO (05:34)
[2022-01-05 05:35] VITALS: BP 140/62; PULSE 45; RESP 20; O2SAT 95
--- NOTE | 2022-01-05 06:01 | PC.NURSE ---
Pt HR went down to low 40s while asleep. HR goes up to 60s and 70s when awakened. Per pt, his ITP doctor ( Dr. James) is aware and has informed pt. Pt denies any CP or SOB. Pt stating that he felt weirdly tired last night. Dr. Langley made aware. Awaiting orders
--- NOTE | 2022-01-05 06:28 | PM.EVENT ---
Event Note Date of Service: 01/05/22 Event Note: pt bradycardic to the 40s while asleep. asymptomatic. when awoken hr goes up to the 60s will obtain ekg
--- NOTE | 2022-01-05 06:29 | PM.EVENT ---
Event Note Date of Service: 01/05/22 Event Note: pt also refused statin as he reports he has allergies to it and would like to discuss before starting this medication
--- NOTE | 2022-01-05 09:16 | PC.NURSE ---
Pt received from machinist 2nd shift: Pt AOX4 and offers no complaints. Heart sounds normal and lungs clear. Pt abd soft and non-tender. Pt able to ambulate to BR with standby assist.
[2022-01-05 09:38] VITALS: BP 146/59; PULSE 75; RESP 12; TEMP 36.7; O2SAT 98
[2022-01-05] MEDS: Tamsulosin HCL 0.4 MG CAPSULE PO (09:38)
[2022-01-05 10:44] VITALS: BP 146/59; PULSE 75; O2SAT 98
--- NOTE | 2022-01-05 11:21 | P.F2F_ITS ---
Service Date Service Date: 01/05/22 Encounter Date of encounter: 01/05/22 Reasons for Services Signs and symptoms assessed: acute CVA with double vision, history of ITP Reason for [facility]: neurological assessment Reason for physical therapy: home safety and mobility Reason for occupational therapy: home safety and mobility Homebound: Leaving the home is medically contraindicated at this time without the asist of a device and/or another person due th the listed conditions above and below. Reason homebound: weakness related to hospital stay Certification: Based on the above findings, I certify that this patient is confined to the home and needs intermittent [facility] care, physical therapy and/or speech therapy, or continues to need occupational therapy. The patient is under my care, and I have initiated the establishment of the plan of care. The patient will be followed by a physician who will periodically review the plan of care.
--- NOTE | 2022-01-05 11:22 | PM.DS ---
DS: Providers Provider Date of Service: 01/05/22 Date of admission: 01/02/22 23:35 Primary care physician: Unknown Physician Consults: 01/02/22 23:36 Consult to Neurology Routine Consulting Provider: Mely Haque Reason for consultation: CVA 01/03/22 02:00 Consult to Nephrology Routine Consulting Provider: Helder Garrido Reason for consultation: BLAS on CKD DS: Diagnosis Discharge Diagnosis (1) Acute CVA (cerebrovascular accident): Status: Acute (2) Acute idiopathic thrombocytopenic purpura: Status: Chronic DS: Summary Hospital Course Hospital Course: Chief Complaint: vision changes 86-year-old male with a past medical history of hypertension hyperlipidemia CAD history of CVA, 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 Patient reported that he has been having headaches intermittently over the past 2 weeks.? And today he had double vision this evening and also felt nauseous, not well, imbalance.? Denies any falls or trauma.? Denies any numbness tingling or focal weakness.? Denies any chest pain or palpitations.? Denies any history of recent viral infection.? Denies any GI symptoms.? Review of all other systems is negative except mentioned above ER course: Per ER team patient on M presentation exam is benign neurologically except for patient unable to adduct both right and left eyes.? CT head was done which showed no acute findings. On labs noted to have mild Blas on CKD otherwise labs essentially benign. CT angio of the head and neck was not done secondary to renal insufficiency. Mentioned that case was discussed with Dr. Haque from Neurology who recommended no tPA and can be admitted to the [facility]. Followed by few minutes later patient left I was able to adduct and abduct.? 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 Patient has good pupillary reflexes bilaterally with direct light. 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 Haque he diagnosed him to have acute CVA, patient placed on Eliquis 2.5 mg b.i.d. and echocardiogram showed an EF 50-55% normal diastolic function, patient noted to have LDL 120 with total cholesterol of 170 therefore placed on statin 40 mg daily, prior to starting Eliquis case discussed with Erika due to history of ITP she okayed use of anticoagulation, platelet count seems to be within normal range, patient made aware of risk of bleed with Eliquis patient evaluated by PT OT and recommended home therapy. Acute on chronic kidney injury stage III baseline creatinine around 2.? On presentation creatinine 2.5? down to 2.8 s/p IV fluid, Seen by Nephrology recommended to avoid nephrotoxins and close outpatient nephrology follow? History of autoimmune thrombocytopenia:?continue outpatient romiplostim Q 2 week History of left renal cancer status post nephrectomy in 2019:? Surveillance CT scan in April 2021 showed large right renal cyst; no other abnormal findings. History of? prior cerebellar CVA: no residual neurological weakness ? History of BPH: Continue home Flomax. Time Spent with Patient Time attestation: Total time spent providing and/or coordinating discharge services: Discharge coordination time: Greater than 30 minutes Quality: Stroke Does the patient have a stroke diagnosis?: No Physical Exam Vital Signs: Vital Signs: Last Vital Signs Temp 98.1 F 01/05/22 09:38 Pulse 75 01/05/22 10:44 Resp 12 01/05/22 09:38 BP 146/59 H 01/05/22 10:44 Pulse Ox 98 01/05/22 10:44 BMI result Body Mass Index 23.0 Const: Other: General ? Awake alert,no acute distress.? Neck? supple no JVD. CVS? regular rate rhythm, Respiratory lungs clear to auscultation, no respiratory distress Gastrointestinal abdomen soft, nontender, bowel sounds audible Extremities no edema. Neuro? moving all 4 extremity, speech clear, double vision with both eyes open improving. Skin no rash psych appropriate affect DS: Data Data Completed and Pending Completed studies during hospitalization [Text1]: Procedures Transfusion of Nonautologous Platelets into Peripheral Vein, Percutaneous Approach (06/11/21) Transfusion of Nonautologous Red Blood Cells into Peripheral Vein, Percutaneous Approach (04/28/21) Labs on day of discharge: Laboratory Results - last 24 hr 01/04/22 10:49 Sodium 139 Potassium 4.9 Chloride 110 H Carbon Dioxide 22 Anion Gap 12 BUN 49 H Creatinine 2.28 H Estim Creat Clear Calc 23.9 Estimated GFR 27 Random Glucose 150 H D Calcium 9.0 Discharge Plan Discharge Patient Disposition: Home Health Service Discharge Diagnosis: acute CVA Referrals: [facility], [facility] [Provider Group] - 1 Week Physician,Unknown J [Primary Care Provider] - 1 Week Discharge Medications: New Eliquis 2.5 mg Tablet 2.5 mg PO BID@0600,1800 Qty: 60 0RF atorvastatin 40 mg Tablet 40 mg PO BEDTIME Qty: 30 0RF Continued tamsulosin 0.4 mg capsule 0.4 mg PO DAILY Qty: 90 8RF multivit no.90-lzfy-ndzmk acid 106.5-1 mg Capsule 1 cap PO DAILY 0RF lutein 20 mg Tablet 20 mg PO DAILY 0RF hawthorn 500 mg Capsule 510 mg PO DAILY 0RF flopzseuhvx-vfkgtouvr-yxh C-Mn [Glucosamine Chondroitin MaxStr] 500-400 mg Capsule 1 cap PO TID 0RF coenzyme Q10 [CoQ-10] 100 mg Capsule 400 mg PO DAILY 0RF garlic Capsule 600 mg PO DAILY 0RF omega-3 fatty acids Capsule 1,600 mg PO DAILY 0RF Discharge Orders: Discharge Order (Routine); Ordered 01/05/22 Ordered By: Wilber Young Diet: advance to usual diet and low fat, low cholesterol Activity on Discharge: As tolerated Stand Alone Forms: Patient Portal Discharge page Care Plan Goals: acute CVA with double vision take Eliquis 2.5 mg twice daily and take Lipitor 40 mg daily Health Concerns: continue medicine for ITP as per Dr. James Plan of Treatment: outpatient follow-up with primary care physician in 1-[address] James as previously planned Assessment: per discharge summary
--- NOTE | 2022-01-05 11:48 | PM.PNNEP ---
Subjective Subjective Date of Service: 01/05/22 Interval history: Seen and examined, events noted Physical Exam Vital Signs: Vital Signs: Last Vital Signs Temp 98.1 F 01/05/22 09:38 Pulse 75 01/05/22 10:44 Resp 12 01/05/22 09:38 BP 146/59 H 01/05/22 10:44 Pulse Ox 98 01/05/22 10:44 BMI result Body Mass Index 23.0 Const: Other: General ? Awake alert,no acute distress.? Neck? supple no JVD. CVS? regular rate rhythm, Respiratory lungs clear to auscultation, no respiratory distress Gastrointestinal abdomen soft, nontender, bowel sounds audible Extremities no edema. Neuro? moving all 4 extremity, speech clear, double vision with both eyes open Skin no rash psych appropriate affect Neuro: Other: he was alert and awake with normal spontaneity of speech fluency comprehension and affect. He was not wearing his hearing aids and I had to shout to communicate with him. He was following commands. Pupils were about 3-4 mm round reactive to light. Right eye was not crossing midline when looking to the left and at that time there was horizontal nystagmus beating to the left with left eye. Face was symmetrical. There was no ptosis. There was no pronator drift. Deep tendon reflexes are absent with flexor plantars. Objective Data Labs CBC & Chem 7: 01/03/22 06:40 01/04/22 10:49 Labs: Laboratory Results - last 24 hr 01/04/22 10:49 Sodium 139 Potassium 4.9 Chloride 110 H Carbon Dioxide 22 Anion Gap 12 BUN 49 H Creatinine 2.28 H Estim Creat Clear Calc 23.9 Estimated GFR 27 Random Glucose 150 H D Calcium 9.0 Procedures Date of Service Date of Service: 01/05/22 Assessment & Plan Assessment and plan (1) Acute CVA (cerebrovascular accident): Status: Acute (2) Acute idiopathic thrombocytopenic purpura: Status: Chronic Plan 86-year-old male with a past medical history of hypertension hyperlipidemia, CAD, history of CVA, 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 BLAS: SCr rgrad decr w IVF close to BSL 2. CKD 3/4: suspect d/t solitary kidney and hyperfiltration and age related loss of renal func REC: no new recs; cont to track renal func/ UOP; avoid Ntoxins Will need f/u as outpt ( sees Dr Warner) Time Spent With Patient Time: Total time spent is greater than 50% in coordination of care (as documented) at patient's floor/unit and/or counseling patient: Progress Note: Quality Stroke Does the patient have a stroke diagnosis?: No Reason for No Anti-thrombotic by Day Two: N/A - Med Ordered
[2022-01-05 12:08] VITALS: BP 150/65; PULSE 56; RESP 15; TEMP 36.5; O2SAT 97
--- NOTE | 2022-01-05 12:57 | MHC.CM.PN ---
Received notification patient will be discharged home with Aly SMITH today. T/W spoke with Nadege via telephone. She will grab patient's walker from his home and come transport patient home around 3pm. Chastity MITCHELL aware. Continue to monitor for d/c needs.
--- NOTE | 2022-01-05 13:23 | PC.NURSE ---
As per case management Ashlee, pt to be D/C and picked up by friend Nadege once pt's personal walker obtained. Estimated D/C time around 1500. Pt made aware.
--- NOTE | 2022-01-05 15:42 | PC.NURSE ---
Pt D/C from ED Overflow. Pt states understanding and denies any futhur questions. All IV's removed prior to D/C. Pt helped changed and wheelchaired out to ER entrance to ride home.
== END 2022-01-05 17:51 | disposition home health service (06) | DRG 65 ==
LOC: HO.ED 23:27 → HO.EDOVER 23:41
PROVIDERS: Admitting Provider Hospitalist; Emergency Provider Emergency Medicine Emergency Medical Services; Visit Provider Hospitalist
DX: I63.9 Cerebral infarction, unspecified (principal); N17.9 Acute kidney failure, unspecified; D69.3 Immune thrombocytopenic purpura; H49.01 Third [oculomotor] nerve palsy, right eye; D63.1 Anemia in chronic kidney disease; N18.30 Chronic kidney disease, stage 3 unspecified; I25.10 Atherosclerotic heart disease of native coronary artery without angina pectoris; N40.0 Benign prostatic hyperplasia without lower urinary tract symptoms; Z86.73 Personal history of transient ischemic attack (TIA), and cerebral infarction without residual deficits; I25.2 Old myocardial infarction; R00.1 Bradycardia, unspecified; Z20.822 Contact with and (suspected) exposure to COVID-19; Z85.528 Personal history of other malignant neoplasm of kidney; Z90.5 Acquired absence of kidney; Z79.01 Long term (current) use of anticoagulants; Z87.891 Personal history of nicotine dependence; Z79.899 Other long term (current) drug therapy
CPT/HCPCS: 36415; 70450; 70551; 71045; 80048; 80053; 80061; 81001; 82248; 82550; 82947; 83735; 84100; 84484; 85025; 85610; 85652; 85730; 87635; 92523; 92610; 93005; 93306; 97116; 97162; 97165; 97530; 99285

== ENCOUNTER 2022-01-10 15:23 | Outpatient (REF) | payer MEDICARE, SELFPAY ==
[2022-01-10 16:10] LABS: Appearance Urine CLEAR; Color Urine YELLOW; Glucose Urine UA NEG (NEG); Leukocyte Esterase Urine NEG (NEG); Nitrite Urine NEG (NEG); PH 5.5 (5.0-8.0); Urine Blood TRACE (NEG); Urine Ketones NEG (NEG); Urine Protein TRACE MG/DL (NEG-TRACE)
[2022-01-10 16:23] LABS: Anion Gap 13 (12-20); Blood Urea Nitrogen 50 mg/dL (9-16); Calcium 9.1 mg/dL (8.4-10.2); Carbon Dioxide 23 mmol/L (22-29); Chloride 106 mmol/L (96-108); Estimated Glomerular Filt Rate 24; Potassium 4.7 mmol/L (3.3-5.1); Sodium 137 mmol/L (135-145); Uric Acid 8.6 mg/dL (3.4-7.0)
[2022-01-10 16:43] LABS: Squamous Epithelial Cell Urine 1+ /LPF; WBC Urine 0 /HPF (0-4)
[2022-01-10 16:44] LABS: Amorphous Sediment Urine 2+ /LPF; Granular Casts Urine 0-2 /LPF
[2022-01-11 12:07] LABS: PTHI 31 pg/mL (14-64)
== END 2022-01-10 15:24 | disposition home or self-care (01) ==
LOC: HO.LAB 15:23
PROVIDERS: PCP Internal Medicine; Visit Provider Internal Medicine Hypertension Specialist
DX: C64.2 Malignant neoplasm of left kidney, except renal pelvis (principal); Z90.5 Acquired absence of kidney
CPT/HCPCS: 36415; 80051; 81001; 82043; 82310; 82565; 83970; 84520; 84550

== ENCOUNTER 2022-01-26 16:05 | Inpatient (IN) | payer MEDICARE, SELFPAY ==
--- NOTE | ~2022-01-26 | US_ITS ---
EXAMINATION: US RETROPERITONEAL LIMITED (RENAL ONLY) CLINICAL INFORMATION: BLAS, CKD. COMPARISON: US retroperitoneal limited (renal only) 12/27/2021. CT abdomen and pelvis without contrast 04/30/2021. TECHNIQUE: Real-time imaging of the kidneys. FINDINGS: RIGHT KIDNEY: 14.6 x 6.8 x 9.0 cm (SAG x AP x TRV). The kidney is normal in size, contour, and echogenicity. Renal cortical thickness is normal. There is a 9.2 x 6.9 x 8.1 cm minimally complex cyst exophytic to the mid pole with mobile echogenic debris. There is a 3.9 x 2.2 x 2.9 cm simple cyst exophytic to the lower pole. No renal calculi or hydronephrosis. LEFT KIDNEY: Surgically absent. US/US renal BI IMPRESSION: Right renal cysts. Largest cyst is a 9 x 7 x 8 cm slightly complex cyst with mobile echogenic debris. Complex appearance or echogenic debris is a new finding compared to previous ultrasound November 2021..
--- NOTE | ~2022-01-26 | CT_ITS ---
EXAMINATION: CT ABDOMEN AND PELVIS WITHOUT CONTRAST CLINICAL INFORMATION: Diarrhea, severe diverticulosis of the colon, chronic pancreatitis. COMPARISON: Previous CT of the abdomen and pelvis April 2021 TECHNIQUE: Multidetector volumetric imaging was performed from the superior aspect of the liver through the pubic symphysis. Sagittal and coronal reformatted images were obtained on the technologist's workstation. This CT examination was performed using dose optimization techniques as appropriate, variously including the following: *Automated exposure control *Adjustment of mA and/or kV according to patient size (this includes techniques or standardized protocols for targeted exams where dose is matched to indication/reason for exam; i.e. extremities or head) *Use of iterative reconstruction technique DLP: 301 mGy-cm FINDINGS: LUNG BASES: The visualized lung bases are unremarkable. LIVER, GALLBLADDER, AND BILIARY TREE: The liver is normal in size, shape, and attenuation. No focal hepatic lesion or biliary ductal dilatation is present. The gallbladder is unremarkable with no evidence of radiopaque gallstones, gallbladder wall thickening, or obvious pericholecystic inflammatory changes. PANCREAS: There are small calcifications seen throughout the pancreas suggestive of evidence of chronic pancreatitis. The pancreas appears atrophic. The main pancreatic duct is dilated measuring up to 6 mm. This is similar to 2020 exam. SPLEEN: Not seen. ADRENAL GLANDS: Unremarkable. KIDNEYS AND URETERS: The left kidney is not seen. There are 2 right renal cysts. The largest measures 7 x 9 cm in the midpole. BLADDER: Unremarkable. GASTROINTESTINAL TRACT: There is severe diverticulosis of the colon. No evidence of diverticulitis is seen. Small and large bowel is otherwise unremarkable. ABDOMINAL WALL: There is evidence of previous right lower abdominal wall hernia repair with mesh. LYMPH NODES: Normal. VASCULAR: There is evidence of atherosclerotic disease. There is a dilatation of the bilateral common iliac arteries measuring 2 cm. This is similar to previous exam. PELVIC VISCERA: Prostate gland is enlarged and measures 5 x 6 cm. OSSEOUS STRUCTURES: There are degenerative changes of the spine. CT/CT abdomen pelvis wo con IMPRESSION: Diverticulosis of the colon. No evidence of diverticulitis or colitis. Severe atherosclerotic disease. Evidence of chronic pancreatitis. Right renal cysts. Enlarged prostate gland. Stable changes of chronic pancreatitis. Fleischner guidelines were followed.
[2022-01-26 16:00] VITALS: BP 149/78; PULSE 49; RESP 20; TEMP 36.1; O2SAT 95
--- NOTE | 2022-01-26 16:03 | P.HPHOSP_ITS ---
History of Present Illness Date of Service: 01/26/22 Chief Complaint: Diarrhea and weakness 86-year-old male with a past medical history of hypertension hyperlipidemia CAD history of CVA, history of Chronic refractory ITP, status post splenectomy in 2019; history of Renal cell carcinoma of left kidney, status post nephrectomy on 03/20/2019.? Stage pT3 pN0. She was seen in Heme onc clinic in follow up and found to be weak, dedhydation and says that she has been having diarrhea for nearly 2 weeks and has seen occasional blood in the stool, foul smelling however C dif negative thus far. No fever or chills. Of note he was recently admitted for CVA on Jan 02 and discharged on Jan 05 with Eliquis Review of Systems Review of Systems: Gen: no fever Resp: no sob, no cough CV: no chest, no SNEED, no leg edema GI: No n/v, no abd pain, +diarrhea Neuro: No confusion, gen weakness Yes all other systems are reviewed and are negative [facility] Medical History Acute idiopathic thrombocytopenic purpura Acute ITP Anemia with low platelet count CAD (coronary artery disease) Chronic ITP (idiopathic thrombocytopenia) Chronic renal insufficiency Renal cancer Stroke Family History Mother No problems noted. Father No problems noted. 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 If so, by whom?: No Do you feel safe in your current relationship?: Yes Is there a partner from a previous relationship who is making you feel unsafe now?: No Are you made to feel afraid or neglected: No Advance Directives: Yes Advance Directives on File: Yes Advance Directives Date on File: 01/04/22 Do you have thoughts of harming others: None Do you have a plan to hurt others: No Plan Recently lost weight without trying: Yes How much weight loss: 14-23 pounds Nutrition Risks: Anorexia Poor oral hygiene: No service: Yes Current occupational status: retired Cognitive needs: No Hearing needs: No Vision needs: No Meds Allergies Allergy/AdvReac Type Severity Reaction Status Date / Time bupropion [From WELLBUTRIN] Allergy Unknown Unknown Verified 01/26/22 13:35 fostamatinib [From Tavalisse] AdvReac Severe Diarrhea Verified 01/26/22 13:35 any statin Allergy Unknown Unknown Uncoded 01/26/22 13:35 Home Medications Medication Instructions Recorded Confirmed Last Taken Type multivitamin no.51-ferrous 1 cap PO DAILY 03/03/21 01/26/22 04/27/21 History fumarate 106.5 mg-folic acid 1 mg capsule lutein 20 mg tablet 20 mg PO DAILY 07/05/21 01/26/22 Unknown History coenzyme Q10 100 mg capsule 400 mg PO DAILY 07/12/21 01/26/22 Unknown History (CoQ-10) kllwiryedxz-doqirefjt-olp C-Mn 500 1 cap PO TID 07/12/21 01/26/22 Unknown History mg-400 mg capsule (Glucosamine Chondroitin Maximum Strength) hawthorn 500 mg capsule 510 mg PO DAILY 07/12/21 01/26/22 Unknown History garlic 600 mg PO DAILY 12/01/21 01/26/22 Unknown History omega-3 fatty acids 1,600 mg PO DAILY 12/01/21 01/26/22 Unknown History tamsulosin 0.4 mg capsule (Flomax) 0.4 mg PO DAILY 01/19/22 01/26/22 Unknown History ezetimibe 10 mg tablet 1 tab PO DAILY 01/26/22 Unknown History Physical Exam Const: Other: Constitutional: Alert, in no distress, generaly weak Mental Status: Oriented to person, place and time. Eyes: Pupils are equal, round and reactive to light. Ear, Nose and Throat: Oropharynx clear, mucous membranes moist. . Trachea midline. Respiratory: Clear to auscultation. No wheezing, rales or rhonchi. Cardiovascular: S1 S2 regular. No murmurs, rubs or gallops. Gastrointestinal: Abdomen soft, non-tender, non-distended. Normal bowel sounds.? Neurologic: Cranial nerves II-XII grossly intact. No focal neurological deficits. Moves all extremities spontaneously.? Skin: No rashes or lesions.? Musculoskeletal: No cyanosis or clubbing. Psychiatric: Normal mood and affect? Assessment and Plan (1) BLAS (acute kidney injury): Status: Acute (2) Diarrhea: Status: Acute Plan 86 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 1/Diarrhea unclear etiology, r/o C dif, hydrate 2/Weakness from C dif 3/BLAS--from diarrrhea and decrease oral intake, hydrate and follow renal function 4/h/o stroke on Eliquis--H/H is stable so will continue 5/BPH.. Flomax 6/HLD-Zetia or substitute 7/ITP--Eliquis DVT prophylaxis--Eliquis Quality Stroke Does the patient have a stroke diagnosis?: No VTE Prior VTE?: No VTE Risk Level:: Medical - moderate - high VTE Device Contraindication: Treatment Not Indicated VTE Drug Contraindication: N/A - Med Ordered
[2022-01-26 18:28] VITALS: BMI 21.1
[2022-01-26 19:14] VITALS: BP 147/71; PULSE 84; RESP 20; TEMP 36.6; O2SAT 98
[2022-01-26] MEDS: 0.9 % Sodium Chloride 1,000 ML 100 ML IVCONT (20:05)
[2022-01-26] MEDS: 0.9 % Sodium Chloride Flush 3 ML SYRINGE IVFLUSH ×2 (20:05→20:11)
[2022-01-26 23:29] VITALS: BP 154/74; PULSE 75; RESP 18; TEMP 37.1; O2SAT 96
[2022-01-27] MEDS: Acetaminophen 325 MG TABLET 650 MG PO (00:33)
[2022-01-27 04:00] VITALS: BP 127/61; PULSE 70; RESP 16; TEMP 36.4; O2SAT 96
[2022-01-27] MEDS: 0.9 % Sodium Chloride 1,000 ML 100 ML IVCONT ×3 (04:20→23:56)
[2022-01-27 08:00] VITALS: BP 152/77; PULSE 72; RESP 18; TEMP 36.7; O2SAT 96
[2022-01-27] MEDS: Apixaban 2.5 MG TABLET PO ×2 (08:56→21:03)
[2022-01-27] MEDS: 0.9 % Sodium Chloride Flush 3 ML SYRINGE IVFLUSH ×3 (09:02→23:58)
--- NOTE | 2022-01-27 10:02 | MHC.CM.PN ---
CM met with Patient at bedside and addressed IMM with him, providing him with the original and placing a copy on the chart. 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 Patient's goal and PT's recommendation is home with services(Patient mentions the possibility of Hospice). Cm has initiated and will follow for dc planning.Patient has received J&J Covid vax and Moderna booster. PCP is Dr. Mauro Smith.
--- NOTE | 2022-01-27 10:24 | P.PNIM_ITS ---
Subjective Subjective Date of Service: 01/27/22 Interval History: F/u on weakness, diarrha, BLAS--still has diarrhea, initial C dif negative, Review of Systems no fever +diarrhea, no abd pain Physical Exam Vital Signs: Vital Signs: Last Vital Signs Temp 98.0 F 01/27/22 08:00 Pulse 72 01/27/22 08:00 Resp 18 01/27/22 08:00 BP 152/77 H 01/27/22 08:00 Pulse Ox 96 01/27/22 08:00 BMI result Body Mass Index 21.1 Objective Data Active Medications Apixaban (Apixaban 2.5 Mg Tablet) 2.5 mg PO BID [facility] Last Admin: 01/27/22 08:56 Dose: 2.5 mg Documented by: CALE Sodium Chloride (Ns) 1,000 mls @ 100 mls/hr IVCONT .Q10H [facility] Last Admin: 01/27/22 04:20 Dose: 100 mls/hr Documented by: LEX Sodium Chloride (0.9 % Sodium Chloride Flush 3 Ml Syringe) 3 ml IVFLUSH QSHIFT [facility] Last Admin: 01/27/22 09:02 Dose: 3 ml Documented by: CALE Assessment and Plan (1) Diarrhea: Status: Acute (2) BLAS (acute kidney injury): Status: Acute (3) Weakness: Status: Acute Plan 86 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 1/Diarrhea unclear etiology, r/o C dif, hydrate 2/Weakness from diarrha and dehydration, PT after hydration 3/BLAS--from diarrrhea and decrease oral intake, hydrate and follow renal function 4/h/o stroke on Eliquis--H/H is stable so will continue 5/BPH.. Flomax 6/HLD-Zetia or substitute 7/ITP--Eliquis DVT prophylaxis--Eliquis He comes from [employer] and staff is concern that he is no longer a fit for that place Quality Stroke Does the patient have a stroke diagnosis?: No VTE Prior VTE?: No VTE Risk Level:: Medical - moderate - high VTE Device Contraindication: Treatment Not Indicated VTE Drug Contraindication: N/A - Med Ordered
--- NOTE | 2022-01-27 10:53 | PHA.MEDREC ---
Pharmacy Consult ? Medication Reconciliation Pharmacy has completed the medication reconciliation. Spoke with the patient who knew all of his medications. He states that he hasn't taken the garlic supplement in about 2 weeks because he knows it can thin your blood. Other than that, no follow up questions.
[2022-01-27 11:13] VITALS: BP 158/81; PULSE 72; RESP 18; TEMP 36.7; O2SAT 98
--- NOTE | 2022-01-27 11:22 | MHC.SL.SWA ---
Speech Pathologist Impression: WFL Risk of Aspiration Due to: N/A Dysphasia Diet Status: NO CHANGE Liquid Consistency and Strategies for Safe Swallow: Liquid Intake Recommendation: Thin Liquid Intake Strategies: Small Sips Unrestricted Solid Food Consistency: Dietary Recommendations: Regular Additional Modifications to Solid Foods: Patient seen for bedside dysphagia evaluation. Swallow deemed to be WFL. Recommend patient to resume unmodified textures- REGULAR solids and THIN liquids, pills WHOLE with liquid. Receptive and expressive language skills screened- WFL. Further ST intervention is no longer warranted. Please re-refer with any future concern. Oral Medication Intake: Whole with Liquid Please contact the pharmacy regarding appropriate crushable or liquid drug formulations that are available whenever modified delivery is recommended. Compensatory Strategies and Precautions to be Taken for Safe Swallow: Sitting Upright (90 deg) Small Bites and Sips Alternate Liquids/Solids Rate of Ingestion Change Supervision While Eating and Drinking for Safe Swallow: None Needed Recommendation for Speech: NA:Typical Evaluation Employee Relations Assistant Clinican/Clinical Fellow: No Supervisory Statement: I have reviewed and agree with the student/clinical fellow's documentation: N/A Speech Language Pathologist: Myriam Mancilla M.A., CCC-PREPRESS SUPERVISOR
[2022-01-27 12:14] LABS: CDiff Gene PCR NEGATIVE (Negative)
[2022-01-27 12:25] VITALS: BMI 21.1
--- NOTE | 2022-01-27 12:31 | MHC.CLN ---
PT IS SEVERELY MALNOURISHED PT WITH 14% SIGNIFICANT WT LOSS X 6 MONTHS WITH CHRONIC POOR PO INTAKE AND DIARRHEA X 2 WEEKS WITH INCREASED NUTRITION NEEDS SECONDARY TO RENAL CELL CA PREVIOUS WT HX 68.9KG (06/30/21) DIET RX: REGULAR-APPROPRIATE RECOMMEND ADDING ENSURE BID TO INCREASE KCALS SUPP PROVIDES 700KCALS, 40G PROTEIN MONITOR PO INTAKE CLOSELY SEE ALSO FULL CLINICAL NUTRITION ASSESSMENT
[2022-01-27 15:14] VITALS: BP 161/77; PULSE 75; RESP 20; TEMP 36.4; O2SAT 94
[2022-01-27 19:11] VITALS: BP 166/83; PULSE 73; RESP 20; TEMP 36.4; O2SAT 97
[2022-01-27 23:11] VITALS: BP 133/73; PULSE 73; RESP 20; TEMP 36.3; O2SAT 99
[2022-01-28] VITALS (7 sets, daily range): BP systolic 130–165; BP diastolic 64–80; PULSE 65–71; RESP 16–20; TEMP 36.3–37.2; O2SAT 94–98
[2022-01-28] MEDS: Apixaban 2.5 MG TABLET PO ×2 (07:44→20:35)
[2022-01-28 09:26] LABS: Hematocrit 32.3 % (42.0-52.0); Hemoglobin 10.5 g/dl (14.0-18.0); Mean Corpuscular HGB Conc 32.5 g/dl (31.0-36.0); Mean Corpuscular Hemoglobin 28.4 pg (27.0-33.0); Mean Corpuscular Volume 87.3 fL (80.0-98.0); Mean Platelet Volume 12.5 fL (9.4-12.4); Red Cell Distribution Width 15.5 % (11.0-16.0); White Blood Count 6.5 X10*3/uL (4.8-10.8)
[2022-01-28 09:35] LABS: Anion Gap 9 (12-20); Blood Urea Nitrogen 42 mg/dL (9-16); Calcium 9.2 mg/dL (8.4-10.2); Carbon Dioxide 18 mmol/L (22-29); Chloride 113 mmol/L (96-108); Creatinine Clr Calc Pharmacy 18.2; Estimated Glomerular Filt Rate 25; Glucose Random 128 mg/dL (60-115); Sodium 136 mmol/L (135-145)
[2022-01-28 09:52] LABS: Platelet Count 137 X10*3/uL (160-400)
[2022-01-28] MEDS: 0.9 % Sodium Chloride 1,000 ML 100 ML IVCONT ×2 (10:09→20:34)
--- NOTE | 2022-01-28 10:49 | P.PNIM_ITS ---
Subjective Subjective Date of Service: 01/29/22 Interval History: F/u on weakness, diarrha, BLAS--still has diarrhea, C dif negative x 2, diarrhea is better on imodium Review of Systems no fever +diarrhea, no abd pain Physical Exam Vital Signs: Vital Signs: Last Vital Signs Temp 98.9 F 01/28/22 07:56 Pulse 70 01/28/22 07:56 Resp 18 01/28/22 07:56 BP 165/80 H 01/28/22 07:56 Pulse Ox 98 01/28/22 07:56 BMI result Body Mass Index 21.1 Objective Data Active Medications Apixaban (Apixaban 2.5 Mg Tablet) 2.5 mg PO BID [facility] Last Admin: 01/28/22 07:44 Dose: 2.5 mg Documented by: BRIANNA Sodium Chloride (Ns) 1,000 mls @ 100 mls/hr IVCONT .Q10H [facility] Last Admin: 01/28/22 10:09 Dose: 100 mls/hr Documented by: BRIANNA Sodium Chloride (0.9 % Sodium Chloride Flush 3 Ml Syringe) 3 ml IVFLUSH QSHIFT [facility] Last Admin: 01/28/22 07:28 Dose: Not Given Documented by: BRIANNA Non-Admin Reason: IV Running Labs CBC & Chem 7: 01/28/22 09:04 01/28/22 09:04 Labs: Laboratory Results - last 24 hr 01/27/22 01/28/22 01/28/22 09:47 09:04 09:04 MCV 87.3 MCH 28.4 MCHC 32.5 RDW 15.5 Plt Count 137 L D MPV 12.5 H Absolute Nucleated RBC 0.000 Nucleated RBC % (auto) 0.0 Anion Gap 9 L Estim Creat Clear Calc 18.2 Estimated GFR 25 Random Glucose 128 H D Calcium 9.2 C. 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 1/Diarrhea unclear etiology, C dif negative x 2 -imodium for control, hydrate 2/Weakness from diarrha and dehydration, PT after hydration 3/BLAS on CKD 3--from diarrrhea and decrease oral intake, hydrate and follow renal function which is a bit better. Renal US was planned to have one /, Nephro consult 4/h/o stroke on Eliquis--H/H is stable so will continue 5/BPH.. Flomax 6/HLD-Zetia or substitute 7/ITP-Platlets normal DVT prophylaxis--Eliquis He comes from [facility] and staff is concern that he is no longer a fit for that place PT is recommending STR inpatient stay d/e needs for IVF for hydration to keep up with frequent diarrhea causing renal failure and need to go STR Quality Stroke Does the patient have a stroke diagnosis?: No VTE Prior VTE?: No VTE Risk Level:: Medical - moderate - high VTE Device Contraindication: Treatment Not Indicated VTE Drug Contraindication: N/A - Med Ordered
[2022-01-28] MEDS: Multivitamin TABLET 1 TAB PO (11:27)
[2022-01-28] MEDS: Loperamide HCl 2 MG CAPSULE PO (11:27)
[2022-01-28] MEDS: Tamsulosin HCL 0.4 MG CAPSULE PO (11:27)
--- NOTE | 2022-01-28 11:49 | MHC.CLN ---
F/U PT IS SEVERELY MALNOURISHED SEE ALSO FULL CLINICAL NUTRITION ASSESSMENT DATED 01/27/22 PO INTAKE 50% X2 MEALS DIET RX: REGULAR-APPROPRIATE PT RECEIVING ENSURE BID TO INCREASE KCALS PROVIDES 700KCALS, 40G PROTEIN DIARRHEA CONTINUES PER PT; ENCOURAGED FLUIDS MONITOR PO INTAKE CLOSELY
[2022-01-29] VITALS: BP 137/63; PULSE 67; RESP 16; TEMP 35.9; O2SAT 96
[2022-01-29 03:23] VITALS: BP 142/66; PULSE 75; RESP 18; TEMP 36.8; O2SAT 96
[2022-01-29] MEDS: 0.9 % Sodium Chloride 1,000 ML 100 ML IVCONT ×2 (06:16→15:54)
--- NOTE | 2022-01-29 09:54 | PM.PNNEP ---
Subjective Subjective Date of Service: 03/21/22 Interval history: F/u on weakness, diarrha, BLAS--still has diarrhea, C dif negative x 2, still with diarrhea Physical Exam Vital Signs: Vital Signs: Last Vital Signs Temp 98.3 F 01/29/22 03:23 Pulse 75 01/29/22 03:23 Resp 18 01/29/22 03:23 BP 142/66 H 01/29/22 03:23 Pulse Ox 96 01/29/22 03:23 BMI result Body Mass Index 21.1 Const: Other: Constitutional: Alert, in no distress, generaly weak Mental Status: Oriented to person, place and time. Eyes: Pupils are equal, round and reactive to light. Ear, Nose and Throat: Oropharynx clear, mucous membranes moist. . Trachea midline. Respiratory: Clear to auscultation. No wheezing, rales or rhonchi. Cardiovascular: S1 S2 regular. No murmurs, rubs or gallops. Gastrointestinal: Abdomen soft, non-tender, non-distended. Normal bowel sounds.? Neurologic: Cranial nerves II-XII grossly intact. No focal neurological deficits. Moves all extremities spontaneously.? Skin: No rashes or lesions.? Musculoskeletal: No cyanosis or clubbing. Psychiatric: Normal mood and affect? 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 BLAS superimposde on CKD in a setting of [place] Right kidney Probably has hypoperfusion from diarrhea No obstruction Work up for GN in progress- serologies ordered ; Thus far , not impressive Continue to keep I > O and avoid hypotension No indication for dialysis Time Spent With Patient Time: Total time spent is greater than 50% in coordination of care (as documented) at patient's floor/unit and/or counseling patient: Time with patient: 15 - 24 minutes Progress Note: Quality Stroke Does the patient have a stroke diagnosis?: No
[2022-01-29] MEDS: Tamsulosin HCL 0.4 MG CAPSULE PO (10:33)
[2022-01-29] MEDS: Multivitamin TABLET 1 TAB PO (10:35)
[2022-01-29] MEDS: Apixaban 2.5 MG TABLET PO ×2 (10:35→20:42)
[2022-01-29 10:53] LABS: Anion Gap 9 (12-20); Blood Urea Nitrogen 36 mg/dL (9-16); Carbon Dioxide 16 mmol/L (22-29); Chloride 117 mmol/L (96-108); Creatinine Clr Calc Pharmacy 18.6; Estimated Glomerular Filt Rate 26; Glucose Random 138 mg/dL (60-115); Potassium 4.2 mmol/L (3.3-5.1); Sodium 138 mmol/L (135-145)
[2022-01-29 11:11] VITALS: BP 126/63; PULSE 66; RESP 18; TEMP 37.4; O2SAT 97
[2022-01-29 15:52] VITALS: BP 156/84; PULSE 76; TEMP 37; O2SAT 98
[2022-01-29 19:47] VITALS: BP 148/86; PULSE 76; TEMP 37.4; O2SAT 98
[2022-01-29] MEDS: 0.9 % Sodium Chloride Flush 3 ML SYRINGE IVFLUSH (20:42)
[2022-01-29] MEDS: Acetaminophen 325 MG TABLET 650 MG PO (22:19)
[2022-01-29 23:04] VITALS: BP 125/60; PULSE 70; RESP 20; TEMP 36.5; O2SAT 95
[2022-01-30 08:00] VITALS: BP 142/71; PULSE 72; RESP 18; TEMP 37; O2SAT 97
--- NOTE | 2022-01-30 08:12 | P.PNIM_ITS ---
Subjective Subjective Date of Service: 01/30/22 Interval History: F/u on weakness, diarrha, BLAS--persistent diarrhea, C dif negative x 2, diarrhea is better on imodium... Review of Systems no fever +diarrhea, no abd pain Physical Exam Vital Signs: Vital Signs: Last Vital Signs Temp 98.6 F 01/30/22 08:00 Pulse 72 01/30/22 08:00 Resp 18 01/30/22 08:00 BP 142/71 H 01/30/22 08:00 Pulse Ox 97 01/30/22 08:00 BMI result Body Mass Index 21.1 Objective Data Active Medications Acetaminophen (Acetaminophen 325 Mg Tablet) 650 mg PO Q6H PRN PRN Reason: Breakthrough Pain Last Admin: 01/29/22 22:19 Dose: 650 mg Documented by: GIANNA Apixaban (Apixaban 2.5 Mg Tablet) 2.5 mg PO BID [facility] Last Admin: 01/29/22 20:42 Dose: 2.5 mg Documented by: GIANNA Loperamide HCl (Loperamide Hcl 2 Mg Capsule) 2 mg PO Q6H PRN PRN Reason: Diarrhea Last Admin: 01/28/22 11:27 Dose: 2 mg Documented by: BRIANNA Multivitamins/Vitamin C (Multivitamin Tablet) 1 tab PO DAILY [facility] Last Admin: 01/29/22 10:35 Dose: 1 tab Documented by: CALE Sodium Chloride (0.9 % Sodium Chloride Flush 3 Ml Syringe) 3 ml IVFLUSH QSHIFT [facility] Last Admin: 01/29/22 20:42 Dose: 3 ml Documented by: GIANNA Tamsulosin HCl (Tamsulosin Hcl 0.4 Mg Capsule) 0.4 mg PO DAILY [facility] Last Admin: 01/29/22 10:33 Dose: 0.4 mg Documented by: CALE Labs CBC & Chem 7: 01/28/22 09:04 01/29/22 10:26 Labs: Laboratory Results - last 24 hr 01/29/22 10:26 Anion Gap 9 L Estim Creat Clear Calc 18.6 Estimated GFR 26 Random Glucose 138 H Calcium 9.0 Assessment and Plan (1) BLAS (acute kidney injury): Status: Acute (2) Diarrhea: Status: Acute (3) Weakness: Status: Acute Plan 86 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 1/Diarrhea unclear etiology, C dif negative x 2, CT no acut finding -imodium for control, hydrate 2/Weakness from diarrha and dehydration, he is doing ok, was able to ambulate in [place] with staff assistance 3/BLAS on CKD 3--from diarrrhea and decrease oral intake, hydrate and follow renal function which is a bit better. Renal US 01/28:Right renal cysts. Largest cyst is a 9 x 7 x 8 cm slightly complex cyst with mobile echogenic debris. Complex appearance or echogenic debris is a new finding compared to previous ultrasound November 2021.. 4/h/o stroke on Eliquis--H/H is stable so will continue 5/BPH.. Flomax 6/HLD-statin 7/ITP-Platlets normal DVT prophylaxis--Eliquis He comes from [facility] and staff is concern that he is no longer a fit for that place PT is recommending STR inpatient stay d/e needs for IVF for hydration to keep up with frequent diarrhea causing renal failure and need to go STR Quality Stroke Does the patient have a stroke diagnosis?: No VTE Prior VTE?: No VTE Risk Level:: Medical - moderate - high VTE Device Contraindication: Treatment Not Indicated VTE Drug Contraindication: N/A - Med Ordered
[2022-01-30] MEDS: Apixaban 2.5 MG TABLET PO ×2 (09:50→21:43)
[2022-01-30] MEDS: Loperamide HCl 2 MG CAPSULE PO ×2 (09:50→21:43)
[2022-01-30] MEDS: Multivitamin TABLET 1 TAB PO (09:50)
[2022-01-30] MEDS: 0.9 % Sodium Chloride Flush 3 ML SYRINGE IVFLUSH ×3 (09:50→22:03)
[2022-01-30] MEDS: Tamsulosin HCL 0.4 MG CAPSULE PO (09:50)
--- NOTE | 2022-01-30 10:06 | PM.PNNEP ---
Subjective Subjective Date of Service: 01/30/22 Interval history: F/u on weakness, diarrha, BLAS--persistent diarrhea, C dif negative x 2, diarrhea is better on imodium... Feels better Physical Exam Vital Signs: Vital Signs: Last Vital Signs Temp 98.6 F 01/30/22 08:00 Pulse 72 01/30/22 08:00 Resp 18 01/30/22 08:00 BP 142/71 H 01/30/22 08:00 Pulse Ox 97 01/30/22 08:00 BMI result Body Mass Index 21.1 Const: Other: Constitutional: Alert, in no distress, generaly weak Mental Status: Oriented to person, place and time. Eyes: Pupils are equal, round and reactive to light. Ear, Nose and Throat: Oropharynx clear, mucous membranes moist. . Trachea midline. Respiratory: Clear to auscultation. No wheezing, rales or rhonchi. Cardiovascular: S1 S2 regular. No murmurs, rubs or gallops. Gastrointestinal: Abdomen soft, non-tender, non-distended. Normal bowel sounds.? Neurologic: Cranial nerves II-XII grossly intact. No focal neurological deficits. Moves all extremities spontaneously.? Skin: No rashes or lesions.? Musculoskeletal: No cyanosis or clubbing. Psychiatric: Normal mood and affect? 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 BLAS superimposde on CKD in a setting of [place] Right kidney Probably has hypoperfusion from diarrhea No obstruction Work up for GN in progress- serologies ordered ; Thus far , not impressive Continue to keep I > O and avoid hypotension No indication for dialysis Creatinine is trending down. No labs today Check tomorrow Time Spent With Patient Time: Total time spent is greater than 50% in coordination of care (as documented) at patient's floor/unit and/or counseling patient: Time with patient: 15 - 24 minutes Progress Note: Quality Stroke Does the patient have a stroke diagnosis?: No
[2022-01-30 11:34] VITALS: BP 149/72; PULSE 70; RESP 18; TEMP 36.7; O2SAT 97
[2022-01-30 15:24] VITALS: BP 135/63; PULSE 60; RESP 14; TEMP 36.8; O2SAT 95
[2022-01-30 19:20] VITALS: BP 143/67; PULSE 73; RESP 18; TEMP 36.2; O2SAT 97
[2022-01-30] MEDS: Acetaminophen 325 MG TABLET 650 MG PO (21:42)
[2022-01-31 02:48] VITALS: BP 154/72; PULSE 71; RESP 18; TEMP 36.4; O2SAT 95
[2022-01-31 07:28] VITALS: BP 148/80; PULSE 81; RESP 20; TEMP 36.7; O2SAT 96
[2022-01-31] MEDS: 0.9 % Sodium Chloride Flush 3 ML SYRINGE IVFLUSH ×2 (09:08→17:00)
[2022-01-31] MEDS: Multivitamin TABLET 1 TAB PO (09:08)
[2022-01-31] MEDS: Apixaban 2.5 MG TABLET PO ×2 (09:08→19:51)
[2022-01-31] MEDS: Tamsulosin HCL 0.4 MG CAPSULE PO (09:08)
--- NOTE | 2022-01-31 09:13 | P.PNIM_ITS ---
Subjective Subjective Date of Service: 01/31/22 Interval History: F/u on weakness, diarrha, BLAS--persistent diarrhea, C dif negative x 2, diarrhea is better on imodium... Review of Systems no fever +diarrhea, no abd pain Physical Exam Vital Signs: Vital Signs: Last Vital Signs Temp 98.0 F 01/31/22 07:28 Pulse 81 01/31/22 07:28 Resp 20 01/31/22 07:28 BP 148/80 H 01/31/22 07:28 Pulse Ox 96 01/31/22 07:28 BMI result Body Mass Index 21.1 Objective Data Active Medications Acetaminophen (Acetaminophen 325 Mg Tablet) 650 mg PO Q6H PRN PRN Reason: Breakthrough Pain Last Admin: 01/30/22 21:42 Dose: 650 mg Documented by: MARILOU Apixaban (Apixaban 2.5 Mg Tablet) 2.5 mg PO BID [facility] Last Admin: 01/31/22 09:08 Dose: 2.5 mg Documented by: MARTHA Artificial Tears (Artificial Tears 15 Ml Drops) 1 drop EYE-BOTH Q4H PRN PRN Reason: Dryness Loperamide HCl (Loperamide Hcl 2 Mg Capsule) 2 mg PO Q6H PRN PRN Reason: Diarrhea Last Admin: 01/30/22 21:43 Dose: 2 mg Documented by: MARILOU Multivitamins/Vitamin C (Multivitamin Tablet) 1 tab PO DAILY [facility] Last Admin: 01/31/22 09:08 Dose: 1 tab Documented by: MARTHA Sodium Chloride (0.9 % Sodium Chloride Flush 3 Ml Syringe) 3 ml IVFLUSH QSHIFT [facility] Last Admin: 01/31/22 09:08 Dose: 3 ml Documented by: MARTHA Tamsulosin HCl (Tamsulosin Hcl 0.4 Mg Capsule) 0.4 mg PO DAILY [facility] Last Admin: 01/31/22 09:08 Dose: 0.4 mg Documented by: MARTHA Labs CBC & Chem 7: 01/28/22 09:04 01/29/22 10:26 Assessment and Plan (1) BLAS (acute kidney injury): Status: Acute (2) Diarrhea: Status: Acute (3) Weakness: Status: Acute Plan 86 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 1/Diarrhea unclear etiology, C dif negative x 2, CT no acut finding -imodium for control, hydrate. GI eval 2/Weakness from diarrha and dehydration, he is doing ok, was able to ambulate in [place] with staff assistance 3/BLAS on CKD 3--from diarrrhea and decrease oral intake, hydrate and follow renal function which is a bit better. Renal US 01/28:Right renal cysts. Largest cyst is a 9 x 7 x 8 cm slightly complex cyst with mobile echogenic debris. Complex appearance or echogenic debris is a new finding compared to previous ultrasound November 2021.. 4/h/o stroke on Eliquis--H/H is stable so will continue 5/BPH.. Flomax 6/HLD-statin 7/ITP-Platlets normal DVT prophylaxis--Eliquis He comes from [facility] and staff is concern that he is no longer a fit for that place PT is recommending STR inpatient stay d/e needs for IVF for hydration to keep up with frequent diarrhea causing renal failure and need to go STR Quality Stroke Does the patient have a stroke diagnosis?: No VTE Prior VTE?: No VTE Risk Level:: Medical - moderate - high VTE Device Contraindication: Treatment Not Indicated VTE Drug Contraindication: N/A - Med Ordered
[2022-01-31 09:45] VITALS: BP 148/80; PULSE 81; O2SAT 96
[2022-01-31 11:12] VITALS: BP 140/76; PULSE 80; RESP 20; TEMP 36.2; O2SAT 97
--- NOTE | 2022-01-31 13:09 | MHC.CLN ---
F/U PT IS SEVERELY MALNOURISHED SEE ALSO FULL CLINICAL NUTRITION ASSESSMENT DATED 01/27/22 PO INTAKE VARIABLE PER MANAGER [employer] DEPARTMENT DIET RX: REGULAR-APPROPRIATE PT RECEIVING ENSURE BID TO INCREASE KCALS PROVIDES 700KCALS (39% EST KCAL NEEDS), 40G PROTEIN (56% EST PROTEIN NEEDS) CONTINUE TO MONITOR PO INTAKE CLOSELY
[2022-01-31 13:27] LABS: Prot Elec - Albumin 2.5 g/dL (3.8-4.8); Prot Elec - Alpha1 0.4 g/dL (0.2-0.3); Prot Elec - Alpha2 0.7 g/dL (0.5-0.9); Prot Elec - Beta 1 0.3 g/dL (0.4-0.6); Prot Elec - Beta 2 0.3 g/dL (0.2-0.5); Prot Elec - Gamma 1.5 g/dL (0.8-1.7); Prot Elec - Total Protein 5.7 g/dL (6.1-8.1)
--- NOTE | 2022-01-31 14:31 | CONS_ITS ---
DATE OF SERVICE: 01/28/2022 REASON FOR CONSULTATION: I was called to see this patient to assist in management of chronic kidney disease. HISTORY OF PRESENT ILLNESS: To summarize, Jean is an 86-year-old man with a history of hypertension, chronic kidney disease, history of chronic ITP status post splenectomy, rosacea, renal cell carcinoma status post left nephrectomy in 2019, because of diarrhea, he has a superimposed acute kidney injury and hence this consultation. He recently had an episode of CVA back on January 02. He is currently on anticoagulation. PAST MEDICAL HISTORY: Ongoing medical problems include thrombocytopenic purpura, anemia of chronic kidney disease, history of renal cancer status post left nephrectomy, history of stroke. FAMILY HISTORY: Not significant for admission. SURGICAL HISTORY: Includes left nephrectomy and tonsillectomy. SOCIAL HISTORY: Lives in assisted living facility. No history of any smoking at present. History of smoking in the past. ALLERGIES: HE IS ALLERGIC TO FOSTAMATINIB, STATINS, AND WELLBUTRIN. MEDICATIONS: All home medications were reviewed. REVIEW OF SYSTEMS: Positive for diarrhea. No abdominal pain. No nausea, vomiting. No weakness. No fever. No rash. All other systems were reviewed. PHYSICAL EXAMINATION: GENERAL: Jean is an elderly man who is comfortable not in distress. NECK: Supple. No JVD. LUNGS: Air entry equal. Few rhonchi. No rales. HEART: S1, S2. No gallop or rub. ABDOMEN: Soft, nontender. EXTREMITIES: No edema. LABORATORY DATA: Hemoglobin 10.5, platelets 137. Chloride 113, CO2 of 18, BUN 40, creatinine 2.44. Baseline creatinine is around 1.1. IMPRESSION: An 86-year-old man with renal cell carcinoma status post left nephrectomy and thrombocytopenic purpura, admitted with diarrhea and superimposed acute kidney injury. Acute kidney injury is most likely due to hypoperfusion from diarrhea. He has hyperchloremic metabolic acidosis due to bicarb loss in the stools. Obstructive uropathy should be ruled out. There is no clinical evidence of any acute trauma, nephritis, or interstitial disease, but we will rule it out as well. My recommendation is to obtain a spot urine for sodium, creatinine, protein, renal ultrasonogram. Keep intake more than output. Add sodium bicarbonate orally. The renal function returned to baseline. No indication for dialysis. We will follow him along with the team. MD SIDNEY Huerta/YAMILE / [id number]
--- NOTE | 2022-01-31 14:37 | MHC.CM.PN ---
pts dc atrranged for 4 today to [facility] bookied pt and intensive care unit registered nurse jay song [phone] covid requested ,gi needs to see pt prior to dc amb put on hold
--- NOTE | 2022-01-31 15:54 | MHC.CM.PN ---
dc postphoned till tomorrow all parties notified plan is for dc tomorrow
[2022-01-31 16:00] VITALS: BP 161/85; PULSE 70; RESP 19; TEMP 36.9; O2SAT 95
[2022-01-31 16:10] LABS: Anion Gap 9 (12-20); Blood Urea Nitrogen 33 mg/dL (9-16); Calcium 9.4 mg/dL (8.4-10.2); Carbon Dioxide 18 mmol/L (22-29); Chloride 116 mmol/L (96-108); Estimated Glomerular Filt Rate 25; Glucose Random 116 mg/dL (60-115); Potassium 4.2 mmol/L (3.3-5.1); Sodium 139 mmol/L (135-145)
[2022-01-31 18:32] LABS: Complement C3 41 mg/dL
[2022-01-31 19:16] VITALS: BP 152/76; PULSE 72; RESP 17; TEMP 37.3; O2SAT 97
--- NOTE | 2022-01-31 19:37 | PM.PNNEP ---
Subjective Subjective Date of Service: 01/31/22 Interval history: Seen and examined, events noted Physical Exam Vital Signs: Vital Signs: Last Vital Signs Temp 99.2 F 01/31/22 19:16 Pulse 72 01/31/22 19:16 Resp 17 01/31/22 19:16 BP 152/76 H 01/31/22 19:16 Pulse Ox 97 01/31/22 19:16 BMI result Body Mass Index 21.1 Const: Other: Constitutional: Alert, in no distress, generaly weak Mental Status: Oriented to person, place and time. Eyes: Pupils are equal, round and reactive to light. Ear, Nose and Throat: Oropharynx clear, mucous membranes moist. . Trachea midline. Respiratory: Clear to auscultation. No wheezing, rales or rhonchi. Cardiovascular: S1 S2 regular. No murmurs, rubs or gallops. Gastrointestinal: Abdomen soft, non-tender, non-distended. Normal bowel sounds.? Neurologic: Cranial nerves II-XII grossly intact. No focal neurological deficits. Moves all extremities spontaneously.? Skin: No rashes or lesions.? Musculoskeletal: No cyanosis or clubbing. Psychiatric: Normal mood and affect? Objective Data Labs CBC & Chem 7: 01/28/22 09:04 01/31/22 15:45 Labs: Laboratory Results - last 24 hr 01/29/22 01/31/22 10:26 15:45 Sodium 139 Potassium 4.2 Chloride 116 H Carbon Dioxide 18 L Anion Gap 9 L BUN 33 H Creatinine 2.47 H Estim Creat Clear Calc 18.0 Estimated GFR 25 Random Glucose 116 H Calcium 9.4 Total Protein (PEP) 5.7 L Albumin (PEP) 2.5 L Uqrrz-5-Bhslygblb 0.4 H Mnfqg-8-Edtngulco 0.7 Chyq-1-Dodwtcyj 0.3 L Lcue-4-Jxyziyot 0.3 Gamma Globulins 1.5 PEP Interpretation SEE NOTE Complement C3 41 Complement C4 4 Procedures Date of Service Date of Service: 01/31/22 Assessment & Plan Assessment and plan (1) Diarrhea: Status: Acute (2) BLAS (acute kidney injury): Status: Acute (3) Weakness: Status: Acute Plan 86 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 1. Non-Oliguric BLAS: c/w dehydration/renal hypoperfusion--ques delayed recovery to BSL 2.CKD 3b: BSL SCr 1.5-2.0 3. Dehydration: diarrhea 4. NAGMA: d/t diarrhea REC: cont IVF; follow UOP/renal func; avoid NToxins Time Spent With Patient Time: Total time spent is greater than 50% in coordination of care (as documented) at patient's floor/unit and/or counseling patient: Progress Note: Quality Stroke Does the patient have a stroke diagnosis?: No
[2022-01-31] MEDS: Acetaminophen 325 MG TABLET 650 MG PO (19:51)
[2022-01-31] MEDS: Loperamide HCl 2 MG CAPSULE PO (19:52)
[2022-01-31] MEDS: Artificial Tears 15 ML DROPS 1 DROP EYE-BOTH (19:58)
[2022-01-31 21:36] LABS: Anti Glomerular Basement Memb <1.0 AI; Myeloperoxidase Antibody <1.0 AI; Proteinase 3 PR3 Antibodies <1.0 AI
--- NOTE | 2022-02-01 02:33 | CONS_ITS ---
DATE OF SERVICE: 01/31/2022 REFERRING PHYSICIAN: Bib Avery MD REASON FOR CONSULTATION: Diarrhea. HISTORY OF PRESENT ILLNESS: The patient is a pleasant 86-year-old man, who was admitted to the hospital on January 26 with weakness, dehydration, and diarrhea. He has a history of ITP and was seen in the Hematology Clinic the day of admission with about 3 weeks history of diarrhea by his report. He was weak and was admitted to the hospital. He received IV fluids and stool testing has been negative for C diff on 2 occasions. He has been treated symptomatically with Imodium and reports improvement in his bowel pattern with the stools firming up. He believes he had a colonoscopy approximately 8 years ago in [place] that was normal. He denies any recent travel, suspect food ingestions, or ill contacts. PAST MEDICAL HISTORY: 1. Renal cell carcinoma, left nephrectomy. 2. ITP with history of splenectomy. 3. Hypertension. 4. Hyperlipidemia. 5. Coronary artery disease. 6. CVA. CURRENT MEDICATIONS: His current medication list is reviewed in the chart. ALLERGIES: THERE ARE MULTIPLE MEDICATION ALLERGIES THAT ARE REVIEWED. FAMILY HISTORY: This is reviewed with the patient and is noncontributory. SOCIAL HISTORY: There is no current tobacco, alcohol, or substance abuse. REVIEW OF SYSTEMS: SKIN: No pruritus. HEENT: Negative. CARDIOPULMONARY: No shortness of breath or chest pain. GASTROINTESTINAL: As above. GENITOURINARY: Negative. NEUROPSYCHIATRIC: Negative. PHYSICAL EXAMINATION: GENERAL: Shows a pleasant male, lying comfortably in bed. VITAL SIGNS: Reviewed in the electronic medical record and are stable. SKIN: Anicteric. HEENT: Shows no scleral icterus. NECK: Without lymphadenopathy or thyromegaly. LUNGS: Clear. HEART: Shows a regular rate and rhythm. S1, S2. No murmur. ABDOMEN: Soft without focal masses or tenderness. Bowel sounds are present. No organomegaly is noted. EXTREMITIES: Without edema. LABORATORY DATA: Includes C diff testing that was negative on January 27 and . IMPRESSION AND PLAN: Diarrhea. At this time, he seems to be improving with symptomatic treatment with Imodium. I would recommend continuing this and obtaining stool specimens to assess for parasites as well as culture. Further evaluation with lower GI tract endoscopy could be considered if his symptoms persist. Thanks for asking me to see him. I will follow him in the hospital with you. MD ARABELLA Bedoya/YAMILE / [id number]
[2022-02-01] MEDS: Loperamide HCl 2 MG CAPSULE PO (07:43)
[2022-02-01] MEDS: Apixaban 2.5 MG TABLET PO ×2 (07:44→20:01)
[2022-02-01] MEDS: Multivitamin TABLET 1 TAB PO (07:44)
[2022-02-01] MEDS: Tamsulosin HCL 0.4 MG CAPSULE PO (07:44)
[2022-02-01 08:10] VITALS: BP 124/68; PULSE 73; RESP 18; TEMP 36.7; O2SAT 97
[2022-02-01 08:46] VITALS: BP 124/68; PULSE 73; RESP 18; TEMP 36.7
[2022-02-01] MEDS: Sodium Bicarbonate 650 MG TABLET PO ×2 (09:33→20:01)
[2022-02-01] MEDS: Lactated Ringers 1,000 ML 80 ML IVCONT (11:53)
--- NOTE | 2022-02-01 14:41 | HO.PM.IMPN ---
Subjective Subjective Date of Service: 02/01/22 Interval History: Diarrhea, generalized weak, poor oral intake Review of Systems Still has significant diarrhea, feels afraid to eat Denies any chest pain or shortness of breath or abdominal pain or fever chills or cough or phlegm. Physical Exam Vital Signs: Vital Signs: Last Vital Signs Temp 98.0 F 02/01/22 08:46 Pulse 73 02/01/22 08:46 Resp 18 02/01/22 08:46 BP 124/68 02/01/22 08:46 Pulse Ox 97 02/01/22 08:10 BMI result Body Mass Index 21.1 Appearance: Alert.? Oriented X3.? not in distress.? cvs: rrr, [id number] . res: clear to auscultation ,no rhonchii or wheezing abd: no rebound or guarding ,nt, bs present. ext pulses present , no cyanosis . neuro: axo3 , nonfocal. Objective Data Active Medications Acetaminophen (Acetaminophen 325 Mg Tablet) 650 mg PO Q6H PRN PRN Reason: Breakthrough Pain Last Admin: 01/31/22 19:51 Dose: 650 mg Documented by: MARILOU Apixaban (Apixaban 2.5 Mg Tablet) 2.5 mg PO BID [facility] Last Admin: 02/01/22 07:44 Dose: 2.5 mg Documented by: NOLAN Artificial Tears (Artificial Tears 15 Ml Drops) 1 drop EYE-BOTH Q4H PRN PRN Reason: Dryness Last Admin: 01/31/22 19:58 Dose: 1 drop Documented by: MARILOU Lactated Ringer's (Lr) 1,000 mls @ 80 mls/hr IVCONT .[id number] [facility] Last Admin: 02/01/22 11:53 Dose: 80 mls/hr Documented by: MARTHA Loperamide HCl (Loperamide Hcl 2 Mg Capsule) 2 mg PO Q6H PRN PRN Reason: Diarrhea Last Admin: 02/01/22 07:43 Dose: 2 mg Documented by: NOLAN Multivitamins/Vitamin C (Multivitamin Tablet) 1 tab PO DAILY [facility] Last Admin: 02/01/22 07:44 Dose: 1 tab Documented by: NOLAN Sodium Bicarbonate (Sodium Bicarbonate 650 Mg Tablet) 650 mg PO BID [facility] Last Admin: 02/01/22 09:33 Dose: 650 mg Documented by: MARTHA Sodium Chloride (0.9 % Sodium Chloride Flush 3 Ml Syringe) 3 ml IVFLUSH QSHIFT [facility] Last Admin: 02/01/22 07:45 Dose: Not Given Documented by: NOLAN Non-Admin Reason: No Access Tamsulosin HCl (Tamsulosin Hcl 0.4 Mg Capsule) 0.4 mg PO DAILY [facility] Last Admin: 02/01/22 07:44 Dose: 0.4 mg Documented by: NOLAN Labs CBC & Chem 7: 01/28/22 09:04 01/31/22 15:45 Labs: Laboratory Results - last 24 hr 01/29/22 01/31/22 10:26 15:45 Anion Gap 9 L Estim Creat Clear Calc 18.0 Estimated GFR 25 Random Glucose 116 H Calcium 9.4 Proteinase 3 (PR3) Ab <1.0 Myeloperoxidase Ab <1.0 Glomerular Base Memb Ab <1.0 Complement C3 41 Complement C4 4 Assessment and Plan (1) Diarrhea: Status: Acute Plan 86 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 1/Diarrhea unclear etiology, C dif negative x 2, CT no acut finding -imodium for control, hydrate. GI eval-added stool culture, ova and parasite. Patient still has significant diarrhea, p.o. intake is low, added Zofran for nausea. Patient still generally weak 2/Weakness from diarrha and dehydration, he is doing ok, was able to ambulate in [place] with staff assistance. 3/BLAS on CKD 3--from diarrrhea and decrease oral intake, hydrate and follow renal function which is a bit better. ? Renal US 01/28:Right renal cysts. Largest cyst is a 9 x 7 x 8 cm slightly complex cyst with mobile echogenic debris. Complex appearance or echogenic debris is a new finding compared to previous ultrasound November 2021.. 4/h/o stroke on Eliquis--H/H is stable so will continue 5/BPH.. Flomax 6/HLD-statin 7/ITP-Platlets normal Monitor CBC DVT prophylaxis--Eliquis Due to still significant diarrhea, oral intake is poor, still generalized weak,blas-will will continue IV hydration, Imodium, monitor-once oral intake and diarrhea improves. He comes from [facility] and staff is concern that he is no longer a fit for that place. PT is recommending STR inpatient stay d/e needs for IVF for hydration to keep up with frequent diarrhea causing renal failure and need to go STR Quality Stroke Does the patient have a stroke diagnosis?: No VTE Prior VTE?: No VTE Risk Level:: Medical - moderate - high VTE Device Contraindication: Treatment Not Indicated VTE Drug Contraindication: N/A - Med Ordered
[2022-02-01 15:14] LABS: Mean Corpuscular Volume 87.5 fL (80.0-98.0)
[2022-02-01 15:16] LABS: Hematocrit 30.2 % (42.0-52.0); Hemoglobin 9.9 g/dl (14.0-18.0); Mean Corpuscular HGB Conc 32.8 g/dl (31.0-36.0); Mean Corpuscular Hemoglobin 28.7 pg (27.0-33.0); Red Blood Count 3.45 X10*6/uL (4.60-5.80); White Blood Count 7.5 X10*3/uL (4.8-10.8)
[2022-02-01 15:58] LABS: PLT ABN DIST 1; Platelet Count 34 X10*3/uL (160-400)
[2022-02-01 16:00] VITALS: BP 152/71; PULSE 73; RESP 18; TEMP 37.3; O2SAT 97
--- NOTE | 2022-02-01 19:29 | P.PNNP_ITS ---
Subjective Subjective Date of Service: 02/01/22 Interval history: Seen and examined, events noted Physical Exam Vital Signs: Vital Signs: Last Vital Signs Temp 99.1 F 02/01/22 16:00 Pulse 73 02/01/22 16:00 Resp 18 02/01/22 16:00 BP 152/71 H 02/01/22 16:00 Pulse Ox 97 02/01/22 16:00 BMI result Body Mass Index 21.1 Const: Other: Constitutional: Alert, in no distress, generaly weak Mental Status: Oriented to person, place and time. Eyes: Pupils are equal, round and reactive to light. Ear, Nose and Throat: Oropharynx clear, mucous membranes moist. . Trachea midline. Respiratory: Clear to auscultation. No wheezing, rales or rhonchi. Cardiovascular: S1 S2 regular. No murmurs, rubs or gallops. Gastrointestinal: Abdomen soft, non-tender, non-distended. Normal bowel sounds.? Neurologic: Cranial nerves II-XII grossly intact. No focal neurological deficits. Moves all extremities spontaneously.? Skin: No rashes or lesions.? Musculoskeletal: No cyanosis or clubbing. Psychiatric: Normal mood and affect? 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 1. Non-Oliguric BLAS: c/w dehydration/renal hypoperfusion--ques delayed recovery to BSL 2.CKD 3b: BSL SCr 1.5-2.0 3. Dehydration: diarrhea 4. NAGMA: d/t diarrhea REC: cont IVF; follow UOP/renal func; avoid NToxins check renal labs in am Time Spent With Patient Time: Total time spent is greater than 50% in coordination of care (as documented) at patient's floor/unit and/or counseling patient: Progress Note: Quality Stroke Does the patient have a stroke diagnosis?: No
[2022-02-01 20:00] VITALS: BP 125/50; PULSE 64; TEMP 37.2; O2SAT 95
[2022-02-01] MEDS: 0.9 % Sodium Chloride Flush 3 ML SYRINGE IVFLUSH (20:04)
[2022-02-02] MEDS: Lactated Ringers 1,000 ML 80 ML IVCONT ×2 (03:04→20:00)
[2022-02-02 04:00] VITALS: BP 152/71; PULSE 82; RESP 16; TEMP 37.2; O2SAT 94
[2022-02-02 07:08] LABS: Anion Gap 11 (12-20); Blood Urea Nitrogen 32 mg/dL (9-16); Calcium 9.5 mg/dL (8.4-10.2); Carbon Dioxide 18 mmol/L (22-29); Chloride 116 mmol/L (96-108); Creatinine Clr Calc Pharmacy 17.8; Estimated Glomerular Filt Rate 25; Glucose Random 88 mg/dL (60-115); Sodium 141 mmol/L (135-145)
[2022-02-02 07:19] VITALS: BP 137/64; PULSE 70; RESP 19; TEMP 36.9; O2SAT 96
--- NOTE | 2022-02-02 08:49 | P.PNIM_ITS ---
Subjective Subjective Date of Service: 02/03/22 Interval History: itp, dirrahae Review of Systems Diarrhea -still has significant diarrhea overnight, his platelets count are also dropping but no blood in the stool. Oral intake is still poor Denies any chest pain or shortness of breath or fever or chills Physical Exam Vital Signs: Vital Signs: Last Vital Signs Temp 98.5 F 02/02/22 07:19 Pulse 70 02/02/22 07:19 Resp 19 02/02/22 07:19 BP 137/64 02/02/22 07:19 Pulse Ox 96 02/02/22 07:19 BMI result Body Mass Index 21.1 Appearance: Alert.? Oriented X3.? not in distress.? cvs: rrr, [id number] . res: clear to auscultation ,no rhonchii or wheezing abd: no rebound or guarding ,nt, bs present. ext pulses present , no cyanosis . neuro: axo3 , nonfocal. Objective Data Active Medications Acetaminophen (Acetaminophen 325 Mg Tablet) 650 mg PO Q6H PRN PRN Reason: Breakthrough Pain Last Admin: 01/31/22 19:51 Dose: 650 mg Documented by: MARILOU Apixaban (Apixaban 2.5 Mg Tablet) 2.5 mg PO BID [facility] Last Admin: 02/01/22 20:01 Dose: 2.5 mg Documented by: GIANNA Artificial Tears (Artificial Tears 15 Ml Drops) 1 drop EYE-BOTH Q4H PRN PRN Reason: Dryness Last Admin: 01/31/22 19:58 Dose: 1 drop Documented by: MARILOU Lactated Ringer's (Lr) 1,000 mls @ 80 mls/hr IVCONT .[id number] [facility] Last Admin: 02/02/22 03:04 Dose: 80 mls/hr Documented by: GIANNA Loperamide HCl (Loperamide Hcl 2 Mg Capsule) 2 mg PO Q6H PRN PRN Reason: Diarrhea Last Admin: 02/01/22 07:43 Dose: 2 mg Documented by: NOLAN Multivitamins/Vitamin C (Multivitamin Tablet) 1 tab PO DAILY [facility] Last Admin: 02/01/22 07:44 Dose: 1 tab Documented by: NOLAN Ondansetron HCl (Ondansetron Hcl 4 Mg/2 Ml Vial) 4 mg IVPUSH Q6H PRN PRN Reason: Nausea and Vomiting Sodium Bicarbonate (Sodium Bicarbonate 650 Mg Tablet) 650 mg PO BID [facility] Last Admin: 02/01/22 20:01 Dose: 650 mg Documented by: GIANNA Sodium Chloride (0.9 % Sodium Chloride Flush 3 Ml Syringe) 3 ml IVFLUSH QSHIFT [facility] Last Admin: 02/01/22 20:04 Dose: 3 ml Documented by: GIANNA Tamsulosin HCl (Tamsulosin Hcl 0.4 Mg Capsule) 0.4 mg PO DAILY [facility] Last Admin: 02/01/22 07:44 Dose: 0.4 mg Documented by: NOLAN Labs CBC & Chem 7: 02/03/22 05:54 02/03/22 05:54 Labs: Laboratory Results - last 24 hr 02/01/22 02/02/22 15:05 06:22 MCV 87.5 MCH 28.7 MCHC 32.8 RDW 16.0 Plt Count 34 L D MPV Not Reportable Absolute Nucleated RBC 0.000 Nucleated RBC % (auto) 0.0 Anion Gap 11 L Estim Creat Clear Calc 17.8 Estimated GFR 25 Random Glucose 88 Calcium 9.5 Assessment and Plan (1) Diarrhea: Status: Acute Plan 86 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 1/Diarrhea unclear etiology, C dif negative x 2, CT no acut finding -imodium for control, hydrate. GI eval-added stool culture, ova and parasite. patient condition similar to yesterday-Patient still has significant diarrhea, p.o. intake is low, added Zofran for nausea. Patient still generally weak 2/Weakness from diarrha and dehydration, he is doing ok, was able to ambulate in [place] with staff assistance. 3/BLAS on CKD 3--from diarrrhea and decrease oral intake, hydrate and follow renal function which is a bit better. ? Renal US 01/28:Right renal cysts. Largest cyst is a 9 x 7 x 8 cm slightly complex cyst with mobile echogenic debris. Complex appearance or echogenic debris is a new finding compared to previous ultrasound November 2021.. 4/h/o stroke on Eliquis--H/H is stable so will continue 5/BPH.. Flomax 6/HLD-statin 7/ITP-platlet count drop but slightly better than yesterday added workup -? hus : pt/ptt, ddimer ,adamts 13 hematology eval Due to still significant diarrhea, oral intake is poor, still generalized weak,blas-will will continue IV hydration, Imodium, monitor-once oral intake and diarrhea improves. He comes from [facility] and staff is concern that he is no longer a fit for that place. PT is recommending STR inpatient stay d/e needs for IVF for hydration to keep up with frequent diarrhea causing renal failure and need to go STR Quality Stroke Does the patient have a stroke diagnosis?: No VTE Prior VTE?: No VTE Risk Level:: Medical - moderate - high VTE Device Contraindication: Treatment Not Indicated VTE Drug Contraindication: N/A - Med Ordered
[2022-02-02 09:28] LABS: Hematocrit 31.7 % (42.0-52.0); Hemoglobin 10.3 g/dl (14.0-18.0); Mean Corpuscular HGB Conc 32.5 g/dl (31.0-36.0); Mean Corpuscular Hemoglobin 28.5 pg (27.0-33.0); Mean Corpuscular Volume 87.8 fL (80.0-98.0); Platelet Count 37 X10*3/uL (160-400); Red Blood Count 3.61 X10*6/uL (4.60-5.80); White Blood Count 8.8 X10*3/uL (4.8-10.8)
[2022-02-02] MEDS: Tamsulosin HCL 0.4 MG CAPSULE PO (09:39)
[2022-02-02] MEDS: Sodium Bicarbonate 650 MG TABLET PO ×2 (09:40→22:39)
[2022-02-02] MEDS: Multivitamin TABLET 1 TAB PO (09:45)
[2022-02-02] MEDS: Apixaban 2.5 MG TABLET PO ×2 (09:46→22:39)
[2022-02-02 11:02] VITALS: BP 157/74; PULSE 68; RESP 19; TEMP 37.1; O2SAT 97
[2022-02-02 11:09] VITALS: BP 157/74; PULSE 68; O2SAT 97
--- NOTE | 2022-02-02 12:05 | P.EN_ITS ---
Patient well known to Hematology Service because of longstanding history of chronic ITP who has been maintained on her romiplostim. Recently he was admitted for CVA and started on Eliquis. 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 Last week he developed severe diarrhea with worsening renal failure. 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 Peripheral smear now shows schistocytes. Further blood work including DIC profile, LDH, ADAMTS 13 activity has been s ubmitted.
--- NOTE | 2022-02-02 12:10 | MHC.CLN ---
F/U PT IS SEVERELY MALNOURISHED SEE ALSO FULL CLINICAL NUTRITION ASSESSMENT DATED 01/27/22 PO INTAKE <20% PER PT DIET RX: REGULAR-APPROPRIATE SPOKE WITH PT AND FAMILY MEMBER AT LENGTH REGARDING PO, APPETITE, AND DIARRHEA. NOTE FAMILY MEMBER REPORTED PT'S WT 140# X 3 WEEKS AGO AT DOCTOR APPOINTMENT PT REPORTS DIARRHEA CONTINUES WITH LITTLE TO NO IMPROVEMENT. PT TRIALED B.R.A.T.T. DIET LAST WEEK WITH SOME SUCCESS, BUT NOT MEETING KCAL/PROTEIN NEEDS PT STATED HE IS GOING TO TRY EATING MORE FOODS TODAY AT LUNCH I.E. EGG SALAD SANDWICH, SOUP, BANANA. 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 WILL START ENSURE CLEAR TID TO INCREASE KCALS CONTINUE TO MONITOR PO INTAKE CLOSELY
[2022-02-02] MEDS: romiPLOStim 250 MCG/0.5 ML VIAL 118 MCG SUBCUT (13:58)
[2022-02-02 14:19] LABS: D Dimer High Sensitivity 349 NG/ML; Fibrinogen 491 MG/DL (259-690); INTERNATIONAL NORM RATIO 1.6 (0.9-1.1); Partial Thromboplastin Time 26.6 SEC (24.1-38.0); Prothrombin Time 18.8 SEC (9.9-13.0)
[2022-02-02 15:02] LABS: Lactate Dehydrogenase 123 U/L (118-273)
--- NOTE | 2022-02-02 15:19 | P.CNHO_ITS ---
Subjective - Subjective Chief complaint: Diarrhea, weakness Patient: known to practice within the last 3 years Consult date: 02/02/22 Primary Care Provider: Mauro Smith MD HPI - Consult Narrative Reason for consult: worsening thrombocytopenia, schistocytes Narrative: Jean Del Angel is a 86 year old male well known to me with previous history of chronic ITP, left kidney cancer, status post nephrectomy who is currently admitted for diarrhea, dehydration and acute kidney injury. He was admitted recently, for a CVA in December 2021 and found to have multiple chronic lacunar infarcts in left thalamus and cerebellum. He was started on Eliquis for anticoagulation. About 10 days after previous admission he presented to Hematology Clinic with significant ongoing symptoms of diarrhea and dehydration, weight loss secondary to poor oral intake. Stool for C diff as well as COVID-19 testing was negative. He is responding slightly to hydration and Imodium although his oral food intake remains poor. He has not had any fever or chills. He has not eaten out recently, he lives at [facility]. He was not started on any new medications or antibiotics. Review of Systems - Constitutional Reports as per HPI Oncology Screenings - ECOG Performance Status ECOG Performance Status: 3 [facility] Medical History: Medical History (Last Reviewed 01/28/22 @ 12:01 by France Penn PT) Acute idiopathic thrombocytopenic purpura Acute ITP Anemia with low platelet count CAD (coronary artery disease) Chronic ITP (idiopathic thrombocytopenia) Chronic renal insufficiency Renal cancer Stroke Family History: Family History (Last Reviewed 01/26/22 @ 16:04 by Bib Avery MD) Mother No problems noted. Father No problems noted. Surgical History: Surgical History (Last Reviewed 01/28/22 @ 12:01 by France Penn PT) History of kidney removal History of total splenectomy Social History: Social History (Last Reviewed 01/26/22 @ 16:04 by Bib Avery MD) Living Situation History: Household Members: None Housing: Assisted Living Facility Are you a primary body care manager to a significant other at home: No Do you presently have visiting nurse or other home services: Yes Do you presently have visiting nurse or other home services comment: PRESENTATION SPECIALIST 1x/wk Alcohol History Details: 1. How often do you have a drink containing alcohol?: b. Monthly or less 2. How many drinks containing alcohol do you have on a typical day when you are drinking?: a. 1 or 2 3. How often do you have six or more drinks on one occasion?: a. Never AUDIT-C Alcohol total score: 1 Last drink: Days (ago) Last drink: Unknown Currently Displaying Signs/Symptoms of Alcohol Withdrawal: No Tobacco History: Patient Tobacco Use Status: Former Tobacco user Tobacco use type: Pipe Years Smoked: 60 Smoked in Last 30 Days: No e-Cigarette/Vaping Use: Never Used Patient Interested in Nicotine Replacement: No Patient Given Instructions on How to Stop Smoking: No Second Hand Smoke Exposure: No Substance Use History: Use of substances other than those prescribed or required for medical reasons : No Substance Use Type: Other Currently Displaying Signs/Symptoms of Drug Intoxication Withdrawal: No Domestic Abuse History: Have you been hit, kicked, punched, or otherwise hurt by someone within the past year? If so, by whom?: No Do you feel safe in your current relationship?: Yes Is there a partner from a previous relationship who is making you feel unsafe now?: No Are you made to feel afraid or neglected: No Advance Directives: Advance Directives: Yes Advance Directives on File: Yes Advance Directives Date on File: 01/04/22 Homicidal Assessment: Do you have thoughts of harming others: None Do you have a plan to hurt others: No Plan Nutrition Assessment: Recently lost weight without trying: Yes How much weight loss: 14-23 pounds Nutrition Risks: Anorexia Poor oral hygiene: No Occupation Assessmet: service: Yes Current occupational status: retired Home Medications and Allergies Current Medications: Current Medications Acetaminophen (Acetaminophen 325 Mg Tablet) 650 mg PO Q6H PRN PRN Reason: Breakthrough Pain Last Admin: 01/31/22 19:51 Dose: 650 mg Documented by: Apixaban (Apixaban 2.5 Mg Tablet) 2.5 mg PO BID [facility] Last Admin: 02/02/22 09:46 Dose: 2.5 mg Documented by: Artificial Tears (Artificial Tears 15 Ml Drops) 1 drop EYE-BOTH Q4H PRN PRN Reason: Dryness Last Admin: 01/31/22 19:58 Dose: 1 drop Documented by: Lactated Ringer's (Lr) 1,000 mls @ 80 mls/hr IVCONT .[id number] [facility] Last Admin: 02/02/22 03:04 Dose: 80 mls/hr Documented by: Loperamide HCl (Loperamide Hcl 2 Mg Capsule) 2 mg PO Q6H PRN PRN Reason: Diarrhea Last Admin: 02/01/22 07:43 Dose: 2 mg Documented by: Multivitamins/Vitamin C (Multivitamin Tablet) 1 tab PO DAILY [facility] Last Admin: 02/02/22 09:45 Dose: 1 tab Documented by: Ondansetron HCl (Ondansetron Hcl 4 Mg/2 Ml Vial) 4 mg IVPUSH Q6H PRN PRN Reason: Nausea and Vomiting Sodium Bicarbonate (Sodium Bicarbonate 650 Mg Tablet) 650 mg PO BID [facility] Last Admin: 02/02/22 09:40 Dose: 650 mg Documented by: Sodium Chloride (0.9 % Sodium Chloride Flush 3 Ml Syringe) 3 ml IVFLUSH QSHIFT [facility] Last Admin: 02/02/22 09:47 Dose: Not Given Documented by: Tamsulosin HCl (Tamsulosin Hcl 0.4 Mg Capsule) 0.4 mg PO DAILY [facility] Last Admin: 02/02/22 09:39 Dose: 0.4 mg Documented by: Home Medications Medication Instructions Recorded Confirmed Type multivitamin no.51-ferrous 1 cap PO DAILY 03/03/21 01/27/22 History fumarate 106.5 mg-folic acid 1 mg capsule lutein 20 mg tablet 20 mg PO DAILY 07/05/21 01/27/22 History coenzyme Q10 100 mg capsule 400 mg PO DAILY 07/12/21 01/27/22 History (CoQ-10) [id number]-[id number] C-Mn 500 1 cap PO TID 07/12/21 01/27/22 History mg-400 mg capsule (Glucosamine Chondroitin Maximum Strength) hawthorn 500 mg capsule 510 mg PO DAILY 07/12/21 01/27/22 History garlic 600 mg PO DAILY 12/01/21 01/27/22 History omega-3 fatty acids 1,600 mg PO DAILY 12/01/21 01/27/22 History tamsulosin 0.4 mg capsule (Flomax) 0.4 mg PO DAILY 01/19/22 01/27/22 History Allergies Allergy/AdvReac Type Severity Reaction Status Date / Time bupropion [From WELLBUTRIN] Allergy Unknown Unknown Verified 01/26/22 13:35 fostamatinib [From Tavalisse] AdvReac Severe Diarrhea Verified 01/26/22 13:35 any statin Allergy Unknown Unknown Uncoded 01/26/22 13:35 Physical Exam Vital signs: Vital Signs Temp 98.7 F 02/02/22 11:02 Pulse 68 02/02/22 11:09 Resp 19 02/02/22 11:02 BP 157/74 H 02/02/22 11:09 Pulse Ox 97 02/02/22 11:09 Intake & Output 02/01/22 02/02/22 02/02/22 18:59 06:59 18:59 Intake Total 240 / 1540 1300 / 1540 120 / 120 Output Total 400 / 825 425 / 825 175 / 175 Balance -160 / 715 875 / 715 -55 / -55 Urine Output (Average ml/kg/hr) 0.56 0.60 0.25 Intake: Intake, Oral Amount 240 / 540 300 / 540 120 / 120 Intake, IV Amount 1000 / 1000 Lactated Ringers 1,000 ml @ 80 1000 / 1000 mls/hr IVCONT .[id number] [facility] Rx#: [id number] Output: Output, Urine Amount 400 / 825 425 / 825 175 / 175 Other: Breakfast % Eaten 0% 0% Lunch % Eaten 25% 75% Number of Unmeasured Voids 3 Number of Bowel Movements 1 Urine Bathroom Urinal Urinal Urine Color Yellow Yellow Last Bowel Movement 02/01/22 Stool Bathroom Bedside Commode Stool Amount Large Small Stool Color Brown Brown Stool Consistency Loose Liquid Weight 59.35 kg - Constitutional Present: no acute distress, chronically ill appearing - Routine HEENT Exam Head: Present: normal inspection Eye: Present: EOMI - Routine Neck Exam Absent: swelling - Routine Respiratory Exam Present: CTAB. Absent: accessory muscle use - Routine Cardiovascular Exam Cardiovascular: Present: S1, S2 - Routine Abdominal Exam Present: soft - Routine Extremities Exam Absent: calf tenderness - Routine Skin Exam Present: intact - Routine Neurological Exam Present: alert, oriented X3 Hem/Onc Consult Result - Labs CBC & Chem 7: 02/02/22 09:14 02/02/22 06:22 Labs: Short CBC 02/01/22 02/02/22 Range/Units 15:05 09:14 WBC 7.5 8.8 (4.8-10.8) X10*3/uL Hgb 9.9 L 10.3 L (14.0-18.0) g/dl Hct 30.2 L 31.7 L (42.0-52.0) % Plt Count 34 L D 37 L (160-400) X10*3/uL BMP 02/02/22 06:22 Sodium 141 Potassium 4.0 Chloride 116 H Carbon Dioxide 18 L BUN 32 H Creatinine 2.50 H Calcium 9.5 Assessment and Plan Patient Active problem list reviewed?: Yes (1) Thrombocytopenia Problem details: cont to see heme; same meds; 20 min reviewing chart eval pt and documenting Status: Chronic Assessment and plan: 1. 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 He was diagnosed and treated initially in [place], received rituximab, Nplate and finally splenectomy. He has been tapered off steroids completely. He has been receiving romiplostim on a weekly or biweekly basis. Unclear etiology for his ongoing diarrhea. Stool culture is pending. Suspicion for thrombotic microangiopathy was raised because of worsening platelet counts along with few schistocytes and many acanthocytes seen on peripheral smear today. Some of these findings could be as a result of previous splenectomy as well. 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 Fortunately, LDH is normal, fibrinogen and coagulation tests are normal. Mild elevation in PT/ INR could be nutritional. LFTs are pending. Romiplostim 2 mg/kg was administered today. I thank you for this consultation, will follow with you. - Time Spent With Patient Time Spent with Patient (in minutes): 15
[2022-02-02 15:47] LABS: Alanine Aminotransferase < 6 U/L (0-40); Albumin Level 2.3 g/dL (3.5-5.0); Alkaline Phosphatase 75 U/L (39-117); Aspartate Amino Transferase 12 U/L (5-37); Bilirubin Direct 0.2 mg/dL (0.0-0.5); Bilirubin Total 0.3 mg/dL (0.0-1.0); Total Protein 5.4 g/dL (6.5-8.0)
[2022-02-02 16:00] VITALS: BP 172/81; PULSE 77; RESP 18; TEMP 37.2; O2SAT 96
--- NOTE | 2022-02-02 16:01 | MHC.CM.PN ---
per rounds today pt still having diaherea not dc ready
--- NOTE | 2022-02-02 18:43 | PM.PNNEP ---
Subjective Subjective Date of Service: 02/02/22 Interval history: seen and examined,e vents noted Physical Exam Vital Signs: Vital Signs: Last Vital Signs Temp 98.9 F 02/02/22 16:00 Pulse 77 02/02/22 16:00 Resp 18 02/02/22 16:00 BP 172/81 H 02/02/22 16:00 Pulse Ox 96 02/02/22 16:00 BMI result Body Mass Index 21.1 Const: Other: Constitutional: Alert, in no distress, generaly weak Mental Status: Oriented to person, place and time. Eyes: Pupils are equal, round and reactive to light. Ear, Nose and Throat: Oropharynx clear, mucous membranes moist. . Trachea midline. Respiratory: Clear to auscultation. No wheezing, rales or rhonchi. Cardiovascular: S1 S2 regular. No murmurs, rubs or gallops. Gastrointestinal: Abdomen soft, non-tender, non-distended. Normal bowel sounds.? Neurologic: Cranial nerves II-XII grossly intact. No focal neurological deficits. Moves all extremities spontaneously.? Skin: No rashes or lesions.? Musculoskeletal: No cyanosis or clubbing. Psychiatric: Normal mood and affect? Objective Data Labs CBC & Chem 7: 02/02/22 09:14 02/02/22 06:22 Labs: Laboratory Results - last 24 hr 02/02/22 02/02/22 02/02/22 06:22 09:14 13:37 WBC 8.8 RBC 3.61 L Hgb 10.3 L Hct 31.7 L MCV 87.8 MCH 28.5 MCHC 32.5 RDW 16.0 Plt Count 37 L MPV Not Reportable Absolute Nucleated RBC 0.000 Nucleated RBC % (auto) 0.0 Smear Path Review SEE NOTE PT INR APTT Fibrinogen D-Dimer High Sensitivty Sodium 141 Potassium 4.0 Chloride 116 H Carbon Dioxide 18 L Anion Gap 11 L BUN 32 H Creatinine 2.50 H Estim Creat Clear Calc 17.8 Estimated GFR 25 Random Glucose 88 Calcium 9.5 Total Bilirubin 0.3 Direct Bilirubin 0.2 AST 12 D ALT < 6 Alkaline Phosphatase 75 D Lactate Dehydrogenase 123 Cancelled Total Protein 5.4 L D Albumin 2.3 L D 02/02/22 13:45 WBC RBC Hgb Hct MCV MCH MCHC RDW Plt Count MPV Absolute Nucleated RBC Nucleated RBC % (auto) Smear Path Review PT 18.8 H INR 1.6 H APTT 26.6 Fibrinogen 491 D-Dimer High Sensitivty 349 Sodium Potassium Chloride Carbon Dioxide Anion Gap BUN Creatinine Estim Creat Clear Calc Estimated GFR Random Glucose Calcium Total Bilirubin Direct Bilirubin AST ALT Alkaline Phosphatase Lactate Dehydrogenase Total Protein Albumin Microbiology Microbiology Results: Microbiology 02/01/22 17:37 Stool Stool Culture - Preliminary Culture in progress. 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 Rec reveiwed and SCr was 1.2 back 06/2021 and then in was at new BSL 1.5 Solitary Kidney oj U/S ( h/o RCC s/p Nephrectomy) Sero studies neg: anca, C3/C4 XIMENA pending 1. 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 Dehydration: diarrhea 4. NAGMA: d/t diarrhea REC: cont IVF until taking PO; check haptoglobin [id number] and peripheral smear; follow UOP/renal func; avoid NToxins check renal labs in am Time Spent With Patient Time: Total time spent is greater than 50% in coordination of care (as documented) at patient's floor/unit and/or counseling patient: Progress Note: Quality Stroke Does the patient have a stroke diagnosis?: No
[2022-02-02 19:33] VITALS: BP 154/73; PULSE 76; RESP 16; TEMP 36.3; O2SAT 97
[2022-02-02] MEDS: 0.9 % Sodium Chloride Flush 3 ML SYRINGE IVFLUSH (20:03)
[2022-02-03] MEDS: Acetaminophen 325 MG TABLET 650 MG PO ×2 (01:00→20:38)
[2022-02-03 06:44] LABS: OBS Int Ctl Valid YES; OBS1 POSITIVE (NEGATIVE)
[2022-02-03 06:46] LABS: Anion Gap 9 (12-20); Blood Urea Nitrogen 31 mg/dL (9-16); Calcium 9.4 mg/dL (8.4-10.2); Carbon Dioxide 19 mmol/L (22-29); Chloride 115 mmol/L (96-108); Estimated Glomerular Filt Rate 27; Glucose Random 81 mg/dL (60-115); Potassium 3.8 mmol/L (3.3-5.1); Sodium 139 mmol/L (135-145)
[2022-02-03 06:48] LABS: Hematocrit 29.1 % (42.0-52.0); Hemoglobin 9.6 g/dl (14.0-18.0); Mean Corpuscular Hemoglobin 28.5 pg (27.0-33.0); Mean Corpuscular Volume 86.4 fL (80.0-98.0); Red Blood Count 3.37 X10*6/uL (4.60-5.80); Red Cell Distribution Width 15.9 % (11.0-16.0); White Blood Count 7.6 X10*3/uL (4.8-10.8)
[2022-02-03 06:50] LABS: Platelet Count 21 X10*3/uL (160-400)
--- NOTE | 2022-02-03 07:36 | PC.NURSE ---
Pt had episode of liquid diarrhea with bright red jelly-like blood. MD made aware. Occult stool ordered, which came back positive, MD made aware. Ricky on hold. Oncoming RN made aware.
[2022-02-03 07:43] VITALS: BP 152/72; PULSE 63; RESP 20; TEMP 36.5; O2SAT 95
[2022-02-03] MEDS: Lactated Ringers 1,000 ML 80 ML IVCONT (09:17)
[2022-02-03] MEDS: Sodium Bicarbonate 650 MG TABLET PO ×2 (09:17→20:33)
[2022-02-03] MEDS: Tamsulosin HCL 0.4 MG CAPSULE PO (09:17)
[2022-02-03] MEDS: Multivitamin TABLET 1 TAB PO (09:17)
[2022-02-03 09:24] LABS: Immature Retic Fraction 7.3 % (2.3-13.4); Retic HGB Equivalent 32.5 pg (30.0-35.0); Reticulocyte Percent 1.6 % (0.5-1.8); Reticulocytes Absolute 0.055 X10*6/uL (0.026-0.095)
[2022-02-03] MEDS: Loperamide HCl 2 MG CAPSULE PO ×3 (10:20→20:33)
--- NOTE | 2022-02-03 10:46 | P.PNNP_ITS ---
Subjective Subjective Date of Service: 02/03/22 Interval history: seen and examined,events noted Physical Exam Vital Signs: Vital Signs: Last Vital Signs Temp 97.7 F 02/03/22 07:43 Pulse 63 02/03/22 07:43 Resp 20 02/03/22 07:43 BP 152/72 H 02/03/22 07:43 Pulse Ox 95 02/03/22 07:43 BMI result Body Mass Index 21.1 Const: Other: Constitutional: Alert, in no distress, generaly weak Mental Status: Oriented to person, place and time. Eyes: Pupils are equal, round and reactive to light. Ear, Nose and Throat: Oropharynx clear, mucous membranes moist. . Trachea midline. Respiratory: Clear to auscultation. No wheezing, rales or rhonchi. Cardiovascular: S1 S2 regular. No murmurs, rubs or gallops. Gastrointestinal: Abdomen soft, non-tender, non-distended. Normal bowel sounds.? Neurologic: Cranial nerves II-XII grossly intact. No focal neurological deficits. Moves all extremities spontaneously.? Skin: No rashes or lesions.? Musculoskeletal: No cyanosis or clubbing. Psychiatric: Normal mood and affect? Objective Data Labs CBC & Chem 7: 02/03/22 05:54 02/03/22 05:54 Labs: Laboratory Results - last 24 hr 01/29/22 02/02/22 02/02/22 10:26 06:22 09:14 WBC RBC Hgb Hct MCV MCH MCHC RDW Plt Count MPV Absolute Nucleated RBC Nucleated RBC % (auto) Smear Path Review SEE NOTE Absolute Retic Percent Retic Immature Retic Fraction Retic Hgb Equivalent PT INR APTT Fibrinogen D-Dimer High Sensitivty Sodium Potassium Chloride Carbon Dioxide Anion Gap BUN Creatinine Estim Creat Clear Calc Estimated GFR Random Glucose Calcium Total Bilirubin 0.3 Direct Bilirubin 0.2 AST 12 D ALT < 6 Alkaline Phosphatase 75 D Lactate Dehydrogenase 123 Total Protein 5.4 L D Albumin 2.3 L D Abnorm Protein Band 1 TNP Abnorm Protein Band 2 TNP Abnorm Protein Band 3 TNP Stool Occult Blood 02/02/22 02/02/22 02/03/22 13:37 13:45 05:54 WBC 7.6 RBC 3.37 L Hgb 9.6 L Hct 29.1 L MCV 86.4 MCH 28.5 MCHC 33.0 RDW 15.9 Plt Count 21 L D MPV Not Reportable Absolute Nucleated RBC 0.000 Nucleated RBC % (auto) 0.0 Smear Path Review Absolute Retic 0.055 Percent Retic 1.6 Immature Retic Fraction 7.3 Retic Hgb Equivalent 32.5 PT 18.8 H INR 1.6 H APTT 26.6 Fibrinogen 491 D-Dimer High Sensitivty 349 Sodium Potassium Chloride Carbon Dioxide Anion Gap BUN Creatinine Estim Creat Clear Calc Estimated GFR Random Glucose Calcium Total Bilirubin Direct Bilirubin AST ALT Alkaline Phosphatase Lactate Dehydrogenase Cancelled Total Protein Albumin Abnorm Protein Band 1 Abnorm Protein Band 2 Abnorm Protein Band 3 Stool Occult Blood 02/03/22 02/03/22 05:54 06:30 WBC RBC Hgb Hct MCV MCH MCHC RDW Plt Count MPV Absolute Nucleated RBC Nucleated RBC % (auto) Smear Path Review Absolute Retic Percent Retic Immature Retic Fraction Retic Hgb Equivalent PT INR APTT Fibrinogen D-Dimer High Sensitivty Sodium 139 Potassium 3.8 Chloride 115 H Carbon Dioxide 19 L Anion Gap 9 L BUN 31 H Creatinine 2.34 H Estim Creat Clear Calc 19.0 Estimated GFR 27 Random Glucose 81 Calcium 9.4 Total Bilirubin Direct Bilirubin AST ALT Alkaline Phosphatase Lactate Dehydrogenase Total Protein Albumin Abnorm Protein Band 1 Abnorm Protein Band 2 Abnorm Protein Band 3 Stool Occult Blood POSITIVE Microbiology Microbiology Results: Microbiology 02/01/22 17:37 Stool Stool Culture - Preliminary Culture in progress. 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 Rec reveiwed and SCr was 1.2 back 06/2021 and then in was at new BSL 1.5 Solitary Kidney oj U/S ( h/o RCC s/p Nephrectomy) Sero studies neg: anca, C3/C4 XIMENA pending 1. Non-Oliguric BLAS: intiially c/w dehydration/renal hypoperfusion but now ques of ATN event; -ques delayed recovery vs new BSL Low PLTs with BLAS does raise ques of TMA ( HUS or TTP) but LDH not elevated, c3/c4 normal and has h/o ITP if aHUS a serious consideration would need kidney Bx whcih would be very c hallenging given: age, solitary kidney and on a.c. 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 Dehydration: diarrhea 4. NAGMA: d/t diarrhea REC: cont IVF until taking PO; check haptoglobin [id number] and peripheral smear; follow UOP/renal func; avoid NToxins will follow with team Time Spent With Patient Time: Total time spent is greater than 50% in coordination of care (as documented) at patient's floor/unit and/or counseling patient: Progress Note: Quality Stroke Does the patient have a stroke diagnosis?: No
[2022-02-03 11:05] VITALS: BP 164/74; PULSE 74; RESP 20; TEMP 36.6; O2SAT 96
[2022-02-03] MEDS: predniSONE 20 MG TABLET 40 MG PO (13:02)
[2022-02-03] MEDS: Omeprazole 20 MG CAPSULE.DR PO (13:02)
[2022-02-03 15:05] VITALS: BP 126/60; PULSE 70; RESP 20; TEMP 37; O2SAT 93
--- NOTE | 2022-02-03 16:38 | HO.PM.IMPN ---
Subjective Subjective Date of Service: 02/03/22 Interval History: ITP , Diarrahe Review of Systems Patient still has diarrhea, noncompliant with loperamide, in addition patient is refusing to eat this morning-says I am going to have diarrhea. Denies any fever or chills or nausea or vomiting or abdominal pain. Physical Exam Vital Signs: Vital Signs: Last Vital Signs Temp 98.6 F 02/03/22 15:05 Pulse 70 02/03/22 15:05 Resp 20 02/03/22 15:05 BP 126/60 02/03/22 15:05 Pulse Ox 93 02/03/22 15:05 BMI result Body Mass Index 21.1 Appearance: Alert.? Oriented X3.? not in distress.? cvs: rrr, [id number] . res: clear to auscultation ,no rhonchii or wheezing abd: no rebound or guarding ,nt, bs present. ext pulses present , no cyanosis . neuro: axo3 , nonfocal. Objective Data Active Medications Acetaminophen (Acetaminophen 325 Mg Tablet) 650 mg PO Q6H PRN PRN Reason: Breakthrough Pain Last Admin: 02/03/22 01:00 Dose: 650 mg Documented by: FREDY Apixaban (Apixaban 2.5 Mg Tablet) 2.5 mg PO BID [facility] Last Admin: 02/03/22 07:24 Dose: Not Given Documented by: FREDY Non-Admin Reason: Physician Held Med Comments: Occult stool positive, per Shivam cordova med Artificial Tears (Artificial Tears 15 Ml Drops) 1 drop EYE-BOTH Q4H PRN PRN Reason: Dryness Last Admin: 01/31/22 19:58 Dose: 1 drop Documented by: MARILOU Loperamide HCl (Loperamide Hcl 2 Mg Capsule) 2 mg PO TID [facility] Multivitamins/Vitamin C (Multivitamin Tablet) 1 tab PO DAILY [facility] Last Admin: 02/03/22 09:17 Dose: 1 tab Documented by: SHARMIN Omeprazole (Omeprazole 20 Mg Capsule.) 20 mg PO DAILY@0630 [facility] Last Admin: 02/03/22 13:02 Dose: 20 mg Documented by: SHARMIN Ondansetron HCl (Ondansetron Hcl 4 Mg/2 Ml Vial) 4 mg IVPUSH Q6H PRN PRN Reason: Nausea and Vomiting Prednisone (Prednisone 20 Mg Tablet) 40 mg PO DAILY [facility] Last Admin: 02/03/22 13:02 Dose: 40 mg Documented by: SHARMIN Sodium Bicarbonate (Sodium Bicarbonate 650 Mg Tablet) 650 mg PO BID [facility] Last Admin: 02/03/22 09:17 Dose: 650 mg Documented by: SHARMIN Sodium Chloride (0.9 % Sodium Chloride Flush 3 Ml Syringe) 3 ml IVFLUSH QSHIFT [facility] Last Admin: 02/03/22 09:18 Dose: Not Given Documented by: SHARMIN Non-Admin Reason: IV Running Tamsulosin HCl (Tamsulosin Hcl 0.4 Mg Capsule) 0.4 mg PO DAILY [facility] Last Admin: 02/03/22 09:17 Dose: 0.4 mg Documented by: SHARMIN Labs CBC & Chem 7: 02/03/22 05:54 02/03/22 05:54 Labs: Laboratory Results - last 24 hr 01/29/22 02/02/22 02/03/22 10:26 13:37 05:54 MCV 86.4 MCH 28.5 MCHC 33.0 RDW 15.9 Plt Count 21 L D MPV Not Reportable Absolute Nucleated RBC 0.000 Nucleated RBC % (auto) 0.0 Absolute Retic 0.055 Percent Retic 1.6 Immature Retic Fraction 7.3 Retic Hgb Equivalent 32.5 Anion Gap Estim Creat Clear Calc Estimated GFR Random Glucose Calcium Lactate Dehydrogenase Cancelled Abnorm Protein Band 1 TNP Abnorm Protein Band 2 TNP Abnorm Protein Band 3 TNP Stool Occult Blood 02/03/22 02/03/22 05:54 06:30 MCV MCH MCHC RDW Plt Count MPV Absolute Nucleated RBC Nucleated RBC % (auto) Absolute Retic Percent Retic Immature Retic Fraction Retic Hgb Equivalent Anion Gap 9 L Estim Creat Clear Calc 19.0 Estimated GFR 27 Random Glucose 81 Calcium 9.4 Lactate Dehydrogenase Abnorm Protein Band 1 Abnorm Protein Band 2 Abnorm Protein Band 3 Stool Occult Blood POSITIVE Microbiology Microbiology Results: Microbiology 02/01/22 17:37 Stool Culture - Preliminary Stool Culture in progress. 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 1/Diarrhea unclear etiology, C dif negative x 2, CT no acut finding -imodium for control, hydrate. GI eval-added stool culture, ova and parasite. patient condition similar to yesterday-Patient still has significant diarrhea, p.o. intake is low, added Zofran for nausea. Patient still generally weak 2/Weakness from diarrha and dehydration, he is doing ok, was able to ambulate in [place] with staff assistance. 3/BLAS on CKD 3--from diarrrhea and decrease oral intake, hydrate and follow renal function which is a bit better. ? Renal US 01/28:Right renal cysts. Largest cyst is a 9 x 7 x 8 cm slightly complex cyst with mobile echogenic debris. Complex appearance or echogenic debris is a new finding compared to previous ultrasound November 2021. 4/h/o stroke on Eliquis--H/H is stable so will continue 5/BPH.. Flomax 6/HLD-statin 7/ITP-platlet count drop but platelet count dropped to 21 added workup : pt/ptt, ddimer , fibrillation, LDH: Reviewed by hematology: Workup so far less likely hus, Retic count normal, haptoglobin pending Currently recommended: Add prednisone, monitor platelet count closely inatient stay-Due to still significant diarrhea, oral intake is poor,blas, still generalized weak,itp worsening-will will continue IV hydration, Imodium, monitor-once oral intake and diarrhea,platlet improves. He comes from [employer] and staff is concern that he is no longer a fit for that place. PT is recommending STR Quality Stroke Does the patient have a stroke diagnosis?: No VTE Prior VTE?: No VTE Risk Level:: Medical - moderate - high VTE Device Contraindication: Treatment Not Indicated VTE Drug Contraindication: N/A - Med Ordered
[2022-02-03] MEDS: 0.9 % Sodium Chloride Flush 3 ML SYRINGE IVFLUSH ×2 (16:59→20:33)
[2022-02-03 19:17] VITALS: BP 118/65; PULSE 96; RESP 20; TEMP 36.9; O2SAT 93
[2022-02-03 23:28] VITALS: BP 138/70; PULSE 67; RESP 17; TEMP 36.7; O2SAT 92
[2022-02-04] MEDS: Omeprazole 20 MG CAPSULE.DR PO (06:08)
[2022-02-04 07:21] LABS: Anion Gap 10 (12-20); Blood Urea Nitrogen 34 mg/dL (9-16); Calcium 8.9 mg/dL (8.4-10.2); Carbon Dioxide 19 mmol/L (22-29); Chloride 112 mmol/L (96-108); Creatinine Clr Calc Pharmacy 17.8; Estimated Glomerular Filt Rate 25; Glucose Random 188 mg/dL (60-115); Potassium 4.1 mmol/L (3.3-5.1); Sodium 137 mmol/L (135-145)
[2022-02-04 07:22] LABS: Hematocrit 29.9 % (42.0-52.0); Hemoglobin 9.9 g/dl (14.0-18.0); Mean Corpuscular HGB Conc 33.1 g/dl (31.0-36.0); Mean Corpuscular Hemoglobin 28.7 pg (27.0-33.0); Mean Corpuscular Volume 86.7 fL (80.0-98.0); Red Blood Count 3.45 X10*6/uL (4.60-5.80); White Blood Count 9.1 X10*3/uL (4.8-10.8)
[2022-02-04 07:23] LABS: Platelet Count 28 X10*3/uL (160-400)
[2022-02-04 07:37] VITALS: BP 146/70; PULSE 60; RESP 19; TEMP 36.2; O2SAT 95
[2022-02-04] MEDS: Sodium Bicarbonate 650 MG TABLET PO ×2 (10:33→21:16)
[2022-02-04] MEDS: 0.9 % Sodium Chloride Flush 3 ML SYRINGE IVFLUSH ×3 (10:33→21:17)
[2022-02-04] MEDS: Loperamide HCl 2 MG CAPSULE PO ×3 (10:33→21:16)
[2022-02-04] MEDS: Tamsulosin HCL 0.4 MG CAPSULE PO (10:33)
[2022-02-04] MEDS: predniSONE 20 MG TABLET 40 MG PO (10:33)
[2022-02-04] MEDS: Multivitamin TABLET 1 TAB PO (10:33)
[2022-02-04 11:18] VITALS: BP 131/61; PULSE 75; RESP 19; TEMP 36.4; O2SAT 97
--- NOTE | 2022-02-04 12:12 | MHC.CLN ---
F/U PT IS SEVERELY MALNOURISHED SEE ALSO FULL CLINICAL NUTRITION ASSESSMENT DATED 01/27/22 PO INTAKE VARIABLE (SEE DETAILS BELOW) DIET RX: REGULAR-APPROPRIATE PT REPORTS HE ATE BREAKFAST TODAY STATED BEST HE HAS EATEN IN 2 MONTHS FOODS INCLUDED PANCAKES, 1/2 OMELET, YOGURT, COFFEE AND ENSURE CLEAR PT RECEPTIVE TO DRINKING ENSURE CLEAR. HOWEVER PT STATED HE REFUSED TO ORDER LUNCH BECAUSE HE WAS GOING TO EAT WHAT HE HAD AT BEDSIDE I.E. SNACKS, MUFFIN, BANANA ENCOURAGED PT TO INCREASE PO AND PO PROTEIN AT THIS TIME STRICTLY MONITOR PO INTAKE IF PO INTAKE <50%; RECOMMEND PPN R/T PROLONGED POOR PO INTAKE AND DX SEVERE MALNUTRITION START D10AA4.25% AT 30ML/HR TO PROVIDE 367KCALS, 31G PROTEIN CONSULT RD VIA TIGER TEXT IF NEEDED
--- NOTE | 2022-02-04 12:51 | P.PNGI_ITS ---
Subjective Subjective Date of Service: 02/04/22 Interval History: no diarrhea overnight Critical Care Time (minutes): 0 Physical Exam Vital Signs: Vital Signs: Last Vital Signs Temp 97.6 F 02/04/22 11:18 Pulse 75 02/04/22 11:18 Resp 19 02/04/22 11:18 BP 131/61 02/04/22 11:18 Pulse Ox 97 02/04/22 11:18 BMI result Body Mass Index 21.1 Const: Other: in no distress GI: Other: abdomen is soft and nontender Objective Data Labs CBC & Chem 7: 02/04/22 06:33 02/04/22 06:33 Microbiology Microbiology Results: Microbiology 02/01/22 17:37 Stool Stool Culture - Final Procedures Date of Service Date of Service: 02/04/22 Progress Note: A&P Assessment and plan (1) Diarrhea: Status: Acute Assessment and Plan: diarrhea improved with scheduled loperamide. titrate dose to avoid constipation. Fall Risk Details Current Medications: Current Medications Acetaminophen (Acetaminophen 325 Mg Tablet) 650 mg PO Q6H PRN PRN Reason: Breakthrough Pain Last Admin: 02/03/22 20:38 Dose: 650 mg Documented by: Apixaban (Apixaban 2.5 Mg Tablet) 2.5 mg PO BID [facility] Last Admin: 02/03/22 07:24 Dose: Not Given Documented by: Artificial Tears (Artificial Tears 15 Ml Drops) 1 drop EYE-BOTH Q4H PRN PRN Reason: Dryness Last Admin: 01/31/22 19:58 Dose: 1 drop Documented by: Loperamide HCl (Loperamide Hcl 2 Mg Capsule) 2 mg PO TID [facility] Last Admin: 02/04/22 10:33 Dose: 2 mg Documented by: Multivitamins/Vitamin C (Multivitamin Tablet) 1 tab PO DAILY [facility] Last Admin: 02/04/22 10:33 Dose: 1 tab Documented by: Omeprazole (Omeprazole 20 Mg Capsule.) 20 mg PO DAILY@0630 [facility] Last Admin: 02/04/22 06:08 Dose: 20 mg Documented by: Ondansetron HCl (Ondansetron Hcl 4 Mg/2 Ml Vial) 4 mg IVPUSH Q6H PRN PRN Reason: Nausea and Vomiting Prednisone (Prednisone 20 Mg Tablet) 40 mg PO DAILY [facility] Last Admin: 02/04/22 10:33 Dose: 40 mg Documented by: Sodium Bicarbonate (Sodium Bicarbonate 650 Mg Tablet) 650 mg PO BID [facility] Last Admin: 02/04/22 10:33 Dose: 650 mg Documented by: Sodium Chloride (0.9 % Sodium Chloride Flush 3 Ml Syringe) 3 ml IVFLUSH QSHIFT [facility] Last Admin: 02/04/22 10:33 Dose: 3 ml Documented by: Tamsulosin HCl (Tamsulosin Hcl 0.4 Mg Capsule) 0.4 mg PO DAILY [facility] Last Admin: 02/04/22 10:33 Dose: 0.4 mg Documented by: Time Spent With Patient Time: Total time spent is greater than 50% in coordination of care (as documented) at patient's floor/unit and/or counseling patient: Time with patient: less than 15 minutes Quality Stroke Does the patient have a stroke diagnosis?: No VTE Prior VTE?: No VTE Risk Level:: Medical - moderate - high VTE Device Contraindication: Treatment Not Indicated VTE Drug Contraindication: N/A - Med Ordered
--- NOTE | 2022-02-04 13:18 | PM.DS ---
DS: Providers Provider Date of Service: 02/07/22 Date of admission: 01/26/22 16:05 Primary care physician: Mauro Smith MD Consults: 01/28/22 10:53 Consult to Nephrology Routine Consulting Provider: Peter Warner Reason for consultation: blas 01/31/22 09:11 Consult to Gastroenterology Routine Consulting Provider: Parag Jacobs Reason for consultation: Chronic diarrhea Has provider been notified: No 02/02/22 12:41 Consult to Hematology / Oncology Routine Consulting Provider: Chhaya James Reason for consultation: ITP, DIARRHAE-? hus Has provider been notified: Yes DS: Diagnosis Discharge Diagnosis (1) Diarrhea: Status: Acute DS: Summary Hospital Course Hospital Course: 86-year-old male with a past medical history of hypertension hyperlipidemia CAD history of CVA, history of Chronic refractory ITP, status post splenectomy in 2019; history of Renal cell carcinoma of left kidney, status post nephrectomy on 03/20/2019.? Stage pT3 pN0. She was seen in Heme onc clinic in follow up and found to be weak, dedhydation and says that she has been having diarrhea for nearly 2 weeks and has seen occasional blood in the stool, foul smelling however C dif negative thus far. No fever or chills. Of note he was recently admitted for CVA on Jan 02 and discharged on Jan 05 with [facility]. Hospital course: Patient was admitted to the hospital because of diarrhea, BLAS, also has ITP: Patient was treated with hydration, encouraged for p.o. intake, stool study was sent: So far stool studies are negative except over and parasites are pending. Patient was seen by GI-diarrhea thought to be less likely infectious in nature, recommended Imodium-patient diarrhea subsequently improved significantly, patient is in eating better, he need constant motivation to eat and hydrate. BLAS: Improved with hydration and patient's p.o. in intake is in improving: Discussed with the nephrology: Patient has creatinine around 2.5 range which might be his new baseline, again patient is lot of encouragement to eat and hydrate, monitor renal function and electrolytes in rehab and further management as per outpatient. US renal: has right renal cysts -Largest cyst is a 9 x 7 x 8 cm slightly complex cyst with mobile echogenic debris. Consider repeating follow-up ultrasound in 1 month outpatient, consider nephrology evaluation if renal function does not improve. ITP flare: Patient was seen by Hematology and Nephrology: Less likely HUS since renal function is stable around 2.5 creatinine and so far workup unrevealing-hepatoglobin and [id number] also sent and pending , Patient received romiplostim, also started on p.o. prednisone hematology -platlets count slowly improving -hematology recommended prednisone for 1 week-monitor CBC, patient may benefit from outpatient hematology follow-up, Dr James may arrange appointment. Patient platelet counts are improving to 50s. Mild leukocytosis: Probably related to steroid use. No fever ,no new symptoms, no diarrhea. Also hematology recommended to hold off Eliquis currently since the platelet count is very low, further use of Eliquis will be decided out patiently with Hematology . Above management discussed with patient and patient's son in detail length-the both understand and in agreement with the above plan, in addition is strongly advised and encouraged patient for p.o. intake, and possible use Ensure t.i.d. since has severe malnutrition, and discussed with him in detail as above . Above was discussed with the patient in detail that his clinically seems improving, he wants conservative management with medications but decided with his adviser (miss julien) to go to [facility], we will honor patient wishes: He wants to continue his medications which are continued including loperamide. He understand and wants to do further conversation about hospice consideration in [facility]. Patient's patient says that he makes his own healthcare decisions with his advisor Ten Nadege, so currently decided to go to [facility], also patient is in conversation with Oncology out patiently for consideration of hospice. Time Spent with Patient Time attestation: Total time spent providing and/or coordinating discharge services: Discharge coordination time: Greater than 30 minutes Quality: Stroke Does the patient have a stroke diagnosis?: No Physical Exam Vital Signs: Vital Signs: Last Vital Signs BP: 152/78 mmhg Pulse:82/min RR: 18/min Temp:98.9*F BMI result Appearance: Alert.? Oriented X3.? not in distress.?generally weak. cvs: rrr, [id number] . res: clear to auscultation ,no rhonchii or wheezing abd: no rebound or guarding ,nt, bs present. ext pulses present , no cyanosis . neuro: axo3 , nonfocal. DS: Data Data Completed and Pending Completed studies during hospitalization [Text1]: Procedures Transfusion of Nonautologous Platelets into Peripheral Vein, Percutaneous Approach (06/11/21) Transfusion of Nonautologous Red Blood Cells into Peripheral Vein, Percutaneous Approach (04/28/21) Labs on day of discharge: Laboratory Results - last 24 hr 02/04/22 02/04/22 06:33 06:33 WBC 9.1 RBC 3.45 L Hgb 9.9 L Hct 29.9 L MCV 86.7 MCH 28.7 MCHC 33.1 RDW 16.0 Plt Count 28 L D MPV Not Reportable Absolute Nucleated RBC 0.000 Nucleated RBC % (auto) 0.0 Sodium 137 Potassium 4.1 Chloride 112 H Carbon Dioxide 19 L Anion Gap 10 L BUN 34 H Creatinine 2.49 H Estim Creat Clear Calc 17.8 Estimated GFR 25 Random Glucose 188 H D Calcium 8.9 Additional Comments Additional comments: CT/CT abdomen pelvis wo con IMPRESSION: Diverticulosis of the colon. No evidence of diverticulitis or colitis. Severe atherosclerotic disease. Evidence of chronic pancreatitis. Right renal cysts. Enlarged prostate gland. Stable changes of chronic pancreatitis.? ? Fleischner guidelines were followed. ?US/US renal BI IMPRESSION: Right renal cysts. Largest cyst is a 9 x 7 x 8 cm slightly complex cyst with mobile echogenic debris. Complex appearance or echogenic debris is a new finding compared to previous ultrasound November 2021. Discharge Plan Discharge Patient Disposition: Xfer [facility] Discharge Diagnosis: Chronic diarrhea,itp flare Referrals: [facility] [Other] - 1 Week Mauro Smith MD [Primary Care Provider] - 1 Week Discharge Medications: New loperamide 2 mg Capsule 2 mg PO TID Qty: 30 0RF prednisone 20 mg Tablet 40 mg PO DAILY Qty: 12 0RF sodium bicarbonate 650 mg Tablet 650 mg PO BID Qty: 14 0RF omeprazole 20 mg Capsule,Delayed Release(Dr/Ec) 20 mg PO DAILY@0630 Qty: 30 0RF melatonin 3 mg capsule 3 mg PO BEDTIME PRN (Reason: sleep) Qty: 10 0RF Continued multivit no.35-ignl-leuyh acid 106.5-1 mg Capsule 1 cap PO DAILY 0RF lutein 20 mg Tablet 20 mg PO DAILY 0RF hawthorn 500 mg Capsule 510 mg PO DAILY 0RF tuifmsbnyke-vusjnnulw-ibq C-Mn [Glucosamine Chondroitin MaxStr] 500-400 mg Capsule 1 cap PO TID 0RF coenzyme Q10 [CoQ-10] 100 mg Capsule 400 mg PO DAILY 0RF garlic Capsule 600 mg PO DAILY 0RF omega-3 fatty acids Capsule 1,600 mg PO DAILY 0RF tamsulosin [Flomax] 0.4 mg capsule 0.4 mg PO DAILY 0RF Held Eliquis 2.5 mg Tablet 2.5 mg PO BID@0600,1800 Qty: 60 0RF Hold Instructions: until seen by hematology Dr James Discharge Orders: Discharge Order (Routine); Ordered 02/07/22 Ordered By: Asif Cruz Diet: advance to usual diet Activity on Discharge: As tolerated Stand Alone Forms: Patient Portal Discharge page Other Ambulatory Orders: Basic Metabolic Panel (Routine) Timeframe: 1 Week Facility: [facility] - Location: Laboratory Ordered By: Asif Cruz Complete Blood Count no Diff (Routine) Timeframe: 1 Week Facility: [facility] - Location: Laboratory Ordered By: Asif Cruz D Dimer High Sensitivity (Stat) Timeframe: 20220202 Facility: [facility] - Location: Laboratory Ordered By: Chhaya James Fibrinogen (Routine) Timeframe: 20220202 Facility: [facility] - Location: Laboratory Ordered By: Chhaya James Lactate Dehydrogenase (Routine) Timeframe: 20220202 Facility: [facility] - Location: Laboratory Ordered By: Chhaya James Prothrombin Time INR (Routine) Timeframe: 20220202 Facility: [facility] - Location: Laboratory Ordered By: Chhaya James Partial Thromboplastin Time (Routine) Timeframe: 20220202 Facility: [facility] - Location: Laboratory Ordered By: Chhaya James Care Plan Goals: Patient was admitted to the hospital because of diarrhea, BLAS, also has ITP: Patient was treated with hydration, encouraged for p.o. intake, stool study was sent: So far stool studies are negative except over and parasites are pending. Patient was seen by GI-diarrhea thought to be less likely infectious in nature, recommended Imodium-patient diarrhea subsequently improved significantly, patient is in eating better, he need constant motivation to eat and hydrate. BLAS: Improved with hydration and patient's p.o. in intake is in improving: Discussed with the nephrology: Patient has creatinine around 2.5 range which might be his new baseline, again patient is lot of encouragement to eat and hydrate, monitor renal function and electrolytes in rehab and further management as per outpatient. ITP flare: Patient was seen by Hematology and Nephrology: Less likely HUS since renal function is stable around 2.5 creatinine and so far workup unrevealing, Patient received romiplostim, also started on p.o. prednisone hematology recommended for 1 week-monitor CBC, patient may benefit from outpatient hematology follow-up, Dr Chhaya James may arrange appointment. last platlets level 56 ( improving slowly). Also hematology recommended to hold off Eliquis currently since the platelet count is very low, further use of Eliquis will be decided out patiently with Hematology . Health Concerns: As above. Plan of Treatment: As above. Assessment: As above. Discharge Date/Time: 02/07/22 12:44
[2022-02-04 15:29] LABS: COVID-19 Test Negative (Negative)
--- NOTE | 2022-02-04 15:56 | P.PNNP_ITS ---
Subjective Subjective Date of Service: 02/04/22 Interval history: seen and examined, events noted Physical Exam Vital Signs: Vital Signs: Last Vital Signs Temp 97.6 F 02/04/22 11:18 Pulse 75 02/04/22 11:18 Resp 19 02/04/22 11:18 BP 131/61 02/04/22 11:18 Pulse Ox 97 02/04/22 11:18 BMI result Body Mass Index 21.1 Const: Other: Constitutional: Alert, in no distress, generaly weak Mental Status: Oriented to person, place and time. Eyes: Pupils are equal, round and reactive to light. Ear, Nose and Throat: Oropharynx clear, mucous membranes moist. . Trachea midline. Respiratory: Clear to auscultation. No wheezing, rales or rhonchi. Cardiovascular: S1 S2 regular. No murmurs, rubs or gallops. Gastrointestinal: Abdomen soft, non-tender, non-distended. Normal bowel sounds.? Neurologic: Cranial nerves II-XII grossly intact. No focal neurological deficits. Moves all extremities spontaneously.? Skin: No rashes or lesions.? Musculoskeletal: No cyanosis or clubbing. Psychiatric: Normal mood and affect? Objective Data Labs CBC & Chem 7: 02/04/22 06:33 02/04/22 06:33 Labs: Laboratory Results - last 24 hr 02/04/22 02/04/22 02/04/22 06:33 06:33 15:00 WBC 9.1 RBC 3.45 L Hgb 9.9 L Hct 29.9 L MCV 86.7 MCH 28.7 MCHC 33.1 RDW 16.0 Plt Count 28 L D MPV Not Reportable Absolute Nucleated RBC 0.000 Nucleated RBC % (auto) 0.0 Sodium 137 Potassium 4.1 Chloride 112 H Carbon Dioxide 19 L Anion Gap 10 L BUN 34 H Creatinine 2.49 H Estim Creat Clear Calc 17.8 Estimated GFR 25 Random Glucose 188 H D Calcium 8.9 COVID-19 (ANNETTE) Negative COVID-19 Clin Com See Note Microbiology Microbiology Results: Microbiology 02/01/22 17:37 Stool Stool Culture - Final Procedures Date of Service Date of Service: 02/04/22 Assessment & Plan Assessment and plan (1) Diarrhea: Status: Acute (2) BLAS (acute kidney injury): Status: Resolved (3) Weakness: Status: Resolved Plan 86 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 Rec reveiwed and SCr was 1.2 back 06/2021 and then in was at new BSL 1.5 Solitary Kidney oj U/S ( h/o RCC s/p Nephrectomy) Sero studies neg: anca, C3/C4 XIMENA pending 1. Non-Oliguric BLAS: intiially c/w dehydration/renal hypoperfusion but now ques of ATN event; -ques delayed recovery vs new BSL Low PLTs with BLAS does raise ques of TMA ( HUS or TTP) but LDH not elevated, c3/c4 normal and has h/o ITP if aHUS a serious consideration would need kidney Bx whcih would be very challenging given: age, solitary kidney and on a.c. another consideration if H misty felt thsi indeed is c/w TMA then consider trial of eculizamab 2.CKD 3b: BSL SCr 1.5-2.0 3. Dehydration: diarrhea 4. NAGMA: d/t diarrhea REC: cont IVF until taking PO; check haptoglobin [id number] and peripheral smear; follow UOP/renal func; avoid NToxins ok to d/c home and f/u as outpt will follow with team Time Spent With Patient Time: Total time spent is greater than 50% in coordination of care (as documented) at patient's floor/unit and/or counseling patient: Progress Note: Quality Stroke Does the patient have a stroke diagnosis?: No
--- NOTE | 2022-02-04 15:57 | MHC.CM.PN ---
spoke with [facility] who does not have a bed till maybe monday and they have to get approval for hospice thur the staff at [facility] ..pt has not been accepted at [facility] ..the bed [facility] at [facility] for today..pt s son/hcp bernardo matamoros [phone] was not Aware of hospice consideration.have called bernardo matamoros many times this afternoon and have been unable to reach him pt has been on the phone with gwendolyn block and case maker for pt in the community t/whas been unable to speak with him that juncture
[2022-02-04 16:00] VITALS: BP 162/77; PULSE 78; RESP 19; TEMP 36.9; O2SAT 96
--- NOTE | 2022-02-04 16:40 | P.PNIM_ITS ---
Subjective Subjective Date of Service: 02/05/22 Interval History: ITP , Diarrahe Review of Systems Diarrhea is improving also ,oral intake is also improving. Platelet also improving Physical Exam Vital Signs: Vital Signs: Last Vital Signs Temp 98.5 F 02/04/22 16:00 Pulse 78 02/04/22 16:00 Resp 19 02/04/22 16:00 BP 162/77 H 02/04/22 16:00 Pulse Ox 96 02/04/22 16:00 BMI result Body Mass Index 21.1 Appearance: Alert.? Oriented X3.? not in distress.? cvs: rrr, [id number] . res: clear to auscultation ,no rhonchii or wheezing abd: no rebound or guarding ,nt, bs present. ext pulses present , no cyanosis . neuro: axo3 , nonfocal. Objective Data Active Medications Acetaminophen (Acetaminophen 325 Mg Tablet) 650 mg PO Q6H PRN PRN Reason: Breakthrough Pain Last Admin: 02/03/22 20:38 Dose: 650 mg Documented by: FREDY Apixaban (Apixaban 2.5 Mg Tablet) 2.5 mg PO BID [facility] Last Admin: 02/03/22 07:24 Dose: Not Given Documented by: FREDY Non-Admin Reason: Physician Held Med Comments: Occult stool positive, per Shivam cordova med Artificial Tears (Artificial Tears 15 Ml Drops) 1 drop EYE-BOTH Q4H PRN PRN Reason: Dryness Last Admin: 01/31/22 19:58 Dose: 1 drop Documented by: MARILOU Loperamide HCl (Loperamide Hcl 2 Mg Capsule) 2 mg PO TID [facility] Last Admin: 02/04/22 15:10 Dose: 2 mg Documented by: SHARMIN Multivitamins/Vitamin C (Multivitamin Tablet) 1 tab PO DAILY [facility] Last Admin: 02/04/22 10:33 Dose: 1 tab Documented by: SHARMIN Omeprazole (Omeprazole 20 Mg Capsule.) 20 mg PO DAILY@0630 [facility] Last Admin: 02/04/22 06:08 Dose: 20 mg Documented by: FREDY Ondansetron HCl (Ondansetron Hcl 4 Mg/2 Ml Vial) 4 mg IVPUSH Q6H PRN PRN Reason: Nausea and Vomiting Prednisone (Prednisone 20 Mg Tablet) 40 mg PO DAILY [facility] Last Admin: 02/04/22 10:33 Dose: 40 mg Documented by: SHARMIN Sodium Bicarbonate (Sodium Bicarbonate 650 Mg Tablet) 650 mg PO BID [facility] Last Admin: 02/04/22 10:33 Dose: 650 mg Documented by: SHARMIN Sodium Chloride (0.9 % Sodium Chloride Flush 3 Ml Syringe) 3 ml IVFLUSH QSHIFT [facility] Last Admin: 02/04/22 15:10 Dose: 3 ml Documented by: SHARMIN Tamsulosin HCl (Tamsulosin Hcl 0.4 Mg Capsule) 0.4 mg PO DAILY [facility] Last Admin: 02/04/22 10:33 Dose: 0.4 mg Documented by: SHARMIN Labs CBC & Chem 7: 02/04/22 06:33 02/04/22 06:33 Labs: Laboratory Results - last 24 hr 02/04/22 02/04/22 02/04/22 06:33 06:33 15:00 MCV 86.7 MCH 28.7 MCHC 33.1 RDW 16.0 Plt Count 28 L D MPV Not Reportable Absolute Nucleated RBC 0.000 Nucleated RBC % (auto) 0.0 Anion Gap 10 L Estim Creat Clear Calc 17.8 Estimated GFR 25 Random Glucose 188 H D Calcium 8.9 COVID-19 (ANNETTE) Negative COVID-19 Clin Com See Note Microbiology Microbiology Results: Microbiology 02/01/22 17:37 Stool Culture - Final Stool Assessment and Plan (1) Thrombocytopenia: Status: Chronic (2) Diarrhea: Status: Acute Plan 86 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 1/Diarrhea unclear etiology, C dif negative x 2, CT no acut finding -imodium for control: Diarrhea seems to be improving GI eval-added stool culture negative, ova and parasite pending Patient's oral oral intake and diarrhea improving Generalized weak 2/BLAS on CKD 3--from diarrrhea and decrease oral intake, hydrate and follow renal function which is a bit better. ? Renal US 01/28:Right renal cysts. Largest cyst is a 9 x 7 x 8 cm slightly complex cyst with mobile echogenic debris. Complex appearance or echogenic debris is a new finding compared to previous ultrasound November 2021. Creatinine is hovering around 2.5 , probably become new baseline. Patient was encouraged to hydrate. And encourage for p.o. intake patient is lot of mot ivation for that. 3/h/o stroke on Eliquis--H/H is stable so will continue 4/BPH.. Flomax 5/HLD-statin 6/ITP-platlet count drop but platelet count improving slowly ,today 28 added workup : pt/ptt, ddimer , fibrillation, LDH:? Reviewed by hematology:? Workup so far less likely hus, Retic count normal, haptoglobin pending Currently recommended:? Continue prednisone,platelets count improving slowly, d/w continue po steriods for 1 week follow up outpatient. 7.severe malnutrition: workforce management analyst following , patient is taking ensure better than before. He comes from [facility] and staff is concern that he is no longer a fit for that place. Discussed with patient and patient family-patient seems to be improving and was planned to sent to rehab but family/employment evaluator/case manager miss caicedo- not decided for rehab, they may decide to appeal for discharge PT is recommending STR Quality Stroke Does the patient have a stroke diagnosis?: No VTE Prior VTE?: No VTE Risk Level:: Medical - moderate - high VTE Device Contraindication: Treatment Not Indicated VTE Drug Contraindication: N/A - Med Ordered
--- NOTE | 2022-02-04 18:34 | MHC.CM.PN ---
LEW received a call from Nadege, community center director at [facility] . Nadege left a message informing LEW that she filed an appeal with Medicare with regards to this patients [place] [facility] Jyotsna Ramirez notified.
[2022-02-04 20:00] VITALS: BP 138/68; PULSE 95; RESP 18; TEMP 37.2; O2SAT 98
[2022-02-04] MEDS: Acetaminophen 325 MG TABLET 650 MG PO (23:10)
[2022-02-05 03:50] VITALS: RESP 18
[2022-02-05] MEDS: Omeprazole 20 MG CAPSULE.DR PO (05:53)
[2022-02-05 08:00] VITALS: BP 150/59; PULSE 51; RESP 20; TEMP 36.8; O2SAT 96
[2022-02-05] MEDS: 0.9 % Sodium Chloride Flush 3 ML SYRINGE IVFLUSH ×3 (09:20→23:49)
[2022-02-05] MEDS: Sodium Bicarbonate 650 MG TABLET PO ×2 (09:21→20:12)
[2022-02-05] MEDS: predniSONE 20 MG TABLET 40 MG PO (09:21)
[2022-02-05] MEDS: Tamsulosin HCL 0.4 MG CAPSULE PO (09:21)
[2022-02-05] MEDS: Multivitamin TABLET 1 TAB PO (09:21)
[2022-02-05] MEDS: Loperamide HCl 2 MG CAPSULE PO ×3 (09:21→20:12)
[2022-02-05] MEDS: Artificial Tears 15 ML DROPS 1 DROP EYE-BOTH (09:23)
--- NOTE | 2022-02-05 09:23 | MHC.CM.PN ---
Addendum entered by Elke Keller 02/06/22 12:53: PT HAS LOST HIS APPEAL WITH [facility] AND MUST DC BY 1200 HOURS Monday02/07/22. CM MESSAGED [facility] TO ENSURE THEY ARE STILL ABLE TO OFFER A BED. IF NOT, PT ALSO HAS BED OFFERS FROM [facility] DEN[facility] HAV[facility] A BED FOR THIS PT ALTHOUGH PTS LPN INSTRUCTOR, NAVID, REPORTS THEY ARE HOLDING A PLACE FOR HIM. Original Note: PER PTS REQUEST, T/W SPOKE TO PTS RECORD TABULATING CLERK, NAVID DICKSON ([phone]) ON 02/04/22 @ APPROXIMATELY 1615 HOURS. SHE WAS INFORMED THAT THE PT WAS CLEARED TO DC AND THAT A DC PLAN SHOULD BE DECIDED ON. SHE REPORTED THE PT HAD A BED AT THE [facility] AND THEY WERE HOLDING IT HOWEVER DID NOT FEEL HE WAS READY TO DC DUE TO HAVING DIARRHEA. CM EXPLAINED THAT THE [facility] HAD BEEN CONTACTED AND DENIED HAVING A BED FOR THIS PT. SHE WAS ALSO INFORMED THAT THE PTS SON AND PT HIMSELF HAD INDICATED THEY WERE NOT AGREEABLE TO HOSPICE AT THIS TIME. PTS SON INDICATED HE BELIEVED THE PT WAS GOING TO STR, SHE WAS REMINDED THE PT HAS A REHAB BED BEING HELD FOR HIM. PER DISCUSSION, NAVID DID NOT AGREE WITH PLAN TO DC. CM EXPLAINED PTS RIGHT TO APPEAL AND PROVIDED DETAILED INSTRUCTIONS ON HOW TO DO SO. P[TS DISCHARGE WAS APPEALED AND CM RECEIVED THE NOTICE FROM [employer] THIS MORNING. ALL REQUESTED DOCUMENTS WERE UPLOADED TO [employer] ( [email or web address]) AT APPROXIMATELY 0915 TODAY. PTS CASE # WITH [employer]: [id number] UPLOAD CONFIRMATION # [id number]
[2022-02-05 11:47] VITALS: BP 147/73; PULSE 78; RESP 20; TEMP 35.9; O2SAT 95
--- NOTE | 2022-02-05 12:33 | P.PNIM_ITS ---
Subjective Subjective Date of Service: 02/06/22 Interval History: itp, diarrahae Review of Systems Says p.o. intake and diarrhea seems to be improving Denies any new chest pain or shortness of breath or abdominal pain or fever or chills Physical Exam Vital Signs: Vital Signs: Last Vital Signs Temp 96.7 F L 02/05/22 11:47 Pulse 78 02/05/22 11:47 Resp 20 02/05/22 11:47 BP 147/73 H 02/05/22 11:47 Pulse Ox 95 02/05/22 11:47 BMI result Body Mass Index 21.1 general: Alert.? Oriented X3.? not in distress.? cvs: rrr, [id number] . res: clear to auscultation ,no rhonchii or wheezing abd: no rebound or guarding ,nt, bs present. ext pulses present , no cyanosis . neuro: axo3 , moves all extermities Objective Data Active Medications Acetaminophen (Acetaminophen 325 Mg Tablet) 650 mg PO Q6H PRN PRN Reason: Breakthrough Pain Last Admin: 02/04/22 23:10 Dose: 650 mg Documented by: LEX Apixaban (Apixaban 2.5 Mg Tablet) 2.5 mg PO BID [facility] Last Admin: 02/03/22 07:24 Dose: Not Given Documented by: FREDY Non-Admin Reason: Physician Held Med Comments: Occult stool positive, per Shivam cordova med Artificial Tears (Artificial Tears 15 Ml Drops) 1 drop EYE-BOTH Q4H PRN PRN Reason: Dryness Last Admin: 02/05/22 09:23 Dose: 1 drop Documented by: SILVIA Loperamide HCl (Loperamide Hcl 2 Mg Capsule) 2 mg PO TID [facility] Last Admin: 02/05/22 09:21 Dose: 2 mg Documented by: SILVIA Multivitamins/Vitamin C (Multivitamin Tablet) 1 tab PO DAILY [facility] Last Admin: 02/05/22 09:21 Dose: 1 tab Documented by: SILVIA Omeprazole (Omeprazole 20 Mg Capsule.) 20 mg PO DAILY@0630 [facility] Last Admin: 02/05/22 05:53 Dose: 20 mg Documented by: LEX Ondansetron HCl (Ondansetron Hcl 4 Mg/2 Ml Vial) 4 mg IVPUSH Q6H PRN PRN Reason: Nausea and Vomiting Prednisone (Prednisone 20 Mg Tablet) 40 mg PO DAILY [facility] Last Admin: 02/05/22 09:21 Dose: 40 mg Documented by: SILVIA Sodium Bicarbonate (Sodium Bicarbonate 650 Mg Tablet) 650 mg PO BID [facility] Last Admin: 02/05/22 09:21 Dose: 650 mg Documented by: SILVIA Sodium Chloride (0.9 % Sodium Chloride Flush 3 Ml Syringe) 3 ml IVFLUSH QSHIFT [facility] Last Admin: 02/05/22 09:20 Dose: 3 ml Documented by: SILVIA Tamsulosin HCl (Tamsulosin Hcl 0.4 Mg Capsule) 0.4 mg PO DAILY [facility] Last Admin: 02/05/22 09:21 Dose: 0.4 mg Documented by: SILVIA Labs CBC & Chem 7: 02/04/22 06:33 02/04/22 06:33 Labs: Laboratory Results - last 24 hr 02/04/22 15:00 COVID-19 (ANNETTE) Negative COVID-19 Clin Com See Note Microbiology Microbiology Results: Microbiology 02/01/22 17:37 Stool Culture - Final Stool Assessment and Plan (1) Thrombocytopenia: Status: Chronic (2) Diarrhea: Status: Acute Plan 86 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 1/Diarrhea unclear etiology, C dif negative x 2, CT no acut finding -imodium for control:? Diarrhea seems to be improving GI eval-added stool culture negative, ova and parasite pending Patient's oral oral intake and diarrhea improving Generalized weak 2/BLAS on CKD 3--from diarrrhea and decrease oral intake, hydrate and follow renal function which is a bit better. ? Renal US 01/28:Right renal cysts. Largest cyst is a 9 x 7 x 8 cm slightly complex cyst with mobile echogenic debris. Complex appearance or echogenic debris is a new finding compared to previous ultrasound November 2021. Creatinine is hovering around 2.5 , probably become new baseline.? Patient was encouraged to hydrate.? And encourage for p.o. intake patient is lot of motivation for that. 3/h/o stroke on Eliquis--H/H is stable so will continue 4/BPH.. Flomax 5/HLD-statin 6/ITP-platlet count drop but platelet count improving slowly ,today 28 added workup : pt/ptt, ddimer , fibrillation, LDH:? Reviewed by hematology:? Workup so far less likely hus, Retic count normal, haptoglobin pending Currently hematology recommended:? hold eliquis,Continue prednisone,platelets count improving slowly, d/w continue po steriods for 1 week follow up outpatient. 7.severe malnutrition: furniture polisher following , patient is taking ensure better than before. ? He comes from [employer] [place] and staff is concern that he is no longer a fit for that pl phil.? Discussed with patient and patient family-patient seems to be improving and was planned to sent to rehab but family/showcase trimmer miss caicedo-? not decided for rehab, they may decide to appeal for discharge above is d/w patient and his field care coordinator as wellas his son in detail . PT is recommending STR Quality Stroke Does the patient have a stroke diagnosis?: No VTE Prior VTE?: No VTE Risk Level:: Medical - moderate - high VTE Device Contraindication: Treatment Not Indicated VTE Drug Contraindication: N/A - Med Ordered
[2022-02-05 13:45] LABS: Haptoglobin 164 mg/dL (43-212)
[2022-02-05 14:31] LABS: ADAMTS13 Activity 0.97 IU/mL (0.68-1.63)
[2022-02-05 15:22] VITALS: BP 137/69; PULSE 67; RESP 18; TEMP 37.1; O2SAT 98
[2022-02-05] MEDS: Acetaminophen 325 MG TABLET 650 MG PO (16:34)
--- NOTE | 2022-02-05 17:36 | PM.PNNEP ---
Subjective Subjective Date of Service: 02/05/22 Interval history: seen and examined, events noted Physical Exam Vital Signs: Vital Signs: Last Vital Signs Temp 98.7 F 02/05/22 15:22 Pulse 67 02/05/22 15:22 Resp 18 02/05/22 15:22 BP 137/69 02/05/22 15:22 Pulse Ox 98 02/05/22 15:22 BMI result Body Mass Index 21.1 Const: Other: Constitutional: Alert, in no distress, generaly weak Mental Status: Oriented to person, place and time. Eyes: Pupils are equal, round and reactive to light. Ear, Nose and Throat: Oropharynx clear, mucous membranes moist. . Trachea midline. Respiratory: Clear to auscultation. No wheezing, rales or rhonchi. Cardiovascular: S1 S2 regular. No murmurs, rubs or gallops. Gastrointestinal: Abdomen soft, non-tender, non-distended. Normal bowel sounds.? Neurologic: Cranial nerves II-XII grossly intact. No focal neurological deficits. Moves all extremities spontaneously.? Skin: No rashes or lesions.? Musculoskeletal: No cyanosis or clubbing. Psychiatric: Normal mood and affect? 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 Rec reveiwed and SCr was 1.2 back 06/2021 and then in was at new BSL 1.5 Solitary Kidney oj U/S ( h/o RCC s/p Nephrectomy) Sero studies neg: anca, C3/C4 XIMENA pending 1. Non-Oliguric BLAS: intiially c/w dehydration/renal hypoperfusion but now ques of ATN event; -ques delayed recovery vs new BSL Low PLTs with BLAS does raise ques of TMA ( HUS or TTP) but LDH not elevated and Hapto not depressed, c3/c4 normal and has h/o ITP all goes agaisnt a TMA if aHUS a serious consideration would need kidney Bx whcih would be very challenging given: age, solitary kidney and on a.c. 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 Dehydration: diarrhea 4. NAGMA: d/t diarrhea REC: cont IVF until taking PO; follow UOP/renal func; avoid NToxins ok to d/c home and f/u as outpt will follow with team Time Spent With Patient Time: Total time spent is greater than 50% in coordination of care (as documented) at patient's floor/unit and/or counseling patient: Progress Note: Quality Stroke Does the patient have a stroke diagnosis?: No
[2022-02-05 19:30] VITALS: BP 160/77; PULSE 82; RESP 18; TEMP 36.6; O2SAT 96
[2022-02-05 23:54] VITALS: BP 146/74; PULSE 70; RESP 18; TEMP 36.4; O2SAT 95
[2022-02-06 04:00] VITALS: BP 132/63; PULSE 53; RESP 18; TEMP 36.6; O2SAT 96
[2022-02-06] MEDS: Omeprazole 20 MG CAPSULE.DR PO (06:36)
--- NOTE | 2022-02-06 07:37 | P.PNIM_ITS ---
Subjective Subjective Date of Service: 02/06/22 Interval History: itp, diarrahae Review of Systems Says p.o. intake and diarrhea seems to be improving Denies any new chest pain or shortness of breath or abdominal pain or fever or chills Physical Exam Vital Signs: Vital Signs: Last Vital Signs Temp 97.8 F 02/06/22 04:00 Pulse 53 02/06/22 04:00 Resp 18 02/06/22 04:00 BP 132/63 02/06/22 04:00 Pulse Ox 96 02/06/22 04:00 BMI result Body Mass Index 21.1 general: Alert.? Oriented X3.? not in distress.? cvs: rrr, [id number] . res: clear to auscultation ,no rhonchii or wheezing abd: no rebound or guarding ,nt, bs present. ext pulses present , no cyanosis . neuro: axo3 , moves all extermities Objective Data Active Medications Acetaminophen (Acetaminophen 325 Mg Tablet) 650 mg PO Q6H PRN PRN Reason: Breakthrough Pain Last Admin: 02/05/22 16:34 Dose: 650 mg Documented by: YESSENIA Apixaban (Apixaban 2.5 Mg Tablet) 2.5 mg PO BID [facility] Last Admin: 02/03/22 07:24 Dose: Not Given Documented by: FREDY Non-Admin Reason: Physician Held Med Comments: Occult stool positive, per Shivam cordova med Artificial Tears (Artificial Tears 15 Ml Drops) 1 drop EYE-BOTH Q4H PRN PRN Reason: Dryness Last Admin: 02/05/22 09:23 Dose: 1 drop Documented by: SILVIA Loperamide HCl (Loperamide Hcl 2 Mg Capsule) 2 mg PO TID [facility] Last Admin: 02/05/22 20:12 Dose: 2 mg Documented by: YESSENIA Multivitamins/Vitamin C (Multivitamin Tablet) 1 tab PO DAILY [facility] Last Admin: 02/05/22 09:21 Dose: 1 tab Documented by: SILVIA Omeprazole (Omeprazole 20 Mg Capsule.) 20 mg PO DAILY@0630 [facility] Last Admin: 02/06/22 06:36 Dose: 20 mg Documented by: CHELSEA Ondansetron HCl (Ondansetron Hcl 4 Mg/2 Ml Vial) 4 mg IVPUSH Q6H PRN PRN Reason: Nausea and Vomiting Prednisone (Prednisone 20 Mg Tablet) 40 mg PO DAILY [facility] Last Admin: 02/05/22 09:21 Dose: 40 mg Documented by: SILVIA Sodium Bicarbonate (Sodium Bicarbonate 650 Mg Tablet) 650 mg PO BID [facility] Last Admin: 02/05/22 20:12 Dose: 650 mg Documented by: YESSENIA Sodium Chloride (0.9 % Sodium Chloride Flush 3 Ml Syringe) 3 ml IVFLUSH QSHIFT [facility] Last Admin: 02/05/22 23:49 Dose: 3 ml Documented by: CHELSEA Tamsulosin HCl (Tamsulosin Hcl 0.4 Mg Capsule) 0.4 mg PO DAILY [facility] Last Admin: 02/05/22 09:21 Dose: 0.4 mg Documented by: SILVIA Labs CBC & Chem 7: 02/04/22 06:33 02/04/22 06:33 Labs: Laboratory Results - last 24 hr 02/02/22 02/03/22 13:36 05:54 Haptoglobin 164 [id number] Activity Intrp 0.97 Assessment and Plan (1) Diarrhea: Status: Acute (2) Thrombocytopenia: Status: Chronic Plan 86 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 1/Diarrhea unclear etiology, C dif negative x 2, CT no acut finding -imodium for control:? Diarrhea seems to be improving GI eval-added stool culture negative, ova and parasite pending Patient's oral oral intake and diarrhea improving Generalized weak 2/BLAS on CKD 3--from diarrrhea and decrease oral intake, hydrate and follow renal function which is a bit better. ? Renal US 01/28:Right renal cysts. Largest cyst is a 9 x 7 x 8 cm slightly complex cyst with mobile echogenic debris. Complex appearance or echogenic debris is a new finding compared to previous ultrasound November 2021. Creatinine is hovering around 2.5 , probably become new baseline.? Patient was encouraged to hydrate.? And encourage for p.o. intake patient is lot of motivation for that. 3/h/o stroke on Eliquis--H/H is stable so will continue 4/BPH.. Flomax 5/HLD-statin 6/ITP-platlet count drop but platelet count improving slowly ,today 28 added workup : pt/ptt, ddimer , fibrillation, LDH:? Reviewed by hematology:? Workup so far less likely hus, Retic count normal, haptoglobin pending Currently hematology recommended:? hold eliquis,Continue prednisone,platelets count improving slowly, d/w continue po steriods for 1 week follow up outpatient. 7.severe malnutrition: mortgage counselor following , patient is taking ensure better than before. ? He comes from [employer] and staff is concern that he is no longer a fit for that place.? Discussed with patient and patient family-patient seems to be improving and was planned to sent to rehab but family/case managers miss caicedo-? not decided for rehab, decide to appeal for discharge above is d/w patient and his director critical care as wellas? his son in detail . PT is recommending STR Quality Stroke Does the patient have a stroke diagnosis?: No VTE Prior VTE?: No VTE Risk Level:: Medical - moderate - high VTE Device Contraindication: Treatment Not Indicated VTE Drug Contraindication: N/A - Med Ordered
[2022-02-06 07:44] VITALS: BP 144/68; PULSE 53; RESP 20; TEMP 35.9; O2SAT 97
[2022-02-06] MEDS: Tamsulosin HCL 0.4 MG CAPSULE PO (08:23)
[2022-02-06] MEDS: 0.9 % Sodium Chloride Flush 3 ML SYRINGE IVFLUSH ×2 (08:23→18:00)
[2022-02-06] MEDS: Multivitamin TABLET 1 TAB PO (08:23)
[2022-02-06] MEDS: Sodium Bicarbonate 650 MG TABLET PO ×2 (08:23→21:25)
[2022-02-06] MEDS: predniSONE 20 MG TABLET 40 MG PO (08:23)
[2022-02-06 11:51] VITALS: BP 149/75; PULSE 69; RESP 20; TEMP 35.6; O2SAT 95
[2022-02-06 15:31] VITALS: BP 150/81; PULSE 87; RESP 18; TEMP 37.1; O2SAT 98
--- NOTE | 2022-02-06 17:10 | PM.PNNEP ---
Subjective Subjective Date of Service: 02/06/22 Interval history: seen and examined, events noted Physical Exam Vital Signs: Vital Signs: Last Vital Signs Temp 98.7 F 02/06/22 15:31 Pulse 87 02/06/22 15:31 Resp 18 02/06/22 15:31 BP 150/81 H 02/06/22 15:31 Pulse Ox 98 02/06/22 15:31 BMI result Body Mass Index 21.1 Const: Other: Constitutional: Alert, in no distress, generaly weak Mental Status: Oriented to person, place and time. Eyes: Pupils are equal, round and reactive to light. Ear, Nose and Throat: Oropharynx clear, mucous membranes moist. . Trachea midline. Respiratory: Clear to auscultation. No wheezing, rales or rhonchi. Cardiovascular: S1 S2 regular. No murmurs, rubs or gallops. Gastrointestinal: Abdomen soft, non-tender, non-distended. Normal bowel sounds.? Neurologic: Cranial nerves II-XII grossly intact. No focal neurological deficits. Moves all extremities spontaneously.? Skin: No rashes or lesions.? Musculoskeletal: No cyanosis or clubbing. Psychiatric: Normal mood and affect? 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 Rec reveiwed and SCr was 1.2 back 06/2021 and then in was at new BSL 1.5 Solitary Kidney oj U/S ( h/o RCC s/p Nephrectomy) Sero studies neg: anca, C3/C4 XIMENA pending 1. Non-Oliguric BLAS: intiially c/w dehydration/renal hypoperfusion but now ques of ATN event; -ques delayed recovery vs new BSL Low PLTs with BLAS does raise ques of TMA ( HUS or TTP) but LDH not elevated and Hapto not depressed, c3/c4 normal and has h/o ITP all goes agaisnt a TMA if aHUS a serious consideration would need kidney Bx whcih would be very challenging given: age, solitary kidney and on a.c. 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 Dehydration: diarrhea 4. NAGMA: d/t diarrhea REC: no new recs; cont IVF until taking PO; follow UOP/renal func; avoid NToxins ok to d/c home and f/u as outpt will follow with team Time Spent With Patient Time: Total time spent is greater than 50% in coordination of care (as documented) at patient's floor/unit and/or counseling patient: Progress Note: Quality Stroke Does the patient have a stroke diagnosis?: No
[2022-02-06] MEDS: Acetaminophen 325 MG TABLET 650 MG PO (19:00)
[2022-02-06 19:47] VITALS: BP 157/67; PULSE 76; RESP 18; TEMP 37.1; O2SAT 98
[2022-02-07] VITALS: BP 144/61; PULSE 52; RESP 19; TEMP 37.1; O2SAT 94
[2022-02-07] MEDS: 0.9 % Sodium Chloride Flush 3 ML SYRINGE IVFLUSH ×2 (00:52→09:42)
[2022-02-07 04:00] VITALS: BP 152/80; PULSE 51; RESP 20; TEMP 37.3; O2SAT 95
[2022-02-07] MEDS: Omeprazole 20 MG CAPSULE.DR PO (05:15)
[2022-02-07 05:58] LABS: Hematocrit 28.1 % (42.0-52.0)
[2022-02-07 06:00] LABS: Hemoglobin 9.1 g/dl (14.0-18.0); Mean Corpuscular HGB Conc 32.4 g/dl (31.0-36.0); Mean Corpuscular Hemoglobin 28.6 pg (27.0-33.0); Mean Corpuscular Volume 88.4 fL (80.0-98.0); NRBC Pct Auto 0.2 /100WBC (0.0-0.2); Red Blood Count 3.18 X10*6/uL (4.60-5.80); Red Cell Distribution Width 16.2 % (11.0-16.0); White Blood Count 13.2 X10*3/uL (4.8-10.8)
[2022-02-07 06:01] LABS: Platelet Count 56 X10*3/uL (160-400)
[2022-02-07 06:02] LABS: PLT ABN DIST 1
[2022-02-07 07:29] VITALS: BP 141/71; PULSE 56; RESP 19; TEMP 37.1; O2SAT 96
[2022-02-07] MEDS: Sodium Bicarbonate 650 MG TABLET PO (09:42)
[2022-02-07] MEDS: Tamsulosin HCL 0.4 MG CAPSULE PO (09:42)
[2022-02-07] MEDS: predniSONE 20 MG TABLET 40 MG PO (09:42)
[2022-02-07] MEDS: Loperamide HCl 2 MG CAPSULE PO (09:42)
[2022-02-07] MEDS: Multivitamin TABLET 1 TAB PO (09:42)
[2022-02-07 10:28] LABS: COVID-19 Test Negative (Negative)
[2022-02-07 11:10] VITALS: BP 152/78; PULSE 82; RESP 18; TEMP 37.2
--- NOTE | 2022-02-07 11:22 | MHC.CM.PN ---
pt has decieded on [facility] ,called and confirmed bed is avliable for pt ..gwendolyn wylie be transporting pt at 11:30 covid neg
--- NOTE | 2022-02-07 11:51 | PM.PNNEP ---
Subjective Subjective Date of Service: 02/07/22 Interval history: seen and examined, events noted. All recent data reviewed Physical Exam Vital Signs: Vital Signs: Last Vital Signs Temp 98.9 F 02/07/22 11:10 Pulse 82 02/07/22 11:10 Resp 18 02/07/22 11:10 BP 152/78 H 02/07/22 11:10 Pulse Ox 96 02/07/22 07:29 BMI result Body Mass Index 21.1 Const: General: no acute distress Orientation/consciousness: patient oriented x3 Eyes: EOM: EOMs intact bilaterally Resp: Auscultation: diminished lung sounds Cardio: Rate: regular rate GI: Palpation (GI): Soft to palpation Neuro: General: patient oriented x3 and moves all extremities Objective Data Labs CBC & Chem 7: 02/07/22 05:44 02/04/22 06:33 Labs: Laboratory Results - last 24 hr 02/02/22 02/07/22 02/07/22 13:36 05:44 09:40 WBC 13.2 H RBC 3.18 L Hgb 9.1 L Hct 28.1 L MCV 88.4 MCH 28.6 MCHC 32.4 RDW 16.2 H Plt Count 56 L D MPV Not Reportable Absolute Nucleated RBC 0.030 H Nucleated RBC % (auto) 0.2 [id number] Inhibitor TNP COVID-19 (ANNETTE) Negative COVID-19 Clin Com See Note Microbiology Microbiology Results: Microbiology 02/01/22 17:37 Stool Stool Culture - Final Procedures Date of Service Date of Service: 02/07/22 Assessment & Plan Assessment and plan (1) Chronic renal insufficiency: Status: Acute Assessment and Plan: 86 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
--- NOTE | 2022-02-07 12:21 | MHC.HEMONC ---
I spoke with pt in Inpatient room for 30 minutes this morning to discuss his plans for discharge. Staff said that he had not made decision re: [facility] vs [facility]. He was able to clearly articulate the differences between SNF (plus rehab) and Hospice. He understands hospice will not allow for lab testing and n-Plate injections as well as f/u with MDs or hospitalization. Pt has not been satisfied while in the hospital I have not slept more than two hours per night . He has been seen by several Specialists but does not feel better. He admits he is eating a bit more and not suffering from loose stools like he had been. He has not been ambulating. He had decided that hospice is more aligned with his wishes re: his healthcare right now. He will be speaking to gwendolyn and his son re: his wishes and is meeting with Gear Nicker upon my leaving his room. Dr James advised about my visit with Jean.
== END 2022-02-07 12:44 | disposition skilled nursing facility (03) | DRG 682 ==
LOC: HO.S3 16:13 → HO.IMC 16:22
PROVIDERS: Internal Medicine; Internal Medicine Hypertension Specialist; Admitting Provider Internal Medicine; PCP Internal Medicine; Visit Provider Internal Medicine
DX: N17.9 Acute kidney failure, unspecified (principal); M31.10 Thrombotic microangiopathy, unspecified; E43 Unspecified severe protein-calorie malnutrition; D69.3 Immune thrombocytopenic purpura; N18.4 Chronic kidney disease, stage 4 (severe); N40.0 Benign prostatic hyperplasia without lower urinary tract symptoms; E78.5 Hyperlipidemia, unspecified; E86.0 Dehydration; N28.1 Cyst of kidney, acquired; R19.7 Diarrhea, unspecified; I25.10 Atherosclerotic heart disease of native coronary artery without angina pectoris; Z90.5 Acquired absence of kidney; Z85.528 Personal history of other malignant neoplasm of kidney; Z86.73 Personal history of transient ischemic attack (TIA), and cerebral infarction without residual deficits; Z20.822 Contact with and (suspected) exposure to COVID-19; Z87.891 Personal history of nicotine dependence; Z79.01 Long term (current) use of anticoagulants; Z79.899 Other long term (current) drug therapy; Z68.21 Body mass index [BMI] 21.0-21.9, adult
CPT/HCPCS: 36415; 74176; 76775; 80048; 80076; 82272; 83010; 83520; 83615; 84165; 85027; 85045; 85335; 85379; 85384; 85397; 85610; 85730; 86021; 86160; 87045; 87046; 87177; 87209; 87493; 87635; 92610; 97110; 97116; 97162; J2796